=== PATIENT | female | born 1950 | race Caucasian/White ===

== ENCOUNTER 2023-03-21 14:50 | Emergency (ER) | payer MEDICARE, SELFPAY ==
[2023-03-21] VITALS (22 sets, daily range): BP systolic 156–160; BP diastolic 92–96; PULSE 84–102; RESP 10–24; TEMP 36.8; O2SAT 93–97; BMI 24.8
--- NOTE | 2023-03-21 14:59 | ECG_ITS ---
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
--- NOTE | 2023-03-21 15:00 | ED_ITS ---
HPI - Back Pain/Injury General Chief Complaint: Back Pain/Injury Time Seen by Provider: 03/21/23 15:00 Source: patient Mode of arrival: ambulance Limitations: no limitations History of Present Illness HPI Narrative: pt presents to the emergency department complaining of upper back pain. She states the left flank and abdomen have been hurting her. She is not sure if he has to do with her abdomen or her heart. Patient is. Anxious and hyperventilating. She states she has not taking anything at home for the pain. She states she had intermittent pain to her abdomen for 2 years. 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 Since she has a colostomy reversal she's had a lot of pain and has not had any answers from all of her specialists. She denies any hematuria, dysuria. She denies any fever, chills, cough, shortness of breath. denies any paresthesias, or weakness.She denies any trauma. She states she feels nauseated and has been tasting stool in her mouth. She has not been vomiting. She denies any diarrhea, or constipation. Related Data Allergies Allergy/AdvReac Type Severity Reaction Status Date / Time promethazine [From Phenergan] Allergy Severe swellilng Verified 03/21/23 14:54 Review of Systems ROS Status of ROS 10 or more systems reviewed and unremarkable except as noted in history and below [facility] Social History Smoking status: Former smoker Exam Narrative Exam Narrative: Nurses notes and vital signs reviewed and patient is not hypoxic. General: Nontoxic, hyperventilating and anxious Skin: Warm, dry, no pallor noted. No Rash Head: Normocephalic, atraumatic. Neck: Supple, non-tender. Eye: Pupils are equal, round and EOMI. No scleral icterus. Ears, Nose, Mouth, and Throat: TM clear, no posterior oropharynx erythema or nasal mucosal hypertrophy, uvula is mid-line Oral mucosa is moist Cardiovascular: Regular Rate and Rhythm without murmur, gallop or rub. Respiratory: No accessory muscle use or respiratory distress. Lungs are clear to auscultation, no wheezing, rales or rhonchi Chest Wall: no tenderness Back: No midline thoracic or lumbar vertebral tenderness. Tenderness to the left thoracic paraspinal muscles and lumbar spine muscles bilaterally. There is no ecchymosis, no erythema, no crepitance, no signs of trauma, or infection. There are no step-offs. There no rashes.No CVA tenderness Musculoskeletal: normal ROM, no calf or popliteal tenderness, no lower ext remity edema/swelling GI: Abdomen is soft, non-distended. Normal bowel sounds. No masses appreciated. LLQ tenderness to palpation. No rebound, guarding, or rigidity noted. Neurological: A&O x4. No cranial nerve dysfunction observed. No truncal ataxia. Moves all extremities. Sensation intact. Psychiatric: Cooperative and interactive. anxious Constitutional Vital Signs, click to edit/add: Last Vital Signs Temp 98.3 F 03/21/23 14:54 Pulse 90 03/21/23 18:10 Resp 24 03/21/23 18:10 BP 156/96 H 03/21/23 14:54 Pulse Ox 96 03/21/23 17:30 O2 Del Method Room Air 03/21/23 14:54 Course Vital Signs Vital signs: Vital Signs Temperature 98.3 F 03/21/23 14:54 Pulse Rate 102 H 03/21/23 14:54 Respiratory Rate 17 03/21/23 14:54 Blood Pressure 156/96 H 03/21/23 14:54 Pulse Oximetry 94 L 03/21/23 14:54 Oxygen Delivery Method Room Air 03/21/23 14:54 Temperature 98.3 F 03/21/23 14:54 Pulse Rate 90 03/21/23 18:10 Respiratory Rate 24 03/21/23 18:10 Blood Pressure 156/96 H 03/21/23 14:54 Pulse Oximetry 96 03/21/23 17:30 Oxygen Delivery Method Room Air 03/21/23 14:54 MDM - Back Pain/Injury MDM Narrative Medical decision making narrative: On arrival patient was extremely anxious. She was given 1 mg of Ativan IV which helped her symptoms. IV was established lab work was ordered. Patient continued to complain of her abdomen hurting. CT scan abdomen and pelvis was ordered. The patient will be signed out at the end of my shift to Dr. burroughs awaiting CT scan results, reevaluation, and disposition. Differential Diagnosis Differential diagnosis: Likely thoracic back pain Lab Data Attestation: I reviewed the patient's lab results. Labs: Lab Results 03/21/23 03/21/23 Range/Units 15:26 15:38 WBC 9.9 (4.0-11.0) 10^3/uL RBC 5.65 H (4.20-5.40) 10^6/uL Hgb 15.9 (12.0-16.0) g/dL Hct 47.1 (36.0-48.0) % MCV 83.4 (81.0-99.0) fL MCH 28.1 (26.7-34.0) pg MCHC 33.8 (29.9-35.2) g/dL RDW 13.6 (11.0-15.0) % Plt Count 293 (150-450) 10^3/uL MPV 9.2 L (9.5-13.5) fL Neut % (Auto) 54.0 (43.0-75.0) % Lymph % (Auto) 32.0 (20.5-60.0) % Boyd % (Auto) 8.5 (1.7-12.0) % Eos % (Auto) 4.3 (0.9-7.0) % Baso % (Auto) 0.7 (0.2-2.0) % Neut # (Auto) 5.3 (1.4-6.5) 10^3/uL Lymph # (Auto) 3.2 (1.2-3.8) 10^3/uL Boyd # (Auto) 0.8 (0.3-0.8) 10^3/uL Eos # (Auto) 0.4 (0.0-0.7) 10^3/uL Baso # (Auto) 0.1 (0.0-0.1) 10^3/uL Abs Immat Gran (auto) 0.05 H (0.00-0.03) 10^3/uL Imm/Tot Granulo (auto) 0.5 (0.0-0.5) % Sodium 137 (136-145) mmol/L Potassium 4.2 (3.5-5.1) mmol/L Chloride 102 (98-107) mmol/L Carbon Dioxide 23.0 (21.0-32.0) mmol/L Anion Gap 16.2 BUN 25.0 H (7.0-18.0) mg/dL Creatinine 1.10 H (0.55-1.02) mg/dL Est GFR ( Amer) 59 L (>=60) Est GFR (Non-Af Amer) 49 L (>=60) BUN/Creatinine Ratio 22.7 Glucose 108 H (74-106) mg/dL Calcium 10.0 (8.5-10.1) mg/dL Magnesium 2.1 (1.8-2.4) mg/dL Troponin I High Sens 16.7 (4.0-51.3) pg/mL Urine Color Yellow (YELLOW) Urine Clarity Clear (CLEAR) Urine pH 6.0 (5.0-9.0) Ur Specific [place] 1.025 (1.005-1.025) Urine Protein 30 A (NEG/TRACE) mg/dL Urine Glucose (UA) Negative (NEGATIVE) mg/dL Urine Ketones Negative (NEGATIVE) mg/dL Urine Occult Blood Negative (NEGATIVE) Urine Nitrite Negative (NEGATIVE) Urine Bilirubin Negative (NEGATIVE) Urine Urobilinogen 0.2 (0.2-1.0) EU/dL Ur Leukocyte Esterase Small A (NEGATIVE) POC Glucose 109 H (74-106) mg/dL ECG Data Attestation: I personally reviewed and interpreted this ECG as follows: Discharge Plan Discharge Chief Complaint: Back Pain/Injury Clinical Impression: Acute left flank pain, Thoracic back pain, Abdominal pain Referrals: ROBERTH WATTS [Primary Care Provider] - 1 week
[2023-03-21 15:39] LABS: Glucometer 109 mg/dL (74-106)
[2023-03-21] MEDS: 0.9 % SODIUM CHLORIDE 1,000 ML 999 ML IV (15:39)
[2023-03-21] MEDS: LORAZEPAM 2 MG/ML 1 ML VIAL 1 MG IV (15:39)
[2023-03-21 16:02] LABS: Basophils Absolute Auto 0.1 10^3/uL (0.0-0.1); Basophils Percent Auto 0.7 % (0.2-2.0); Eosinophils Absolute Auto 0.4 10^3/uL (0.0-0.7); Eosinophils Percent Auto 4.3 % (0.9-7.0); Hematocrit 47.1 % (36.0-48.0); Hemoglobin 15.9 g/dL (12.0-16.0); Immature Granulocytes Abs Auto 0.05 10^3/uL (0.00-0.03); Immature Granulocytes Pct Auto 0.5 % (0.0-0.5); Lymphocytes Absolute Auto 3.2 10^3/uL (1.2-3.8); Mean Corpuscular HGB Conc 33.8 g/dL (29.9-35.2); Mean Corpuscular Hemoglobin 28.1 pg (26.7-34.0); Mean Corpuscular Volume 83.4 fL (81.0-99.0); Mean Platelet Volume 9.2 fL (9.5-13.5); Monocytes Absolute Auto 0.8 10^3/uL (0.3-0.8); Monocytes Percent Auto 8.5 % (1.7-12.0); Neutrophils Absolute Auto 5.3 10^3/uL (1.4-6.5); Platelet Count 293 10^3/uL (150-450); Red Blood Count 5.65 10^6/uL (4.20-5.40); Red Cell Distribution Width 13.6 % (11.0-15.0); White Blood Count 9.9 10^3/uL (4.0-11.0)
[2023-03-21 16:20] LABS: Anion Gap 16.2; BUN Creatinine Ratio 22.7; Bilirubin Urine NEGATIVE (NEGATIVE); Blood Urine NEGATIVE (NEGATIVE); Chloride 102 mmol/L (98-107); Clarity Urine CLEAR (CLEAR); Color Urine YELLOW (YELLOW); Estimated GFR (African America 59 (>=60); Estimated GFR (Non-African Ame 49 (>=60); Glucose 108 mg/dL (74-106); Glucose Urine UA NEGATIVE (NEGATIVE); Ketones Urine NEGATIVE (NEGATIVE); Leukocyte Esterase Urine SMALL (NEGATIVE); Magnesium 2.1 mg/dL (1.8-2.4); Nitrite Urine NEGATIVE (NEGATIVE); Potassium 4.2 mmol/L (3.5-5.1); Protein Urine 30 mg/dL (NEG/TRACE); Sodium 137 mmol/L (136-145); Specific Gravity Urine 1.025 (1.005-1.025); Troponin I High Sensitivity 16.7 pg/mL (4.0-51.3); Urobilinogen Urine 0.2 EU/dL (0.2-1.0)
--- NOTE | 2023-03-21 17:46 | CT_ITS ---
[address] [address] Patient Name: TERESA ANDRE MRN: [id number] date: 1950 Sex: F Assigned Patient Location: ER Current Patient Location: Accession/Order Number: [id number] Exam Date: 03/21/2023 16:40 Report Date: 03/21/2023 19:46 At the request of: LOBITO VIERA Procedure: CT abdomen pelvis wo con EXAM: CT abdomen pelvis wo con TECHNIQUE: Axial CT images were obtained of the abdomen and pelvis without intravenous contrast. Sagittal and coronal reformatted images were also obtained. Dose reduction techniques were achieved by using automated exposure control and/or adjustment of mA and/or kV according to patient size and/or use of iterative reconstruction technique. HISTORY: abd pain COMPARISON: 08/20/2012 FINDINGS: Lower chest: The lower lungs are clear. Liver: The liver is homogeneous with normal contours and normal size. Gallbladder: The gallbladder is unremarkable. There is no intra or extrahepatic biliary dilatation. Pancreas: The pancreas is homogeneous without evidence for mass lesion or inflammation. 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 Adrenal glands: The adrenal glands are unremarkable Kidneys and bladder: The kidneys are unremarkable with no evidence for mass lesion, hydronephrosis or inflammation. The ureters demonstrate normal caliber. The urinary bladder is unremarkable. GI Tract: Stomach is unremarkable. Visualized small bowel is unremarkable without evidence for obstruction or active inflammation. The appendix is unremarkable.The visualized portion of the large bowel is unremarkable. Reproductive: The uterus has been removed. Lymph nodes: Mild right groin lymphadenopathy measuring up to 17 mm short axis, similar in size to 08/20/2012. Vascular: The aorta is not dilated. Peritoneum: No free intraperitoneal air or fluid. No acute inflammation. Abdominal wall: Unremarkable without acute abnormality. CT/CT abdomen pelvis wo con IMPRESSION: No acute inflammatory process. No obstructing urinary tract stone. No evidence for bowel obstruction. Low-attenuation mass of the spleen, increased in size from 2012. Question a complex cyst or hemangioma. Pre and postcontrast MRI of the abdomen is recommended for additional evaluation. Stable mild right groin and right iliac chain lymphadenopathy. Electronically authenticated by: JESSY STEVENS Date: 03/21/2023 19:46
[2023-03-21] MEDS: TRAMADOL HCL 50 MG TABLET PO (21:48)
== END 2023-03-21 23:33 | disposition home or self-care (01) ==
PROVIDERS: Emergency Provider Emergency Medicine; PCP Family Medicine
DX: M54.6 Pain in thoracic spine (principal); R10.9 Unspecified abdominal pain; N17.9 Acute kidney failure, unspecified; D18.03 Hemangioma of intra-abdominal structures; Z87.891 Personal history of nicotine dependence
CPT/HCPCS: 36415; 74176; 80048; 81003; 83735; 84484; 85025; 93005; 96374; 99285

== ENCOUNTER 2023-03-30 12:05 | Emergency (ER) | payer MEDICARE, SELFPAY ==
[2023-03-30 12:10] VITALS: BP 142/70; PULSE 101; RESP 18; TEMP 36.8; O2SAT 95; BMI 21.3
--- NOTE | 2023-03-30 12:25 | ECG_ITS ---
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
[2023-03-30 12:55] LABS: Basophils Absolute Auto 0.1 10^3/uL (0.0-0.1); Basophils Percent Auto 0.4 % (0.2-2.0); Eosinophils Absolute Auto 0.3 10^3/uL (0.0-0.7); Eosinophils Percent Auto 2.9 % (0.9-7.0); Hemoglobin 16.5 g/dL (12.0-16.0); Immature Granulocytes Abs Auto 0.06 10^3/uL (0.00-0.03); Immature Granulocytes Pct Auto 0.5 % (0.0-0.5); Lymphocytes Absolute Auto 2.8 10^3/uL (1.2-3.8); Lymphocytes Percent Auto 25.1 % (20.5-60.0); Mean Corpuscular HGB Conc 34.4 g/dL (29.9-35.2); Mean Corpuscular Hemoglobin 28.4 pg (26.7-34.0); Mean Corpuscular Volume 82.8 fL (81.0-99.0); Monocytes Absolute Auto 0.8 10^3/uL (0.3-0.8); Monocytes Percent Auto 6.7 % (1.7-12.0); Neutrophils Absolute Auto 7.2 10^3/uL (1.4-6.5); Neutrophils Percent Auto 64.4 % (43.0-75.0); Platelet Count 284 10^3/uL (150-450); Red Cell Distribution Width 13.6 % (11.0-15.0); White Blood Count 11.2 10^3/uL (4.0-11.0)
[2023-03-30 13:07] LABS: INR 0.97; Prothrombin Time 10.3 sec (9.0-11.6)
[2023-03-30 13:21] LABS: Alanine Aminotransferase 32 U/L (14-59); Albumin Globulin Ratio 1.1; Albumin Level 4.4 g/dL (3.4-5.0); Alkaline Phosphatase 98 U/L (46-116); Anion Gap 17.2; Aspartate Amino Transferase 27 U/L (15-37); BUN Creatinine Ratio 16.4; Bilirubin Total 0.5 mg/dL (0.2-1.0); Calcium 9.5 mg/dL (8.5-10.1); Carbon Dioxide 22.9 mmol/L (21.0-32.0); Chloride 102 mmol/L (98-107); Estimated GFR (African America 52 (>=60); Estimated GFR (Non-African Ame 43 (>=60); Globulin 3.9 g/dL; Glucose 153 mg/dL (74-106); Potassium 4.1 mmol/L (3.5-5.1); Sodium 138 mmol/L (136-145); Total Protein 8.3 g/dL (6.4-8.2); Troponin I High Sensitivity 17.3 pg/mL (4.0-51.3)
--- NOTE | 2023-03-30 13:43 | CT_ITS ---
The [address] [address] Patient Name: TERESA ANDRE MRN: [id number] date: 1950 Sex: F Assigned Patient Location: ER Current Patient Location: ER Accession/Order Number: [id number] Exam Date: 03/30/2023 14:00 Report Date: 03/30/2023 14:42 At the request of: WINSOME VILLATORO Procedure: CT abdomen pelvis wo con EXAM: CT abdomen pelvis wo con HISTORY: abd pain COMPARISON: 03/21/2023 TECHNIQUE: Axial CT images were obtained of the abdomen and pelvis without intravenous contrast. Multiplanar reconstructions were performed. ABDOMEN/PELVIS FINDINGS: Lower Chest: Unremarkable. Liver: Hepatic steatosis is present. Biliary/Gallbladder: Unremarkable. Pancreas: Unremarkable. Spleen: Hypodense lesion is again noted in the spleen measuring approximately 2.9 cm. Adrenal Glands: Unremarkable. Kidneys: Unremarkable. Gastrointestinal/Peritoneum: No acute abnormality. Mild colonic diverticulosis is present. The appendix is unremarkable. No free air or free fluid. Vascular: Postoperative changes are present of an aorto biiliac bypass graft. Lymph Nodes: There is an enlarged right inguinal lymph node measuring 1.8 cm in short axis. A right distal external iliac chain lymph node is also enlarged measuring 1.6 cm. Multiple prominent lymph nodes are also present more proximally in the right iliac chain. Pelvic Organs: Prior hysterectomy. Bladder: Unremarkable. Bones: No acute osseous abnormality. Soft tissues: Postoperative changes are present to the anterior abdominal wall with an abdominal wall defect present. There is a fat-containing anterior abdominal wall hernia present measuring 4.[address]/CT abdomen pelvis wo con IMPRESSION: 1. No acute abnormality of the abdomen and pelvis. 2. Stable lymphadenopathy in the right inguinal and iliac chain regions. 3. Hepatic steatosis. 4. Hypodense lesion again noted in the spleen measuring approximately 2.9 cm. 5. Prior hysterectomy. 6. Mild colonic diverticulosis. 7. Aortobiiliac bypass graft. Electronically authenticated by: FRANCISCO VERDE Date: 03/30/2023 14:42
[2023-03-30] MEDS: MORPHINE SULFATE 2 MG/ML SYRINGE IV (13:51)
[2023-03-30] MEDS: 0.9 % SODIUM CHLORIDE 1,000 ML 1000 ML IV (14:37)
--- NOTE | 2023-03-30 15:19 | ED.ABDPAIN1 ---
HPI - Abdominal Pain General Chief Complaint: Abdominal Pain Stated Complaint: STOMACH/ABDOMINAL PAIN/SPINE FLUID Time Seen by Provider: 03/30/23 12:23 Source: patient Mode of arrival: Wheelchair Limitations: no limitations History of Present Illness HPI narrative: This is the second time evaluate the patient for epigastric pain associated with according to the patient weird sensation in her throat that she refers to as possibly her stool , the patient is coming to the ER with epigastric pain that been continuous at least for a month denying any nausea at the moment or any vomiting or chest pain The patient when asked about symptoms she refers to her symptoms for more than few weeks with hx of CSF leak that she refer to few years ago with no details given to the diagnosis at the patient is poor historian The patient also referred to possibly having a pancreatic mass last time she was evaluated in the ER and she denies any change in bowel movement The patient is complaining also of this vibrating sense everywhere in her body And is on and off headache that in the frontal area Related Data Home Medications Medication Instructions Recorded Confirmed cyclobenzaprine 10 mg tablet 10 mg PO Q8H 03/30/23 03/30/23 eszopiclone 3 mg tablet 3 mg PO DAILY 03/30/23 03/30/23 metoprolol succinate 25 mg 25 mg PO DAILY 03/30/23 03/30/23 tablet,extended release 24 hr omeprazole 20 mg capsule,delayed 20 mg PO DAILY 03/30/23 03/30/23 release sertraline 100 mg tablet 100 mg PO Q24H 03/30/23 03/30/23 Previous Rx's Medication Instructions Recorded dicyclomine 10 mg capsule 10 mg PO QID PRN abdominal pain 03/21/23 #10 caps nitrofurantoin 100 mg PO BID 5 days #10 caps 03/21/23 monohydrate/macrocrystals 100 mg capsule (Macrobid) famotidine 20 mg tablet (Pepcid) 20 mg PO BID #20 tabs 03/30/23 Allergies Allergy/AdvReac Type Severity Reaction Status Date / Time promethazine [From Phenergan] Allergy Severe swellilng Verified 03/21/23 14:54 Review of Systems ROS Status of ROS 10 or more systems reviewed and unremarkable except as noted in history and below PFSH PFSH Social History Smoking status: Former smoker Exam Narrative Exam Narrative: Nurses notes and vital signs reviewed and patient is not hypoxic. General: Well-appearing and in no apparent distress. Skin: Warm, dry, no pallor noted. No rash. Head: Normocephalic, atraumatic. Neck: Supple, non-tender. Eye: Pupils are equal, round and EOMI. No scleral icterus. Ears, Nose, Mouth, and Throat: TM are clear, no nasal mucosal hypertrophy. Oral mucosa is moist, no posterior oropharynx erythema, uvula is mid-line Cardiovascular: Regular Rate and Rhythm without murmur, gallop or rub. Respiratory: No accessory muscle use or respiratory distress. Lungs are clear to auscultation, no wheezing, rales or rhonchi Chest Wall: no tenderness Back: No midline thoracic or lumbar vertebral tenderness. No CVA tenderness Musculoskeletal: normal ROM, no calf or popliteal tenderness, no lower extremity edema/swelling GI: Abdomen is soft, non-distended. Normal bowel sounds. No masses appreciated. No tenderness to palpation. No rebound, guarding, or rigidity noted. Neurological: A&O x4. No cranial nerve dysfunction observed. Moves all extremities. Sensation intact. Psychiatric: pt tearful and crying Constitutional Vital Signs, click to edit/add: Last Vital Signs Temp 98.2 F 03/30/23 12:10 Pulse 101 H 03/30/23 12:10 Resp 18 03/30/23 12:10 BP 142/70 H 03/30/23 12:10 Pulse Ox 95 03/30/23 12:10 O2 Del Method Room Air 03/30/23 12:10 Course Vital Signs Vital signs: Vital Signs Temperature 98.2 F 03/30/23 12:10 Pulse Rate 101 H 03/30/23 12:10 Respiratory Rate 18 03/30/23 12:10 Blood Pressure 142/70 H 03/30/23 12:10 Pulse Oximetry 95 03/30/23 12:10 Oxygen Delivery Method Room Air 03/30/23 12:10 Temperature 98.2 F 03/30/23 12:10 Pulse Rate 101 H 03/30/23 12:10 Respiratory Rate 18 03/30/23 12:10 Blood Pressure 142/70 H 03/30/23 12:10 Pulse Oximetry 95 03/30/23 12:10 Oxygen Delivery Method Room Air 03/30/23 12:10 MDM - Abdominal Pain MDM Narrative Medical decision making narrative: The patient EKG upon presentation showing sinus rhythm with a heart rate of [address] elevation or depression The patient CBC shows mild leukocytosis and chemistry showing some mild acute kidney injury as well compared to the last time she was here CT abdomen pelvis showed no acute pathology the patient was provided with IV fluid morphine CT abdomen pelvis with the patient shows no pancreatic mass even the last time reviewed it was not showing any pancreatic mass it was showing her spleen possible hemangioma or cyst which will need MRI as outpatient It was noted that the patient is very fixated on the fact that she have stool in her mouth which right now the CAT scan did not show any stool retention or small bowel obstruction The patient is argumentative and would not listen to any explanation other than the one that she wants to hear when she had that she have a stool in her mouth, she also had the results of the CAT scan explained to her as well as her at the bedside The patient case was discussed with her primary care team and according to them she told them that she is coming to the ER and they did not call her today to come to the ER, the patient when I was explained to her the plan she mentioned that she have CSF leaking and she was told that she need to go to [facility] Right now my work-up did not show any pathology that can be related clinically to her diagnosis in mind and the fact that her symptoms have been going on at least for a few weeks does not correlate with this diagnosis The patient was discharged with Pepcid twice daily in addition to referral to gastroenterology as outpatient which was delivered to her primary care doctor office as well Lab Data Labs: Lab Results 03/30/23 03/30/23 Range/Units 12:40 15:59 WBC 11.2 H (4.0-11.0) 10^3/uL RBC 5.80 H (4.20-5.40) 10^6/uL Hgb 16.5 H (12.0-16.0) g/dL Hct 48.0 (36.0-48.0) % MCV 82.8 (81.0-99.0) fL MCH 28.4 (26.7-34.0) pg MCHC 34.4 (29.9-35.2) g/dL RDW 13.6 (11.0-15.0) % Plt Count 284 (150-450) 10^3/uL MPV 9.0 L (9.5-13.5) fL Neut % (Auto) 64.4 (43.0-75.0) % Lymph % (Auto) 25.1 (20.5-60.0) % [place] % (Auto) 6.7 (1.7-12.0) % Eos % (Auto) 2.9 (0.9-7.0) % Baso % (Auto) 0.4 (0.2-2.0) % Neut # (Auto) 7.2 H (1.4-6.5) 10^3/uL Lymph # (Auto) 2.8 (1.2-3.8) 10^3/uL [place] # (Auto) 0.8 (0.3-0.8) 10^3/uL Eos # (Auto) 0.3 (0.0-0.7) 10^3/uL Baso # (Auto) 0.1 (0.0-0.1) 10^3/uL Abs Immat Gran (auto) 0.06 H (0.00-0.03) 10^3/uL Imm/Tot Granulo (auto) 0.5 (0.0-0.5) % PT 10.3 (9.0-11.6) sec INR 0.97 Sodium 138 (136-145) mmol/L Potassium 4.1 (3.5-5.1) mmol/L Chloride 102 (98-107) mmol/L Carbon Dioxide 22.9 (21.0-32.0) mmol/L Anion Gap 17.2 BUN 20.0 H (7.0-18.0) mg/dL Creatinine 1.22 H (0.55-1.02) mg/dL Est GFR ( Amer) 52 L (>=60) Est GFR (Non-Af Amer) 43 L (>=60) BUN/Creatinine Ratio 16.4 Glucose 153 H (74-106) mg/dL Calcium 9.5 (8.5-10.1) mg/dL Total Bilirubin 0.5 (0.2-1.0) mg/dL AST 27 (15-37) U/L ALT 32 (14-59) U/L Alkaline Phosphatase 98 (46-116) U/L Troponin I High Sens 17.3 (4.0-51.3) pg/mL Total Protein 8.3 H (6.4-8.2) g/dL Albumin 4.4 (3.4-5.0) g/dL Globulin 3.9 g/dL Albumin/Globulin Ratio 1.1 POC Glucose 112 H (74-106) mg/dL Discharge Plan Discharge Chief Complaint: Abdominal Pain Clinical Impression: Abdominal pain Patient Disposition: Home, Self-Care Time of Disposition Decision: 16:04 Condition: Good Mode of Transportation: Private Vehicle Prescriptions / Home Meds: New famotidine [Pepcid] 20 mg tablet 20 mg PO BID Qty: 20 0RF No Action cyclobenzaprine 10 mg tablet 10 mg PO Q8H eszopiclone 3 mg tablet 3 mg PO DAILY metoprolol succinate 25 mg tablet extended release 24 hr 25 mg PO DAILY omeprazole 20 mg capsule,delayed release(DR/EC) 20 mg PO DAILY sertraline 100 mg tablet 100 mg PO Q24H nitrofurantoin monohyd/m-cryst [Macrobid] 100 mg capsule 100 mg PO BID 5 Days Qty: 10 0RF Rx Instructions: must administer with a meal/food dicyclomine 10 mg capsule 10 mg PO QID PRN (Reason: abdominal pain) Qty: 10 0RF Instructions: Gastritis (ED), Abdominal Pain (ED) Stand Alone Forms: Portal Instructions Referrals: ROBERTH WATTS [Primary Care Provider] - 1 week Discharge Date/Time: 03/30/23 16:21
[2023-03-30 16:00] LABS: Glucometer 112 mg/dL (74-106)
== END 2023-03-30 16:21 | disposition home or self-care (01) ==
PROVIDERS: Emergency Provider Emergency Medicine; PCP Family Medicine
DX: R10.9 Unspecified abdominal pain (principal); Z79.899 Other long term (current) drug therapy; Z87.891 Personal history of nicotine dependence
CPT/HCPCS: 36415; 74176; 80053; 84484; 85025; 85610; 93005; 96374; 99285

== ENCOUNTER 2023-10-21 13:55 | Emergency (ER) | payer MEDICARE, SELFPAY ==
[2023-10-21 13:59] VITALS: BP 145/115
--- NOTE | 2023-10-21 14:05 | PC.NURSE ---
Unable to get vitals or finish triage d/t pt aggressiveness and verbally yelling. Pt started coming off end of bed pointing at this nurse yelling, I'll take you, I'll take you in a threatening way. This nurse tries to reason with pt asking her to get back in bed so vitals can be complete and to please explain why she has arrived by EMS. Pt unable to control emotions and will not cooperate. [facility] Security called to assist calming pt. Pt seen by Dr and nurse at bedside to see how she can be helped. Pt then states she wants to leave AMA. here with pt to take her home.
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
--- NOTE | 2023-10-21 14:17 | PC.NURSE ---
ER DR Bliss reports pt only wanted to see her clothing presser and once pt was told her clothing presser does not see pt's in this ER pt refused all care and wants to leave. Pt escorted out of ER and to waiting.
== END 2023-10-21 14:12 | disposition home or self-care (01) ==
PROVIDERS: Emergency Provider Emergency Medicine; PCP Family Medicine
DX: Z53.29 Procedure and treatment not carried out because of patient's decision for other reasons (principal)

== ENCOUNTER 2023-10-21 14:25 | Emergency (ER) | payer MEDICARE, SELFPAY ==
[2023-10-21] VITALS (12 sets, daily range): BP systolic 116–131; BP diastolic 77–108; PULSE 89–116; RESP 12–24; TEMP 36.8; O2SAT 95–98
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
--- NOTE | 2023-10-21 15:19 | ECG_ITS ---
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
[2023-10-21 15:31] LABS: Basophils Absolute Auto 0.1 10^3/uL (0.0-0.1); Basophils Percent Auto 0.6 % (0.2-2.0); Eosinophils Absolute Auto 0.4 10^3/uL (0.0-0.7); Eosinophils Percent Auto 4.1 % (0.9-7.0); Hematocrit 44.1 % (36.0-48.0); Hemoglobin 14.7 g/dL (12.0-16.0); Immature Granulocytes Abs Auto 0.03 10^3/uL (0.00-0.03); Immature Granulocytes Pct Auto 0.4 % (0.0-0.5); Lymphocytes Percent Auto 22.9 % (20.5-60.0); Mean Corpuscular HGB Conc 33.3 g/dL (29.9-35.2); Mean Corpuscular Hemoglobin 28.7 pg (26.7-34.0); Mean Platelet Volume 9.4 fL (9.5-13.5); Monocytes Absolute Auto 0.6 10^3/uL (0.3-0.8); Monocytes Percent Auto 6.6 % (1.7-12.0); Neutrophils Absolute Auto 5.6 10^3/uL (1.4-6.5); Neutrophils Percent Auto 65.4 % (43.0-75.0); Platelet Count 263 10^3/uL (150-450); Red Blood Count 5.13 10^6/uL (4.20-5.40); Red Cell Distribution Width 13.2 % (11.0-15.0); White Blood Count 8.5 10^3/uL (4.0-11.0)
[2023-10-21] MEDS: LORAZEPAM 2 MG/ML 1 ML VIAL 0.5 MG IV (15:39)
[2023-10-21] MEDS: 0.9 % SODIUM CHLORIDE 1,000 ML 1000 ML IV (15:42)
[2023-10-21 15:44] LABS: Alanine Aminotransferase 25 U/L (14-59); Albumin Level 3.8 g/dL (3.4-5.0); Alkaline Phosphatase 101 U/L (46-116); Anion Gap 16.3; Aspartate Amino Transferase 22 U/L (15-37); BUN Creatinine Ratio 13.9; Bilirubin Total 0.7 mg/dL (0.2-1.0); Calcium 9.5 mg/dL (8.5-10.1); Carbon Dioxide 25.3 mmol/L (21.0-32.0); Chloride 106 mmol/L (98-107); Estimated GFR (African America 52 (>=60); Estimated GFR (Non-African Ame 43 (>=60); Globulin 3.8 g/dL; Glucose 150 mg/dL (74-106); Potassium 3.6 mmol/L (3.5-5.1); Sodium 144 mmol/L (136-145); Total Protein 7.6 g/dL (6.4-8.2)
[2023-10-21 15:51] LABS: Salicylate <2.8 mg/dL (<=19.9); Troponin I High Sensitivity 27.1 pg/mL (4.0-51.3)
[2023-10-21 15:52] LABS: Acetaminophen <2.0 ug/mL (10.0-30.0); Ethanol <3 mg/dL; INR 1.01; Partial Thromboplastin Time 25.9 sec (22.3-36.2); Prothrombin Time 10.7 sec (9.0-11.6)
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
== END 2023-10-21 17:27 | disposition home or self-care (01) ==
PROVIDERS: Physician Assistant; Emergency Provider Emergency Medicine; PCP Family Medicine
DX: S40.012A Contusion of left shoulder, initial encounter (principal); M25.552 Pain in left hip; R07.81 Pleurodynia; Y04.2XXA Assault by strike against or bumped into by another person, initial encounter; R06.02 Shortness of breath; Z79.899 Other long term (current) drug therapy
CPT/HCPCS: 36415; 70450; 71260; 72125; 73030; 73502; 80053; 80179; 80307; 80320; 80329; 83880; 84484; 85025; 85610; 85730; 93005; 96374; 99285; J2060; Q9967

== ENCOUNTER 2023-12-18 08:22 | Outpatient (OUT) | payer MEDICARE, SELFPAY ==
--- OUTSIDE RECORDS SUMMARY | 2023-12-18 08:39 | XMS_ITS | CCD ---
Author Organization [facility] Care Team Providers Care Accounting Teacher Name Role Phone AURA, PABLITO S Unavailable Unavailable AURA, PABLITO S Unavailable Unavailable EMELY MILAN Admitting Unavailable EMELY MILAN Attending Unavailable STEFANIE, RUGEN Referring Unavailable STEFANIE, RUGEN Primary Care Unavailable STEFANIE, RUGEN Admitting Unavailable STEFANIE RUGEN Attending Unavailable STEFANIE, RUGEN Primary Care Unavailable STEFANIE, RUGEN Consulting Unavailable Stefanie, Rugen Gingery Primary Care Provider Lam Mcclendon MD Unavailable Stefanie, Rugen Ty Primary Care Provider Lam Mcclendon MD Unavailable Stefanie, Ruggreta Crawford Primary Care Provider Lam Mcclendon MD Unavailable Roberth Watts MD Primary Care Provider PERLA DIAZ Attending Unavailable Lam Mcclendon MD Unavailable Aruna Keyes CNP S Unavailable [phone] STEFANIE, RUGEN MABALAY Primary Care Unavailable MARTHA LOBO Attending Unavailable STEFANIE, RUGEN MABALAY Primary Care Unavailable SELF Referring Unavailable LUIS GUTIERREZ Attending Unavailable LUIS GUTIERREZ Attending Unavailable STEFANIE, RUGEN MABALAY Primary Care Unavailable Allergies Allergy Classification Reported Allergen(s) Allergy Type Date of Onset Reaction(s) Facility (17 sources) promethazine; Translations: [PROMETHAZINE HCL] Drug Allergy 7 [facility] Other [place] [facility] (1 source) Levamisole Drug Allergy 2 [facility] Repository (17 sources) sutures; Translations: [Unknown] Propensity to adverse reactions (disorder) 7 Anaphylaxis [facility] Repository (3 sources) Flunarizine; Translations: [PROMETHAZINE] Drug Allergy 7 [facility] Repository (1 source) Egg/Poultry Drug allergy (disorder) [facility] Rep[facility] (2 sources) Adhesive agent; Translations: [ADHESIVE] Drug Allergy 4 Unknown [facility] (16 sources) egg (chicken) allergenic extract; Translations: [EGG EXTRACT] Drug Allergy 1 GI Upset [facility] (15 sources) Promethazine Drug Allergy 4 Unknown [facility] (3 sources) Influenza Virus Vaccines; Translations: [INFLUENZA VIRUS VACCINES] Drug Allergy 1 Other: See Comments [facility] (14 sources) Adhesive agent Drug Allergy 4 Unknown [facility] (14 sources) Influenza Virus Vaccines Drug Allergy 1 Other: See Comments [facility] (1 source) EGG DERIVED; Translations: [EGG DERIVED] Propensity to adverse reactions to drug (disorder) 4 [facility] Repository (1 source) PHENERGAN PLAIN; Translations: [PHENERGAN PLAIN] Propensity to adverse reactions to drug (disorder) 7 [facility] Repository Medications Current Medications Medication Drug Class(es) Dates Sig (Normalized) Sig (Original) baclofen 10 mg oral tablet (6 sources) gamma-Aminobutyric Acid-ergic Agonist Start: 07-04-2022 End: 11-01-2022 take 1 tablet by mouth twice daily baclofen (LIORESAL) 10 mg tablet Indications: Spasticity , Myelopathy (HCC) Take 1 tablet by mouth twice daily. 60 tablet 3 07/04/2022 11/01/2022 Active Comment on above: Take 1 tablet by lucina th twice daily. ezetimibe 10 mg oral tablet (3 sources) Dietary Cholesterol Absorption Inhibitor Start: 05-20-2023 End: 05-19-2024 ezetimibe (ZETIA) 10 mg tablet Take 10 mg by mouth. 0 05/20/2023 05/19/2024 Active Comment on above: Take 10 mg by mouth. Completed/Discontinued Medications Medication Drug Class(es) Dates Sig (Normalized) Sig (Original) aspirin 81 mg delayed release oral tablet (15 sources) Platelet Aggregation Inhibitor, Nonsteroidal Anti-inflammatory Drug Start: 01-17-2009 aspirin(ECOTRIN LOW STRENGTH 81 MG TAB) Take one(1) tablet daily. 0 01/17/2009 Active Comment on above: Take one(1) tablet d aily. cholecalciferol 0.025 mg oral capsule (14 sources) Vitamin D Start: 07-04-2022 take 1 capsule by mouth once daily Cholecalciferol, Vitamin D3, (VITAMIN D) 25 mcg (1,000 unit) cap Indications: Myelopathy (HCC) Take 1 capsule by mouth once daily. 0 07/04/2022 Active Comment on above: Take 1 capsule by mo [facility] once daily. cyclobenzaprine hydrochloride 10 mg oral tablet (3 sources) Muscle Relaxant cyclobenzaprine (FLEXERIL) 10 mg tablet Take 10 mg by mouth. 0 Active Comment on above: Take 10 mg by mouth. docusate sodium 100 mg oral capsule (15 sources) Start: 06-17-2018 take 1 capsule by mouth every eight hours as needed docusate sodium (COLACE) 100 mg capsule Take 1 capsule by mouth three times daily as needed for Constipation. 100 capsule 0 06/17/2018 Active Comment on above: Take 1 capsule by mo [facility] three times daily as needed for Constipation. eszopiclone 3 mg oral tablet (15 sources) Start: 01-17-2009 ESZOPICLONE 3 MG TAB Take 1 tablet at bedtime 0 01/17/2009 Active Comment on above: Take 1 tablet at bed time famotidine 20 mg oral tablet (15 sources) Histamine-2 Receptor Antagonist Start: 03-09-2021 take 1 tablet by mouth twice daily famotidine (PEPCID) 20 mg tablet Take 20 mg by mouth twice daily. 0 03/09/2021 Active Comment on above: Take 20 mg by mouth twice daily. ibuprofen 200 mg oral tablet (15 sources) Nonsteroidal Anti-inflammatory Drug Start: 05-22-2009 IBUPROFEN 200 MG TAB Take 1-2 tablet's) every four(4) to six(6) hours as needed for pain. 0 05/22/2009 Active Comment on above: Take 1-2 tablet's) e very four(4) to six(6) hours as needed for pain. 24 hr metoprolol succinate 25 mg extended release oral tablet (15 sources) beta-Adrenergic Ping Start: 12-02-2020 take 1 tablet by mouth twice daily metoprolol succinate ER (TOPROL XL) 25 mg 24 hr tablet Take 50 mg by mouth two times a day. 0 12/02/2020 Active Start: 12-02-2020 take 1 tablet by lucina th twice daily metoprolol succinate ER (TOPROL XL) 25 mg 24 hr tablet Take 25 mg by mouth twice daily. 0 12/02/2020 Active Comment on above: Take 25 mg by mouth twice daily. Take 50 mg by mouth two times a day. nitroglycerin 0.4 mg sublingual tablet (15 sources) Nitrate Vasodilator Start: 08-01-20 nitroglycerin sublingual (NITROQUICK) 0.4 mg SL tablet 1 under the tongue as needed for angina, may repeat q5mins for up three doses 0 08/01/2020 Active Comment on above: 1 under the tongue a s needed for angina, may repeat q5mins for up three doses rosuvastatin calcium 5 mg oral tablet (15 sources) HMG-CoA Reductase Inhibitor Start: 09-03-20 20 take 1 tablet by mouth once daily rosuvastatin (CRESTOR) 5 mg tablet take 1 tablet by mouth once daily 0 09/03/2020 Active Comment on above: take 1 tablet by lucina th once daily sAXagliptin 2.5 mg oral tablet (15 sources) Dipeptidyl Peptidase 4 Inhibitor sAXagliptin (ONGLYZA ) 2.5 mg tab Take 2.5 mg by mouth. 0 Active Comment on above: Take 2.5 mg by mouth . sertraline 50 mg oral tablet (15 sources) Serotonin Reuptake Inhibitor Start: 01-18-20 sertraline hcl(ZOLOFT 50 MG TAB) Take 25 mg by mouth once daily. 0 01/17/2009 Active Start: 01-17-2009 sertraline hcl (ZOLOFT 50 MG TAB) Take one(1) tablet daily. 0 01/17/2009 Active Comment on above: Take one(1) tablet d aily. Take 25 mg by mouth once daily. sucralfate 1000 mg oral tablet (15 sources) Aluminum Complex Start: take 1 tablet by mouth four times daily sucralfate (CARAFATE) 1 gram tablet Take 1 g by mouth four times daily. 0 02/13/2021 Active Comment on above: Take 1 g by mouth fo ur times daily. traMADol hydrochloride 50 mg oral tablet (15 sources) Opioid Agonist Start: take 1 tablet by mouth every six hours as needed traMADol (ULTRAM) 50 mg tablet Take 50 mg by mouth every 6 hours as needed. 0 12/31/2020 Active Comment on above: Take 50 mg by mouth every 6 hours as needed. vitamin b12 1 mg/ml injectable solution (15 sources) Vitamin B12 Start: cyanocobalamin 1,000 mcg/mL inject 1 milliliter ( 1000 MCG ) intramuscularly Every Month 0 03/21/2021 Active Comment on above: inject 1 milliliter ( 1000 MCG ) intramuscularly Every Month Problems Active Problems Problem Classification Problem Date Documented Date Episodic/Chronic Abdominal pain (1 source) Generalized abdominal pain; Translations: [Generalized abdominal pain] Episodic Cardiac dysrhythmias (3 sources) Cardiac arrhythmia, unspecified; Translations: [Paroxysmal atrial fibrillation] Onset: 07-18-2019 Chronic Cardiac dysrhythmias (2 sources) Palpitations; Translations: [Palpitations] Onset: 10-20-2023 Episodic Complication of device; implant or graft (2 sources) Atherosclerosis of coronary artery bypass graft(s), unspecified, with other forms of angina pectoris; Translations: [Atherosclerosis of coronary artery bypass graft(s), unspecified, with other forms of angina pectoris] Onset: 10-20-2023 Chronic Coronary atherosclerosis and other heart disease (2 sources) Other forms of angina pectoris; Translations: [Other forms of angina pectoris] Onset: 10-20-2023 Chronic Diabetes mellitus with complications (4 sources) Type 2 diabetes mellitus with diabetic chronic kidney disease; Translations: [TYPE 2 DM W/DIABETIC CKD] Onset: 07-14-2019 Chronic Essential hypertension (2 sources) Essential (primary) hypertension; Translations: [Essential (primary) hypertension] Onset: 10-20-2023 Chronic Headache; including migraine (7 sources) Tension-type headache; Translations: [Tension-type headache, unspecified, not intractable] Onset: 03-24-2023 03-24-2023 Chronic Heart valve disorders (2 sources) Rheumatic disorders of both mitral and aortic valves; Translations: [Rheumatic disorders of both mitral and aortic valves] Onset: 10-20-2023 Chronic Other connective tissue disease (1 source) Spasticity; Translations: [Cramp and spasm] Episodic Other lower respiratory disease (2 sources) Other forms of dyspnea; Translations: [Other forms of dyspnea] Onset: 10-20-2023 Episodic Other nervous system disorders (2 sources) Spinal cord disease; Translations: [Disease of spinal cord, unspecified] Chronic Other nervous system disorders (1 source) Chronic pain syndrome; Translations: [Chronic pain syndrome] 07-02-2023 Chronic Other nervous system disorders (1 source) Other acute postprocedural pain; Translations: [Other acute postprocedural pain] Onset: 06-18-2018 Episodic Other nervous system disorders (16 sources) Skin sensation disturbance; Translations: [Unspecified disturbances of skin sensation] Onset: 05-10-2003 01-01-2004 Episodic Spondylosis; intervertebral disc disorders; other back problems (1 source) Spinal stenosis in cervical region; Translations: [Spinal stenosis, cervical region] 07-02-2023 Episodic Unclassified (1 source) Other specified postprocedural states; Translations: [Other specified postprocedural states] Onset: 06-18-2018 Past or Other Problems Problem Classification Problem Date Documented Da te Episodic/Chronic Open wounds of head; neck; and trunk (20 sources) Unspecified open wound of abdominal wall, unspecified quadrant without penetration into peritoneal cavity, subsequent encounter; Translations: [Open wound of abdomen] Onset: 06-18-2018 06-18-2018 Episodic Residual codes; unclassified (15 sources) Patient encounter status; Translations: [Encounter for procedure for purposes other than remedying health state, unspecified] Onset: 06-18-2018 06-18-2018 Episodic Results Test Name Value Interpretation Reference Range Facility CNOVon 11-17-2023 CNOV Office Visit ([facility] ) TERESA [id number]) 1950 F Date Time Provider Department 11/17/23 11:30 AM LUIS GUTIERREZ During your visit today, we recorded the following information about you: Pulse Blood pressure Weight Height 71/minute 162/73 59 kg 1.6 m Luis Gutierrez MD 11/29/2023 10:47 PM Signed [facility] Patient returns for follow-up evaluation. She was seen at the [facility] for multiple sclerosis evaluation in [address] ([address] Winston), 2020 (by me), March 2023 (by me). Each evaluation did not find evidence to support the diagnosis of multiple sclerosis. She returns today for further consideration of her neurological symtpoms. Current symptoms include: Left ear pain Swallowing difficulties Flickering in her eyes Pain in her chest - soreness Pain in the back of her scapula - stabbing, hot sensation Frequent headaches - daily; wax and wane in severity, made better when lying flat Abdominal pain Additional symptoms that were reported in February 2021 (and their current status): 1. Walking difficulty, doesn't feel her legs, hard to move her feet. Uses a wheelchair for the last year, although walks around her house using gallego. 2. Spasticity with cramps, feet will turn in and her toes would curl 3. Numbness and tingling in both hands and feet, has DM for several years 4. Vision disturbances, blurriness, pain behind her eyes, fluttering, eyes jitters 5. Tremor in both hands 6. Daily headaches Since her last consultation in March 2023, she's been in the ED several times. She reports that her memory and thought process and words are not coming out. When she tries to say too much, she has difficulty. She forgets where she leaves things. She gets weak in her trunk when she stands up. She has low energy. Left leg gives out. She feels she doesn't have blood flow in her hands. When she lifts her arms up it gets tired. Diagnostic tests: none recently. Past medical history, past social history, and past family history was reviewed and was unchanged from previous visit. Medications and allergies were reviewed and updated. Assessment: She has a variety of neurologic symptoms which can wax and wane over time. Overall, the clinical picture is not suggestive of a specific neurological condition. There is no evidence to suggest multiple sclerosis and I don't recommend further neurologic testing. She has significant anxiety, which then leads to speech difficulties and other symptoms. She's been on Zoloft 25 mg daily for >10 years for this. I suspect at least some of her symptoms are related to anxiety and recommend she discuss with local providers alternative management strategies, including medication and counseling/health psychology. During this patient visit I have spent approximately 20 minutes out of 30 in counseling regarding treatment options and coordinating care. Luis Gutierrez MD Referring Provider: SELF [[id number]] Allergies As of Date: 11/17/2023 Noted Allergy Reaction PROMETHAZINE 08/25/2014 16 - Unknown ADHESIVE 08/25/2014 16 - Unknown Comments: Other reaction(s): Unknown EGG EXTRACT 03/22/2021 8 - GI Upset INFLUENZA VIRUS VACCINES 02/26/2021 14 - Other: See Comments PHENERGAN (PROMETHAZINE HCL) 02/24/2007 7 - Swelling SUTURES 11/10/2016 10 - Anaphylaxis Date Reviewed: 11/17/2023 Reviewed by: Cora Che MA - Fully Assessed Reason for Visit: Established Patient Follow-Up [[id number]] Primary Visit Diagnosis:Tension headache [G44.209] Other Visit Diagnosis:Disturbance of skin sensation [R20.9] Prescriptions as of 11/29/2023 - cyclobenzaprine (FLEXERIL) 10 mg tablet Take 10 mg by mouth. - ezetimibe (ZETIA) 10 mg tablet Take 10 mg by mouth. - Cholecalciferol, Vitamin D3, (VITAMIN D) 25 mcg (1,000 unit) cap Take 1 capsule by mouth once daily. - metoprolol succinate ER (TOPROL XL) 25 mg 24 hr tablet Take 50 mg by mouth two times a day. - famotidine (PEPCID) 20 mg tablet Take 20 mg by mouth twice daily. - cyanocobalamin 1,000 mcg/mL inject 1 milliliter ( 1000 MCG ) intramuscularly Every Month - nitroglycerin sublingual (NITROQUICK) 0.4 mg SL tablet 1 under the tongue as needed for angina, may repeat q5mins for up three doses - rosuvastatin (CRESTOR) 5 mg tablet take 1 tablet by mouth once daily - sAXagliptin (ONGLYZA) 2.5 mg tab Take 2.5 mg by mouth. - sucralfate (CARAFATE) 1 gram tablet Take 1 g by mouth four times daily. - traMADol (ULTRAM) 50 mg tablet Take 50 mg by mouth every 6 hours as needed. - docusate sodium (COLACE) 100 mg capsule Take 1 capsule by mouth three times daily as needed for Constipation. - IBUPROFEN 200 MG TAB Take 1-2 tablet's) every four(4) to six(6) hours as needed for pain. - aspirin(ECOTRIN LOW STRENGTH 81 MG TAB) Take one(1) tablet daily. - sertraline hcl(ZOLOFT 50 MG TAB) Take 25 mg by mouth once da (more content not included)... [facility] TERESA ANDRE ([id number]) 1950 F Date Time Provider Department 11/03/23 LUIS GUTIERREZ During your visit today, we recorded the following information about you: Rebecca Alvarado 11/03/2023 10:14 AM Signed Anthony Call Name of caller : Teresa Smith Relationship to patient: Self Return call phone number : [phone] Reason for call : Symptoms : Brief description of symptoms : Falling over to the side, neck gets real weak and she cannot hold it up. She is requesting information on Myopathy. Patient states she is losing her memory, vision and her hearing. Martha Israel RN 11/03/2023 12:36 PM Signed Last [employer] access 10-31-2023. [employer] message sent to patient indicating need for appointment with Dr Gutierrez to further review symptoms and notifying of sooner openings available next Thursday with scheduling phone number provided. Martha Israel RN Allergies As of Date: 11/03/2023 Noted Allergy Reaction PROMETHAZINE 08/25/2014 16 - Unknown ADHESIVE 08/25/2014 16 - Unknown Comments: Other reaction(s): Unknown EGG EXTRACT 03/22/2021 8 - GI Upset INFLUENZA VIRUS VACCINES 02/26/2021 14 - Other: See Comments PHENERGAN (PROMETHAZINE HCL) 02/24/2007 7 - Swelling SUTURES 11/10/2016 10 - Anaphylaxis Date Reviewed: 07/02/2023 Reviewed by: Pio Chau LPN - Fully Assessed Prescriptions as of 11/03/2023 - cyclobenzaprine (FLEXERIL) 10 mg tablet Take 10 mg by mouth. - ezetimibe (ZETIA) 10 mg tablet Take 10 mg by mouth. - Cholecalciferol, Vitamin D3, (VITAMIN D) 25 mcg (1,000 unit) cap Take 1 capsule by mouth once daily. - metoprolol succinate ER (TOPROL XL) 25 mg 24 hr tablet Take 25 mg by mouth twice daily. - famotidine (PEPCID) 20 mg tablet Take 20 mg by mouth twice daily. - cyanocobalamin 1,000 mcg/mL inject 1 milliliter ( 1000 MCG ) intramuscularly Every Month - nitroglycerin sublingual (NITROQUICK) 0.4 mg SL tablet 1 under the tongue as needed for angina, may repeat q5mins for up three doses - rosuvastatin (CRESTOR) 5 mg tablet take 1 tablet by mouth once daily - sAXagliptin (ONGLYZA) 2.5 mg tab Take 2.5 mg by mouth. - sucralfate (CARAFATE) 1 gram tablet Take 1 g by mouth four times daily. - traMADol (ULTRAM) 50 mg tablet Take 50 mg by mouth every 6 hours as needed. - docusate sodium (COLACE) 100 mg capsule Take 1 capsule by mouth three times daily as needed for Constipation. - IBUPROFEN 200 MG TAB Take 1-2 tablet's) every four(4) to six(6) hours as needed for pain. - aspirin(ECOTRIN LOW STRENGTH 81 MG TAB) Take one(1) tablet daily. - sertraline hcl(ZOLOFT 50 MG TAB) Take one(1) tablet daily. - ESZOPICLONE 3 MG TAB Take 1 tablet at bedtime Problem List As Of Date 11/03/2023 Noted Resolved SKIN SENSATION DISTURB [R20.9] 05/10/2003 Open abdominal wall wound [S31.109A] 06/18/2018 S/P debridement [Z98.890] 06/18/2018 Surgery, elective [Z41.9] 06/18/2018 Chronic wound infection of abdomen [S31.109A, L*08/25/2018 Tension headache [G44.209] 03/24/2023 Encounter Status:Closed by MARTHA ISRAEL on 11/03/23 Normal [facility] Office Visiton 10-20-2023 Follow-up visit [id number] Brittni Andre 1950 F Date Provider Department Center 10/20/2023 Rosy-PERLA DIAZ CARD [facility] Family History Problem Relation Age of Onset Multiple sclerosis Brother Diabetes Brother Family Status - Relation Status Age at Brother Level of Service:13275 CO OFFICE/OUTPATIENT [facility] 60 MINUTES Normal [facility] CNOVon 07-02-2023 CN Office Visit ([facility] ) TERESA ANDRE ([id number]) 1950 F Date Time Provider Department 07/02/23 11:00 AM MARTHA LOBO [facility] During your visit today, we recorded the following information about you: Martha Lobo APRN.PAPER BAG MAKER 07/02/2023 1:30 PM Signed [facility] Low Back Pain - Subacute (6 - 12 weeks) Initial Exam SUBJECTIVE HISTORY OF PRESENT ILLNESS: Teresa Hussein Deliagreg is a 72 year old female who presents with a chief complaint of neck pain and is self-referred. Patient presents with a variety of symptoms that include head and neck pain, difficulty ambulating, and body rigidity . She reports that she has also been diagnosed with a chronic cerebral spinal fluid leak and multiple sclerosis. She reports that symptoms have been present since she was diagnosed with multiple sclerosis in 2002. She reports that since this time she feels as though her body will give out and feet will turn inwards . She reports that the spinal fluid leak was previously diagnosed by Dr. Gutierrez in the [facility]. Upon review of his note from 03/24/2023, there is not a diagnosis of multiple sclerosis or cerebral spinal fluid leak. When I attempted to inquire more about diagnosis of MS and cerebrospinal fluid leak she became agitated stating that she was diagnosed in 2002 by disability provider with multiple sclerosis , she states these records where lost by [facility]. She then stated that she did not want to speak about her cerebrospinal fluid leak further. Upon review of available imaging and reports of outside records I am unable to find any indication of a diagnosis of cerebral spinal fluid leak. Patient , Arturo, present with patient consent. Using cane since 2002 Pain localized to top of head to her wait Pain described as sore, stiffness Radiation: to her waist Numbness/Tingling: all over - hands , feet, entire spine She states that she vibrates real fast and her body will viborate all over She reports chronic imbalance and dexterity difficulties since 2002. Pain rated 0/10 Pain worse with everything: Pain improved with laying flat, stretching, Interventions: stretching, yoga, essential oils , aroma therapy, prayer Medications: flexeril, Past medications: tramadol, Lyrica- didn't tolerate, neurontin- dizziness, flexeril- didn't work Physical Therapy: She reports attending in the past year, no records available. She states that her primary care provider ordered her home health care with physical therapy however there is not anyone available by local [facility] to complete her visits or treatments. Treating Physicians: Dr Watts PCP - [facility] Maria Teresa Vang [facility] - Spine - 2020- PT consult Dr Aidan Gutierrez - Multiple Sclerosis - Does not feel PT has MS - she has no MS diagnosis Dr. Brothers Neurosurgery 01/23/2009: Surgery not recommended - referred to [facility] Dr. Garcia Neurosurgery 2006[facility] History of Spine Injections/Surgery: Thoracic outlet surgery left arm - inconsistent if was helpful by Dr. Garay [place] L5-1 discectomy in May 2009 Pain management: Sacroiliac joint injection with 50% improvement per previous records. SI joint RFA in 2008 with minimal relief per outside records. MARISA's in cervical spine - no relief - per previous records Other Issues Addressed at the Visit Today: None. Precipitating Event: None PAIN EVALUATION 07/02/2023 1030 Pain Level: 0 Pain Location: Neck Description: Sore;Stiffness Duration Amount of Time: 8 Duration Units: Years Frequency: Continuous Litigation: No Workers' Compensation: No YELLOW AND BLUE FLAGS No-Neg Attitude; Back Pain is Disabling No-Avoiding Activity (for Fear of Pain) No-Depression or Anxiety Disorders No-Social Problems No-Substance Use Disorder No-Job Dissatisfaction No-Financial Disincentives Patient Entered Questionnaires PROMIS Score Percentiles Percentiles provide an indication of how the patient's score ranks in relation to the general population. Higher percentile rankings indicate better function/quality of life. 50th percentile is the average of the general population and indicates half of respondents had a worse score. Depression Screening: PHQ-9 01/17/2009 01/17/2009 Score 13 13 PHQ-9 Self-Harm (Item 9) response options: 0 Not at all 1 Several days 2 More than half the days 3 Nearly every day PHQ-9 Levels: 0-4 No - mild depression 5-9 Mild depression 10-14 Moderate depression 15-19 Moderately severe depression 20-27 Severe depression ACTIVE PROBLEM LIST Disturbance of Skin Sensation Open Abdominal Wall Wound S/P Debridement Surgery, Elective Chronic Wound Infection of Abdomen Tension Headache PAST MEDICAL HISTORY Diagnosis Date Acute myocardial infarction of other specified sites, episode of care unspecified 11/2006 Myocardial Infarction X1 Athero (more content not included)... [facility] Telephone ([place]OV[place]) TERESA ANDRE ([id number]) 1950 F Date Time Provider Department 06/09/23 LUIS GUTIERREZ During your visit today, we recorded the following information about you: Roshni Garnica 06/09/2023 2:40 PM Signed Anthony Call Name of caller : Teresa Andre Relationship to patient: Self Return call phone number : [phone] Reason for call : Symptoms : Brief description of symptoms : Patient is calling and asking to speak to someone about her symptoms she is having and needs help and wonders what she should do for everything going on with her. I did tell her to call her PCP because that was written in the last office note and she said her PCP is unable to help her and knows nothing about ms and spinal fluid leak and cervical spine stenosis. Please call to discuss further. When did symptoms start : America Yee PA-C 06/11/2023 5:27 PM [address]oke with Dr. Gutierrez. Patient welcome to set up follow-up with Dr. Gutierrez but since she doesn't have MS diagnosis, long-term follow-up at [facility] is not the best option. Find out the most bothersome symptoms. We would then direct to the appropriate areas with tentative direction as follows depending on what we are told: - Headaches - set up with headache clinic - Walking difficulty - recommend PT - Pain (outside of headache) - Chronic pain rehab program FABI Garcia Megan A, RN 06/12/2023 10:01 AM Signed Called patient, no answer and call disconnected after 12 rings with no ability to leave message. [employer] message sent to patient, last active 06-02-23. Martha Israel RN Allergies As of Date: 06/09/2023 Noted Allergy Reaction PROMETHAZINE 08/25/2014 16 - Unknown ADHESIVE 08/25/2014 16 - Unknown Comments: Other reaction(s): Unknown EGG EXTRACT 03/22/2021 8 - GI Upset INFLUENZA VIRUS VACCINES 02/26/2021 14 - Other: See Comments PHENERGAN (PROMETHAZINE HCL) 02/24/2007 7 - Swelling SUTURES 11/10/2016 10 - Anaphylaxis Date Reviewed: 03/24/2023 Reviewed by: Cora Che MA - Fully Assessed Reason for Visit: Symptoms [3640] Prescriptions as of 06/12/2023 - Cholecalciferol, Vitamin D3, (VITAMIN D) 25 mcg (1,000 unit) cap Take 1 capsule by mouth once daily. - metoprolol succinate ER (TOPROL XL) 25 mg 24 hr tablet Take 25 mg by mouth twice daily. - famotidine (PEPCID) 20 mg tablet Take 20 mg by mouth twice daily. - cyanocobalamin 1,000 mcg/mL inject 1 milliliter ( 1000 MCG ) intramuscularly Every Month - nitroglycerin sublingual (NITROQUICK) 0.4 mg SL tablet 1 under the tongue as needed for angina, may repeat q5mins for up three doses - rosuvastatin (CRESTOR) 5 mg tablet take 1 tablet by mouth once daily - sAXagliptin (ONGLYZA) 2.5 mg tab Take 2.5 mg by mouth. - sucralfate (CARAFATE) 1 gram tablet Take 1 g by mouth four times daily. - traMADol (ULTRAM) 50 mg tablet Take 50 mg by mouth every 6 hours as needed. - docusate sodium (COLACE) 100 mg capsule Take 1 capsule by mouth three times daily as needed for Constipation. - IBUPROFEN 200 MG TAB Take 1-2 tablet's) every four(4) to six(6) hours as needed for pain. - aspirin(ECOTRIN LOW STRENGTH 81 MG TAB) Take one(1) tablet daily. - sertraline hcl(ZOLOFT 50 MG TAB) Take one(1) tablet daily. 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 She was seen here in [address] Tere Winston who did not think she had multiple sclerosis. She was seen by me in 2020 where I did not think she had multiple sclerosis. At that time, she had clinical history, examination, and imaging findings suggestive cervical spine stenosis and I recommended Spine Center referral. Spine Center referral had this assessment: Has seen spine medicine and spine surgery back in [id number] for similar symptoms. Was referred to CPRP [Chronic Pain Rehabilitation Program] by surgeons and spine medicine MDs. Patient with Cspine stenosis but based on chronicity of her symptoms and physical exam, not likely causing her LE symptoms. I am not confident this patient would respond well to surgery or injections. If worsening neck/arm symptoms can get surgical consult. Patient did not pursue CPRP She returns today saying that she thinks she has multiple sclerosisn and is wondering why I don't think she has multiple sclerosis. She also reports having been given a the diagnosis of spinal fluid leak by me, although my records do not indicate that I thought she has a spinal fluid leak. She was seen by a local ER at the end of August and referred to local neurosurgery for cervical spine stenosis. Per chart, when they called to make appointment she declined seeing them. Current symptoms include: Left ear pain Swallowing difficulties Flickering in her eyes Pain in her chest - soreness Pain in the back of her scapula - stabbing, hot sensation Frequent headaches - daily; wax and wane in severity, made better when lying flat Abdominal pain Symptoms from February 2021 visit, updated: 1. Walking difficulty, doesn't feel her legs, hard to move her feet. Uses a wheelchair for the last year, although walks around her house using gallego. 2. Spasticity with cramps, feet will turn in and her toes would curl 3. Numbness and tingling in both hands and feet, has DM for several years 4. Vision disturbances, blurriness, pain behind her eyes, fluttering, eyes jitters 5. Tremor in both hands 6. Daily headaches She reports that the above symptoms continue now. Past medical history, past social history, and past family history was reviewed and was unchanged from previous visit. During this visit her received a call from the PCP saying that her recent CT scan showed a spot on her pancreas and recommended MRI for further assessment. Medications and allergies were reviewed and updated. Assessment: She has a 20+ year history of multiple somatic symptoms. No clear neurologic diagnosis has been identified. She has some cervical spine stenosis, but 2020 evaluation recommended against surgery and instead recommended Chronic Pain Rehab Program. I explained that the clinical picture is not suggestive of multiple sclerosis and I don't recommend further neurologic work-up at this time. She cried several times during the visit, indicating emotional disruption such as depression. I recommend she prioritize her long list of symptoms, since it will be very difficult for a provider to manage all of the symptoms at once. She can then work with her PCP to try to address the 1-2 most disruptive symptoms. A Chronic Pain Rehabilitation Program could be considered again, although she doesn't seem receptive to that management strategy. Depression is evident today; increasing Zoloft from 50 mg to 75 or 100 mg could be considered. During this patient visit I have spent approximately 25 minutes out of 40 in counselling regarding treatment options, medications, and test results and coordinating care. Follow-up: none needed at [facility] Luis Gutierrez MD cc: Aidan Teresa Hussein Deliagreg, [address] [place] [phone] cc: Dr. Watts, [facility], [address] [place] [phone] Allergies As of Date: 03/24/2023 Noted Allergy Reaction PROMETHAZINE 08/25/2014 16 - Unknown ADHESIVE 08/25/2014 16 - Unknown Comments: Other reaction(s): Unknown EGG EXTRACT 03/22/2021 8 - GI Upset INFLUENZA VIRUS VACCINES 02/26/2021 14 - Other: See Comments PHENERGAN (PROMETHAZINE HCL) 02/24/2007 7 - Swelling SUTURES 11/10/2016 10 - Anaphylaxis Date Reviewed: 03/24/2023 Reviewed by: Cora Che MA - Fully Assessed Reason for Visit: Established Patient Follow-Up [[id number]] Primary Visit Diagnosis:Tension headache [G44.209] Prescriptions as of 03/24/2023 - Cholecalciferol, Vi (more content not included)... Normal [facility] 03-23-2023 CNPN Telephone (NEMN) TERESA ANDRE ([id number]) 1950 F Date Time Provider Department 03/23/23 AMERICA VELASCO During your visit today, we recorded the following information about you: RAYMOND Mcgee 03/23/2023 11:48 AM Signed Anthony Call Name of caller : Teresa Relationship to patient: Self Return call phone number : [phone] Reason for call : Other : Brief description of concern : Patient was in the ED with spinal fluids leak and is having complications tremors and pain. Needs to know what she can do for pain and tremors. Martha Israel RN 03/23/2023 1:24 PM Signed Patient has been previously notified numerous times of need to schedule In Person visit with Dr Gutierrez for evaluation and any plan of care updates. Per America Velasco PA-C, we are unable to provide treatment recommendations or guidance for symptoms until patient completes In Person visit with Dr Gutierrez. Routing to Appointment Pool to contact patient to offer In Person visit with Dr Gutierrez. EZ Sandoval RN 03/23/2023 2:19 PM Signed Patient has been rescheduled with Dr Gutierrez 03-24-23 at 2:30pm. Martha Israel RN Allergies As of Date: 03/23/2023 Noted Allergy Reaction PROMETHAZINE 08/25/2014 16 - Unknown ADHESIVE 08/25/2014 16 - Unknown Comments: Other reaction(s): Unknown EGG EXTRACT 03/22/2021 8 - GI Upset INFLUENZA VIRUS VACCINES 02/26/2021 14 - Other: See Comments PHENERGAN (PROMETHAZINE HCL) 02/24/2007 7 - Swelling SUTURES 11/10/2016 10 - Anaphylaxis Date Reviewed: 07/04/2022 Reviewed by: Nadege Sharpe APRN.PAPER BAG MAKER - Fully Assessed Reason for Visit: Symptoms [3640] Prescriptions as of 03/23/2023 - Cholecalciferol, Vitamin D3, (VITAMIN D) 25 mcg (1,000 unit) cap Take 1 capsule by mouth once daily. - metoprolol succinate ER (TOPROL XL) 25 mg 24 hr tablet Take 25 mg by mouth twice daily. - famotidine (PEPCID) 20 mg tablet Take 20 mg by mouth twice daily. - cyanocobalamin 1,000 mcg/mL inject 1 milliliter ( 1000 MCG ) intramuscularly Every Month - nitroglycerin sublingual (NITROQUICK) 0.4 mg SL tablet 1 under the tongue as needed for angina, may repeat q5mins for up three doses - rosuvastatin (CRESTOR) 5 mg tablet take 1 tablet by mouth once daily - sAXagliptin (ONGLYZA) 2.5 mg tab Take 2.5 mg by mouth. - sucralfate (CARAFATE) 1 gram tablet Take 1 g by mouth four times daily. - traMADol (ULTRAM) 50 mg tablet Take 50 mg by mouth every 6 hours as needed. - docusate sodium (COLACE) 100 mg capsule Take 1 capsule by mouth three times daily as needed for Constipation. - IBUPROFEN 200 MG TAB Take 1-2 tablet's) every four(4) to six(6) hours as needed for pain. - aspirin(ECOTRIN LOW STRENGTH 81 MG TAB) Take one(1) tablet daily. - sertraline hcl(ZOLOFT 50 MG TAB) Take one(1) tablet daily. - ESZOPICLONE 3 MG TAB Take 1 tablet at bedtime Problem List As Of Date 03/23/2023 Noted Resolved SKIN SENSATION DISTURB [R20.9] 05/10/2003 Open abdominal wall wound [S31.109A] 06/18/2018 S/P debridement [Z98.890] 06/18/2018 Surgery, elective [Z41.9] 06/18/2018 Chronic wound infection of abdomen [S31.109A, L*08/25/2018 Encounter Status:Closed by MARTHA ISRAEL on 03/23/23 [facility] 03-17-2023 [facility] Telephone ([facility]) JESTERESA ([id number]) 1950 F Date Time Provider Department 03/17/23 AMERICA VELASCO During your visit today, we recorded the following information about you: Roshni Laird Sec 03/17/2023 11:00 AM Signed Anthony Call Name of caller : Teresa Jes Relationship to patient: Self Return call phone number : [phone] Reason for call : Other : Brief description of concern : Patient is calling and said she is not doing well and hard to get around and asking if you can place a new order for spine surgery becaues she is having a hard time. Please let her know. America Velasco PA-C 03/18/2023 10:18 AM Signed Would defer to spine center for re-evaluation if she feels symptoms have changed. FABI Garcia RN 03/19/2023 12:26 PM Signed [employer] response sent to patient notifying of below message from America Velasco PA-C. Martha Israel RN Allergies As of Date: 03/17/2023 Noted Allergy Reaction PROMETHAZINE 08/25/2014 16 - Unknown ADHESIVE 08/25/2014 16 - Unknown Comments: Other reaction(s): Unknown EGG EXTRACT 03/22/2021 8 - GI Upset INFLUENZA VIRUS VACCINES 02/26/2021 14 - Other: See Comments PHENERGAN (PROMETHAZINE HCL) 02/24/2007 7 - Swelling SUTURES 11/10/2016 10 - Anaphylaxis Date Reviewed: 07/04/2022 Reviewed by: Nadege Sharpe APRN.P[employer]ER BAG MAKER - Fully Assessed Reason for Visit: Patient Question [0517] Prescriptions as of 03/19/2023 - Cholecalciferol, Vitamin D3, (VITAMIN D) 25 mcg (1,000 unit) cap Take 1 capsule by mouth once daily. - metoprolol succinate ER (TOPROL XL) 25 mg 24 hr tablet Take 25 mg by mouth twice daily. - famotidine (PEPCID) 20 mg tablet Take 20 mg by mouth twice daily. - cyanocobalamin 1,000 mcg/mL inject 1 milliliter ( 1000 MCG ) intramuscularly Every Month - nitroglycerin sublingual (NITROQUICK) 0.4 mg SL tablet 1 under the tongue as needed for angina, may repeat q5mins for up three doses - rosuvastatin (CRESTOR) 5 mg tablet take 1 tablet by mouth once daily - sAXagliptin (ONGLYZA) 2.5 mg tab Take 2.5 mg by mouth. - sucralfate (CARAFATE) 1 gram tablet Take 1 g by mouth four times daily. - traMADol (ULTRAM) 50 mg tablet Take 50 mg by mouth every 6 hours as needed. - docusate sodium (COLACE) 100 mg capsule Take 1 capsule by mouth three times daily as needed for Constipation. - IBUPROFEN 200 MG TAB Take 1-2 tablet's) every four(4) to six(6) hours as needed for pain. - aspirin(ECOTRIN LOW STRENGTH 81 MG TAB) Take one(1) tablet daily. - sertraline hcl(ZOLOFT 50 MG TAB) Take one(1) tablet daily. 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, L*08/25/2018 Encounter Status:Closed by MARTHA ISRAEL on 03/19/23 Normal [facility] US ankle/arm indiceson 01-10 US ankle/arm indices [place] [place] [address] Ultrasound Report Signed Patient: Teresa Andre MR#: [id number] : 1950 Acct:[id number] Age/Sex: 70 / F ADM Date: 01/07/21 Loc: Room: [facility] Attending Dr: Gurwinder Hutchison MD Ordering Provider: Gurwinder Hutchison MD Date of Service: 01/07/21 US/US ankle/arm indices: I70.213 Copies to: Gurwinder Hutchison MD LOWER EXTREMITY SEGMENTAL ARTERIAL DOPSCAN (PVR) INDICATION: Surveillance study PROCEDURE: Right arm blood pressure is 154 , left is 160 . Pressures at the right ankle are 157 using the posterior tibial artery, and 150 using the dorsalis pedis artery with ankle- brachial index of 0.98 0.94 . Pressures at the left ankle are 163 using the posterior tibial artery, and 146 with ankle- brachial index of 1.02 0.91 . Wave forms by plethysmography are normal. US/US ankle/arm indices IMPRESSION: NO HEMODYNAMICALLY SIGNIFICANT PERIPHERAL VASCULAR OCCLUSIVE DISEASE AT REST IN EITHER LOWER EXTREMITY. Impression dictated by: Gurwinder Hutchison MD01/10/2021 1:24 PM Dictation Location: [place] [address] Tech: Marisel Alejandre Transcribed By: [facility] 01/10/21 1324 Dictated By: Gurwinder Hutchison MD 01/10/21 1323 Signed By: 01/10/21 1324 [facility] US arterial duplex UE LTon 0 01-10-2021 US arterial duplex UE LT [place] [place] [address] Ultrasound Report Signed Patient: Teresa Andre MR#: [id number] : 1950 Acct:[id number] Age/Sex: 70 / F ADM Date: 01/07/21 Loc: Room: Type: [facility] Attending Dr: Gurwinder Hutchison MD Ordering Provider: Gurwinder Hutchison MD Date of Service: 01/07/21 US/US arterial duplex UE LT: I70.213 Copies to: Gurwinder Hutchison MD Left upper extremity arterial duplex evaluation INDICATIONS: Previous carotid subclavian bypass surgery, surveillance study FINDINGS: Left common carotid artery and left subclavian artery velocities were in the range of 121 to 147 cm/s. No stenoses were identified. The arteries were patent. No thrombus was identified. No narrowing was identified. US/US arterial duplex UE LT Impression: No stenoses identified Impression dictated by: Gurwinder Hutchison MD01/10/2021 1:22 PM Dictation Location: [place]- Tech: Dulce Welch Transcribed By: KOMAL 01/10/211321 Dictated By: Gurwinder Hutchison MD 01/10/211319 Signed By: 01/10/211321 [facility] US arterial pvr rest UEon US arterial pvr rest UE [place] [place] [address] Ultrasound Report Signed Patient: Teresa Andre MR#: [id number] : 1950 Acct:[id number] Age/Sex: 70 / F ADM Date: 01/07/21 Loc: Room: Type: [facility] Attending Dr: Gurwinder Hutchison MD Ordering Provider: Gurwinder Hutchison MD Date of Service: 01/07/21 US/US arterial pvr rest UE: subclavian artery stenosis Copies to: Gurwinder Hutchison MD Left upper extremity PVR study INDICATIONS: Previous stent in the left subclavian artery, history of steal syndrome. FINDINGS: Left brachial blood pressure was 15 8 mmHg. Left forearm blood pressure was 16 0 mmHg. Index was 1.01. US/US arterial pvr rest UE IMPRESSION: Normal study. Impression dictated by: Gurwinder Hutchison MD01/10/2021 1:23 PM Dictation [facility] Tech: Marisel Alejandre Transcribed By: KOMAL 01/10/211322 Dictated By: Gurwinder Hutchison MD 01/10/211321 Signed By: 01/10/211322 [facility] 06-27-2018 JENIFREN Telephone (HLPRAD) TERESA HUMPHREY ([id number]) 1950 FDate Time Provider Wbtsfnfdjm03/21/18 HUGH RUIZ HLPRAD During your visit today, we recorded the following information about you:Hugh Ruiz MD 06/27/2018 10:20 AM SignedPatient called with redness and puffiness. Rather than antibiotics Ifelt she may need a stitch out and asked them to go to the er or make an apptfor Thursday am.Signature: CHUCKIE Gibbonsager: [id number]: [phone]: 06/27/2018Time: 10:19 AMAllergies As of Date: 06/27/2018 Noted Allergy ReactionPHENERGAN (PROMETHAZINE HCL) 02/24/2007 7 - SwellingDate Reviewed: 06/18/2018Reviewed by: Neha Bowman)(Hist) EZ Pugh - Fully AssessedReason for Visit: Post Op [174]Prescriptions as of 06/27/2018 Sig: ONDANSETRON 4 MG TAB, RAPID D* Take 1 tablet by mouth every * DOCUSATE SODIUM 100 MG CAPSULE Take 1 capsule by mouth three* IBUPROFEN 200 MG TABLET Take 1-2 tablet's) every four* PERCOCET 5 MG-325 MG TABLET Take 1 tab twice a day as nee* LEVOTHYROXINE 88 MCG TABLET Take 1 tablet daily ECOTRIN LOW STRENGTH 81 MG TA* Take one(1) tablet daily. ZOLOFT 50 MG TABLET Take one(1) tablet daily. ESZOPICLONE 3 MG TABLET Take 1 tablet at bedtime FISH OIL 500 MG CAPSULE Take one(1) capsule daily. CALTRATE 600 600 MG CALCIUM (* Take one(1) tablet twice maryan* COMPOUNDED PRESCRIPTION Senocot PRN FLEXERIL 10 MG TABLET 1 at bedtime PLAVIX 75 MG TABLET Take one(1) tablet daily. ZETIA 10 MG TABLET Take one(1) tablet daily. LOPRESSOR 50 MG TABLET Take 25mg (half of a 50mg tab* Patient not taking: Reported on 05/21/2018Problem List As Of Date 06/27/2018 Noted Resolved SKIN SENSATION DISTURB [R20.9] INVALID FOR* Open abdominal wall wound [S31.109A] INVALID FOR* S/P debridement [Z98.890] INVALID FOR* More... Surgery, elective [Z41.9] INVALID FOR* Status:Closed by HUGH RUIZ MD on 06/27/18 [facility] 06-26-2018 [facility] Telephone (HLPRAD) DA BRANNONTERESA MCGREGOR ([id number]) 1950 FDate Time Provider Pihacfmyvc14/20/18 HUGH RUIZ During your visit today, we recorded the following information about you:Hugh Ruiz MD 06/26/2018 11:49 AM SignedProblem with the sutures. I have suggested that she call on Thursday for an apptand they can always remove the sutures. If pain or worried about infection sheshould come to the er.Signature: CHUCKIE Gibbonsager: [id number]: [phone]: 06/26/2018Time: 11:49 AMAllergies As of Date: 06/26/2018 Noted Allergy ReactionPHENERGAN (PROMETHAZINE HCL) 02/24/2007 7 - SwellingDate Reviewed: 06/18/2018Reviewed by: Neha (Rn)(Hist) EZ Pugh - Fully AssessedReason for Visit: Post Op [174]Prescriptions as of 06/26/2018 Sig: ONDANSETRON 4 MG TAB, RAPID D* Take 1 tablet by mouth every * DOCUSATE SODIUM 100 MG CAPSULE Take 1 capsule by mouth three* IBUPROFEN 200 MG TABLET Take 1-2 tablet's) every four* PERCOCET 5 MG-325 MG TABLET Take 1 tab twice a day as nee* LEVOTHYROXINE 88 MCG TABLET Take 1 tablet daily ECOTRIN LOW STRENGTH 81 MG TA* Take one(1) tablet daily. ZOLOFT 50 MG TABLET Take one(1) tablet daily. ESZOPICLONE 3 MG TABLET Take 1 tablet at bedtime FISH OIL 500 MG CAPSULE Take one(1) capsule daily. CALTRATE 600 600 MG CALCIUM (* Take one(1) tablet twice maryan* COMPOUNDED PRESCRIPTION Senocot PRN FLEXERIL 10 MG TABLET 1 at bedtime PLAVIX 75 MG TABLET Take one(1) tablet daily. ZETIA 10 MG TABLET Take one(1) tablet daily. LOPRESSOR 50 MG TABLET Take 25mg (half of a 50mg tab* Patient not taking: Reported on 05/21/2018Problem List As Of Date 06/26/2018 Noted Resolved SKIN SENSATION DISTURB [R20.9] INVALID FOR* Open abdominal wall wound [S31.109A] INVALID FOR* S/P debridement [Z98.890] INVALID FOR* More... Surgery, elective [Z41.9] INVALID FOR* Status:Closed by HUGH RUIZ MD on 06/26/18 [facility] 06-18-2018 [facility] HNO ID: [id number] thor: Jennifer Fuentes (Rn) BARRIE Sevillaervice: Healing ServiceAuthor Type: Registered NurseType: Allied HealthFiled: 06/18/2018 4:54 PMNote Text:HEALING SERVICESTHERAPY NOTESERVICE DATE: 06/18/2018SERVICE TIME: 1600INTERVENTIONAL FOCUS: Emotional SupportSelf-directed Care / Patient ExperienceVisit With: Patient Urgency of Visit: Routine Type of Visit:Initial VisitASSESSMENT:Diagnosis:Enco unter Diagnosis ICD-10-CM1. Acute post-operative pain G89.18 traMADol (ULTRAM) 50 mg tablet2. Open wound of abdominal wall, subsequent encounter S31.109D3. S/P debridement Z98.890Did the patient have surgery? YesPatient Pattern Awareness:Patient: Things mentioned:Practical: Insurance and Discharge Plans.Family/Community: Work and School Friends.Emotional: Hopeful, Loss of control and Stress.Family: Things mentioned:Practical: Not Applicable.Family/Community: Not Applicable.Emotional: Not Applicable.What have you done that has worked to make you feel better? CreativeExpressionExerciseLear mendoza/ReadingSpiritual Practice/Prayer/MeditationTalk ing with someoneTouch TherapySleep and RestfulnessHome Sleep Pattern: n/aHospital Sleep Pattern: n/aPatient's Subjective Experience: I have been doing reiki and healingtouch for a long time, it is what helps me through Family Support: Family not present.INTERVENTIONVerbal consent for touch interventions: Yes; Patient.[place] Goal(s) of Visit: supportive presencereikiPatient Education: Education about services provided and self care.Written education materials provided.acupressure point for stress.SELF REPORTED PATIENT EXPERIENCE SCALERating Before AfterMood 10/17 10/17Comfortable N/A N/AHope 10/17 09/16Relaxed 11/14 10/17Pain not rta N/ALocation abd abdPain N/A N/ALocation N/A N/APRACTITIONER VISUAL ASSESSMENTFacial Body Movement Vocal 0 = Smiling 0 = No movement/ appropriate movement 0 = Positive 1 = Neutral 1 = Restless 1 = Neutral/no vocal 2 = Frown/grimace 2 = Pulling at clothes, etc 2 = Crying, moaning, complaining 3 = Clenched teeth/tension 3 = Thrashing, flailing 3 = Screaming, yellingBefore: 1After: 0 Before: 0After: 0 Before: 1After: 0Patient Selected Intervention(s): Touch Therapy: Reiki: Length of Session:12 minHand Placement Locations: Abdomen, Hand(s), Head and Shoulder(s)Supportive Care: Therapeutic Presence: EmotionalIntervention Notes: provided supportive presence and empathetic listening,pt expressed much gratitude as she does reiki and noted she was wanting toreiceive before being discharged, as this is what speaks to her and helpsher through with illness.spent time in conversation and provided community.reiki also provided.offerred well wishes for continued healing.MUTUAL PLANDoes the patient feel the mutual goal(s) was met? Yes, they were met andexceeded expectations.Re-visit from Healing Services Team: No.Healing Services Practitioners Referrals: N/AHealing Services Team Trans-Disciplinary Rounds Called: NoSIGNATURE: Jennifer Sevilla RN PATIENT NAME: Teresa Hussein JesDATE: June 18, 2018 : 4:33 PM PAGER/CONTACT #: [phone] [facility] CASE MGT INIT [facility] 2017 CASE MGT INIT [facility] HNO ID: [id number]: Teresa Bowman) BARRIE Singhervice: Care ManagementAuthor Type: Registered NurseType: Care Mgt Initial AssessmentFiled: 06/18/2018 2:38 PMNote Text:CARE MANAGEMENT: ASSESSMENT AND DISCHARGE PLANSERVICE DATE: 06/18/2018SERVICE TIME: 2:33 PMPRIMARY CARE PHYSICIAN:Roberth Watts, MDPhone: BTINNROHR STATUS: ObservationMEDICAL:Patient/Rep resentative Stated Goals:To return home to life as it wasHealth Insurance: [facility] PLANMedicareHealth Issues Impacting Discharge Plan: admitted for repair of abd wound.Last Admission Date: noneIs this Within the Past 30 days? NoAdvance Directive:Current Advance Directive: NoneCare Content Assistant Attempted to Assist with AD Completion: YesAction: Education Provided;Other: See Comment (adv directive packet leftwith patient, CM offered assist with completion, she wants to reveiw withfamily and will bring completed copy back to her pcp once completed forscanning into Actionality.)Health Literacy:1. How often do you need to have someone help you when you readinstructions, pamphlets, or other written material from your doctor orpharmacy? Sometimes - 32. How confident are you filling out medical forms by yourself? Quite abit - 2If Patient scores > 3 on either question, the following interventions wereput into place:Use of plain language and active listening with Patient and familyFUNCTIONAL AND COGNITIVE/BEHAVIORALPRIOR TO ADMISSION:Baseline Mental Status: Alert AND Oriented, Person, Place , Time andSituationFunctional Status: Needs AssistanceDoes Patient Currently Receive Any Community Services or Home Care? NoneEquipment Prior to Admission: NoneHas the Patient Been in a Penitentiary Facility in the Past 30 days? NoSOCIAL:Living Arrangement: HomeLives With: SpouseFinancial Resources: RetiredPrimary Contact: Extended Emergency Contact InformationPrimary Emergency Contact: Trudy Andre Csrkbgeq: SpouseSupportive: YesOther Important Patient Contacts: NoneCaregiver Assessment:Caregiver is ready, willing and able to meet the patient's needs asrecommended by the inter-professional team? YesPatient's transition needs and plan for meeting these needs: return tonorwalk, o/p follow upDoes the patient have an acute stroke diagnosis, or has the patient had astroke during this admission? NoMedication Adherence:I am convinced of the importance of my prescription medication: Agreemostly - 0I worry that my prescription medication will do more harm than good to meDisagree mostly - 0I feel financially burdened by my zdd-hu-fwdfiy expenses for myprescription medication: Disagree mostly -0Patient is categorized as low risk < 2Are you interested in bedside delivery of your medications? YesFood Concerns:In the Last Month, Have You had Trouble Getting Food? No trouble gettingfoodDuring the Last Month, Have You Worried Whether Your Food Would Run OutBefore You Had Enough Money to Buy More? NoIs the Patient Psychosocially Complex? NoASSESSMENT AND PLAN:Medical Needs: 2 or more chronic diseasesPsychosocial Needs: NoneFREEDOM OF CHOICE EXPLAINED:N/APOTENTIAL TRANSITION PLANSNo Services IndicatedAnticipate return to home later today, no skilled needs identified.SIGNATURE: Teresa Sharpe RN PATIENT NAME: Teresa AndreDATE: June 18, 2018 : 2:33 PM PAGER/CONTACT #: [phone] [facility] NURSING PROGon 06-18-2018 Protein mass conc HNO ID: [id number]: Shelia (Rn) BARRIE Kothariervice: (none)Author Type: Registered NurseType: Nursing Progress NoteFiled: 06/18/2018 11:09 AMNote Text: Nursing Progress NotePatient Name: Teresa AndreMRN: [id number] Location: [place] [address]/[id number] D aily Note:08:11 - Assessment as charted; alert and oriented x3. Deniespain, nausea or sob. Abdomen soft, tender, and bowel sounds present;reports passing flatus. Coverlet to midline incision intact with smallarea of shadowing noted. Tolerating diet without incidence. Fallprecautions in place and reviewed. Will continue to round.10:08 - Pt resting in bed; tolerating diet and denies pain. Updated ondischarge order.This note was completed by: Shelia Kothari RN [facility] PROGRESSon 06-18-2018 Protein mass conc HNO ID: [id number]: Blayne (Dez) Argenise: General SurgeryAuthor Type: ResidentType: Progress NotesFiled: 06/18/2018 6:25 AMNote Text:GENERAL SURGERY PROGRESS NOTEHospital Day: 2INTERVAL EVENTS:No issues overnight.Feels much improved today.Pain controlled.Tolerated diet.Ambulating.SBP normalized.No N/V.Had 2x BMsDenies fevers / chills.ASSESSMENT AND PLAN:67 year old F POD 1 s/p debridement of abdominal wound.Pt admitted to observation for pain management and high SBPpost-operatively.- Antibiotics: not indicated- OOB- Encourage aggressive bronchopulmonary hygiene- VTE prophylaxis: heparin + SCDs- Dressing: clean, no signs of bleeding.- Dispo: observation, likely home today- - - - - - - - - - - - - - - - - - - - - - - - - - - - - - - - - - - - -- - - - - - - - - -MEDICATIONS:Current hospital medications:sertraline 50 mg tab(s) (ZOLOFT) 50 mg ORAL AT BEDTIMElevothyroxine 88 mcg tab(s) (SYNTHROID) 88 mcg ORAL DAILY (6 AM)ondansetron (PF) 4 mg injection (ZOFRAN) 4 mg INTRAVENOUS q 6 H PRNacetaminophen 1,000 mg tab(s) (TYLENOL) 1,000 mg ORAL q 6 HdiazePAM 2 mg tab(s) (VALIUM) 2 mg ORAL q 8 H PRNheparin 5,000 Units injection 5,000 Units SUBCUTANEOUS q 12 Hdocusate sodium 100 mg cap(s) (COLACE) 100 mg ORAL BID PRNondansetron 4 mg tab(s) (ZOFRAN) 4 mg ORAL q 6 H PRNoxyCODONE IR 5 mg tab(s) (ROXICODONE) 5 mg ORAL q 4 H PRNoxyCODONE IR 10 mg tab(s) (ROXICODONE) 10 mg ORAL q 4 H PRNPHYSICAL EXAM:BP (!) 116/42 Pulse (!) 54 Temp 36.6 ?C (97.8 ?F) (Oral) Resp 18 Ht 160 cm (5' 2.99 ) Wt 65.8 kg (145 lb 1 oz) SpO2 99% BMI25.70 kg/m?General: NADResp: Non-labored breathingAbd: Soft, appropriately tender, non-distended, no guarding, -veperitoneal signs.Incision: c/d/i.DATA:Intake/Output Summary (Last 24 hours) at 06/18/18 0542Last data filed at 06/17/18 2248 Gross per 24 hourIntake 1440 mlOutput 510 mlNet 930 Poonam West MD PhDGeneral Surgery, PGY-1Phone: Ktptk: [phone] [facility] ANES Julian 06-17-2018 ANES POST HNO ID: [id number] thor: Kylah AndersonSerchipe: AnesthesiologyAuthor Type: AnesthesiologistType: Anesthesia PostOpFiled: 06/17/2018 1:03 PMNote Text:POST ANESTHESIA EVALUATION NOTESERVICE DATE: 06/17/2018SERVICE TIME:: 1950Vitals: 06/17/1812Temp: 36.7 ?C (98.1 ?F) 36.6 ?C (97.9 ?F) 06/17/1812BP: 157/82 148/71 149/72 137/58 06/17/1812Pulse: 66 68 76 69 06/17/1812Resp: 16 16 14 20 06/17/1812SpO2: 95% 96% 94% 96%Validated Vital Signs: YesPOST ANES STATUS: No apparent anesthetic complications. The patient isappropriately hydrated with stable respiratory and cardiovascular status.Patient has safe and adequate airway control. The patient has appropriatepain relief and no significant post operative nausea or vomiting. Thepatient has achieved baseline mental status.Intra-Operative Events: No Significant Anesthesia EventsFurther assessment by Anesthesia Service: NoneOther Remarks:SIGNATURE: Kylah Anderson MD PATIENT NAME: Teresa AndreDATE: June 17, 2018 : 1:03 PM PAGER/CONTACT #: [facility] ANES PREOPon 06-17-2018 ANES PREOP HNO ID: [id number] thor: Kylah AndersonService: AnesthesiologyAuthor Type: AnesthesiologistType: Anesthesia PreOpFiled: 06/17/2018 8:30 AMNote Text: ANESTHESIOLOGY DAY OF SURGERY NOTESERVICE DATE: 06/17/2018SERVICE TIME:: 1950Procedure(s) (LRB):DEBRIDEMENT WOUND ABDOMEN (N/A)Surgeon(s):Pablito Abel ChaEstimated body mass index is 23.28 kg/m? as calculated from the following: Height as of 05/21/18: 160 cm (5' 3 ). 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- Diverticulitis of colon (without mention of hemorrhage)(562.11)- DVT of upper extremity (deep vein thrombosis) (HCC) DVT - Arm lt- Dysthymic disorder Depression (non-psychotic)- Migraine, unspecified, with intractable migraine, so stated, withoutmention of status migrainosus Migraine- Myalgia and myositis, unspecified- Osteoporosis, unspecified- Peptic ulcer, unspecified site, unspecified as acute or chronic, withoutmention of hemorrhage, perforation, or obstruction Peptic ulcer disease- PMH - PAST MEDICAL HISTORY OF dymylelinating disease- Spinal stenosis, other than cervical- Spinal stenosis, other than cervical- Unspecified essential hypertension Essential hypertensionPAST SURGICAL HISTORYProcedure Laterality Date- ATHEREC PERCUT, AORTIC 2000- CABG, ARTERY-VEIN, TWO 2000 CABG, two grafts- PAST SURGICAL HISTORY OF 2006 Angioplasty- PAST SURGICAL HISTORY OF 2007 Lumbar surgery- TOTAL ABDOM HYSTERECTOMY Hysterectomy, TAHFAMILY HISTORYProblem Relation Age of Onset- Colon Cancer Mother- Ischemic Heart Disease Mother- Stroke Mother- other (black lung) Father- other (MS) Unknown 2 nieces, 2 paternal aunts, maternal cousin- Ischemic Heart Disease Brother at age 49- Alzheimer's Disease Mother- Alzheimer's Disease Sister- Ischemic Heart Disease Brother- Diabetes Brother- Diabetes MotherSocial History:Social HistorySubstance Use Topics- Smoking status: Former Smoker Quit date: 09/07/1999- Smokeless tobacco: Never Used Comment: Quit 9 years ago- Alcohol use 4.5 oz/week 3 Glasses of Wine (5oz) per weekNo current facility-administered medications on file prior to encounter.Current Outpatient Prescriptions on File Prior to Encounter:sertraline hcl(ZOLOFT 50 MG TAB) Take one(1) tablet daily.ESZOPICLONE 3 MG TAB Take 1 tablet at bedtimeIBUPROFEN 200 MG TAB Take 1-2 tablet's) every four(4) to six(6) hours asneeded for pain.oxycodone hcl/acetaminophen(PERCOCET 5 MG-325 MG TAB) Take 1 tab twice aday as needed for pain.LEVOTHYROXINE 88 MCG TAB Take 1 tablet dailyaspirin(ECOTRIN LOW STRENGTH 81 MG TAB) Take one(1) tablet daily.omega-3 fatty acids(FISH OIL 500 MG CAP) Take one(1) capsule daily.calcium carbonate(CALTRATE 600 600 MG (1,500 MG) TAB) Take one(1) tablettwice daily.COMPOUNDED PRESCRIPTION Senocot PRNcyclobenzaprine (FLEXERIL) 10 mg ORAL Tab 1 at bedtimeclopidogrel (PLAVIX) 75 mg ORAL Tab Take one(1) tablet daily.ezetimibe (ZETIA) 10 mg ORAL Tab Take one(1) tablet daily.LOPRESSOR 50MG TABLET Take 25mg (half of a 50mg tablet) twice daily.(Patient not taking: Reported on 05/21/2018)Current Facility-Administered Medications:lidocaine 10 mg/mL (1 %) 1-2 mg injection (XYLOCAINE) 0.1-0.2 mLINTRADERMAL PRN Pablito Abel Chalactated ringers infusion 5-30 mL/hr INTRAVENOUS CONTINUOUS Pablito Abel ChaceFAZolin iv piggyback 2 g in D5W (iso-osmotic) 100 mL (ANCEF) 2 gINTRAVENOUS Wafer Polishing Worker to OR Pablito Abel Chaacetaminophen 1,000 mg tab(s) (TYLENOL) 1,000 mg ORAL ONCE Sumaergies:ALL ERGIESAllergen Reactions- Phenergan [Prometha* SwellingStress Test Date: 02/25/17, Comment: (no ischemia, LV-normal, LVEF-70%)-seecare everywhereDOS EXAM: Adequate NPO status: YesAnesthetic risks, benefits, alternatives, personnel and consent discussed:YesPatient agrees to proceed: YesPrevious Anesthesia: No history of adverse event.Airway Assessment: MP 2; Neck ROM: Full ROM without neurologic symptoms;Airway Evaluation: No significant abnormalitiesSymptoms of Sleep Apnea: NoneDentition: Dentures: bothAdditional Physical Exam:Lungs: Patient health status unchanged since recent history and physical.See history and physical for exam findings.Cardiac: Patient health status unchanged since recent history andphysical. See history and physical for exam findings.Additional Pertinent Findings: N/ABlood Products: Not anticipated for this procedure.Anesthetic Plan: General, Standard ASA MonitorsPain Management Plan: Parenteral or OralASA Class: 3Other Medical Problems: NoneChronic Beta Ping medication administered within 24 hours: no,per ptd/c per doctor last yearI have interviewed and examined the patient. I have reviewed the medicalrecord and/or the pre-anesthesia evaluation, pertinent labs, and testresults.Significant changes in the patient's condition since the History andPhysical, not otherwise documented in primary service progress notes: NoThis contains updated information obtained within 48 hours ofSurgery/Procedure.SIGNATURE: Kylah Anderson MD PATIENT NAME: Teresa AndreDATE: June 17, 2018 : 8:25 AM CSN: [id number] [facility] BRIEF OP NOTon 06-17-2018 BRIEF OP NOT HNO ID: [id number] thor: Blayne Rowevice: General SurgeryAuthor Type: ResidentType: Brief Op NoteFiled: 06/17/2018 10:33 AMNote Text:BRIEF OP NOTELOG ID: [id number]/Procedure Date: 06/17/2018Incision/Procedure Start Time: 9:14 AMIncision Close/Procedure End Time: 10:27 AMSurgeon(s)/Proceduralist(s) and Applied Biology Professor(s):Surgeon(s) and Role: * Pablito Abel Cha - Primary * Blayne West - Resident - Assisting * Terence Goldsmith - Resident - AssistingProcedure(s):1) Debridement of abdominal wound,2) Excision of the suture knot granulation tissue and the tract,3) Primary closure of the abdominal defect.Anesthesia: GeneralFindings: Subcutaneous suture knot identified and excised. Defect inabdominal wall closed with suture.Estimated Blood Loss: 10ccSpecimens: Granulation tissue encasing suture knotComplications: NonePre-Op/Pre-Procedure Diagnosis: chronic abdominal woundPost-Op/Post-Procedure Diagnosis:n/aSIGNATURE: Blayne West MD PATIENT NAME: Teresa AndreDATE: June 17, 2018 : 10:28 AM PAGER/CONTACT #: [phone] [facility] Confirm Blood Typeon 018 ABO/RH(D) Positive [facility] HISTORY PHYSICALon 8 HISTORY PHYSICAL HNO ID: [id number]: Pablito Samuelrvice: General SurgeryAuthor Type: PhysicianType: HANDPFiled: 06/17/2018 8:22 AMNote Text:UPDATED HISTORY AND PHYSICAL EXAMINATIONSERVICE DATE: 06/17/2018SERVICE TIME: 8:22 AMPHYSICAL EXAM MUST BE COMPLETED ON ADMISSIONThe History and Physical (completed in the past 30 days) has been reviewedand the patient has been examined. The contents accurately reflect thepatient's condition with the following additions or revisions since theHANDP was completed.Examination indicates no changes.This HANDP can be found in the Electronic Medical Record.SIGNATURE: Pablito Abel Cha, MD PATIENT NAME: Teresa AndreDATE: June 17, 2018 : 8:22 AM PAGER: [facility] NURSING PROGon 06-17-2018 Protein mass conc HNO ID: [id number]: Shelia AbdullahiRn) Neel Betancurice: (none)Author Type: Registered NurseType: Nursing Progress NoteFiled: 06/18/2018 12:59 AMNote Text: Nursing Progress NotePatient Name: Teresa AndreMRN: [id number] Location: [place] [address] [address] D aily Note:assessment completed and charted. Patient awake in bed. Deniespain at this time. IV capped. Post-op Island dressing intact with smallamount serosanguineous draining. Alert and oriented x 3. Safetymaintained. Will continue to monitor.0030: reassessment completed and charted. Patient resting in bed. IVcapped. Patient wanted her blood sugar checked d/t she felt her bloodsugar may be low, current BS 138. Denies pain at this time. Call lightwithin reach. Will monitor.This note was completed by: Shelia Betancur RN [facility] Protein mass conc HNO ID: [id number]: Sujatha AbdullahiRn) Neel Cookice: (none)Author Type: Registered NurseType: Nursing Progress NoteFiled: 06/17/2018 5:12 PMNote Text: Nursing Progress NotePatient Name: Teresa AndreMRN: [id number] Location: [place] [address]/[id number]- D aily Note:Received patient from PACU alert,orientedx3 stated pain 5/10comfortable at this time assessment done and charted call garcia [facility] will monitor.This note was completed by: Sujatha Cook RN [facility] Protein mass conc HNO ID: [id number]: Judi (Rn) BARRIE Thomaservice: NursingAuthor Type: Registered NurseType: Nursing Progress NoteFiled: 06/17/2018 4:38 PMNote Text: Nursing Progress NotePatient Name: Teresa AndreMRN: [id number] Location: [facility]/ZA-XQV-05 Da owen Note:arrived via cart to pacu from or, restless, c/o pain 10/10, c/onumbness to le's also, resp easy, nonlabored, abd round and soft,nonpalpable bladder, denies urge to void, admits to preop neck and lbp,also admits to preop numbness to les, bilateral = push/pulls to le'sstrong, anesthesia aware of pain on arrival and medicating now, aware ofelevated bp [id number] bp decreasing after x2 doses of esmolol per anesthsia, anesthesia yhidevante and betty jack remain at [id number] dr raygoza at bedside-aware of pt c/o nausea-says she will be putting inorder for decadron for nausea and prefers that to be given over #1 orderedmed -[id number] medicated for pain-see emar, assessment unchanged [id number] remedicated for pain- no change-see emar, drsg dANDi, abd remains soft,no other changes [id number] spoke [address] dr raygoza per phone-aware of elevated bp-will order labetelol,also aware of persistent pain unrelieved so [id number] remedicated for pain-see [id number] medicated for htn-see [id number] remedicated-see [id number] taking ice chips [id number] remedIcated for pain-see emar, nausea decreasing per pt, pt defersfamily visit at this time-called liason to update [id number] medicated for pain again with morphine and toradol-see emar,tolerating ice chips [id number] o2 decreased to 2l [id number] TOLERATING DECREASED O2 WELL, SATURATION ADEQUATE WITH NO [id number] o2 decreased to 1l nc, pain tolerable at 5/10, pt calmer -appearsmore relaxed, ready to see [id number] sat maintained 92-93% on 1l nc, remedicated for increasingpain-family remains at [id number] sat dropped 88%, increased to 2l nc, placed on bedpan, + [id number] voided clear pale yellow urine per [id number] dr west at bedside-aware of bp meds given, amt of pain meds given,and inablilty to dc o2 yet-he will go talk to dr rosas in o.r.about possibleadmission-pt aware of poss [id number] dr west at [facility]-states dr rosas will be by soon to assess [id number] Pain 5/10,status [id number] report to [facility] for lunch coverage, bed available [id number] report called to [id number] assumed care of pt again-updated report received from [facility] r[facility], pttearful- states she has a lot on her mind-sister receiving chemo tx today,comfort measures offered and provided, pt states and grandson wenthome for the night , pain reduced to 5/10 again after meds from [facility] riversjamht6913 updated report given to sujatha on 3 [id number] [facility], status quo conditionThis note was completed by: Judi Thomas RN [facility] OPERATIVE NOon 06-17-2018 OPERATIVE NO HNO ID: [id number] thor: Pablito Abel ChaService: General SurgeryAuthor Type: PhysicianType: Operative ReportFiled: 06/21/2018 8:15 PMNote Text:[facility] - Operative ReportJES TERESA RDOB: 1950AGE: 67.SEX: FMRN: [id number] TYPE: IHOSP SVC: GENSLOCATION: 3711ATTENDING PHYSICIAN:LUIS ANTONIO NUMBER: [id number] OF SURGERY/PROCEDURE: 06/17/2018INCISION/PROCEDURE START TIME: 9:14 amINCISION CLOSE/PROCEDURE END TIME: 10:27 amPREOPERATIVE DIAGNOSIS: Draining sinus of the abdominal wall.POSTOPERATIVE DIAGNOSIS: 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 West and Dr. Goldsmith.SURGERY/PROCEDURE: Exploration of abdominal wound with excision of achronic granuloma cavity and foreign body which was a permanent suture.ANESTHESIA: General anesthesia.FINDINGS: A chronic granuloma cavity at the base of which was a Prolenesuture.DESCRIPTION OF PROCEDURE: The patient received preoperative antibiotics.Lower extremity compression devices were placed. She was placed undergeneral anesthesia. Her abdomen was prepped and draped in a sterilefashion. Skin and subcutaneous tissues were anesthetized with 0.5%Marcaine. An elliptical skin incision was created encompassing theexternal skin opening and the indurated subcutaneous tissue. This wastaken down to the fascia level and a portion of the fascia was excised.The cavity was opened and noted to contain a Prolene suture with knot.Some additional Prolene suture was excised and there was a resultingfascial defect that was closed using running #1 PDS suture. Thehemostasis of the operative field was obtained with electrocautery.Subcutaneous tissues were approximated with 3-0 Vicryl suture and theskin was closed using mattress sutures of 4-0 Prolene. A gauze dressingwas applied and the procedure was concluded.ESTIMATED BLOOD LOSS: Minimal.SPECIMEN: Chronic granuloma cavity.I was present throughout the procedure, performed the entire procedurewith the assistance of the surgery resident.Pablito Abel Cha, MDWSC:[id number] #: [id number]: 06/17/2018 11:02:31 cc: [facility] SURGICAL PATHOLOGYon 018 SURGICAL PATHOLOGY [facility]: [id number] Physician: PABLITO Abel CHA FINAL DIAGNOSISSoft tissue, abdominal wall, chronic wound, excision - Soft tissue withmarked acute and chronic inflammation. See comment. SDB/AM/gp 06/22/2018COMMENTImmunohistoch emical stains for kappa and lambda performed on block A1 showan admixture of plasma cells, arguing against a plasma cell neoplasm. GMSand Gram stains are negative for organisms.Laboratory Developed Test (LDT) Disclaimer:Positive and negative controls stain appropriately. Performancecharacteristics of immunohistochemical, immunofluorescent and chromogenicin-situ hybridization tests have been determined by [facility] Pathology [facility] Laboratory Medicine [place] ([facility]PLMI) reji manner consistent with CLIA requirements. One or more of these tests havenot been cleared or approved by the FDA. -[facility] is regulated under CLIA asqualified to perform high-complexity testing. These tests are used forclinical purposes. They should not be regarded as investigational or forresearch.Horacio Xiong M.D.(Electronic Signature) SPECIMEN SUBMITTEDA: GRANULOMA CAVITY CLINICAL DATACHRONIC ABDOMINAL WOUNDGROSS DESCRIPTIONA. Received in formalin labeled granuloma cavity is a 4.5 x 4 x 3 cmunoriented expanse of predominantly adipose tissue partially surfaced by a3 cm strip of holden coarsely wrinkled skin. Opposite the skin surface thereis an area of red-pink hemorrhagic discoloration and dense fibrous tissuewith suture material present. No solid masses are grossly identified.Machining Technician sections of the dense fibrous tissue and hemorrhagic areasalong with skin are submitted in cassette A1.[facility] [place]/17/18Gross examination performed at [facility], [address] [place] [address] of Report: 06/22/2018Date of Procedure: 06/17/2018Date of Receipt: 06/17/2018Submitted by: PABLITO MARTINEZocation: 3B ONCOLOGY/GEN SURDiagnostic interpretation performed at [facility], [address] [place] [address]. Normal [facility] Comment on above: Performed By: #### PATHS ####[id number] [address] [place] [address] NURSING PROGon 06-08-2018 Protein mass conc HNO ID: [id number]: Kayla (Rn) Ayad, RNService: (none)Author Type: Registered NurseType: Nursing Progress NoteFiled: 06/09/2018 2:52 PMNote Text:PACC Nurse Progress NoteHistory AND Physical:PACC Visit Date: N/AOriginal HANDP Date: recent H AND P done 05/21/[address] Rosas.ED visit Date: N/AOutside HANDP Scanned Date: Recent H AND P done 06/01/[address] Watts in [facility].Labs Within Last 6 Months:CBC: Date 06/01/18- within acceptable limits-see scanned results in EPICBMP/CMP: Date 06/01/18-within acceptable limits-see scanned results inEPIC.Imaging Within Last 12 Months:CT Scan-abdomenDate of test: 01/25/18-see care everywhereSee chartCardiac Testing:EKG in last 12 Months: 03/02/18-(normal)-see scanned tracing in [facility].Stress Test Date: 02/25/17, Comment: (no ischemia, LV-normal, LVEF-70%)-seecare everywhereLast Menstrual Period:LMP Date: N/APostmenopausal >1yr: Yes,S/P Hysterectomy: YesBMI Percentile (PEDS):N/ARisk Assessment:N/AAnesthesia Review:N/ANarrative:Per HPI: History of DVT; CAD: S/P CABG-1999; angioplasty-2006;Diverticuliti s- S/P Leonard's-2012, stoma closure-2012; Recently diagnosedwith MS-on no medication pre patient and follows with Dr. Fischer.Pre-op Considerations:-Known DM-diet controlled (per patient her fasting glucose-POC-@ home [id number] on 06/09/18)-DOS- may need orders for T AND S, Con ABO-Falls risk- balance issues with MSChart Check:Lexi Lion RNOctober 2017 2:42 06/09/18 14:47 called patient AND PREOPERATIVE INSTRUCTIONS Reviewed.Scheduled for Procedure(s):DEBRIDEMENT WOUND ABDOMEN with Surgeon(s):Pablito Abel Cha on 06/17/18 has scheduled [facility]: [phone] -- [address] [address].Blood Thinning Medications:- Stop NSAIDS (Ibuprofen, Advil, Aleve, Motrin, Celebrex, Mobic, etc.) 7days before surgery, as directed by your surgeon.- Stop Vitamin E, ALL multi-vitamins, herbals and dietary supplements 7days before surgery.- You may take Tylenol (Acetaminophen) or any of your pain medicationsthat do not contain aspirin or NSAIDS as needed.Dietary Restrictions:- No solid food after midnight.- You may have 12 ounces of clear liquids (water, clear juices such asapple juice or gatorade, carbonated beverages, clear tea, black coffee,jello) until 2 hours before scheduled arrival at facility.Pain Medications:Medications:Approv ed medications to take the morning of surgery with a sip of water:Zoloft- Accucheck day of surgery.If you start any new medications after today's visit, please contact [facility] above.Important Reminders:-Wear loose fitting clothing to accommodate bulky dressing or braces thatyou may be wearing post op- Sweat pants, loose fitting tops that zip orbutton in the front will be easiest to put on after your surgery.- Candy, mints, gum and tobacco products are NOT permitted the morning ofsurgery.- Hearing aids, dentures and glasses may be worn the morning of surgery.- NO jewelry, body piercings, makeup, lotion, no deodorant, nail yakut,hairpins or contacts are to be worn the day of surgery.If you develop symptoms such as a fever, cold, or flu, or have otherchanges to your health within TWO DAYS of scheduled surgery or the morningof surgery, please contact the surgery center above.Personal Belongings:- Leave ALL valuables and money at home or with family members.For Outpatient Procedures: - YOU MUST HAVE A RESPONSIBLE UPTWISTER TENDER TAKE YOU HOME. A CHILDRENS CLUB ATTENDANT OR CABDRIVER CANNOT BE MADE A RESPONSIBLE UPTWISTER TENDER. Family or friend- We recommend that a responsible person stays with you overnight to takecare of you.- You cannot stay in a hotel alone after outpatient surgery. You will notbe permitted to have your surgery, if you do not have someone to take careof you. Arrival Time for Surgery: -You will receive a call from [facility] the afternoonbefore surgery after 2:30 pm (or Thursday for Thursday surgery) for ascheduled arrival time.- If you have not heard by 4 pm, [facility] [phone].Please be aware that emergency situations arise, which may delay or changeyour surgical time. If this happens, we will notify you as soon aspossible and regret any inconvenience.Kayla Lion RN [facility] HOSPon 05-21-2018 HOSP Patient:Alma Andre cia RMRN: Height:5' 3 (1.6 m)Weight:131 lb 6.4 oz (59.603 kg)Outpatient Medications as of 06/17/18:IBUPROFEN 200 MG TABoxycodone hcl/acetaminophen(PERCOCET 5 MG-325 MG TAB)LEVOTHYROXINE 88 MCG TABaspirin(ECOTRIN LOW STRENGTH 81 MG TAB)sertraline hcl(ZOLOFT 50 MG TAB)ESZOPICLONE 3 MG TABomega-3 fatty acids(FISH OIL 500 MG CAP)calcium carbonate(CALTRATE 600 600 MG (1,500 MG) TAB)COMPOUNDED PRESCRIPTIONcyclobenzaprine (FLEXERIL) 10 mg ORAL Tabclopidogrel (PLAVIX) 75 mg ORAL Tabezetimibe (ZETIA) 10 mg ORAL TabLOPRESSOR 50MG TABLETAdmission/Clinic Administered Medications as of 06/17/18:lidocaine 10 mg/mL (1 %) 1-2 mg injection (XYLOCAINE)lactated ringers infusionceFAZolin iv piggyback 2 g in D5W (iso-osmotic) 100 mL (ANCEF)Problem List:Disturbance of skin sensation [R20.9]Allergies:Phenergan [Promethazine Hcl]Date Verified: 06/17/18Lab ValuesNo results within the last 30 days for the following basenames: K,HCTProgress Notes ([facility]):Aura Schuster RN 06/11/2018 3:39 PM SignedMessage left for patient to hold plavix after todays dose in preparation forsurgery on 06/17. Number left for patient to contact office if needed.Aura Schuster RNProgress Notes ([facility]):Jaqui Suh Psr 05/28/2018 3:09 PM SignedPt is scheduled to have her pre testing done at Dr. Watts's office (PCP) 181:15pm. [facility] Vital Signs Date Time Vital Sign Value Performing Clinician Ayanna lord 11-17-2023 11:01-0400 Body height 160 cm Luis Gutierrez MD Work Phone: [facility] 11-17-2023 11:01-0400 Body weight 58.97 kg Luis Gutierrez MD Work Phone: [facility] 11-17-2023 11:01-0400 Diastolic blood pressure 73 mm[Hg] Luis Gutierrez MD Work Phone: [facility] 11-17-2023 11:01-0400 Heart rate 71 /min Luis Gutierrez MD Work Phone: [facility] 11-17-2023 11:01-0400 Systolic blood pressure 162 mm[Hg] Luis Gutierrez MD Work Phone: [facility] 03-24-2023 13:49-0400 Body height 160 cm Luis Gutierrez MD Work Phone: [facility] 03-24-2023 13:49-0400 Body weight 62.82 kg Luis Gutierrez MD Work Phone: [facility] 03-24-2023 13:49-0400 Diastolic blood pressure 84 mm[Hg] Luis Gutierrez MD Work Phone: [facility] 03-24-2023 13:49-0400 Heart rate 72 /min Luis Gutierrez MD Work Phone: [facility] 03-24-2023 13:49-0400 Systolic blood pressure 136 mm[Hg] Luis Gutierrez MD Work Phone: [facility] 07-04-2022 10:49-0400 Body height 160 cm Nadege Sharpe APRN.PAPER BAG MAKER Work Phone: [facility] 07-04-2022 10:49-0400 Body weight 63.5 kg Nadege Sharpe APRN.PAPER BAG MAKER Work Phone: [facility] 07-04-2022 10:49-0400 Diastolic blood pressure 85 mm[Hg] Nadege Sharpe APRN.PAPER BAG MAKER Work Phone: [facility] 07-04-2022 10:49-0400 Heart rate 74 /min Nadege Sharpe APRN.PAPER BAG MAKER Work Phone: [facility] 07-04-2022 10:49-0400 Systolic blood pressure 143 mm[Hg] Nadege Sharpe APRN.PAPER BAG MAKER Work Phone: [facility] Encounters Encounter Date Encounter Type Care Provider Facility Start: 11-17-2023 End: 11-17-2023 ambulatory RUGEN MABALAY STEFANIE Facility:[facility] Start: 11-17-2023 End: 11-17-2023 Patient encounter procedure Luis Gutierrez MD Work Phone: [facility] Comment on above: Tension headache (Pr imary Dx); Disturbance of skin sensation Start: 11-03-2023 Telephone encounter Luis rushing MD Work Phone: [facility] Start: 10-20-2023 End: 10-20-2023 ambulatory [facility] Start: 07-02-2023 End: 07-02-2023 ambulatory RUGEN MABALAY STEFANIE Facility:[facility] Start: 07-02-2023 End: 07-02-2023 Patient encounter procedure Martha Lobo DIGITAL CAMPAIGN MANAGER.PAPER BAG MAKER Work Phone: [facility] Comment on above: Spinal stenosis in c ervical region (Primary Dx); Chronic pain syndrome Start: 06-09-2023 Telephone encounter Luis rushing MD Work Phone: [facility] Comment on above: Symptoms Start: 03-24-2023 End: 03-24-2023 ambulatory LUIS GUTIERREZ Facility:[facility] Start: 03-24-2023 End: 03-24-2023 Patient encounter procedure Luis Gutierrez MD Work Phone: [facility] Comment on above: Tension headache (Pr imary Dx) Start: 03-23-2023 Telephone encounter America tipton PA-C Work Phone: [facility] Comment on above: Symptoms Start: 03-17-2023 Telephone encounter America Vazquez ng PA-C Work Phone: [facility] Comment on above: Patient Question Start: 11-26-2022 Telephone encounter America tipton PA-C Work Phone: [facility] Comment on above: Appointment (Called patient to inform of appt. cancellation on 12/18/22 with America Velasco. Patient must be seen in person by Dr. Gutierrez. Left a VM and reminder message through [employer] for patient to beverley.) Start: 09-29-2022 Telephone encounter Luis rushing MD Work Phone: [facility] Comment on above: Appointment (Spoke w ith patient/patient's spouse regarding scheduling an in person visit with Dr. Gutierrez. Patient declined scheduling and will call back to schedule.) Symptoms Start: 09-16-2022 Telephone encounter America tipton PA-C Work Phone: [facility] Comment on above: Symptoms Start: 08-22-2022 End: 08-22-2022 ambulatory America Velasco PA-C Work Phone: [facility] Comment on above: Myelopathy (HCC) (Pr imary Dx) Start: 08-22-2022 End: 08-22-2022 Telemedicine consultation with patient America TOBARC Work Phone: [facility] Start: 08-21-2022 Telephone encounter Nadege crockett APRN.CNP Work Phone: [facility] Comment on above: Symptoms Start: 07-04-2022 End: 07-04-2022 Patient encounter procedure Nadege Annemarie DIGITAL CAMPAIGN MANAGER.PAPER BAG MAKER Work Phone: [facility] Comment on above: Spasticity (Primary Dx); Generalized abdominal pain; Myelopathy (HCC) Start: 12-27-2021 Telephone encounter Maria Teresa bobo APRN.PAPER BAG MAKER Work Phone: Neurology Comment on above: Question Start: 07-14-2019 End: 07-15-2019 Patient encounter procedure ROBERTH WATTS Facility: Start: 06-18-2018 End: 06-18-2018 Evaluation and management of inpatient PABLITO Abel [facility] Start: 03-03-2018 End: 03-14-2018 Patient encounter procedure EMELY MILAN Facility:[facility] Procedures Date Procedure Procedure Detail Performing Clinician Start: 05-19-2023 Lipid 1996 panel - S poly or Plasma Martha Lobo APRN.PAPER BAG MAKER Work Phone: Start: 04-23-2021 Lipid 1996 panel - S poly or Plasma Luis Gutierrez MD Work Phone: Start: 06-18-2018 H/O: surgery S/P debridement Maria Teresa Ramos APRN.PAPER BAG MAKER Work Phone: Start: 06-17-2018 Antibody screen P[facility]LITO [facility] Start: 01-17-2009 Adult depression screening assessment Maria Teresa Ramos APRN.PAPER BAG MAKER Work Phone: Plan of Treatment Date Care Activity Detail Author Start: 05-19-2028 Lipid 1996 panel - S poly or Plasma Lipid Screening [facility] Start: 05-19-2028 Lipid panel Lipid Screening [facility] Start: 05-19-2026 Diabetes Screening Diabetes Screenin g [facility] Start: 04-23-2026 Lipid 1996 panel - S poly or Plasma Lipid Screening [facility] Start: 04-23-2026 LIPID SCREEN LIPID SCREEN [facility] Start: 12-12-2023 DIABETES SCREEN DIABETES SCREEN [facility] Start: 12-12-2023 Diabetes Screening Diabetes Screenin g [facility] Start: 09-07-2023 Advance Directive Discussion Advance Directive Discussion [facility] Start: 09-07-2023 Depression Assessment Depression Ass essment [facility] Start: 05-08-2023 Covid-19 Vaccine ( season) Covid-19 Vaccine ( season) [facility] Start: 05-08-2023 Influenza vaccination C [facility] Start: 09-07-2022 ADVANCE DIRECTIVE DISCUSSION ADVANCE DIRECTIVE DISCUSSION [facility] Start: 09-07-2022 DEPRESSION ASSESSMENT DEPRESSION ASS ESSMENT [facility] Start: 05-08-2022 Influenza vaccination C [facility] Start: 09-07-2021 ADVANCE DIRECTIVE DISCUSSION ADVANCE DIRECTIVE DISCUSSION [facility] Start: 09-07-2021 DEPRESSION ASSESSMENT DEPRESSION ASS ESSMENT [facility] Start: 2015 BONE DENSITY BONE DENSITY [facility] Start: 2015 Bone Density Screening Bone Density Screening [facility] Start: 2015 Pneumococcal Vaccine : 65+ (1 - PCV) Pneumococcal Vaccine: 65+ (1 - PCV) [facility] Start: 2015 Pneumococcal Vaccine : 65+ (1 of 1 - PCV) Pneumococcal Vaccine: 65+ (1 of 1 - PCV) [facility] Start: 2015 PNEUMOCOCCAL: 65+ (1 - PCV) PNEUMOCOCCAL: 65+ (1 - PCV) [facility] Start: 2015 PNEUMOVAX AGE 65 AND OVER WITH 5YR LOOKBACK (#1) PNEUMOVAX AGE 65 AND OVER WITH 5YR LOOKBACK (#1) [facility] Start: 2015 Screening for osteoporosis Bone Dens ity Screening [facility] Start: 2010 RSV Vaccine (1 - 1-d ose 60+ series) RSV Vaccine (1 - 1-dose 60+ series) [facility] Start: 01-17-2010 Adult depression scr eening assessment DEPRESSION SCREENING [facility] Start: 2000 SHINGRIX VACCINE (1 of 2) SHINGRIX V ACCINE (1 of 2) [facility] Start: 1995 COLOGUARD (FIT-DNA) COLOGUARD (FIT-D NA) [facility] Start: 1995 Colonoscopy COLONOSCOPY [facility] Start: 1995 COLORECTAL CANCER SCREENING COLORECTAL CANCER SCREENING [facility] Start: [address] COLONOGRAPHY [facility] Start: 1995 DIABETES SCREEN DIABETES SCREEN [facility] Start: 1995 FECAL OCCULT BLOOD FECAL OCCULT BLOO D [facility] Start: 1995 LIPID SCREEN LIPID SCREEN [facility] Start: 1995 Screening for malign ant neoplasm of colon [facility] Start: [address] [facility] Start: 1990 Mammography [facility] Start: 1990 Screening for malign ant neoplasm of breast Mammogram Screening [facility] Start: 1969 Urine microalbumin profile [facility] Start: 1968 HEPATITIS C SCREENING HEPATITIS C [facility] Start: 1968 Hepatitis C screening Hepatitis C [facility] Start: 1955 COVID-19 VACCINE (1) COVID-19 VACCIN E (1) [facility] Start: 02-08-1951 COVID-19 VACCINE (#1) COVID-19 VACCI NE (#1) [facility] Payers Date Payer Category Payer Medicare [id number] 2020 Unknown ANTHEM BLUE [facility] AND BLUE [facility] ANTHEM MEDIBLUE O [id number] 2020-[facility] [phone] [address] [place] [address] [facility] [id number] 2020 Unknown [id number] 1959 Medicare [id number] 1959 Unknown [id number] 1950 Unknown [id number] 1950 Unknown [id number] Medicare [id number] Social History Date Type Detail Facility Start: 07-04-2022 [facility] End: 09-07-1999 History of tobacco use Current smoker [facility] Start: 03-22-2021 End: 11-17-2023 Alcohol intake Current drinker of alcohol (finding) [facility] Start: 03-22-2021 End: 03-24-2023 Alcohol intake [facility] Start: 01-17-2009 End: 07-04-2022 Tobacco Comment Quit 9 years ago [facility] Start: 1950 Sex Assigned At Not on file C [facility] Start: 12-17-2021 End: 07-04-2022 Exposure to SARS-CoV-2 (event) Not sure [facility] End: 09-07-1999 History of tobacco use Cigarette Smoker [facility] Start: 07-04-2022 Tobacco use and exposure Smoke less tobacco non-user [facility] Start: 07-04-2022 End: 03-24-2023 Tobacco use panel [facility] PHQ2 Score 0 [facility] Clinical Notes 12-27-2021 to 11-17-2023 Luis Gutierrez MD - 11/17/2023 11:34 AM EDTTelephone Encounter - Martha Israel RN - 11/03/2023 12:35 PM ESTTelephone Encounter - Rebecca Alvarado - 11/03/2023 10:04 AM ESTPatient Instructions Note Date & Type Note Facility 11-17-2023 Note HNO ID: [id number] Author: LUIS GUTIERREZ MD Service: ? Author Type: Physician Type: Progress Notes Filed: 11/29/2023 22:47 Note Text: [facility] Patient returns for follow-up evaluation. She was seen at the [facility] for multiple sclerosis evaluation in [address] ([address] Winston), 2020 (by me), March 2023 (by me). Each evaluation did not find evidence to support the diagnosis of multiple sclerosis. She returns today for further consideration of her neurological symtpoms. Current symptoms include: Left ear pain Swallowing difficulties Flickering in her eyes Pain in her chest - soreness Pain in the back of her scapula - stabbing, hot sensation Frequent headaches - daily; wax and wane in severity, made better when lying flat Abdominal pain Additional symptoms that were reported in February 2021 (and their current status): 1. Walking difficulty, doesn't feel her legs, hard to move her feet. Uses a wheelchair for the last year, although walks around her house using gallego. 2. Spasticity with cramps, feet will turn in and her toes would curl 3. Numbness and tingling in both hands and feet, has DM for several years 4. Vision disturbances, blurriness, pain behind her eyes, fluttering, eyes jitters 5. Tremor in both hands 6. Daily headaches Since her last consultation in March 2023, she's been in the ED several times. She reports that her memory and thought process and words are not coming out. When she tries to say too much, she has difficulty. She forgets where she leaves things. She gets weak in her trunk when she stands up. She has low energy. Left leg gives out. She feels she doesn't have blood flow in her hands. When she lifts her arms up it gets tired. Diagnostic tests: none recently. Past medical history, past social history, and past family history was reviewed and was unchanged from previous visit. Medications and allergies were reviewed and updated. Assessment: She has a variety of neurologic symptoms which can wax and wane over time. Overall, the clinical picture is not suggestive of a specific neurological condition. There is no evidence to suggest multiple sclerosis and I don't recommend further neurologic testing. She has significant anxiety, which then leads to speech difficulties and other symptoms. She's been on Zoloft 25 mg daily for >10 years for this. I suspect at least some of her symptoms are related to anxiety and recommend she discuss with local providers alternative management strategies, including medication and counseling/health psychology. During this patient visit I have spent approximately 20 minutes out of 30 in counseling regarding treatment options and coordinating care. Luis Gutierrez MD [facility] 11-17-2023 History of Present illness Narrative [facility] Patient returns for follow-up evaluation. She was seen at the [facility] for multiple sclerosis evaluation in [address] ([address] Winston), 2020 (by me), March 2023 (by me). Each evaluation did not find evidence to support the diagnosis of multiple sclerosis. She returns today for further consideration of her neurological symtpoms. Current symptoms include: Left ear pain Swallowing difficulties Flickering in her eyes Pain in her chest - soreness Pain in the back of her scapula - stabbing, hot sensation Frequent headaches - daily; wax and wane in severity, made better when lying flat Abdominal pain Additional symptoms that were reported in February 2021 (and their current status): 1. Walking difficulty, doesn't feel her legs, hard to move her feet. Uses a wheelchair for the last year, although walks around her house using gallego. 2. Spasticity with cramps, feet will turn in and her toes would curl 3. Numbness and tingling in both hands and feet, has DM for several years 4. Vision disturbances, blurriness, pain behind her eyes, fluttering, eyes jitters 5. Tremor in both hands 6. Daily headaches Since her last consultation in March 2023, she's been in the ED several times. She reports that her memory and thought process and words are not coming out. When she tries to say too much, she has difficulty. She forgets where she leaves things. She gets weak in her trunk when she stands up. She has low energy. Left leg gives out. She feels she doesn't have blood flow in her hands. When she lifts her arms up it gets tired. Diagnostic tests: none recently. Past medical history, past social history, and past family history was reviewed and was unchanged from previous visit. Medications and allergies were reviewed and updated. Assessment: She has a variety of neurologic symptoms which can wax and wane over time. Overall, the clinical picture is not suggestive of a specific neurological condition. There is no evidence to suggest multiple sclerosis and I don't recommend further neurologic testing. She has significant anxiety, which then leads to speech difficulties and other symptoms. She's been on Zoloft 25 mg daily for >10 years for this. I suspect at least some of her symptoms are related to anxiety and recommend she discuss with local providers alternative management strategies, including medication and counseling/health psychology. During this patient visit I have spent approximately 20 minutes out of 30 in counseling regarding treatment options and coordinating care. Luis Gutierrez MD documented in this encounter [facility] 11-03-2023 Miscellaneous Notes Last [employer] access 10-31-2023. [employer] message sent to patient indicating need for appointment with Dr Gutierrez to further review symptoms and notifying of sooner openings available next Thursday with scheduling phone number provided. Martha Israel RN Anthony Call Name of caller : Teresa Smith Relationship to patient: Self Return call phone number : [phone] Reason for call : Symptoms : Brief description of symptoms : Falling over to the side, neck gets real weak and she cannot hold it up. She is requesting information on Myopathy. Patient states she is losing her memory, vision and her hearing. documented in this encounter [facility] 10-20-2023 Note [facility] Consult Note Reason for visit: hx CAD s/p CABG, AF ? (Post op?), PVCs? HPI: Teresa Andre is a 73 y.o. year old with past medical history of CAD s/p CABG early , hyperlipidemia, chronic MATTHEW, pre diabetes, DVT, stroke 2007, colon surgery s/p colostomy and later had a reversal, low burden PVC, anxiety, depression. she has not followed a bottom filler in at least 4 years for some reason. She states she used to have A-fib but is not on any DOAC. her last visit with a bottom filler was 07/2020 she was recommended a stress test but no testing was done and she was lost to follow up she been having complaints of chest pain, shortness of breath, palpitations for the last several months and states she feels no one has been listening to her regarding symptoms She did get very tearful during visit, she does seem to have a lot of anxiety regarding how she has been feeling d/t her significant cardiac history She brought with her all of her records stress test 02/2017 was negative for ischemia and showed LVEF of 70%. TTE 10/03/2019 showed normal LVEF, no regional wall motion abnormalities and LA was normal size with no significant valvular abnormalities Medications: Aspirin 81 mg daily, Zetia 10 mg daily, Toprol-XL 25 mg daily, Zoloft 50 mg PMH: Past Medical History: Diagnosis Date Abnormal ECG Arrhythmia PSH: Past Surgical History: Procedure Laterality Date HERNIA REPAIR SH: Social Determinants of Health Tobacco Use: Not on file Alcohol Use: Not on file Financial Resource Strain: Not on file Food Insecurity: Not on file Transportation Needs: Not on file Physical Activity: Not on file Stress: Not on file Social Connections: Not on file Intimate Partner Violence: Unknown (10/20/2023) [place] Safety & Environment Fear of Current or Ex-Partner: Not on file Emotionally Abused: Not on file Physically Abused: Not on file Sexually Abused: Not on file Physically or Sexually Abused: Not on file Depression: Not on file Housing Stability: Not on file Utilities: Not on file Allergies: Allergies Allergen Reactions Egg Derived Diarrhea, Other and GI intolerance Promethazine Other, Swelling and Unknown Suppository Influenza Virus Vaccines Other Phenergan Plain Suppository Weight: 59.4kg Visit Vitals Pulse 85 Ht 1.6 m (5' 3 ) Wt 59.4 kg (131 lb) SpO2 98% BMI 23.21 kg/m??? BSA 1.62 m??? Meds: No current outpatient medications on file prior to visit. No current facility-administered medications on file prior to visit. ROS: Cardio Basic Cardiovascular Symptoms: no lightheadedness, no leg edema, no syncope, no orthopnea, no PND, no claudication, Constitutional Constitutional: no fever, no night sweats, no significant weight gain, no significant weight loss, no exercise intolerance Eyes Eyes: no dry eyes, no irritation, no vision change ENMT Ears: no difficulty hearing, no ear pain Nose: no frequent nosebleeds, Mouth/Throat: no sore throat, no bleeding gums, no snoring, no dry mouth, no mouth ulcers, no oral abnormalities, no teeth problems Respiratory Respiratory: no cough, no wheezing, no coughing up blood, no sleep apnea Musculoskeletal Musculoskeletal: no muscle aches, no muscle weakness, joint pain+, no back pain, no swelling in the extremities Integumentary Skin no rash, no ulcer, no varicosities, no discoloration, no pruritus Neurologic Neurologic: no loss of consciousness, no weakness, no numbness, no seizures, no dizziness, no headaches Psychiatric Psych: no depression, feeling safe in relationship, no alcohol abuse, Hematologic/Lymphatic Hematologic/Lymphatic no swollen glands, no bruising Physical Exam: Constitutional General Appearance: well-nourished, well-developed, appears stated age Level of Distress: comfortable Psychiatric Mental Status: alert, normal affect Orientation: oriented to time, place, and person Insight: good judgement Eyes Lids and Conjunctivae: non-injected, no xanthelasma ENMT Ears: no lesions on external ear Nose: no lesions on external nose Oropharynx: no cyanosis, no pallor Neck Neck: supple, trachea midline Carotid Arteries: bilateral normal upstroke, no bruits Jugular Veins: normal jugular venous pressure Thyroid: not enlarged Lungs Respiratory Effort: unlabored Chest Exam: normal curvature, no thoracic deformity Auscultation: clear, no wheezing, no rales, no rhonchi Cardiovascular Rate And Rhythm: regular Heart Sounds: normal S1, normal s2, no gallop Systolic Murmur: not heard Diastolic Murmur: not heard Extremities: no cyanosis, no edema, no peripheral signs of emboli Peripheral Pulses Radial Pulse: normal Abdomen Inspection and Palpation: soft, non distended, no bruit, non tender Musculoskeletal Inspection: no joint swelling Neurologic Gait: normal gait Skin Inspection and Palpation: warm and dry Nails: no clubbin (more content not included)... [facility] 10-20-2023 Note New patient here to establish care. Self ref for afib . Says she had CABG in 1999. Admits to chest discomfort and states it's from her hernia that no one is treating her for. She is on the verge of tears every few minutes. Has fallen a few times due to lightheadedness. Review of Systems Eyes: Positive for blurred vision. Cardiovascular: Positive for chest pain ( discomfort on the left), irregular heartbeat and leg swelling. Musculoskeletal: Positive for arthritis, back pain, falls, joint pain and muscle weakness. Neurological: Positive for headaches, light-headedness, loss of balance and weakness. All other systems reviewed and are negative. [facility] 07-02-2023 Note HNO ID: [id number] Author: Martha Lobo APRN.PAPER BAG MAKER Service: ? Author Type: Nurse Practitioner Type: Progress Notes Filed: 07/02/2023 1:30 PM Note Text: Spine Care Path Low Back Pain - Subacute (6 - 12 weeks) Initial Exam SUBJECTIVE HISTORY OF PRESENT ILLNESS: Teresa Andre is a 72 year old female who presents with a chief complaint of neck pain and is self-referred. Patient presents with a variety of symptoms that include head and neck pain, difficulty ambulating, and body rigidity . She reports that she has also been diagnosed with a chronic cerebral spinal fluid leak and multiple sclerosis. She reports that symptoms have been present since she was diagnosed with multiple sclerosis in 2002. She reports that since this time she feels as though her body will give out and feet will turn inwards . She reports that the spinal fluid leak was previously diagnosed by Dr. Gutierrez in the [facility]. Upon review of his note from 03/24/2023, there is not a diagnosis of multiple sclerosis or cerebral spinal fluid leak. When I attempted to inquire more about diagnosis of MS and cerebrospinal fluid leak she became agitated stating that she was diagnosed in 2002 by disability provider with multiple sclerosis , she states these records where lost by [facility]. She then stated that she did not want to speak about her cerebrospinal fluid leak further. Upon review of available imaging and reports of outside records I am unable to find any indication of a diagnosis of cerebral spinal fluid leak. Patient , Arturo, present with patient consent. Using cane since 2002 Pain localized to top of head to her wait Pain described as sore, stiffness Radiation: to her waist Numbness/Tingling: all over - hands , feet, entire spine She states that she vibrates real fast and her body will viborate all over She reports chronic imbalance and dexterity difficulties since 2002. Pain rated 0/10 Pain worse with everything: Pain improved with laying flat, stretching, Interventions: stretching, yoga, essential oils , aroma therapy, prayer Medications: flexeril, Past medications: tramadol, Lyrica- didn't tolerate, neurontin- dizziness, flexeril- didn't work Physical Therapy: She reports attending in the past year, no records available. She states that her primary care provider ordered her home health care with physical therapy however there is not anyone available by local [facility] to complete her visits or treatments. Treating Physicians: Dr Watts PCP - [facility] Maria Teresa Vang PAPER BAG MAKER - Spine - 2020- PT consult Dr Aidan Gutierrez - Multiple Sclerosis - Does not feel PT has MS - she has no MS diagnosis Dr. Brothers Neurosurgery 01/23/2009: Surgery not recommended - referred to [facility] Dr. Garcia Neurosurgery 2006- [facility] History of Spine Injections/Surgery: Thoracic outlet surgery left arm - inconsistent if was helpful by Dr. Garay [place] L5-1 discectomy in May 2009 Pain management: Sacroiliac joint injection with 50% improvement per previous records. SI joint RFA in 2008 with minimal relief per outside records. MARISA's in cervical spine - no relief - per previous records Other Issues Addressed at the Visit Today: None. Precipitating Event: None PAIN EVALUATION 07/02/2023 1030 Pain Level: 0 Pain Location: Neck Description: Sore;Stiffness Duration Amount of Time: 8 Duration Units: Years Frequency: Continuous Litigation: No Workers' Compensation: No YELLOW AND BLUE FLAGS No-Neg Attitude; Back Pain is Disabling No-Avoiding Activity (for Fear of Pain) No-Depression or Anxiety Disorders No-Social Problems No-Substance Use Disorder No-Job Dissatisfaction No-Financial Disincentives Patient Entered Questionnaires PROMIS Score Percentiles Percentiles provide an indication of how the patient's score ranks in relation to the general population. Higher percentile rankings indicate better function/quality of life. 50th percentile is the average of the general population and indicates half of respondents had a worse score. Depression Screening: PHQ-9 01/17/2009 01/17/2009 Score 13 13 PHQ-9 Self-Harm (Item 9) response options: 0 Not at all 1 Several days 2 More than half the days 3 Nearly every day PHQ-9 Levels: 0-4 No - mild depression 5-9 Mild depression 10-14 Moderate depression 15-19 Moderately severe depression 20-27 Severe depression ACTIVE PROBLEM LIST Disturbance of Skin Sensation Open Abdominal Wall Wound S/P Debridement Surgery, Elective Chronic Wound Infection of Abdomen Tension Headache PAST MEDICAL HISTORY Diagnosis Date Acute myocardial infarction of other specified sites, episode of care unspecified 11/2006 Myocardial Infarction X1 Atherosclerosis of aorta (HCC) 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 [facility] 07-02-2023 History of Present illness Narrative Spine Care Path Low Back Pain - Subacute (6 - 12 weeks) Initial Exam SUBJECTIVE HISTORY OF PRESENT ILLNESS: Teresa Andre is a 72 year old female who presents with a chief complaint of neck pain and is self-referred. Patient presents with a variety of symptoms that include head and neck pain, difficulty ambulating, and body rigidity . She reports that she has also been diagnosed with a chronic cerebral spinal fluid leak and multiple sclerosis. She reports that symptoms have been present since she was diagnosed with multiple sclerosis in 2002. She reports that since this time she feels as though her body will give out and feet will turn inwards . She reports that the spinal fluid leak was previously diagnosed by Dr. Gutierrez in the [facility]. Upon review of his note from 03/24/2023, there is not a diagnosis of multiple sclerosis or cerebral spinal fluid leak. When I attempted to inquire more about diagnosis of MS and cerebrospinal fluid leak she became agitated stating that she was diagnosed in 2002 by disability provider with multiple sclerosis , she states these records where lost by [facility]. She then stated that she did not want to speak about her cerebrospinal fluid leak further. Upon review of available imaging and reports of outside records I am unable to find any indication of a diagnosis of cerebral spinal fluid leak. Patient , Arturo, present with patient consent. Using cane since 2002 Pain localized to top of head to her wait Pain described as sore, stiffness Radiation: to her waist Numbness/Tingling: all over - hands , feet, entire spine She states that she vibrates real fast and her body will viborate all over She reports chronic imbalance and dexterity difficulties since 2002. Pain rated 0/10 Pain worse with everything: Pain improved with laying flat, stretching, Interventions: stretching, yoga, essential oils , aroma therapy, prayer Medications: flexeril, Past medications: tramadol, Lyrica- didn't tolerate, neurontin- dizziness, flexeril- didn't work Physical Therapy: She reports attending in the past year, no records available. She states that her primary care provider ordered her home health care with physical therapy however there is not anyone available by local [facility] to complete her visits or treatments. Treating Physicians: Dr Watts PCP - [facility] Maria Teresa Vang PAPER BAG MAKER - Spine - 2020- PT consult Dr Aidan Gutierrez - Multiple Sclerosis - Does not feel PT has MS - she has no MS diagnosis Dr. Brothers Neurosurgery 01/23/2009: Surgery not recommended - referred to [facility] Dr. Garcia Neurosurgery 2006- referred to [facility] History of Spine Injections/Surgery: Thoracic outlet surgery left arm - inconsistent if was helpful by Dr. Garay [place] L5-1 discectomy in May 2009 Pain management: Sacroiliac joint injection with 50% improvement per previous records. SI joint RFA in 2008 with minimal relief per outside records. MARISA's in cervical spine - no relief - per previous records Other Issues Addressed at the Visit Today: None. Precipitating Event: None PAIN EVALUATION 07/02/2023 1030 Pain Level: 0 Pain Location: Neck Description: Sore;Stiffness Duration Amount of Time: 8 Duration Units: Years Frequency: Continuous Litigation: No Workers' Compensation: No YELLOW & BLUE FLAGS No-Neg Attitude; Back Pain is Disabling No-Avoiding Activity (for Fear of Pain) No-Depression or Anxiety Disorders No-Social Problems No-Substance Use Disorder No-Job Dissatisfaction No-Financial Disincentives Patient Entered Questionnaires PROMIS Score Percentiles Percentiles provide an indication of how the patient's score ranks in relation to the general population. Higher percentile rankings indicate better function/quality of life. 50th percentile is the average of the general population and indicates half of respondents had a worse score. Depression Screening: PHQ-9 01/17/2009 01/17/2009 Score 13 13 PHQ-9 Self-Harm (Item 9) response options: 0 Not at all 1 Several days 2 More than half the days 3 Nearly every day PHQ-9 Levels: 0-4 No - mild depression 5-9 Mild depression 10-14 Moderate depression 15-19 Moderately severe depression 20-27 Severe depression ACTIVE PROBLEM LIST Disturbance of Skin Sensation Open Abdominal Wall Wound S/P Debridement Surgery, Elective Chronic Wound Infection of Abdomen Tension Headache PAST MEDICAL HISTORY Diagnosis Date Acute myocardial infarction of other specified sites, episode of care unspecified 11/2006 Myocardial Infarction X1 Atherosclerosis of aorta (HCC) 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 Diverticulitis of colon (without mention of hemorrhage)(562.11) DVT of upper extremity (deep vein thrombosis) (HCC) DVT - Arm lt Dysthymic disorder Depression (non-psychotic) Migraine, unspecified, with intractable migraine, so stated, without mention of status migrainosus Migraine Multiple sclerosis (HCC) Myalgia and myositis, unspecified Osteoporosis, unspecified Peptic ulcer, unspecified site, unspecified as acute or chronic, without mention of hemorrhage, perforation, or obstruction Peptic ulcer disease PMH - PAST MEDICAL HISTORY OF dymylelinating disease Scoliosis Spinal stenosis, other than cervical Spinal stenosis, other than cervical Unspecified essential hypertension Essential hypertension PAST SURGICAL HISTORY Procedure Laterality Date ATHEREC PERCUT, AORTIC 2000 CORONARY ARTERY BYP W/VEIN & ARTERY GRAFT 2 VEIN 2000 CABG, two grafts PAST SURGICAL HISTORY OF 2006 Angioplasty PAST SURGICAL HISTORY OF 2007 Lumbar surgery TOTAL ABDOMINAL HYSTERECT W/WO RMVL TUBE OVARY Hysterectomy, BRAN Social History Tobacco Use Smoking status: Former Types: Cigarettes Quit date: 09/07/1999 Years since quittin.8 Smokeless tobacco: Never Tobacco comments: Quit 9 years ago Substance Use Topics Alcohol use: Yes Alcohol/week: 7.5 standard drinks of alcohol Types: 3 Glasses of Wine (5oz) per week Drug use: No FAMILY HISTORY Problem Relation Age of Onset Colon Cancer Mother Ischemic Heart Disease Mother Stroke Mother Alzheimer's Disease Mother Diabetes Mother other (black lung) Father other (MS) Other 2 nieces, 2 paternal aunts, maternal cousin Ischemic Heart Disease Brother at age 49 Alzheimer's Disease Sister Ischemic Heart Disease Brother Diabetes Brother ALLERGIES Allergen Reactions Promethazine Unknown Adhesive Unknown Other reaction(s): Unknown Egg Extract GI Upset Influenza Virus Vac* Other: See Comments Phenergan [Prometha* Swelling Sutures Anaphylaxis CURRENT MEDICATIONS: cyclobenzaprine (FLEXERIL) 10 mg tablet Take 10 mg by mouth. ezetimibe (ZETIA) 10 mg tablet Take 10 mg by mouth. metoprolol succinate ER (TOPROL XL) 25 mg 24 hr tablet Take 25 mg by mouth twice daily. aspirin(ECOTRIN LOW STRENGTH 81 MG TAB) Take one(1) tablet daily. Cholecalciferol, Vitamin D3, (VITAMIN D) 25 mcg (1,000 unit) cap Take 1 capsule by mouth once daily. famotidine (PEPCID) 20 mg tablet Take 20 mg by mouth twice daily. cyanocobalamin 1,000 mcg/mL inject 1 milliliter ( 1000 MCG ) intramuscularly Every Month nitroglycerin sublingual (NITROQUICK) 0.4 mg SL tablet 1 under the tongue as needed for angina, may repeat q5mins for up three doses rosuvastatin (CRESTOR) 5 mg tablet take 1 tablet by mouth once daily sAXagliptin (ONGLYZA) 2.5 mg tab Take 2.5 mg by mouth. sucralfate (CARAFATE) 1 gram tablet Take 1 g by mouth four times daily. traMADol (ULTRAM) 50 mg tablet Take 50 mg by mouth every 6 hours as needed. docusate sodium (COLACE) 100 mg capsule Take 1 capsule by mouth three times daily as needed for Constipation. IBUPROFEN 200 MG TAB Take 1-2 tablet's) every four(4) to six(6) hours as needed for pain. sertraline hcl(ZOLOFT 50 MG TAB) Take one(1) tablet daily. ESZOPICLONE 3 MG TAB Take 1 tablet at bedtime REVIEW OF SYSTEMS: PAIN ASSESSMENT: See HPI. GENERAL: Denies fever, chills malaise and weight loss. HEENT: No recent change in vision or hearing. CARDIOVASCULAR: Denies chest pain, history of A-fib, valvular disease, or pacemaker/ICD. and CABG, aortic lilac bifurcation surgery RESPIRATORY: Denies SOB, sputum production, and hemoptysis. GI: Denies GI ulcers, inflammatory disease, or liver disease. : Denies change in frequency or urgency, kidney disease, and burning with urination. MUSCULOSKELETAL: Positive for See HPI SKIN: Denies rash or itching. PSYCHOLOGICAL: Denies uncontrolled depression or anxiety. NEURO: Denies CVA, seizures, headaches. ENDOCRINE: Denies diabetes, thyroid disease. HEMATOLOGY/LYMPHOLOGY: Denies cancer, bleeding or clotting disorders, anemia,and DVT's. ALLERGIC/IMMUNOLOGICAL: Denies risks for infection, or recent MRSA infections. OBJECTIVE: PHYSICAL EXAM There were no vitals taken for this visit. GENERAL APPEARANCE: Well appearing, well-hydrated, well nourished and alert LUNGS: even and non-labored breathing, normal chest excursion NEURO/PSYCH: oriented to time, place, and person, speech normal, mental status intact GAIT: Ambulates with assistance of a cane, gait is short staggered paces and unsteady Physical exam was declined by patient. Data Review: [facility] records independently reviewed Images independently reviewed with the patient MRI CERVICAL - 03/19/2021 1. Multilevel degenerative disc disease and disc bulges most prominent at C5-6 and C6-7. 2. Spinal stenosis at C5-6 and C6/7 not significantly changed since 2019. 3. Neural foraminal narrowing as described above. 4. No T2 signal abnormalities in the cervical cord. MRI Thoracic w/o contrast 07/21/2019: 1. Disc protrusions and degenerative acquired changes in the thoracic spine are appreciated. No high-grade central stenosis. No definite cord lesion. MRI cervical w/o contrast 07/21/2019 : 1. Multiple levels show significant appearing neural foraminal narrowing. Neural foramina would be best evaluated by CT cervical myelogram. 2. Significant appearing central canal narrowing appearing degenerative in nature at C5-6 and C6-7. MRI Brain 07/21/2019:Scattered nonspecific areas of increased T2 signal in the white matter. With no infratentorial signal abnormalities demonstrated this appearance is nonspecific for changes of chronic microvascular ischemia versus demyelinating plaques in multiple sclerosis. MRI Cervical and lumbar 03/29/2007 report only : Degenerative changes cervical and lumbar spine as described above. There is multilevel cord compression and neuroforaminal narrowing identified in the cervical spine. Focal disc protrusions identified in the lower lumbar spine as described above. Please see findings for further details. Low-lying distal spinal cord. Some element of cord tethering cannot be excluded. There is a fatty filum terminalis. Sacral region Tarlov cysts. ASSESSMENT/PLAN Spinal stenosis in cervical region (primary encounter diagnosis) Chronic pain syndrome Teresa Andre is a 72 year old female with multiple chronic symptoms including neurological concerns, weakness, and chronic neck pain. She reports a history of chronic cerebral spinal fluid leak and multiple sclerosis. She has been evaluated in the past by spine medicine providers and spine surgery providers with referral to the chronic pain and rehabilitation program. During appointment when attempting to gather pertinent information and regards to current symptoms and medical history she verbalized her disdain with this provider was looking at previous imaging and treatment records , including most recent appointment with Dr. Gutierrez at the [facility]. She stated that previous records were not accurate.. At time of appointment patient did not have any updated imaging since 2020 and when inquired if imaging has been completed she became angry with provider. Twice during the appointment she yelled and chastised her stating that he was not supportive due to him working full-time. She states that her checks on her daily at his lunch break, however she does not feel that this is enough help or support from him. She states that she needs someone to prescribe her a person to come and help her bathe as she can no longer bathe herself. Attempts to provide support and associate professor of counseling patient by provider were met with continued anger. She then decided that she no longer wanted to continue with appointment and left facility. As patient was leaving facility patient's apologized to provider for patient's behavior. SIGNATURE: Martha Lobo APRN.PAPER BAG MAKER PATIENT NAME: Teresa Andre DATE: July 02, 2023 TIME: 10:31 AM documented in this encounter [facility] 06-12-2023 Miscellaneous Notes Called patient, no answer and call disconnected after 12 rings with no ability to leave message. [employer] message sent to patient, last active 06-02-23. Martha Israel RN Spoke with Dr. Gutierrez. Patient welcome to set up follow-up with Dr. Gutierrez but since she doesn't have MS diagnosis, long-term follow-up at [facility] is not the best option. Find out the most bothersome symptoms. We would then direct to the appropriate areas with tentative direction as follows depending on what we are told: - Headaches - set up with headache clinic - Walking difficulty - recommend PT - Pain (outside of headache) - Chronic pain rehab program America Velasco PA-C Anthony Call Name of caller : Teresa Andre Relationship to patient: Self Return call phone number : [phone] Reason for call : Symptoms : Brief description of symptoms : Patient is calling and asking to speak to someone about her symptoms she is having and needs help and wonders what she should do for everything going on with her. I did tell her to call her PCP because that was written in the last office note and she said her PCP is unable to help her and knows nothing about ms and spinal fluid leak and cervical spine stenosis. Please call to discuss further. When did symptoms start : Ongoing documented in this encounter [facility] 03-24-2023 Note HNO ID: [id number] Author: Luis Gutierrez MD Service: ? Author Type: Physician Type: Progress Notes Filed: 03/24/2023 4:18 PM Note Text: [facility] FOLLOWUP/ESTABLISHED PATIENT VIRTUAL VISIT Patient returns for follow-up visit. She was seen here in [address] Tere Winston who did not think she had multiple sclerosis. She was seen by me in 2020 where I did not think she had multiple sclerosis. At that time, she had clinical history, examination, and imaging findings suggestive cervical spine stenosis and I recommended Spine Center referral. Spine Center referral had this assessment: Has seen spine medicine and spine surgery back in [id number] for similar symptoms. Was referred to CPRP [Chronic Pain Rehabilitation Program] by surgeons and spine medicine MDs. Patient with Cspine stenosis but based on chronicity of her symptoms and physical exam, not likely causing her LE symptoms. I am not confident this patient would respond well to surgery or injections. If worsening neck/arm symptoms can get surgical consult. Patient did not pursue CPRP She returns today saying that she thinks she has multiple sclerosisn and is wondering why I don't think she has multiple sclerosis. She also reports having been given a the diagnosis of spinal fluid leak by me, although my records do not indicate that I thought she has a spinal fluid leak. She was seen by a local ER at the end of August and referred to local neurosurgery for cervical spine stenosis. Per chart, when they called to make appointment she declined seeing them. Current symptoms include: Left ear pain Swallowing difficulties Flickering in her eyes Pain in her chest - soreness Pain in the back of her scapula - stabbing, hot sensation Frequent headaches - daily; wax and wane in severity, made better when lying flat Abdominal pain Symptoms from February 2021 visit, updated: 1. Walking difficulty, doesn't feel her legs, hard to move her feet. Uses a wheelchair for the last year, although walks around her house using gallego. 2. Spasticity with cramps, feet will turn in and her toes would curl 3. Numbness and tingling in both hands and feet, has DM for several years 4. Vision disturbances, blurriness, pain behind her eyes, fluttering, eyes jitters 5. Tremor in both hands 6. Daily headaches She reports that the above symptoms continue now. Past medical history, past social history, and past family history was reviewed and was unchanged from previous visit. During this visit her received a call from the PCP saying that her recent CT scan showed a spot on her pancreas and recommended MRI for further assessment. Medications and allergies were reviewed and updated. Assessment: She has a 20+ year history of multiple somatic symptoms. No clear neurologic diagnosis has been identified. She has some cervical spine stenosis, but 2020 evaluation recommended against surgery and instead recommended Chronic Pain Rehab Program. I explained that the clinical picture is not suggestive of multiple sclerosis and I don't recommend further neurologic work-up at this time. She cried several times during the visit, indicating emotional disruption such as depression. I recommend she prioritize her long list of symptoms, since it will be very difficult for a provider to manage all of the symptoms at once. She can then work with her PCP to try to address the 1-2 most disruptive symptoms. A Chronic Pain Rehabilitation Program could be considered again, although she doesn't seem receptive to that management strategy. Depression is evident today; increasing Zoloft from 50 mg to 75 or 100 mg could be considered. During this patient visit I have spent approximately 25 minutes out of 40 in counselling regarding treatment options, medications, and test results and coordinating care. Follow-up: none needed at [facility] Luis Gutierrez MD cc: Aidan Teresa Keenan Andre, [address] [facility] [address] cc: Dr. Watts, [facility] [address] [facility] [address] [id number] [facility] 03-24-2023 History of Present illness Narrative [facility] FOLLOWUP/ESTABLISHED PATIENT VIRTUAL VISIT Patient returns for follow-up visit. She was seen here in [address] Tere Winston who did not think she had multiple sclerosis. She was seen by me in 2020 where I did not think she had multiple sclerosis. At that time, she had clinical history, examination, and imaging findings suggestive cervical spine stenosis and I recommended Spine Center referral. Spine Center referral had this assessment: Has seen spine medicine and spine surgery back in [id number] for similar symptoms. Was referred to CPRP [Chronic Pain Rehabilitation Program] by surgeons and spine medicine MDs. Patient with Cspine stenosis but based on chronicity of her symptoms and physical exam, not likely causing her LE symptoms. I am not confident this patient would respond well to surgery or injections. If worsening neck/arm symptoms can get surgical consult. Patient did not pursue CPRP She returns today saying that she thinks she has multiple sclerosisn and is wondering why I don't think she has multiple sclerosis. She also reports having been given a the diagnosis of spinal fluid leak by me, although my records do not indicate that I thought she has a spinal fluid leak. She was seen by a local ER at the end of August and referred to local neurosurgery for cervical spine stenosis. Per chart, when they called to make appointment she declined seeing them. Current symptoms include: Left ear pain Swallowing difficulties Flickering in her eyes Pain in her chest - soreness Pain in the back of her scapula - stabbing, hot sensation Frequent headaches - daily; wax and wane in severity, made better when lying flat Abdominal pain Symptoms from February 2021 visit, updated: 1. Walking difficulty, doesn't feel her legs, hard to move her feet. Uses a wheelchair for the last year, although walks around her house using gallego. 2. Spasticity with cramps, feet will turn in and her toes would curl 3. Numbness and tingling in both hands and feet, has DM for several years 4. Vision disturbances, blurriness, pain behind her eyes, fluttering, eyes jitters 5. Tremor in both hands 6. Daily headaches She reports that the above symptoms continue now. Past medical history, past social history, and past family history was reviewed and was unchanged from previous visit. During this visit her received a call from the PCP saying that her recent CT scan showed a spot on her pancreas and recommended MRI for further assessment. Medications and allergies were reviewed and updated. Assessment: She has a 20+ year history of multiple somatic symptoms. No clear neurologic diagnosis has been identified. She has some cervical spine stenosis, but 2020 evaluation recommended against surgery and instead recommended Chronic Pain Rehab Program. I explained that the clinical picture is not suggestive of multiple sclerosis and I don't recommend further neurologic work-up at this time. She cried several times during the visit, indicating emotional disruption such as depression. I recommend she prioritize her long list of symptoms, since it will be very difficult for a provider to manage all of the symptoms at once. She can then work with her PCP to try to address the 1-2 most disruptive symptoms. A Chronic Pain Rehabilitation Program could be considered again, although she doesn't seem receptive to that management strategy. Depression is evident today; increasing Zoloft from 50 mg to 75 or 100 mg could be considered. During this patient visit I have spent approximately 25 minutes out of 40 in counselling regarding treatment options, medications, and test results and coordinating care. Follow-up: none needed at [facility] Luis Gutierrez MD cc: [facility]. Teresa Andre, [address] [facility] [address] cc: Roberth Bethea, [address] [facility] [address], [facility] [id number] documented in this encounter [facility] 03-23-2023 Miscellaneous Notes Patient has been rescheduled with Dr Gutierrez 03-24-23 at 2:30pm. Martha Israel RN Patient has been previously notified numerous times of need to schedule In Person visit with Dr Gutierrez for evaluation and any plan of care updates. Per America Velasco PA-C, we are unable to provide treatment recommendations or guidance for symptoms until patient completes In Person visit with Dr Gutierrez. Routing to Appointment Pool to contact patient to offer In Person visit with Dr Gutierrez. Martha Israel RN [facility] Name of caller : Teresa Relationship to patient: Self Return call phone number : [phone] Reason for call : Other : Brief description of concern : Patient was in the ED with spinal fluids leak and is having complications tremors and pain. Needs to know what she can do for pain and tremors. documented in this encounter [facility] 03-19-2023 Miscellaneous Notes Politapollhart response sent to patient notifying of below message from America Velasco PA-C. Martha Israel RN Would defer to spine center for re-evaluation if she feels symptoms have changed. America Velasco PA-C Anthony Call Name of caller : Teresa Andre Relationship to patient: Self Return call phone number : [phone] Reason for call : Other : Brief description of concern : Patient is calling and said she is not doing well and hard to get around and asking if you can place a new order for spine surgery becaues she is having a hard time. Please let her know. documented in this encounter [facility] 11-26-2022 Miscellaneous Notes Called patient to inform of appt. cancellation on 12/18/22 with America Velasco. Patient must be seen in person by Dr. Gutierrez. Left a VM and reminder message through [employer] for patient to beverley. documented in this encounter [facility] 10-01-2022 Miscellaneous Notes Reviewed message with Dr. Gutierrez. No further recommendations at this time. Patient can seek care again in ED if symptoms worsen/unable to come to [place]. America eVlasco PA-C Called patient, did not get to verify name and as patient immediately began talking. She states I went to the ER and they did all kind of tests and said everything was normal and released me . This RN indicated patient needs to schedule in person visit with Dr Gutierrez for evaluation. Patient very tangential and from there this RN was unable to say anything else. Patient states my throat is hurting and I cannot raise my neck, my chest is coming through my sternum and I already have a compromised sternum from open heart surgery. I am going to waiting on paperwork to be seen. Medicare shouldn't be able to dictate people's lives. We got doctors that don't know what a bedpain is and can't open the cupboard to get one out and they go down the pinzon and talk to someone for 10 minutes before they come back. We got people in nursing homes who are thirsty and in hallways and no one is paying attention to them. People need to change hospitals need to change. 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 Not one doctor touched me or palpated my organs. No one listens to my lungs or my heart for 3 minutes. The whole thing takes 10 minutes. I am not going to come to [place] and that is the way it is. I have got to go. Bye . Routing to America Velasco PA-C and Dr Gutierrez to update. Martha Israel RN Images from the original note were not included. Patient needs In Person office visit for assessment and to determine plan of care with Dr Gutierrez. Routed message to Appointments to contact patient to schedule In Person office visit with Dr Gutierrez. Padmaja Javed You 12 minutes ago (2:13 PM) [place] Good afternoon Martha! I hope you had a great weekend. I spoke with the patient and her spouse to schedule an in person visit with Dr. Gutierrez. Unfortunately, they declined scheduling the appointment right now due to the fact the patient is In a lot of pain and felt they would be unable to make the trip. I gave them our appointment line number and let them know to call us as soon as they are able to schedule. Let me know if there is anything else I can do to help! -Janeth Will call patient/spouse to discuss need for ER if symptoms are severe and unmanageable. Martha Israel RN Name of caller : Patient Return call phone number : [phone] Reason for call : severe pain her cervical spine area and is now having problems with her vision and breathing... documented in this encounter [facility] 09-29-2022 Miscellaneous Notes Spoke with patient/patient's spouse regarding scheduling an in person visit with Dr. Gutierrez. Patient declined scheduling and will call back to schedule. documented in this encounter [facility] 09-17-2022 Miscellaneous Notes Patient's spouse returned call to office, verified name and . Notified that due to patient's symptoms Dr Gutierrez recommends evaluation in ER. He states patient declines visit to ER at this time. Notified of need for in person visit to review symptoms. Assisted to schedule in person visit with America Velasco PA-C 09-23-22 at 11:15 am. Slot placed on hold and message sent to add on pool. Attempted to reach patient's spouse, rings busy signal. Called patient, obtained daughter Shelly's phone number and added to emergency contacts per patient request. Called Shelly, no answer. Message left to return call to office when able. Martha Israel RN Called patient, notified of below. She states she is not able to go to the ER now because she has full custody of her 9 year old grandson who she plans to adopt when able. Her spouse works Thursday-Thursday 9-3 as an cdl flatbed truck driver, he is a retired tax compliance representative. She states she cannot go to the ER because her grandson is at school and would come home to an empty house. She states her daughter is coming in this weekend and she may need to wait until then to go to the ER. Attempted to call patient's spouse per patient request, phone rings half a ring then goes silent x 3 attempts. Will try again later. Martha Israel RN Spoke with Dr. Gutierrez. If patient is concerned about a spinal fluid leak, she needs to be evaluated urgently in the ED (this is not something we can assess outpatient). If she has other symptoms she wants to discuss, she can schedule a follow-up with Matt/Chance team only on a Thursday when Dr. Gutierrez is here. Would need to be in person (preference) or virtual (cannot be by phone). America Velasco PA-C Routed to America Velasco PA-C to review and advise. Await response then will return call to patient. Martha Israel RN PT is calling in regards to spinal fluid loss she called but had to abruptly end the call because she is getting very sick and can not go on any longer. I tried to see if it was a 911 situation but she said no and said she just really needs to go and that she is sick and she thinks she is losing her spinal fluid. She did say her number was correct in chart to call back as: [phone] [place] Call Name of caller : Teresa Relationship to patient: Self Return call phone number : [phone] Reason for call : Other : Brief description of concern : Spinal fluid loss documented in this encounter [facility] 08-22-2022 History of Present illness Narrative [facility] FOLLOWUP/ESTABLISHED PATIENT VIRTUAL VISIT Diagnosis: no clear neurologic diagnosis at this time DISEASE SUMMARY Date of onset: 1997 (fatigue, pain of lower back, weakness) Date of diagnosis of MS: NA Disease course at onset: NA Current disease course: NA Previous disease therapies: - none Current disease therapy: - none Most recent MRI brain: 07/21/2019 Most recent MRI cervical spine: 03/19/2021 Most recent MRI thoracic spine: 07/21/2019 CSF: 02/27/03 (free kappa light chain .06, IgG synthesis 0, IgG index .48, OCBs 0, MBP 1.0) JCV serology result and date: not done CHIEF COMPLAINT: worsening INTERVAL HISTORY: Usual treating team: Matt Today's visit is being completed by phone, zoom failed pt consented. Accompanied by self. Last seen 07/04/22. Feels worse since seen last Losing speech and eye sight Imbalance and concentration difficulties, forgetful Headaches daily and behind eyes Both eyes hurt After talking for a while, then can't talk Sores in scalp and losing hair? Frustrated with PCP. 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 Diverticulitis of colon (without mention of hemorrhage)(562.11) DVT of upper extremity (deep vein thrombosis) (HCC) DVT - Arm lt Dysthymic disorder Depression (non-psychotic) Migraine, unspecified, with intractable migraine, so stated, without mention of status migrainosus Migraine Multiple sclerosis (HCC) Myalgia and myositis, unspecified Osteoporosis, unspecified Peptic ulcer, unspecified site, unspecified as acute or chronic, without mention of hemorrhage, perforation, or obstruction Peptic ulcer disease PMH - PAST MEDICAL HISTORY OF dymylelinating disease Scoliosis Spinal stenosis, other than cervical Spinal stenosis, other than cervical Unspecified essential hypertension Essential hypertension PAST SURGICAL HISTORY Procedure Laterality Date ATHEREC PERCUT, AORTIC 2000 CORONARY ARTERY BYP W/VEIN & ARTERY GRAFT 2 VEIN 2000 CABG, two grafts PAST SURGICAL HISTORY OF 2006 Angioplasty PAST SURGICAL HISTORY OF 2007 Lumbar surgery TOTAL ABDOMINAL HYSTERECT W/WO RMVL TUBE OVARY Hysterectomy, BRAN MEDICATIONS and ALLERGIES were reviewed and updated. SOCIAL HISTORY was reviewed and updated: Current living situation: At home EXAM: General Appearance: unable to assess Mental status evaluation during the interview and examination showed Reported difficulties: memory word finding concentration / attention Affect: frustrated Speech: normal RESULTS: Monitoring labs: none to review MRI brain: No new brain MRI to review ASSESSMENT: Teresa Andre is a 72 year old female without a clear neurologic diagnosis (Discussed with Dr. Gutierrez prior to visit assessment of patient and reviewed chart). Patient reports symptoms worse since she was last evaluated. She said she was unable to complete the PT that PCP has ordered. Became frustrated when this clinician told her she hadn't met criteria for MS based on previous images/history we had access to. Patient said she would place it in God's hands and terminated the call. I spent a total of 10 minutes on the date of the service which included preparing to see the patient, completing clinical documentation, obtaining and/or reviewing separately obtained history, and communicating results to the patient/family/caregiver. The patient and chart was discussed with Dr. Gutierrez prior to visit. Dr. Gutierrez made aware of patient dissatisfaction with visit. America Velasco PA-C documented in this encounter [facility] 08-21-2022 Miscellaneous Notes Appointment placed on hold tomorrow 08-22-22 at 10:30 am with America Velasco PA-C, can be in person or virtual. Called patient, verified name and . She accepts Virtual Visit tomorrow with America Velasco PA-C. Sent [employer] activation link as she hasn't used it since 2019. Patient has been having many symptoms and is looking for input and guidance. She has started Physical Therapy. She does not believe she has had any MRIs since March 2021 which are already imported to her chart. Patient discussed ongoing issues with a spinal fluid leak in cervical spine. She states the only way her headache improves is by laying down and staying still. She also reports that her body has rejected sutures and implants in past abdominal surgeries and she is still recuperating from that. Symptoms from June office visit with Nadege Sharpe CNP continue and are worse per patient. Martha Israel RN [place] Call Name of caller : Teresa Relationship to patient: Self Return call phone number : [phone] Reason for call : Other : Brief description of concern : Patient is calling because she has some increasing symptoms. She is having trouble swallowing, walking and is getting weak. Tremors vibrating weak holding things, Speaking is worse as well not sure if you wanna talk to her now or if in should do an encounter she also has a migraine head type and sores on her scalp and losing her hair. documented in this encounter [facility] 07-04-2022 Instructions Nadege Sharpe APRN.JENIFER - 07/04/2022 11:54 AM EDT Thank you for meeting with me today, it was a pleasure meeting you. We are going to do a few things to address your symptoms while awaiting imaging. - get scheduled and working with physical therapy - begin taking baclofen 10 mg nightly. If you tolerate it well can take it 2 times per day I will message you regarding MRI imaging. Please try to obtain any images from recent MRIs in the meantime. Follow up with us in about 2-3 months, this can be virtually documented in this encounter [facility] 07-04-2022 History of Present illness Narrative [facility] FOLLOWUP/ESTABLISHED PATIENT VISIT Principal Neurologic Diagnosis: Abnormal MRIs DISEASE SUMMARY Date of onset: 1997 (fatigue, pain of lower back, weakness) Date of diagnosis of MS: NA Disease course at onset: NA Current disease course: NA Previous disease therapies: - none Current disease therapy: - none Most recent MRI brain: 07/21/2019 Most recent MRI cervical spine: 03/19/2021 Most recent MRI thoracic spine: 07/21/2019 CSF: 02/27/03 (free kappa light chain .06, IgG synthesis 0, IgG index .48, OCBs 0, MBP 1.0) JCV serology result and date: not done CHIEF COMPLAINT: Urgent visit for worsening of symptoms INTERVAL HISTORY: Usual treating team: Matt The patient is accompanied by her , Alfonso. The patient was last seen 02/26/2021, currently Not on DMT. Since the patient's last visit the patient reports overall feeling worse. Issues with current MS therapy: Not currently on disease modifying therapy. Sarah presents with worsening of symptoms. She is very discouraged by her physical and mental decline and justs want an answer as to why, as well as to help her be a little bit better . 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 She saw spine 03/22/2021 for chronic pain, altered gait, weakness, and spinal stenosis and was diagnosed with lordosis, stenosis, and scoliosis. Her follow up was to be PRN and surgical consult referral. Sarah is respectfully declining surgery at this time. She continues to have a multitude of symptoms: - walking difficulty: Due to not feeling her legs and her body not listening when her brain tells her legs to move. Left side is so stiff she is unable to walk more than a few steps at a time. She denies falls but reports there are many close calls. She uses a power chair, wheelchair, and cane at home and outside of the house. She wall walks and uses furniture for stability as well. Saw PT at the recommendation of spine (home care PT) and they came to her house 1 time and said she didn't need it anymore. - memory impairment: worsening short term memory, will lose her way in conversation, get confused, misplace objects and forgetfulness. Has a hard time keeping up with her grandson's homework and due dates. - spasticity with cramping, L>R. Has tried flexeril in the past but makes her feel too rubbery . - vision disturbances worsening blurriness, flickering, eye jitters. Not painful. Wears glasses. No color desaturation. - speech and hearing decline began stuttering recently, talking slower than previously - sensory changes experiences whole body vibrations occasionally, not painful. Her and her are raising their grandson (9 years old), and Alfonso still works during the day. Does feel safe being home alone but gets frustrated easily because she is unable to do many things alone. She also reports she has been very fatigued recently. She feels like she could sleep forever. Will lay down to stretch her back and then russell end up sleeping the whole day. She denies recent illness or infection. Last MRIs were from March 2021 (uploaded). She believes she has had imagining done since then but does not have those images or reports. Will try to obtain but would like updated whole body imaging. SUBJECTIVE & REVIEW OF SYSTEMS: *NeuroQoL is a multi-domain patient-reported quality of life questionnaire. PHQ-9 Flowsheet Row Office Visit from 01/17/2009 in [facility] Most recent reading at 01/17/2009 12:00 AM Office Visit from 01/17/2009 in [facility] Most recent reading at 01/17/2009 12:00 AM PHQ-9 Score 13 13 *PHQ-9 is a questionnaire for depressive symptoms, with scores 0-4 indicating none, 5-9 mild, 10-14 moderate, 15-19 moderately severe, and 20-27 severe symptoms. *PROMIS-10 is a patient-reported quality of life measure, typically reported as physical and mental domains. Here scores are expressed as percentiles, where the lowest possible score is one, the highest possible score is 99, and 50 is average. 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 Diverticulitis of colon (without mention of hemorrhage)(562.11) DVT of upper extremity (deep vein thrombosis) (HCC) DVT - Arm lt Dysthymic disorder Depression (non-psychotic) Migraine, unspecified, with intractable migraine, so stated, without mention of status migrainosus Migraine Multiple sclerosis (HCC) Myalgia and myositis, unspecified Osteoporosis, unspecified Peptic ulcer, unspecified site, unspecified as acute or chronic, without mention of hemorrhage, perforation, or obstruction Peptic ulcer disease PMH - PAST MEDICAL HISTORY OF dymylelinating disease Scoliosis Spinal stenosis, other than cervical Spinal stenosis, other than cervical Unspecified essential hypertension Essential hypertension PAST SURGICAL HISTORY Procedure Laterality Date ATHEREC PERCUT, AORTIC 2000 CORONARY ARTERY BYP W/VEIN & ARTERY GRAFT 2 VEIN 2000 CABG, two grafts PAST SURGICAL HISTORY OF 2006 Angioplasty PAST SURGICAL HISTORY OF 2007 Lumbar surgery TOTAL ABDOMINAL HYSTERECT W/WO RMVL TUBE OVARY Hysterectomy, BRAN MEDICATIONS and ALLERGIES were reviewed and updated. SOCIAL HISTORY was reviewed and updated: Social History Tobacco Use Smoking status: Former Types: Cigarettes Quit date: 09/07/1999 Years since quittin.8 Smokeless tobacco: Never Tobacco comments: Quit 9 years ago No Data Recorded OBJECTIVE: VITALS & WELLNESS: BP 143/85 (BP Site: Right Arm, BP Position: Sitting, BP Cuff Size: Large Adult) Pulse 74 Ht 160 cm (5' 3 ) Wt 63.5 kg (140 lb) BMI 24.80 kg/m MSPT Performance Tests EXAM: General Appearance: well appearing, in no acute distress Mental status evaluation during the interview and examination showed normal level of consciousness, orientation, language, memory, praxis, and higher intellectual function Affect: Normal Extraocular movements: full, without ALEXANDER Speech: Normal, slowed and purposeful Muscle strength (#/5): Right Left Upper Extremity: Deltoids 5 4 Biceps 5 4 Triceps 5 4 Qa Tester 5 4- Dorsal interossei 5 4- Lower extremity: Iliopsoas 4 3- Quadriceps 4 3 Hamstrings 4 3 Tibialis anterior 4 3 Gastrocnemius 4 3 Coordination: Upper extremity dexterity and rapid movements: Impaired left Finger-nose: mild dysmetria or incoordination are evident Standing balance: unable to perform Standard gait: left hemiparetic, unsteady. Assistive device: cane Tandem walking: unable to perform RESULTS: Monitoring labs: see [facility] for recent CBC diff, CMP. ASSESSMENT/PLAN: Teresa Andre is a 71 year old female without a clear neurologic diagnosis. 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 Her decline in mobility is biggest concern; spasticity and cramping to bilateral upper and lower extremities, L>R. Will refer to physical therapy and begin baclofen 10 mg QHS and if tolerated, BID. Patient believes she had imaging done since 03/2021 and will attempt to obtain. If unable to obtain, consider updated spinal cord imaging. Continue discussion regarding cognitive therapy and speech therapy, complicated by distance from [facility] and will first focus on physical therapy. Consider spasticity consult after titrating baclofen. She is also requesting a referral to GI for a long history of diverticulitis complicated by MRSA, history of colostomy, hernia, and abdominal pain. Patient Health Education Discussed at Visit: Emotional Health/Wellness, Nutrition, Stress management, Stretching, and Vitamin D supplementation - Baclofen 10 mg QHS, increase to BID if tolerated - Physical therapy. Attempting [facility] facility but script printed for local facility as well - Previous MRI image requested (new since visit in 02/2021) - GI consult - Follow up in 3 months, can be virtual I spent a total of 75 minutes on the date of the service which included preparing to see the patient, [id number] patient care, completing clinical documentation, obtaining and/or reviewing separately obtained history, performing a medically appropriate examination, counseling and educating the patient/family/caregiver, and communicating results to the patient/family/caregiver. Nadege Sharpe APRN.JENIFER documented in this encounter [facility] 12-27-2021 Miscellaneous Notes Neuro SPINE CARE COORDINATION QUICK NOTE Patient is aware Maria Teresa has referred her to [facility]. Patient stated understanding and has number to schedule. Appointment cancelled with Maria Teresa per patients request. Neuro SPINE CARE COORDINATION QUICK NOTE Last visit 03/22/2021 Patient c/o general back pain, not short term memory issues. Unable to take ibuprofen/Tylenol/Narcotics due to gastro issues.. Can not use any over the counter creams/patches due to skin sensitivity. Recommended ice/heat. Patient has an appointment with Maria Teresa Ramos CNP on 01/10/2022. Patient is calling in to speak with the nurse about her shirt term memory loss. Call Back [phone] documented in this encounter [facility] Evaluation note Diagnosis Spasticity- Primary Abnormal involuntary movements Generalized abdominal pain Abdominal pain, generalized Myelopathy (HCC) Unspecified disease of spinal cord [facility] Diagnosis Myelopathy (HCC)- Primary Unspecified disease of spinal cord [facility] [place] [facility] Diagnosis Tension headache- Primary [facility] [place] [facility]* Diagnosis Spinal stenosis in cervical region- Primary Chronic pain syndrome [facility] [place] [facility] Diagnosis Tension headache- Primary Disturbance of skin sensation documented in this encounter [facility] Summary Purpose Family History No Family History Records FoundNo Family History Records FoundNo Family History Records FoundNo Family History Records FoundNo Family History Records FoundNo Family History Records Found Advance Directives No Advanced Directives Records FoundNo Advanced Directives Records FoundNo Advanced Directives Records FoundNo Advanced Directives Records FoundNo Advanced Directives Records FoundNo Advanced Directives Records Found Hospital Course Note HNO ID: [id number]: Sanaz Abel ChaService: General SurgeryAuthor Type: PhysicianType: Discharge SummariesFiled: 06/18/2018 2:47 PMNote Text: DISCHARGE SUMMARYPATIENT NAME: Teresa Andre ADMISSION DATE: 06/17/2018MRN: [id number] DISCHARGE DATE: 06/18/2018ATTENDING PHYSICIAN: Pablito Abel Cha Code Status: Not on fileHighest Readmission Risk Score: 8 The 30 day readmissions risk score is derived from an internallyvalidated risk model which evaluates patient level characteristics,utilization history, medication orders and lab results up until the day ofdischarge. Patients with a score of 40 or above are considered highestrisk for readmission. Specific patient level drivers will be listed at thebottom of the summary.REASON FOR HOSPITALIZATION: for surgery and recovery.DIAGNOSIS: Midline laparotomy wound sinus tract.OPERATIONS DURING HOSPITALIZATION: Exploration of abdominal wound withexcision of a chronic granuloma cavity and foreign body which was apermanent suture.PROCEDURES DURING HOSPI (more content not included)... Reason for Referral Specialty Diagnoses / Procedures Referred By Marcelo barry Referred To Contact Gastroenterology Diagnoses Generalized abdominal pain Myelopathy (HCC) Procedures CONSULT TO GASTROENTEROLOGY OFFICE/OUTPATIENT [facility] 60-74 MINUTES [facility] [address] [address] Referral ID Status Reason Start Date Expiration Date Visits Requested Visits Authorized [id number] Pending Review PCP Requested Referral 2 07/04/2023 1 1 Specialty Diagnoses / Procedures Referred By Contac t Referred To Contact [facility] Diagnoses Myelopathy (HCC) Procedures CONSULT TO PHYSICAL THERAPY PHYSICAL THERAPY EVALUATION [facility] [address] [facility] [place] [id number] [place] [id number] [facility] [address] [place] [address] Referral ID Status Reason Start Date Expiration Date Visits Requested Visits Authorized [id number] Pending Review Auto-Generat ed Referral 2 07/04/2023 1 1 Additional Source Comments INFORMATION SOURCE (unrecogn ized section and content) DATE CREATED AUTHOR 07/22/2018 [facility] DATE CREATED AUTHOR AUTHOR'S ORGANIZ ATION 04/30/2019 [facility] DATE CREATED AUTHOR AUTHOR'S ORGANIZ ATION 07/18/2019 [facility] DATE CREATED AUTHOR AUTHOR'S ORGANIZ ATION 10/19/2021 [facility] DATE CREATED AUTHOR AUTHOR'S ORGANIZ ATION 10/22/2023 [facility] DATE CREATED AUTHOR AUTHOR'S ORGANIZ ATION 11/30/2023 [facility] Source Comments (unrecognize d section and content) In the event this informatio n is protected by the Federal Confidentiality of Alcohol and Drug Abuse Patient Records regulations: The Federal rules restrict any use of the information to criminally investigate or prosecute any alcohol or drug abuse patient.[facility] the event this information is protected by the Federal Confidentiality of Alcohol and Drug Abuse Patient Records regulations: The Federal rules restrict any use of the information to criminally investigate or prosecute any alcohol or drug abuse patient.[facility] Hospital[facility] the event this information is protected by the Federal Confidentiality of Alcohol and Drug Abuse Patient Records regulations: The Federal rules restrict any use of the information to criminally investigate or prosecute any alcohol or drug abuse patient.[facility] Hospital[facility] the event this information is protected by the Federal Confidentiality of Alcohol and Drug Abuse Patient Records regulations: The Federal rules restrict any use of the information to criminally investigate or prosecute any alcohol or drug abuse patient.[facility] HospitalIn the event this information is protected by the Federal Confidentiality of Alcohol and Drug Abuse Patient Records regulations: The Federal rules restrict any use of the information to criminally investigate or prosecute any alcohol or drug abuse patient.[facility] HospitalIn the event this information is protected by the Federal Confidentiality of Alcohol and Drug Abuse Patient Records regulations: The Federal rules restrict any use of the information to criminally investigate or prosecute any alcohol or drug abuse patient.[facility] HospitalIn the event this information is protected by the Federal Confidentiality of Alcohol and Drug Abuse Patient Records regulations: The Federal rules restrict any use of the information to criminally investigate or prosecute any alcohol or drug abuse patient.[facility] HospitalIn the event this information is protected by the Federal Confidentiality of Alcohol and Drug Abuse Patient Records regulations: The Federal rules restrict any use of the information to criminally investigate or prosecute any alcohol or drug abuse patient.[facility] HospitalIn the event this information is protected by the Federal Confidentiality of Alcohol and Drug Abuse Patient Records regulations: The Federal rules restrict any use of the information to criminally investigate or prosecute any alcohol or drug abuse patient.[facility] HospitalIn the event this information is protected by the Federal Confidentiality of Alcohol and Drug Abuse Patient Records regulations: The Federal rules restrict any use of the information to criminally investigate or prosecute any alcohol or drug abuse patient.[facility] HospitalIn the event this information is protected by the Federal Confidentiality of Alcohol and Drug Abuse Patient Records regulations: The Federal rules restrict any use of the information to criminally investigate or prosecute any alcohol or drug abuse patient.[facility] HospitalIn the event this information is protected by the Federal Confidentiality of Alcohol and Drug Abuse Patient Records regulations: The Federal rules restrict any use of the information to criminally investigate or prosecute any alcohol or drug abuse patient.[facility] HospitalIn the event this information is protected by the Federal Confidentiality of Alcohol and Drug Abuse Patient Records regulations: The Federal rules restrict any use of the information to criminally investigate or prosecute any alcohol or drug abuse patient.[facility] HospitalIn the event this information is protected by the Federal Confidentiality of Alcohol and Drug Abuse Patient Records regulations: The Federal rules restrict any use of the information to criminally investigate or prosecute any alcohol or drug abuse patient.[facility] HospitalIn the event this information is protected by the Federal Confidentiality of Alcohol and Drug Abuse Patient Records regulations: The Federal rules restrict any use of the information to criminally investigate or prosecute any alcohol or drug abuse patient.[facility] Reason for Visit (unrecogniz ed section and content) Reason Comments Question Reason Comments Established Patient Follow-Up Reason Comments Symptoms Reason Comments Established Patient Follow-Up Reason Comments Appointment Spoke with patient/p atient's spouse regarding scheduling an in person visit with Dr. Gutierrez. Patient declined scheduling and will call back to schedule. Reason Comments Appointment Called patient to in form of appt. cancellation on 12/18/22 with America Velasco. Patient must be seen in person by Dr. Gutierrez. Left a VM and reminder message through [employer] for patient to beverley. Reason Comments Patient Question Reason Comments New Patient Cervical pain Care Teams (unrecognized sec tion and content) Accounting Teacher Relationship Specialty Start Date End Date Roberth Watts PCP - General 11/13/06 Lam Mcclendon MD [address] [place] [address] Referring Neurology 04/13/20 Accounting Teacher Relationship Specialty Start Date End Date Roberth Watts PCP - General 11/13/06 Lam Mcclendon MD [address] [place] [address] Referring Neurology 04/13/20 Accounting Teacher Relationship Specialty Start Date End Date Roberth Wattsy PCP - General 11/13/06 Lam Mcclendon MD [address] [place] [address] Referring Neurology 04/13/20 Accounting Teacher Relationship Specialty Start Date End Date Roberth Wattsluis miguel PCP - General 11/13/06 Hakan, Lam Cruz MD [address] [place] [address] Referring Neurology 04/13/20 Accounting Teacher Relationship Specialty Start Date End Date Roberth Wattsluis miguel PCP - General 11/13/06 Lam Mcclendon MD [address] [place] [address] Referring Neurology 04/13/20 Accounting Teacher Relationship Specialty Start Date End Date Roberth Wattsluis miguel PCP - General 11/13/06 Lam Mcclendon MD [address] [place] [address] Referring Neurology 04/13/20 Accounting Teacher Relationship Specialty Start Date End Date Roberth Wattsluis miguel PCP - General 11/13/06 Lma Mcclendon MD [address] [place] [address] Referring Neurology 04/13/20 Accounting Teacher Relationship Specialty Start Date End Date Roberth Watts PCP - General 11/13/06 Lam Mcclendon MD [address] [place] [address] Referring Neurology 04/13/20 Accounting Teacher Relationship Specialty Start Date End Date Roberth Watts PCP - General 11/13/06 Lam Mcclendon MD [address] [place] [address] Referring Neurology 04/13/20 Accounting Teacher Relationship Specialty Start Date End Date Roberth Watts MD PCP - General 11/13/06 Lam Mcclendon MD [address] [place] [address] Referring Neurology 04/13/20 Accounting Teacher Relationship Specialty Start Date End Date Roberth Watts MD PCP - General 11/13/06 Lam Mcclendon MD [address] [place] [address] Referring Neurology 04/13/20 Accounting Teacher Relationship Specialty Start Date End Date Roberth Watts MD PCP - General 11/13/06 Lam Mcclendon MD Referring Neurology 04/13/20 Aruna Keyes CNP [address] [place] [address] Referring Internal Medicine 10/26/23 Accounting Teacher Relationship Specialty Start Date End Date Roberth Watts MD PCP - General 11/13/06 Lam Mcclendon MD Referring Neurology 04/13/20 Aruna Keyes CNP [address] [place] [address] Referring Internal Medicine 10/26/23 FOR RECORDS PERTAINING TO PATIENTS WHO ARE OR HAVE BEEN ENROLLED IN A CHEMICAL DEPENDENCY/SUBSTANCEABUSE PROGRAM, SOME INFORMATION MAY BE OMITTED. This clinical summary was aggregated from multiple sources. Caution should be exercised in using it in the provision of clinical care. This summary normalizes information from multiple sources, and as a consequence, information in this document may materially change the coding, format and clinical context of patient data. In addition, data may be omitted in some cases. CLINICAL DECISIONS SHOULD BE BASED ON THE PRIMARY CLINICAL RECORDS. [facility]. provides no warranty or guarantee of the accuracy or completeness of information in this document.
[2023-12-18 09:18] LABS: Basophils Absolute Auto 0.1 10^3/uL (0.0-0.1); Basophils Percent Auto 0.8 % (0.2-2.0); Eosinophils Absolute Auto 0.5 10^3/uL (0.0-0.7); Eosinophils Percent Auto 5.6 % (0.9-7.0); Hematocrit 44.9 % (36.0-48.0); Hemoglobin 14.5 g/dL (12.0-16.0); Immature Granulocytes Abs Auto 0.05 10^3/uL (0.00-0.03); Immature Granulocytes Pct Auto 0.6 % (0.0-0.5); Lymphocytes Absolute Auto 2.5 10^3/uL (1.2-3.8); Lymphocytes Percent Auto 28.5 % (20.5-60.0); Mean Corpuscular HGB Conc 32.3 g/dL (29.9-35.2); Mean Corpuscular Hemoglobin 28.5 pg (26.7-34.0); Mean Corpuscular Volume 88.4 fL (81.0-99.0); Mean Platelet Volume 9.9 fL (9.5-13.5); Monocytes Absolute Auto 0.5 10^3/uL (0.3-0.8); Monocytes Percent Auto 5.4 % (1.7-12.0); Neutrophils Absolute Auto 5.1 10^3/uL (1.4-6.5); Neutrophils Percent Auto 59.1 % (43.0-75.0); Platelet Count 290 10^3/uL (150-450); Red Blood Count 5.08 10^6/uL (4.20-5.40); Red Cell Distribution Width 13.5 % (11.0-15.0); White Blood Count 8.7 10^3/uL (4.0-11.0)
[2023-12-18 09:51] LABS: Estimated Average Glucose 134 mg/dL; Glycohemoglobin A1C 6.3 % (4.5-6.2)
[2023-12-18 10:03] LABS: Alanine Aminotransferase 22 U/L (14-59); Albumin Level 3.8 g/dL (3.4-5.0); Alkaline Phosphatase 94 U/L (46-116); Anion Gap 15.5; Aspartate Amino Transferase 22 U/L (15-37); Bilirubin Total 0.4 mg/dL (0.2-1.0); Calcium 9.5 mg/dL (8.5-10.1); Carbon Dioxide 25.8 mmol/L (21.0-32.0); Chloride 103 mmol/L (98-107); Chol HDL Ratio 5.7; Cholesterol 285 mg/dL (<=200); Estimated GFR (African America 55 (>=60); Estimated GFR (Non-African Ame 46 (>=60); Globulin 3.9 g/dL; Glucose 122 mg/dL (74-106); HDL Cholesterol 50 mg/dL (40-60); Potassium 4.3 mmol/L (3.5-5.1); Sodium 140 mmol/L (136-145); Thyroid Stimulating Hormone 5.331 uIU/mL (0.358-3.740); Total Protein 7.7 g/dL (6.4-8.2); Triglycerides 169 mg/dL (<=150); VLDL CHOLESTEROL 33.8 mg/dL
[2023-12-20 12:07] LABS: Insulin 12.6 uIU/mL (2.6-24.9)
== END 2023-12-18 08:23 | disposition home or self-care (01) ==
PROVIDERS: PCP Nurse Practitioner Family; Visit Provider Nurse Practitioner Family
DX: E78.5 Hyperlipidemia, unspecified (principal); I10 Essential (primary) hypertension; R53.83 Other fatigue; E55.9 Vitamin D deficiency, unspecified; R73.09 Other abnormal glucose
CPT/HCPCS: 36415; 80053; 80061; 82306; 83036; 83525; 83540; 84436; 84443; 84481; 85025

== ENCOUNTER 2024-03-15 15:08 | Emergency (ER) | payer MEDICARE, SELFPAY ==
[2024-03-15 15:12] VITALS: BP 133/96; PULSE 102; TEMP 37.6; O2SAT 100; BMI 23.6
== END 2024-03-15 15:28 | disposition left against medical advice (07) ==
PROVIDERS: Emergency Provider Emergency Medicine; PCP Nurse Practitioner Family
DX: Z53.21 Procedure and treatment not carried out due to patient leaving prior to being seen by health care provider (principal)

== ENCOUNTER 2024-03-16 11:20 | Outpatient (OUT) | payer MEDICARE, SELFPAY ==
--- NOTE | 2024-03-16 11:23 | US_ITS ---
The [address] [address] Patient Name: TERESA ANDRE MRN: [id number] date: 1950 Sex: F Assigned Patient Location: US Current Patient Location: US Accession/Order Number: [id number] Exam Date: 03/16/2024 11:30 Report Date: 03/16/2024 11:57 At the request of: YANA LOBATO Procedure: US soft tissue head and neck EXAM: US soft tissue head and neck HISTORY: Lymphadenopathy Head And Neck COMPARISON: None. TECHNIQUE: Grayscale and color ultrasound FINDINGS: Identified in the right neck are multiple oval well-circumscribed isoechoic echogenic masses the largest measuring 2.5 x 0.6 x 1.0 cm. These lesions demonstrate hypervascular hilum however there is loss of the fatty hilum noted on several of the nodes. US/US soft tissue head and neck IMPRESSION: Multiple normal size cervical lymph nodes some of which demonstrate loss of fatty brook, nonspecific Electronically authenticated by: DUY LEWIS Date: 03/16/2024 11:57
== END 2024-03-16 11:21 | disposition home or self-care (01) ==
LOC: US 11:20
PROVIDERS: PCP Nurse Practitioner Family; Visit Provider Nurse Practitioner Family
DX: R10.9 Unspecified abdominal pain (principal); R59.1 Generalized enlarged lymph nodes
CPT/HCPCS: 76536

== ENCOUNTER 2025-03-31 07:43 | Outpatient (OUT) | payer MEDICARE, SELFPAY ==
--- OUTSIDE RECORDS SUMMARY | 2025-03-31 08:09 | XMS_ITS | CCD ---
Author Organization [facility] Care Team Providers Care [place] Tanner Name Role Phone AURA, PABLITO S Unavailable Unavailable AURA, PABLITO S Unavailable Unavailable EMELY MILAN Admitting Unavailable EMELY MILAN Attending Unavailable ROBERTH WATTS Referring Unavailable ROBERTH WATTS Primary Care Unavailable ROBERTH WATTS Admitting Unavailable ROBERTH WATTS Attending Unavailable ROBERTH WATTS Primary Care Unavailable ROBERTH WATTS Consulting Unavailable Roberth Watts Primary Care Provider Lam Mcclendon MD Unavailable Roberth Watts Primary Care Provider Lam Mcclendon MD Unavailable Roberth Watts Primary Care Provider Lam Mcclendon MD Unavailable Roberth Watts MD Primary Care Provider PERLA DIAZ Attending Unavailable Lam Mcclendon MD Unavailable Aruna Keyes CNP S Unavailable Roberth Watts MD Primary Care Provider RADHA BAILEY Attending Unavailable CHATO GANNON Primary Care Unavailable RADHA BAILEY Attending Unavailable RADHA BAILEY Referring Unavailable CHATO GANNON Primary Care Unavailable RADHA BAILEY Attending Unavailable RADHA BAILEY Referring Unavailable CHATO GANNON Primary Care Unavailable CHATO GANNON Primary Care Unavailable LYNNE FLORES Attending Unavailable Chato Gannon MD Primary Care Provider Bubba Alan MD Emergency Provider Merrick Zurita DO Admit Provider Merrick Zurita DO Attending Provider Desmond Davis MD Admit Provider Desmond Davis MD Attending Provider Calixto Martinez DO Other Provider Juan Chan MD Other Provider Chato Gannon Primary Care Unavailable Calixto Martinez Consulting Unavailab le Desmond Davis Attending Unavailab Desmond Krishna Admitting Unavailab le Juan Chan Consulting Unavailable Chato Gannon Primary Care Unavailable DoamekpDesmond black Attending Unavailab le DoamekpDesmond black Admitting Unavailab le Generic Provider MD, No Assigned Pcp Primary Car e Provider Unavailable LUIS TURNER Attending Unavailable GENERIC PROVIDER, NO ASSIGNED PCP Primary Care Unavailable LUIS TURNER Referring Unavailable GENERIC PROVIDER, NO ASSIGNED PCP Primary Care Unavailable FRANCESCA GUAMAN Attending Unavailable ROBERTH WATTS Primary Care Unavailable Allergies Allergy Classification Reported Allergen(s) Allergy Type Date of Onset Reaction(s) Facility (20 sources) promethazine; Translations: [PROMETHAZINE HCL] Drug Allergy 7 Swelling [facility] Other [facility] (1 source) Levamisole Drug Allergy 2 [facility] Repository (20 sources) sutures; Translations: [Unknown] Propensity to adverse reactions (disorder) 7 Anaphylaxis [facility] Repository (7 sources) Flunarizine; Translations: [PROMETHAZINE] Drug Allergy 7 pt states it messes everything up down there, vomiting [facility] Repository (1 source) Egg/Poultry Drug allergy (disorder) [facility] (6 sources) Adhesive agent; Translations: [ADHESIVE] Drug Allergy 4 Unknown [facility] (20 sources) egg (chicken) allergenic extract; Translations: [EGG EXTRACT] Drug Allergy 1 GI Upset [facility] (19 sources) Promethazine Drug Allergy 4 Unknown [facility] (6 sources) Influenza Virus Vaccines; Translations: [INFLUENZA VIRUS VACCINES] Drug Allergy 1 Other: See Comments [facility] (15 sources) Adhesive agent Drug Allergy 4 Unknown [facility] (18 sources) Influenza Virus Vaccines Drug Allergy 1 Other: See Comments [facility] (5 sources) EGG DERIVED; Translations: [EGG DERIVED] Propensity to adverse reactions to drug (disorder) 4 Unknown Reaction [facility] Repository (2 sources) PHENERGAN PLAIN; Translations: [PHENERGAN PLAIN] Propensity to adverse reactions to drug (disorder) 7 [facility] Repository (4 sources) egg extract; Translations: [EGG] Drug Allergy 4 Vomiting [facility] Rep[facility] (1 source) Silk; Translations: [SILK] Propensity to adverse reactions to drug (disorder) 8 [facility] (3 sources) fentaNYL Drug Allergy 5 causes her bp to go up [facility] (3 sources) sutures/jd/ cat gut Allergy to substance 1 her body rejects them [facility] (1 source) ALLERGIES NOT ON FILE; Translations: [ALLERGIES NOT ON FILE] Propensity to adverse reactions (disorder) [facility] Repository Medications Current Medications Medication Drug Class(es) Dates Sig (Normalized) Sig (Original) aspirin 81 mg delayed release oral tablet (20 sources) Platelet Aggregation Inhibitor, Nonsteroidal Anti-inflammatory Drug Start: 01-17-2009 aspirin(ECOTRIN LOW STRENGTH 81 MG TAB) Take one(1) tablet daily. 0 01/17/2009 Active Comment on above: Take one(1) tablet d aily. atorvastatin 20 mg oral tablet (1 source) HMG-CoA Reductase Inhibitor Start: 12-01-2024 take 1 tablet by mouth once daily at bedtime Atorvastatin (Lipitor) 20 mg tablet Active 20 MG PO Daily at bedtime December 01, 2024 12:00am baclofen 10 mg oral tablet (6 sources) gamma-Aminobutyri c Acid-ergic Agonist Start: 07-04-2022 End: 11-01-2022 take 1 tablet by mouth twice daily baclofen (LIORESAL) 10 mg tablet Indications: Spasticity , Myelopathy (HCC) Take 1 tablet by mouth twice daily. 60 tablet 3 07/04/2022 11/01/2022 Active Comment on above: Take 1 tablet by [facility] twice daily. cholecalciferol 0.025 mg oral capsule (18 sources) Vitamin D Start: 07-04-2022 take 1 capsule by mouth once daily Cholecalciferol, Vitamin D3, (VITAMIN D) 25 mcg (1,000 unit) cap Indications: Myelopathy (HCC) Take 1 capsule by mouth once daily. 07/04/2022 Active Comment on above: Take 1 capsule by [facility] once daily. cyclobenzaprine hydrochloride 10 mg oral tablet (7 sources) Muscle Relaxant cyclobenzaprine (FLEXERIL) 10 mg tablet Take 10 mg by mouth. Active Comment on above: Take 10 mg by mouth. docusate sodium 100 mg oral capsule (19 sources) Start: 06-17-2018 take 1 capsule by mouth every eight hours as needed docusate sodium (COLACE) 100 mg capsule Take 1 capsule by mouth three times daily as needed for Constipation. 100 capsule 06/17/2018 Active Comment on above: Take 1 capsule by [facility] three times daily as needed for Constipation. escitalopram 10 mg oral tablet (1 source) Serotonin Reuptake Inhibitor Start: 12-01-2024 take 1 tablet by mouth once daily Escitalopram Oxalate 10 mg tablet Active 10 MG PO Daily December 01, 2024 12:00am eszopiclone 3 mg oral tablet (20 sources) Start: 01-17-2009 End: 11-29-2024 ESZOPICLONE 3 MG TAB Take 1 tablet at bedtime 0 01/17/2009 Active Comment on above: Take 1 tablet at bed time ezetimibe 10 mg oral tablet (3 sources) Dietary Cholesterol Absorption Inhibitor Start: 05-20-2023 End: 05-19-2024 ezetimibe (ZETIA) 10 mg tablet Take 10 mg by mouth. 0 05/20/2023 05/19/2024 Active Comment on above: Take 10 mg by mouth. famotidine 20 mg oral tablet (19 sources) Histamine-2 Receptor Antagonist Start: 03-09-2021 take 1 tablet by mouth twice daily famotidine (PEPCID) 20 mg tablet Take 20 mg by mouth twice daily. 03/09/2021 Active Comment on above: Take 20 mg by mouth twice daily. ibuprofen 200 mg oral tablet (19 sources) Nonsteroidal Anti-inflammatory Drug Start: 05-22-2009 IBUPROFEN 200 MG TAB Take 1-2 tablet's) every four(4) to six(6) hours as needed for pain. 0 05/22/2009 Active Comment on above: Take 1-2 tablet's) e very four(4) to six(6) hours as needed for pain. 24 hr metoprolol succinate 25 mg extended release oral tablet (20 sources) beta-Adrenergic Ping Start: 12-02-2020 take 1 tablet by mouth twice daily metoprolol succinate ER (TOPROL XL) 25 mg 24 hr tablet Take 50 mg by mouth two times a day. 12/02/2020 Active Start: 12-02-2020 take 1 tablet by lucina th twice daily metoprolol succinate ER (TOPROL XL) 25 mg 24 hr tablet Take 25 mg by mouth twice daily. 0 12/02/2020 Active Start: 09-18-2019 take 1 tablet by lucina th once daily Metoprolol Succinate (Toprol Xl) 25 mg Tablet Extended Release 24 Hr Active 25 MG PO Daily September 18, 2019 1:00am Comment on above: Take 25 mg by mouth twice daily. Take 50 mg by mouth two times a day. nitroglycerin 0.4 mg sublingual tablet (19 sources) Nitrate Vasodilator Start: 08-01-20 nitroglycerin sublingual (NITROQUICK) 0.4 mg SL tablet 1 under the tongue as needed for angina, may repeat q5mins for up three doses 08/01/2020 Active Comment on above: 1 under the tongue a s needed for angina, may repeat q5mins for up three doses rosuvastatin calcium 5 mg oral tablet (19 sources) HMG-CoA Reductase Inhibitor Start: 09-03-20 take 1 tablet by mouth once daily rosuvastatin (CRESTOR) 5 mg tablet take 1 tablet by mouth once daily 09/03/2020 Active Comment on above: take 1 tablet by lucina th once daily sertraline 50 mg oral tablet (20 sources) Serotonin Reuptake Inhibitor Start: 01-18-20 sertraline hcl(ZOLOFT 50 MG TAB) Take 25 mg by mouth once daily. 0 01/17/2009 Active Start: 01-17-2009 End: 11-29-2024 take 1 tablet by mouth once daily Sertraline 50 mg tablet Discontinued 50 MG PO Daily June 27, 2018 12:00am November 29, 2024 12:45pm Comment on above: Take one(1) tablet d aily. Take 25 mg by mouth once daily. sucralfate 1000 mg oral tablet (19 sources) Aluminum Complex Start: take 1 tablet by mouth four times daily sucralfate (CARAFATE) 1 gram tablet Take 1 g by mouth four times daily. 02/13/2021 Active Comment on above: Take 1 g by mouth fo ur times daily. traMADol hydrochloride 50 mg oral tablet (20 sources) Opioid Agonist Start: End: take 1 tablet by mouth every six hours as needed traMADol (ULTRAM) 50 mg tablet Take 50 mg by mouth every 6 hours as needed. 12/31/2020 Active Comment on above: Take 50 mg by mouth every 6 hours as needed. vitamin b12 1 mg/ml injectable solution (19 sources) Vitamin B12 Start: cyanocobalamin 1,000 mcg/mL inject 1 milliliter ( 1000 MCG ) intramuscularly Every Month 03/21/2021 Active Comment on above: inject 1 milliliter ( 1000 MCG ) intramuscularly Every Month Completed/Discontinued Medications Medication Drug Class(es) Dates Sig (Normalized) Sig (Original) cephalexin 500 mg oral capsule (3 sources) Cephalosporin Antibacterial Start: 06-27-2018 End: 07-04-2018 take 1 capsule by mouth four times daily Cephalexin (Keflex) 500 mg capsule Discontinued 500 MG PO Four times daily 03 04June 27, 2018 12:00am July 03, 2018 12:00am July 04, 2018 12:01am doxycycline hyclate 100 mg oral capsule (3 sources) Tetracycline-class Drug Start: 06-29-2018 End: 07-09-2018 take 1 capsule by mouth twice daily Doxycycline Hyclate 100 mg capsule Discontinued 100 MG PO Twice daily 26 06June 29, 2018 12:00am July 08, 2018 12:00am July 09, 2018 12:01am levoFLOXacin 750 mg oral tablet (3 sources) Quinolone Antimicrobial Start: 09-18-2019 End: 11-29-2024 take 1 tablet by mouth once daily Levofloxacin (Levaquin) 750 mg tablet Discontinued 750 MG PO Daily 5 5 September 18, 2019 1:00am November 29, 2024 11:46am ondansetron 4 mg disintegrating oral tablet (6 sources) Serotonin-3 Receptor Antagonist Start: 09-18-2019 End: 11-29-2024 take 1 tablet by mouth every eight hours as needed for nausea Ondansetron 4 mg Tablet,Disintegra ting Discontinued 4 MG PO Q8H as needed for Nausea September 18, 2019 1:00am November 29, 2024 11:46am Start: 06-29-2018 End: 07-02-2018 take 1 tablet by mouth every eight hours Ondansetron (Zofran Odt) 4 mg tablet,disintegrating Discontinued 4 MG PO Q8H 9 3 June 29, 2018 12:00am July 01, 2018 12:00am July 02, 2018 12:01am sAXagliptin 2.5 mg oral tablet (20 sources) Dipeptidyl Peptidase 4 Inhibitor Start: 06-27-2018 End: 09-18-2019 take 1 tablet by mouth once daily Saxagliptin (Onglyza) 2.5 mg tablet Discontinued 2.5 MG PO Daily June 27, 2018 12:00am September 18, 2019 1:18pm Comment on above: Take 2.5 mg by mouth . sulfamethoxazole 800 mg / trimethoprim 160 mg oral tablet (3 sources) Dihydrofolate Reductase Inhibitor Antibacterial, Sulfonamide Antimicrobial Start: 06-27-2018 End: 07-04-2018 take 1 tablet by mouth twice daily Sulfamethoxazole- Trimethoprim (Bactrim Ds) 800-160 mg tablet Discontinued 1 TAB PO Twice daily 14 7 June 27, 2018 12:00am July 03, 2018 12:00July 04, 2018 12:01am Vitamin B Complex (B-Complex) tablet (3 sources) Start: 06-27-2018 End: 11-29-2024 take 1 tablet by mouth once daily Vitamin B Complex (B-Complex) tablet Discontinued 1 TAB PO Daily June 27, 2018 12:00am November 29, 2024 12:45pm Problems Active Problems Problem Classification Problem Date Documented Date Episodic/Chronic Abdominal pain (6 sources) Generalized abdominal pain; Translations: [Generalized abdominal pain] Onset: 11-29-2024 Episodic Administrative/social admission (1 source) Person with feared health complaint in whom no diagnosis is made; Translations: [Person with feared health complaint in whom no diagnosis is made] Onset: 11-25-2024 Episodic Anxiety disorders (2 sources) Anxiety disorder; Translations: [Anxiety disorder, unspecified] Onset: 11-29-2024 12-01-2024 Chronic Cardiac dysrhythmias (3 sources) Cardiac arrhythmia, unspecified; [...] hypertension] Onset: 10-20-2023 Chronic Headache; including migraine (11 sources) Tension-type headache; Translations: [Tension-type headache, unspecified, not intractable] Onset: 03-24-2023 03-24-2023 Chronic Heart valve disorders (2 sources) Rheumatic disorders of both mitral and aortic valves; Translations: [Rheumatic disorders of both mitral and aortic valves] Onset: 10-20-2023 Chronic Influenza (3 sources) Influenza due to Influenza B virus; Translations: [Influenza due to other identified influenza virus with other respiratory manifestations] 08-19-2023 Episodic Comment on above: Problem List clean-u p per request of Phys. 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] Onset: 12-20-2024 01-08-2025 Chronic Other connective tissue disease (1 source) [...] Onset: 06-18-2018 Episodic Other nervous system disorders (4 sources) Abnormal gait; Translations: [Unsteadiness on feet] 11-29-2024 Episodic Other nervous system disorders (4 sources) Unsteadiness on feet; Translations: [Abnormality of gait] Onset: 11-29-2024 11-29-2024 Episodic Other nervous system disorders (1 source) Unspecified abnormalities of gait and mobility; Translations: [Gait difficulty] Onset: 12-20-2024 Episodic Other screening for suspected conditions (not mental disorders or infectious disease) (7 sources) Raised cardiac enzyme or marker; Translations: [Other specified abnormal findings of blood chemistry] Onset: 11-29-2024 11-29-2024 Episodic Other upper respiratory infections (3 sources) Viral upper respiratory tract infection; Translations: [Acute upper respiratory infection, unspecified] 08-19-2023 Episodic Comment on above: Problem List clean-u p per request of Phys. EHR Cmte Pneumonia (except that caused by tuberculosis or sexually transmitted disease) (4 sources) Pneumonia, unspecified organism; Translations: [Pneumonia] Onset: 03-15-2024 08-19-2023 Episodic Comment on above: Problem List clean-u p per request of Phys. EHR Cmte Spondylosis; intervertebral disc disorders; other back problems (9 sources) Degeneration of cervical intervertebral disc; Translations: [Other cervical disc degeneration, unspecified cervical region] Onset: 11-29-2024 11-30-2024 Chronic Spondylosis; intervertebral disc disorders; other back problems (12 sources) Spinal stenosis in cervical region; Translations: [Spinal stenosis, cervical region] Onset: 11-25-2024 07-02-2023 Episodic Sprains and strains (7 sources) Strain of neck muscle; Translations: [Strain of muscle, fascia and tendon at neck level, initial encounter] Onset: 11-29-2024 11-29-2024 Episodic Thyroid disorders (5 sources) Subclinical hypothyroidism; Translations: [Other specified hypothyroidism] Onset: 11-29-2024 11-30-2024 Chronic Unclassified (1 source) Other specified postprocedural states; Translations: [Other specified postprocedural states] Onset: 06-18-2018 Unclassified (1 source) EMS Onset: 03-15-2024 Unclassified (1 source) A [facility] screening has identified you as FRAIL or AT RISK FOR FRAILTY. This puts you at a higher risk for infection, illness, falls, and other injuries. Here are four ways to help you reduce your risk of frailty: 1. IDENTIFY EARLY SIGNS OF FRAILTY Discuss contributing factors and concerns with your doctor 2. BE ACTIVE Walking and light strengthening exercises will help reduce weakness 3. EAT WELL Aim for three healthy meals a day that are high in protein 4. THINK POSITIVE Keep your mind active by being sociable and continuing to learn References: Stay Strong: Four Ways to Beat the Frailty Risk [email or web address] xifnq-wqo-ssdwjzxtsn/ gqcg-qlcgdf-vvep-ways -hs-ivpn-zgy-fra ilty-risk 12-01-2024 Unclassified (1 source) Other intervertebral disc degeneration, lumbar region without mention of lumbar back pain or lower extremity pain; Translations: [Other intervertebral disc degeneration, lumbar region without mention of lumbar back pain or lower extremity pain] Onset: 11-29-2024 Unclassified (1 source) Low back pain, unspecified; Translations: [Low back pain, unspecified] Onset: 12-20-2024 Past or Other Problems Problem Classification Problem Date Documented Da te Episodic/Chronic Nonspecific chest pain (1 source) Chest pain Onset: 03-15-2024 Episodic Open wounds of head; neck; and trunk (20 sources) Unspecified open wound of abdominal wall, unspecified quadrant without penetration into peritoneal cavity, subsequent encounter; Translations: [Open wound of abdomen] Onset: 06-18-2018 06-18-2018 Episodic Other lower respiratory disease (1 source) Shortness of breath; Translations: [Shortness of breath] Onset: 03-15-2024 Episodic Other nervous system disorders (20 sources) Skin sensation disturbance; Translations: [Unspecified disturbances of skin sensation] Onset: 05-10-2003 01-01-2004 Episodic Residual codes; unclassified (19 sources) Patient encounter status; Translations: [Encounter for procedure for purposes other than remedying health state, unspecified] Onset: 06-18-2018 06-18-2018 Episodic Unclassified (1 source) Low back pain, unspecified; Translations: [Low back pain, unspecified] Onset: 12-20-2024 Results Test Name Value Interpretation Reference Range Facility XR CERVICAL SPINE COMPLETE 4 -5 VIEWSon 12-20-2024 XR CERVICAL SPINE COMPLETE 4-5 VIEWS Interpreted By: Luis Turner, STUDY: XR CERVICAL SPINE COMPLETE 4-5 VIEWS; 12/20/2024 10:53 am INDICATION: Signs/Symptoms:neck pain. ACCESSION NUMBER(S): [id number] ORDERING CLINICIAN: LUIS TURNER FINDINGS: AP lateral flexion extension x-rays of the cervical spine show moderate to severe degenerative changes most notable at C5-6 and C6-7 with disc height loss, endplate irregularity and osteophyte formation. Cervical lordosis is decreased from normal but still present. Range of motion with flexion extension is preserved. Extension does recreate some lordosis. There is no fractures. There is no soft tissue abnormalities. There is no instability. Signed by: Luis Turner 12/20/2024 11:02 AM Dictation workstation: [id number] [facility] XR Cervical spine 4 or 5 Vie wson 12-20-2024 Interpreted By: Luis Horowitz, STUDY: XR CERVICAL SPINE COMPLETE 4-5 VIEWS; 12/20/2024 10:53 am INDICATION: Signs/Symptoms:neck pain. ACCESSION NUMBER(S): [id number] ORDERING CLINICIAN: LUIS TURNER FINDINGS: AP lateral flexion extension x-rays of the cervical spine show moderate to severe degenerative changes most notable at C5-6 and C6-7 with disc height loss, endplate irregularity and osteophyte formation. Cervical lordosis is decreased from normal but still present. Range of motion with flexion extension is preserved. Extension does recreate some lordosis. There is no fractures. There is no soft tissue abnormalities. There is no instability. Signed by: Luis Turner 12/20/2024 11:02 AM Dictation workstation: [id number] Luis Johnson MD - 12/20/2024 Interpreted By: Luis Turner, STUDY: XR CERVICAL SPINE COMPLETE 4-5 VIEWS; 12/20/2024 10:53 am INDICATION: Signs/Symptoms:neck pain. ACCESSION NUMBER(S): [id number] ORDERING CLINICIAN: LUIS TURNER FINDINGS: AP lateral flexion extension x-rays of the cervical spine show moderate to severe degenerative changes most notable at C5-6 and C6-7 with disc height loss, endplate irregularity and osteophyte formation. Cervical lordosis is decreased from normal but still present. Range of motion with flexion extension is preserved. Extension does recreate some lordosis. There is no fractures. There is no soft tissue abnormalities. There is no instability. Signed by: Luis Turner 12/20/2024 11:02 AM Dictation workstation: [id number] [facility] Work Phone: [facility] Work Phone: Radiology Study observation (narrative) [facility] Work Phone: CNPNon 12-15-2024 CNPN Telephone (NEMN) TERESA ANDRE ([id number]) 1950 F Date Time Provider Department 12/15/24 AMERICA VELASCO During your visit today, we recorded the following information about you: Lidia Evans RN 12/15/2024 3:04 PM Signed RN called patient, verified by name and . RN advised that patient is best to be seen with provider, Dr. Gutierrez, and to cancel VV tomorrow 12/16 with America Velasco PA-C. First available on Wednesday 12/20. Patient began describing her recent ER visits, spine symptoms, and concerns. Patient states she is seeing a medical review specialist on 12/20 (Dr. Turner at ). Patient concerned with her symptoms and not having any diagnosis. RN assisted with holding a VV with Dr. Guaman and Dr. Gutierrez on Wednesday 12/20 at 4:45 PM. Patient verbalized understanding. RN called [facility]: [phone] to transfer most recent imaging from ER visit on 11/29/24. MRI C/L spine, CT head and neck, CTA neck. EZ Cantu Allergies As of Date: 12/15/2024 Noted Allergy Reaction PROMETHAZINE 08/25/2014 16 - Unknown ADHESIVE 08/25/2014 16 - Unknown Comments: Other reaction(s): Unknown EGG EXTRACT 03/22/2021 8 - GI Upset INFLUENZA VIRUS VACCINES 02/26/2021 14 - Other: See Comments PHENERGAN (PROMETHAZINE HCL) 02/24/2007 7 - Swelling SUTURES 11/10/2016 10 - Anaphylaxis Date Reviewed: 11/17/2023 Reviewed by: Cora Che MA - Fully Assessed Prescriptions as of 12/15/2024 - cyclobenzaprine (FLEXERIL) 10 mg tablet Take [...] Take 25 mg by mouth once daily. 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 Performed By: #### [facility] Dai, LIPID ####[place] [id number] [place] [id number] [facility] HbA1c (Bld) [Mass fraction] 6.2 % High 4.3-5.6 [facility] Comment on above: Order Comment: Comme nt Add on to previous lab draw Result Comment: Incr eased risk for diabetes: 5.7 - 6.4 diabetes: >6.4 glycemic control for adults with diabetes: <7.0 Performed By: #### A 1C WT eA, LIPID ####[place] [id number] [place] [id number] [facility] Alanine aminotransferase [En zymatic activity/volume] in Serum or PlasmaOrdered By: Lam Pedraza on 12-01-2024 ALT [Catalytic activity/Vol] Alanine aminotransferase [Enzymatic activity/volume] in Serum or Plasma 7-52 [facility] Albumin [Mass/volume] in Ser um or Plasma by Bromocresol green (BCG) dye binding methoOrdered By: Lam Pedraza on 12-01-2024 Albumin BCG dye [Mass/Vol] Albumin [Mass/volume] in Serum or Plasma by Bromocresol green (BCG) dye binding metho 3.5-5.7 [facility] Alkaline phosphatase [Enzyma tic activity/volume] in Serum or PlasmaOrdered By: Lam Pedraza on 12-01-2024 ALP [Catalytic activity/Vol] Alkaline phosphatase [Enzymatic activity/volume] in Serum or Plasma 34-104 [facility] Aspartate aminotransferase [ Enzymatic activity/volume] in Serum or PlasmaOrdered By: Lam Pedraza on 12-01-2024 AST [Catalytic activity/Vol] Aspartate aminotransferase [Enzymatic activity/volume] in Serum or Plasma 13-39 [facility] Basophils Auto (Bld) [#/Vol] Ordered By: Lam Pedraza on 12-01-2024 Basophils (Bld) [#/Vol] Automated basophil count 0.0-0.2 [facility] Basophils/100 WBC Auto (Bld) Ordered By: Lam Pedraza on 12-01-2024 Basophils/100 WBC (Bld) Automated basophil % . [facility] Bilirubin.total [Mass/volume ] in Serum or PlasmaOrdered By: Lam Pedraza on 12-01-2024 Bilirubin [Mass/Vol] Bilirubin.total [Mass/volume] in Serum or Plasma 0.3-1.0 [facility] Calcium [Mass/volume] in Ser um or PlasmaOrdered By: Lam Pedraza on 12-01-2024 Calcium [Mass/Vol] Calcium [Mass/volume ] in Serum or Plasma 8.6-10.3 [facility] Carbon dioxide, total [Moles /volume] in Serum or PlasmaOrdered By: Lam Pedraza on 12-01-2024 CO2 [Moles/Vol] Carbon dioxide, tota l [Moles/volume] in Serum or Plasma Low 21.0-31.0 [facility] Chloride [Moles/volume] in S poly or PlasmaOrdered By: Lam Pedraza on 12-01-2024 Chloride [Moles/Vol] Chloride [Moles/vol ume] in Serum or Plasma 98-107 [facility] Cholesterol [Mass/volume] in Serum or PlasmaOrdered By: Desmond Davis on 12-01-2024 Cholesterol [Mass/Vol] Cholesterol [Mass/volume] in Serum or Plasma High 140-200 [facility] Comment on above: Chol less than 200 m g/dl low riskChol 201-239 mg/dl borderline riskChol 240 mg/dl and greater high risk Cholesterol in HDL [Mass/vol ume] in Serum or PlasmaOrdered By: Desmond Davis on 12-01-2024 Cholesterol in HDL [Mass/Vol] Serum or plasma high density lipoprotein (HDL) cholesterol measurement 23- [facility] Comment on above: HDL CHOL ATP-III CLA SSIFICATION Cardiovascular RiskHDL > or equal to 60 mg/dL LOWHDL < 40 mg/dL HIGH Cholesterol in LDL Calc [Mas s/Vol]Ordered By: Desmond Davis on 12-01-2024 Cholesterol in LDL [Mass/Vol] Cholesterol in LDL [Mass/volume] in Serum or Plasma by calculation High 0-100 [facility] Comment on above: LDL ATP III CLASSIFI CATIONLDL less than 100 mg/dL OptimalLDL 100-129 mg/dL Near or above optimalLDL 130-159 mg/dL Borderline highLDL 160-189 mg/dL HighLDL greater than 189 mg/dL Very high Cholesterol in VLDL Calc [Ma ss/Vol]Ordered By: Desmond Davis on 12-01-2024 Cholesterol in VLDL [Mass/Vol] Cholesterol in VLDL [Mass/volume] in Serum or Plasma by calculation [facility] Complete Blood Count Auto Di ffon 12-01-2024 Basophils (Bld) [#/Vol] 0.1 10*3/uL Normal 0.0-0.2 [facility] Comment on above: Result Comment: PERF ORMED BY: [facility] [address] [place] [address] PATHOLOGIST TONG SETTER OLIVE STILL M.D. Performed By: #### C MP, CBC, MG ####[facility] [id number] Basophils/100 WBC (Bld) 0.8 % Normal . [facility] Comment on above: Performed By: #### C MP, CBC, MG ####[address] Eosinophils (Bld) [#/Vol] 0.4 10*3/uL Normal 0.0-0.45 [facility] Comment on above: Performed By: #### C MP, CBC, MG ####[address] Eosinophils/100 WBC (Bld) 5.0 % Normal . [facility] Comment on above: Performed By: #### C MP, CBC, MG ####[address] Erythrocyte distribution width (RBC) [Ratio] 14.3 % Normal 11.9-15.3 [facility] Comment on above: Performed By: #### C MP, CBC, MG ####[address] Hematocrit (Bld) [Volume fraction] 44.8 % Normal 34.0-46.4 [facility] Comment on above: Performed By: #### C MP, CBC, MG ####[address] Hemoglobin (Bld) [Mass/Vol] 15.3 g/dL Normal 11.8-15.4 [facility] Comment on above: Performed By: #### C MP, CBC, MG ####[address] Lymphocytes (Bld) [#/Vol] 2.7 10*3/uL Normal 1.00-4.8 [facility] Comment on above: Performed By: #### C MP, CBC, MG ####[address] Lymphocytes/100 WBC (Bld) 31.9 % Normal . [facility] Comment on above: Performed By: #### C MP, CBC, MG ####[address] MCH (RBC) [Entitic mass] 29.3 pg Normal 24.7-34.3 [facility] Comment on above: Performed By: #### C MP, CBC, MG ####[address] MCV (RBC) [Entitic vol] 85.9 fL Normal 80-100 [facility] Comment on above: Performed By: #### C MP, CBC, MG ####[address] Mean Corpuscular HGB Conc 34.1 g/dL Normal 32.0-35.0 [facility] Comment on above: Performed By: #### C MP, CBC, MG ####[address] Monocytes (Bld) [#/Vol] 0.6 10*3/uL Normal 0.0-0.8 [facility] Comment on above: Performed By: #### C MP, CBC, MG ####[address] Monocytes/100 WBC (Bld) 7.2 % Normal . [facility] Comment on above: Performed By: #### C MP, CBC, MG ####[address] Neutrophils (Bld) [#/Vol] 4.7 10*3/uL Normal 1.8-7.7 [facility] Comment on above: Performed By: #### C MP, CBC, MG ####[address] Neutrophils/100 WBC (Bld) 55.1 % Normal . [facility] Comment on above: Performed By: #### C MP, CBC, MG ####[address] NRBC% 0.2 /100{WBC} Normal 0-0.5 [facility] Comment on above: Performed By: #### C MP, CBC, MG ####[address] Platelet mean volume (Bld) [Entitic vol] 7.6 fL Normal 6.3-10.7 [facility] Comment on above: Performed By: #### C MP, CBC, MG ####[address] Platelets (Bld) [#/Vol] 263 10*3/uL Normal 150-450 [facility] Comment on above: Performed By: #### C MP, CBC, MG ####[address] RBC (Bld) [#/Vol] 5.21 10*6/uL High 3.60-5.00 [facility] Comment on above: Performed By: #### C MP, CBC, MG ####[address] WBC (Bld) [#/Vol] 8.6 10*3/uL Normal 3.8-11.6 [facility] Comment on above: Performed By: #### C MP, CBC, MG ####[address] Comprehensive Metabolic Pane dany 12-01-2024 Albumin [Mass/Vol] 4.4 g/dL Normal 3.5-5.7 [facility] Comment on above: Performed By: #### C MP, CBC, MG ####[address] Albumin/Globulin [Mass ratio] 1.7 {ratio} Normal [facility] Comment on above: Performed By: #### C MP, CBC, MG ####[address] ALP [Catalytic activity/Vol] 84 U/L Normal 34-104 [facility] Comment on above: Performed By: #### C MP, CBC, MG ####[address] ALT [Catalytic activity/Vol] 15 U/L Normal 7-52 [facility] Comment on above: Performed By: #### C MP, CBC, MG ####[address] Anion gap [Moles/Vol] 13.8 mmol/L Normal 6.0-15.0 [facility] Comment on above: Performed By: #### C MP, CBC, MG ####[address] AST [Catalytic activity/Vol] 25 U/L Normal 13-39 [facility] Comment on above: Performed By: #### C MP, CBC, MG ####[address] Bilirubin [Mass/Vol] 0.8 mg/dL Normal 0.3-1.0 [facility] Comment on above: Performed By: #### C MP, CBC, MG ####[address] Calcium [Mass/Vol] 9.3 mg/dL Normal 8.6-10.3 [facility] Comment on above: Performed By: #### C MP, CBC, MG ####[address] Chloride [Moles/Vol] 107 mmol/L Normal 98-107 [facility] Comment on above: Performed By: #### C MP, CBC, MG ####[address] CO2 [Moles/Vol] 20.5 mmol/L Low 21.0-31.0 [facility] Comment on above: Performed By: #### C MP, CBC, MG ####[address] Creatinine [Mass/Vol] 1.12 mg/dL Normal 0.60-1.20 [facility] Comment on above: Performed By: #### C MP, CBC, MG ####[address] Creatinine Clr Calc Pharmacy 37.72 Normal [facility] Comment on above: Performed By: #### C MP, CBC, MG ####[address] Estimated GFR 51.600 mL/Min Normal [facility] Comment on above: Performed By: #### C MP, CBC, MG ####[address] Globulin (S) [Mass/Vol] 2.6 g/dL Normal [facility] Comment on above: Performed By: #### C MP, CBC, MG ####[address] Glucose [Mass/Vol] 129 mg/dL High 70-100 [facility] Comment on above: Result Comment: Richards Glucose Reference Range is dependent on time and content of last meal. Glucose of more than 200 mg/dL in a nonstressed, ambulatory subject supports the diagnosis of Diabetes Mellitus. ADA recommended reference range Performed By: #### C MP, CBC, MG ####[address] Potassium [Moles/Vol] 4.3 mmol/L Normal 3.5-5.1 [facility] Comment on above: Performed By: #### C MP, CBC, MG ####[address] Protein [Mass/Vol] 7.0 g/dL Normal 6.4-8.9 [facility] Comment on above: Performed By: #### C MP, CBC, MG ####[address] Sodium [Moles/Vol] 137 mmol/L Normal 136-145 [facility] Comment on above: Performed By: #### C MP, CBC, MG ####[address] Urea nitrogen [Mass/Vol] 20 mg/dL Normal 7-25 [facility] Comment on above: Performed By: #### C MP, CBC, MG ####[address] [address] [place] Creatinine [Mass/volume] in Serum or PlasmaOrdered By: Lam Pedraza on 12-01-2024 Creatinine [Mass/Vol] Creatinine [Mass/v olume] in Serum or Plasma 0.60-1.20 [facility] Eosinophils Auto (Bld) [#/Vo l]Ordered By: Lam Pedraza on 12-01-2024 Eosinophils (Bld) [#/Vol] Automated eosinophil count 0.0-0.45 [facility] Eosinophils/100 WBC Auto (Bl d)Ordered By: Lam Pedraza on 12-01-2024 Eosinophils/100 WBC (Bld) Automated eosinophil % . [facility] Erythrocyte distribution wid th Auto (RBC) [Ratio]Ordered By: Lam Pedraza on 12-01-2024 Erythrocyte distribution width (RBC) [Ratio] Erythrocyte distribution width [Ratio] by Automated count 11.9-15.3 [facility] Globulin Calc (S) [Mass/Vol] Ordered By: Lam Pedraza on 12-01-2024 Globulin (S) [Mass/Vol] Serum globulin measurement by calculation (mass/volume) [facility] Glucose Glucometer (BldC) [M ass/Vol]Ordered By: Desmond Davis on 12-01-2024 Glucose [Mass/Vol] Capillary blood gluc ose measurement by glucometer (mass/volume) [facility] Comment on above: Random Glucose Refer ence Range is dependent on time and content of last meal. Glucose of more than 200 mg/dL in a nonstressed, ambulatory subject supports the diagnosis of Diabetes Mellitus. Glucose Poct Glucometerson 0 12-01-2024 Commemt1 Glu2: Cleaned Meter Normal [facility] Comment on above: Result Comment: PERF ORMED BY: [facility] [address] [place] [address] PATHOLOGIST TONG SETTER OLIVE STILL M.D. Performed By: #### V [id number], T4F, [id number], TSH3 wRFLX #### [facility] [address] Glucose [Mass/Vol] 117 mg/dL Normal [facility] Comment on above: Result Comment: Richards om Glucose Reference Range is dependent on time and content of last meal. Glucose of more than 200 mg/dL in a nonstressed, ambulatory subject supports the diagnosis of Diabetes Mellitus. Performed By: #### V [id number], T4F, [id number], TSH3 wRFLX #### [facility] [address] Glucose [Mass/volume] in Ser um or PlasmaOrdered By: Lam Pedraza on 12-01-2024 Glucose [Mass/Vol] Glucose [Mass/volume ] in Serum or Plasma High 70-100 [facility] Comment on above: ADA recommended refe rence rangeRandom Glucose Reference Range is dependent on time and content of last meal. Glucose of more than 200 mg/dL in a nonstressed, ambulatory subject supports the diagnosis of Diabetes Mellitus. Hematocrit Auto (Bld) [Volum e fraction]Ordered By: Lam Pedraza on 12-01-2024 Hematocrit (Bld) [Volume fraction] Hematocrit [Volume Fraction] of Blood by Automated count 34.0-46.4 [facility] Hemoglobin [Mass/volume] in BloodOrdered By: Lam Pedraza on 12-01-2024 Hemoglobin (Bld) [Mass/Vol] Hemoglobin [Mass/volume] in Blood 11.8-15.4 [facility] Leukocytes [#/volume] correc usha for nucleated erythrocytes in Blood by Automated counOrdered By: Lam Pedraza on 12-01-2024 WBC corrected for nucl RBC Auto (Bld) [#/Vol] Leukocytes [#/volume] corrected for nucleated erythrocytes in Blood by Automated coun 3.8-11.6 [facility] Lipid Panelon 12-01-2024 Cholesterol [Mass/Vol] 271 mg/dL High 140-200 [facility] Comment on above: Order Comment: ANDRZEJ Grant Comment Add on to previous lab draw Result Comment: Chol less than 200 mg/dl low risk Chol 201-239 mg/dl borderline risk Chol 240 mg/dl and greater high risk Performed By: #### A 1C WTH eA, LIPID ####[facility] Atd[address] Cholesterol in HDL [Mass/Vol] 41 mg/dL Normal 23-92 [facility] Comment on above: Order Comment: ANDRZEJ Grant Comment Add on to previous lab draw Result Comment: HDL CHOL ATP-III CLASSIFICATION Cardiovascular Risk HDL > or equal to 60 mg/dL LOW HDL < 40 mg/dL HIGH Performed By: #### A 1C WTH eA, LIPID ####[facility] [place] [address] [facility] Cholesterol.total/Cho lesterol in HDL [Mass ratio] 6.6 {ratio} Normal <5.0 [facility] Comment on above: Order Comment: ANDRZEJ Grant Comment Add on to previous lab draw Result Comment: PERF ORMED BY: [facility] [address] [place] [address] PATHOLOGIST TONG SETTER OLIVE STILL M.D. Performed By: #### A 1C WT Dai, LIPID ####[place] [id number] [address] LDL Cholesterol,Calculate d 197 mg/dL High 0-100 [facility] Comment on above: Order Comment: ANDRZEJ Grant Comment Add on to previous lab draw Result Comment: LDL ATP III CLASSIFICATION LDL less than 100 mg/dL Optimal LDL 100-129 mg/dL Near or above optimal LDL 130-159 mg/dL Borderline high LDL 160-189 mg/dL High LDL greater than 189 mg/dL Very high Performed By: #### A 1C WT Dai, LIPID ####[place] [address] [place] [id number] [facility] Triglyceride w/Reflex 167 mg/dL High 0-149 [facility] Comment on above: Order Comment: ANDRZEJ Grant Comment Add on to previous lab draw Result Comment: TRIG ATP III CLASSIFICATION TRIG less than 150 mg/dL Normal TRIG 150-199 mg/dL Borderline high TRIG 200-500 mg/dL High TRIG greater than 500 mg/dL Very high Standard traceable to the Center for Disease Conrtrol and Prevention (CDC) test method. Performed By: #### A 1C WT eA, LIPID ####[facility] [place] [id number] [facility] VLDL CHOLESTEROL 33 mg/dL Normal [facility] Comment on above: Order Comment: ANDRZEJ Grant Comment Add on to previous lab draw Performed By: #### A 1C WTH eA, LIPID ####[facility] [id number] [place] [id number] [facility] Lymphocytes Auto (Bld) [#/Vo l]Ordered By: Lam Pedraza on 12-01-2024 Lymphocytes (Bld) [#/Vol] Lymphocytes [#/volume] in Blood by Automated count 1.00-4.8 [facility] Lymphocytes/100 WBC Auto (Bl d)Ordered By: Lam Pedraza on 12-01-2024 Lymphocytes/100 WBC (Bld) Lymphocytes/100 leukocytes in Blood by Automated count . [facility] MCH Auto (RBC) [Entitic mass ]Ordered By: Lam Pedraza on 12-01-2024 MCH (RBC) [Entitic mass] MCH [Entitic mass] by Automated count 24.7-34.3 [facility] MCHC Auto (RBC) [Mass/Vol]Or dered By: Lam Pedraza on 12-01-2024 MCHC (RBC) [Mass/Vol] MCHC [Mass/volume] by Automated count 32.0-35.0 [facility] MCV Auto (RBC) [Entitic vol] Ordered By: Lam Pedraza on 12-01-2024 MCV (RBC) [Entitic vol] MCV [Entitic volume] by Automated count 80-100 [facility] Magnesiumon 12-01-2024 Magnesium [Mass/Vol] 2.1 mg/dL Normal 1.9-2.7 [facility] Comment on above: Result Comment: PERF ORMED BY: [facility] [address] [facility] [place] [address] PATHOLOGIST TONG SETTER OLIVE STILL M.D. Performed By: #### C MP, CBC, MG ####[facility] [id number] [place] [id number] [facility] Magnesium [Mass/volume] in S poly or PlasmaOrdered By: Lam Pedraza on 12-01-2024 Magnesium [Mass/Vol] Magnesium [Mass/vol ume] in Serum or Plasma 1.9-2.7 [facility] Magnetic resonance imaging r eportOrdered By: Yobany Hoyt on 12-01-2024 Study report [facility] Main [place] [id number] MRI Report Signed Patient: Teresa Andre MR#: [id number] : 1950 Acct:[id number] Age/Sex: 74 / F ADM Date: 5 Loc: 3T Room: [address] [place] [address] Type: ADM INOo Attending Dr: Desmond Davis MD Copies to: Desmond Davis MD~ Ordering Provider: Date of Service: Accession #: EXAMINATION: MRI LUMBAR SPINE WITHOUT IV CONTRAST CLINICAL HISTORY: History of lumbar stenosis. COMPARISON: None TECHNIQUE: Multiecho imaging was performed in the sagittal and axial planes without contrast administration. FINDINGS: Vertebral body heights appear maintained. No bone marrow edema is present. Spinal cord terminates in normal position without abnormal cord signal. No paraspinal mass. Visualized retroperitoneum demonstrates no acute process. At L1-L2: Diffuse broad-based disc bulge is present with ligamentum flavum hypertrophy and mild facet joint degenerative changes causing mild canal and left-sided neural foraminal stenosis. At L2-L3: Diffuse broad-based disc bulge is present with ligamentum flavum hypertrophy and facet joint degenerative changes causing moderate canal and mildbilateral neural foraminal stenosis. At L3-L4: Diffuse broad-based disc bulge is present malignant flavum hypertrophyand facet joint degenerative changes causing moderate canal and mild left-sided neural foraminal stenosis. At L4-L5: Mild diffuse broad-based disc bulge is present with ligamentum flavum hypertrophy and facet joint degenerative changes causing mild canal and left-sided neural foraminal stenosis. At L5-S1: Diffuse broad-based disc bulge is present with facet joint degenerative changes. No significant canal stenosis. Moderate left-sided neural foraminal stenosis. Transcribed By: KOMAL 11/30/241815 Dictated By: Yobany Hoyt Jr, 11/30/24 180 Signed By: 12/01/24 1112 [facility] Study report [facility] Main [address] [address] MRI Report Signed Patient: Teresa Andre MR#: [id number] : 1950 Acct:[id number] Age/Sex: 74 / F ADM Date: 5 Loc: 3T Room: [address] [place] [address] Type: ADM INOo Attending Dr: Desmond Davis MD Copies to: Desmond Davis MD~ Ordering Provider: Date of Service: Accession #: EXAMINATION: MRI C-SPINE WITH AND WITHOUT IV CONTRAST CLINICAL HISTORY: Spinal stenosis. COMPARISON: None TECHNIQUE: Multiecho imaging was performed in the sagittal and axial planes with and without contrast administration. FINDINGS: Vertebral body heights appear maintained. No bone marrow edema is present. Diffuse facet joint degenerative change. Cervicomedullary junction appears normal. No abnormal cord signal is seen. No paraspinal mass. No prevertebral soft tissue swelling is present. At C2-3: No posterior disc pathology. No neural canal or foraminal stenosis. At C3-4: No posterior disc pathology. No neural canal or foraminal stenosis. At C4-5: Disc osteophyte complex present eccentric towards the right causing mild canal and moderate right-sided neural foraminal stenosis. At C5-6: Disc osteophyte complex present causing moderate canal and severe bilateral neural foraminal stenosis. At C6-7: Disc osteophyte complex present causing moderate canal and bilateral neural foraminal stenosis. At C7-T1: No posterior disc pathology. No neural canal or foraminal stenosis. Transcribed By: KOMAL 11/30/241819 Dictated By: Yobany Hoyt Jr, DO 11/30/241816 Signed By: 12/01/24 1112 [facility] Monocytes Auto (Bld) [#/Vol] Ordered By: Lam Pedraza on 12-01-2024 Monocytes (Bld) [#/Vol] Automated blood monocyte count 0.0-0.8 [facility] Monocytes/100 WBC Auto (Bld) Ordered By: Lam Pedraza on 12-01-2024 Monocytes/100 WBC (Bld) Automated monocyte % . [facility] Neutrophils Auto (Bld) [#/Vo l]Ordered By: Lam Pedraza on 12-01-2024 Neutrophils (Bld) [#/Vol] Neutrophils [#/volume] in Blood by Automated count 1.8-7.7 [facility] Neutrophils/100 WBC Auto (Bl d)Ordered By: Lam Pedraza on 12-01-2024 Neutrophils/100 WBC (Bld) Automated neutrophil % . [facility] No Panel InformationOrdered By: Lam Pedraza on 12-01-2024 Estimated GFR (CKD-EPI) 51.600 mL/Min [facility] Creatinine Clearance (Chem 37.72 [facility] No Panel InformationOrdered By: Desmond Davis on 12-01-2024 Bedside Glucose Comment Glu2: cleaned meter [facility] Nucleated erythrocytes [Pres ence] in Blood by Automated countOrdered By: Lam Pedraza on 12-01-2024 Nucleated RBC Auto Ql (Bld) Nucleated erythrocytes [Presence] in Blood by Automated count 0-0.5 [facility] Platelet mean volume Auto (B ld) [Entitic vol]Ordered By: Lam Pedraza on 12-01-2024 Platelet mean volume (Bld) [Entitic vol] Platelet mean volume [Entitic volume] in Blood by Automated count 6.3-10.7 [facility] Platelets Auto (Bld) [#/Vol] Ordered By: Lam Pedraza on 12-01-2024 Platelets (Bld) [#/Vol] Platelets [#/volume] in Blood by Automated count 150-450 [facility] Potassium [Moles/volume] in Serum or PlasmaOrdered By: Lam Pedraza on 12-01-2024 Potassium [Moles/Vol] Potassium [Moles/v olume] in Serum or Plasma 3.5-5.1 [facility] Protein [Mass/volume] in Ser um or PlasmaOrdered By: Lam Pedraza on 12-01-2024 Protein [Mass/Vol] Protein [Mass/volume ] in Serum or Plasma 6.4-8.9 [facility] RBC Auto (Bld) [#/Vol]Ordere d By: Lam Pedraza on 12-01-2024 RBC (Bld) [#/Vol] Erythrocytes [#/volu me] in Blood by Automated count High 3.60-5.00 [facility] Serum or plasma albumin/glob ulin mass ratioOrdered By: Lam Pedraza on 12-01-2024 Albumin/Globulin [Mass ratio] Serum or plasma albumin/globulin mass ratio [facility] Serum or plasma anion gap de terminationOrdered By: Lam Pedraza on 12-01-2024 Anion gap [Moles/Vol] Serum or plasma an ion gap determination 6.0-15.0 [facility] Serum or plasma total choles terol/high density lipoprotein (HDL) cholesterol mass ratOrdered By: Desmond Davis on 12-01-2024 Cholesterol.total/Cho lesterol in HDL [Mass ratio] Serum or plasma total cholesterol/high density lipoprotein (HDL) cholesterol mass rat <5.0 [facility] Sodium [Moles/volume] in Ser um or PlasmaOrdered By: Lam Pedraza on 12-01-2024 Sodium [Moles/Vol] Sodium [Moles/volume ] in Serum or Plasma 136-145 [facility] Triglyceride [Mass/volume] i n Serum or PlasmaOrdered By: Desmond Davis on 12-01-2024 Triglyceride [Mass/Vol] Triglyceride [Mass/volume] in Serum or Plasma High 0-149 [facility] Comment on above: TRIG ATP III CLASSIF ICATIONTRIG less than 150 mg/dL NormalTRIG 150-199 mg/dL Borderline highTRIG 200-500 mg/dL High TRIG greater than 500 mg/dL Very highStandard traceable to the Center for Disease Conrtrol and Prevention (CDC) test method. Urea nitrogen [Mass/volume] in Serum or PlasmaOrdered By: Lam Pedraza on 12-01-2024 Urea nitrogen [Mass/Vol] Urea nitrogen [Mass/volume] in Serum or Plasma 7-25 [facility] WBC Auto (Bld) [#/Vol]Ordere d By: Lam Pedraza on 12-01-2024 WBC (Bld) [#/Vol] Leukocytes [#/volume ] in Blood by Automated count 3.8-11.6 [facility] Folate [Mass/volume] in Seru m or PlasmaOrdered By: Desmond Davis on 11-30-2024 Folate [Mass/Vol] Folate [Mass/volume] in Serum or Plasma >5.9 [facility] Comment on above: Folate reference ran ge: >5.9 ng/mlThe WHO technical consultation on folate and vitamin [id number] has determined that folate concentrations lessthan 4 ng/ml are considered deficient. Free T4 (Free Thyroxine)on 0 11-30-2024 Free T4 [Mass/Vol] 1.03 ng/dL Normal 0.61-1.12 [facility] Comment on above: Performed By: #### V [id number], T4F, [id number], TSH3 wRFLX #### [place] [address] [place] Glucose Glucometer (dC) [M ass/Vol]Ordered By: Desmond Davis on 11-30-2024 Glucose [Mass/Vol] Capillary blood gluc ose measurement by glucometer (mass/volume) [facility] Comment on above: Random Glucose Refer ence Range is dependent on time and content of last meal. Glucose of more than 200 mg/dL in a nonstressed, ambulatory subject supports the diagnosis of Diabetes Mellitus. Glucose Poct Glucometerson 0 11-30-2024 Commemt1 Glu2: Cleaned Meter Normal [facility] Comment on above: Result Comment: PERF ORMED BY: [address] [place] [address] PATHOLOGIST TONG SETTER OLIVE STILL M.D. Performed By: #### G LULS #### Point of Care testing , Glucose [Mass/Vol] 144 mg/dL Normal [facility] Comment on above: Result Comment: Richards om Glucose Reference Range is dependent on time and content of last meal. Glucose of more than 200 mg/dL in a nonstressed, ambulatory subject supports the diagnosis of Diabetes Mellitus. Performed By: #### G LULS #### Point of Care testing , MR cervical spine wo/w conon 11-30-2024 MR cervical spine wo/w con [facility] [place] [address] [place] [address] MRI Report Signed Patient: Teresa Andre MR#: [id number] : 1950 Acct:[id number] Age/Sex: 74 / F ADM Date: 11/29/24 Loc: Room: [address] [place] [address] Type: DIS INOo Attending Dr: Desmond Davis MD Copies to: Desmond Davis MD Ordering Provider: Desmond Davis MD Date of Service: 11/30/24 MR/MR cervical spine wo/w con: STENOSIS EXAMINATION: MRI C-SPINE WITH AND WITHOUT IV CONTRAST CLINICAL HISTORY: Spinal stenosis. COMPARISON: None TECHNIQUE: Multiecho imaging was performed in the sagittal and axial planes with and without contrast administration. FINDINGS: Vertebral body heights appear maintained. No bone marrow edema is present. Diffuse facet joint degenerative change. Cervicomedullary junction appears normal. No abnormal cord signal is seen. No paraspinal mass. No prevertebral soft tissue swelling is present. At C2-3: No posterior disc pathology. No neural canal or foraminal stenosis. At C3-4: No posterior disc pathology. No neural canal or foraminal stenosis. At C4-5: Disc osteophyte complex present eccentric towards the right causing mild canal and moderate right-sided neural foraminal stenosis. At C5-6: Disc osteophyte complex present causing moderate canal and severe bilateral neural foraminal stenosis. At C6-7: Disc osteophyte complex present causing moderate canal and bilateral neural foraminal stenosis. At C7-T1: No posterior disc pathology. No neural canal or foraminal stenosis. IMPRESSION: Multilevel degenerative disc disease as described above worst at C5-C7. Impression dictated by: Yobany Hoyt Jr., D.OAidan11/30/2024 6:20 PM Transcribed By: 12/02/24 0824 Dictated By: Yobany Hoyt Jr, DO 11/30/24 1820 Signed By: 12/02/24 0825 Normal [facility] MR cervical spine wo/w con [facility] [place] [address] MRI Report Signed Patient: Teresa Andre MR#: [id number] : 1950 Acct:[id number] Age/Sex: 74 / F ADM Date: 11/29/24 Loc: Room: [address] [place] [address] Type: ADM INOo Attending Dr: Desmond Davis MD Copies to: Desmond Davis MD Ordering Provider: Desmond Davis MD Date of Service: 11/30/24 MR/MR cervical spine wo/w con: HX OF SPINAL STENOSIS EXAMINATION: MRI C-SPINE WITH AND WITHOUT IV CONTRAST CLINICAL HISTORY: Spinal stenosis. COMPARISON: None TECHNIQUE: Multiecho imaging was performed in the sagittal and axial planes with and without contrast administration. FINDINGS: Vertebral body heights appear maintained. No bone marrow edema is present. Diffuse facet joint degenerative change. Cervicomedullary junction appears normal. No abnormal cord signal is seen. No paraspinal mass. No prevertebral soft tissue swelling is present. At C2-3: No posterior disc pathology. No neural canal or foraminal stenosis. At C3-4: No posterior disc pathology. No neural canal or foraminal stenosis. At C4-5: Disc osteophyte complex present eccentric towards the right causing mild canal and moderate right-sided neural foraminal stenosis. At C5-6: Disc osteophyte complex present causing moderate canal and severe bilateral neural foraminal stenosis. At C6-7: Disc osteophyte complex present causing moderate canal and bilateral neural foraminal stenosis. At C7-T1: No posterior disc pathology. No neural canal or foraminal stenosis. MR/MR cervical spine wo/w con IMPRESSION: Multilevel degenerative disc disease as described above worst at C5-C7. Impression dictated by: Yobany Hoyt Jr., D.OAidan11/30/2024 6:20 PM Dictation Location: [place] [address] Transcribed By: [facility] 11/30/241819 Dictated By: Yobany Hoyt Jr, DO 11/30/241816 Signed By: 11/30/241819 Normal [facility] MR cervical spine wo/w con [facility] [place] [address] MRI Report Signed Patient: Teresa Andre MR#: [id number] : 1950 Acct:[id number] Age/Sex: 74 / F ADM Date: 11/30/24 Loc: [facility] Room: Type: [facility] Attending Dr: Desmond Davis MD Copies to: Desmond Davis MD Ordering Provider: Desmond Davis MD Date of Service: 11/30/24 MR/MR cervical spine wo/w con: HX OF SPINAL STENOSIS EXAMINATION: MRI C-SPINE WITH AND WITHOUT IV CONTRAST CLINICAL HISTORY: Spinal stenosis. COMPARISON: None TECHNIQUE: Multiecho imaging was performed in the sagittal and axial planes with and without contrast administration. FINDINGS: Vertebral body heights appear maintained. No bone marrow edema is present. Diffuse facet joint degenerative change. Cervicomedullary junction appears normal. No abnormal cord signal is seen. No paraspinal mass. No prevertebral soft tissue swelling is present. At C2-3: No posterior disc pathology. No neural canal or foraminal stenosis. At C3-4: No posterior disc pathology. No neural canal or foraminal stenosis. At C4-5: Disc osteophyte complex present eccentric towards the right causing mild canal and moderate right-sided neural foraminal stenosis. At C5-6: Disc osteophyte complex present causing moderate canal and severe bilateral neural foraminal stenosis. At C6-7: Disc osteophyte complex present causing moderate canal and bilateral neural foraminal stenosis. At C7-T1: No posterior disc pathology. No neural canal or foraminal stenosis. MR/MR cervical spine wo/w con IMPRESSION: Multilevel degenerative disc disease as described above worst at C5-C7. Impression dictated by: Yobany Hoyt Jr., D.O.11/30/2024 6:20 PM Dictation Location: [facility]18 Transcribed By: [facility] 11/30/241819 Dictated By: Yobany Hoyt Jr, DO 11/30/241816 Signed By: 11/30/241819 Normal [facility] MR lumbar spine wo conon MR lumbar spine wo con [facility] [place] [address] MRI Report Signed Patient: Teresa Andre MR#: [id number] : 1950 Acct:[id number] Age/Sex: 74 / F ADM Date: 11/29/24 Loc: 3T Room: [address] [place] [address] Type: DIS INOo Attending Dr: Desmond Davis MD Copies to: Desmond Davis MD Ordering Provider: Desmond Davis MD Date of Service: 11/30/24 MR/MR lumbar spine wo con: STENOSIS EXAMINATION: MRI LUMBAR SPINE WITHOUT IV CONTRAST CLINICAL HISTORY: History of lumbar stenosis. COMPARISON: None TECHNIQUE: Multiecho imaging was performed in the sagittal and axial planes without contrast administration. FINDINGS: Vertebral body heights appear maintained. No bone marrow edema is present. Spinal cord terminates in normal position without abnormal cord signal. No paraspinal mass. Visualized retroperitoneum demonstrates no acute process. At L1-L2: Diffuse broad-based disc bulge is present with ligamentum flavum hypertrophy and mild facet joint degenerative changes causing mild canal and left-sided neural foraminal stenosis. At L2-L3: Diffuse broad-based disc bulge is present with ligamentum flavum hypertrophy and facet joint degenerative changes causing moderate canal and mild bilateral neural foraminal stenosis. At L3-L4: Diffuse broad-based disc bulge is present malignant flavum hypertrophy and facet joint degenerative changes causing moderate canal and mild left-sided neural foraminal stenosis. At L4-L5: Mild diffuse broad-based disc bulge is present with ligamentum flavum hypertrophy and facet joint degenerative changes causing mild canal and left-sided neural foraminal stenosis. At L5-S1: Diffuse broad-based disc bulge is present with facet joint degenerative changes. No significant canal stenosis. Moderate left-sided neural foraminal stenosis. IMPRESSION: Multilevel degenerative disease as described above worst at L2-L3 and L3-L4. Impression dictated by: Yobany Hoyt Jr., D.OAidan11/30/2024 6:16 PM Transcribed By: 12/02/24 0825 Dictated By: Yobany Hoyt Jr, DO 11/30/24 1816 Signed By: 12/02/24 0826 Normal [facility] MR lumbar spine wo con [facility] [place] [address] MRI Report Signed Patient: Teresa Andre MR#: [id number] : 1950 Acct:[id number] Age/Sex: 74 / F ADM Date: 11/29/24 Loc: Room: [address] [place] [address] Type: ADM INOo Attending Dr: Desmond Davis MD Copies to: Desmond Davis MD Ordering Provider: Desmond Davis MD Date of Service: 11/30/24 MR/MR lumbar spine wo con: . EXAMINATION: MRI LUMBAR SPINE WITHOUT IV CONTRAST CLINICAL HISTORY: History of lumbar stenosis. COMPARISON: None TECHNIQUE: Multiecho imaging was performed in the sagittal and axial planes without contrast administration. FINDINGS: Vertebral body heights appear maintained. No bone marrow edema is present. Spinal cord terminates in normal position without abnormal cord signal. No paraspinal mass. Visualized retroperitoneum demonstrates no acute process. At L1-L2: Diffuse broad-based disc bulge is present with ligamentum flavum hypertrophy and mild facet joint degenerative changes causing mild canal and left-sided neural foraminal stenosis. At L2-L3: Diffuse broad-based disc bulge is present with ligamentum flavum hypertrophy and facet joint degenerative changes causing moderate canal and mild bilateral neural foraminal stenosis. At L3-L4: Diffuse broad-based disc bulge is present malignant flavum hypertrophy and facet joint degenerative changes causing moderate canal and mild left-sided neural foraminal stenosis. At L4-L5: Mild diffuse broad-based disc bulge is present with ligamentum flavum hypertrophy and facet joint degenerative changes causing mild canal and left-sided neural foraminal stenosis. At L5-S1: Diffuse broad-based disc bulge is present with facet joint degenerative changes. No significant canal stenosis. Moderate left-sided neural foraminal stenosis. MR/MR lumbar spine wo con IMPRESSION: Multilevel degenerative disease as described above worst at L2-L3 and L3-L4. Impression dictated by: Yobany Hoyt Jr., D.O.11/30/2024 6:16 PM Dictation Location: [place] [address] Transcribed By: [facility] 11/30/241815 Dictated By: Yobany Hoyt Jr, DO 11/30/241808 Signed By: 11/30/241815 Normal [facility] MR lumbar spine wo con [facility] [place] [address] MRI Report Signed Patient: Teresa Andre MR#: [id number] : 1950 Acct:[id number] Age/Sex: 74 / F ADM Date: 11/30/24 [facility] Room: Type: REG CLI Attending Dr: Desmond Davis MD Copies to: Desmond Davis MD Ordering Provider: Desmond Davis MD Date of Service: 11/30/24 MR/MR lumbar spine wo con: . EXAMINATION: MRI LUMBAR SPINE WITHOUT IV CONTRAST CLINICAL HISTORY: History of lumbar stenosis. COMPARISON: None TECHNIQUE: Multiecho imaging was performed in the sagittal and axial planes without contrast administration. FINDINGS: Vertebral body heights appear maintained. No bone marrow edema is present. Spinal cord terminates in normal position without abnormal cord signal. No paraspinal mass. Visualized retroperitoneum demonstrates no acute process. At L1-L2: Diffuse broad-based disc bulge is present with ligamentum flavum hypertrophy and mild facet joint degenerative changes causing mild canal and left-sided neural foraminal stenosis. At L2-L3: Diffuse broad-based disc bulge is present with ligamentum flavum hypertrophy and facet joint degenerative changes causing moderate canal and mild bilateral neural foraminal stenosis. At L3-L4: Diffuse broad-based disc bulge is present malignant flavum hypertrophy and facet joint degenerative changes causing moderate canal and mild left-sided neural foraminal stenosis. At L4-L5: Mild diffuse broad-based disc bulge is present with ligamentum flavum hypertrophy and facet joint degenerative changes causing mild canal and left-sided neural foraminal stenosis. At L5-S1: Diffuse broad-based disc bulge is present with facet joint degenerative changes. No significant canal stenosis. Moderate left-sided neural foraminal stenosis. MR/MR lumbar spine wo con IMPRESSION: Multilevel degenerative disease as described above worst at L2-L3 and L3-L4. Impression dictated by: Yobany Hoyt Jr., D.OAidan11/30/2024 6:16 PM Dictation Location: [facility]18 Transcribed By: [facility] 11/30/241815 Dictated By: Yobany Hoyt Jr, DO 11/30/241808 Signed By: 11/30/241815 Normal [facility] Magnetic resonance imaging r eportOrdered By: Yobany Hoyt on 11-30-2024 Study report [facility] [place] [address] MRI Report Signed Patient: Teresa Andre MR#: [id number] : 1950 Acct:[id number] Age/Sex: 74 / F ADM Date: 5 Loc: [facility] Room: Type: [facility] Attending Dr: Desmond Davis MD Copies to: Desmond Davis MD~ Ordering Provider: Desmond Davis MD Date of Service: 11/30/24 MR/MR cervical spine wo/w con: HX OF SPINAL STENOSIS EXAMINATION: MRI C-SPINE WITH AND WITHOUT IV CONTRAST CLINICAL HISTORY: Spinal stenosis. COMPARISON: None TECHNIQUE: Multiecho imaging was performed in the sagittal and axial planes with and without contrast administration. FINDINGS: Vertebral body heights appear maintained. No bone marrow edema is present. Diffuse facet joint degenerative change. Cervicomedullary junction appears normal. No abnormal cord signal is seen. No paraspinal mass. No prevertebral soft tissue swelling is present. At C2-3: No posterior disc pathology. No neural canal or foraminal stenosis. At C3-4: No posterior disc pathology. No neural canal or foraminal stenosis. At C4-5: Disc osteophyte complex present eccentric towards the right causing mild canal and moderate right-sided neural foraminal stenosis. At C5-6: Disc osteophyte complex present causing moderate canal and severe bilateral neural foraminal stenosis. At C6-7: Disc osteophyte complex present causing moderate canal and bilateral neural foraminal stenosis. At C7-T1: No posterior disc pathology. No neural canal or foraminal stenosis. MR/MR cervical spine wo/w con IMPRESSION: Multilevel degenerative disc disease as described above worst at C5-C7. Impression dictated by: Yobany Hoyt Jr., D.O.11/30/2024 6:20 PM Dictation Location: [facility]--18 Transcribed By: [facility] 11/30/241819 Dictated By: Yobany Hoyt Jr, DO 11/30/241816 Signed By: 11/30/241819 [facility] Study report [facility] [place] [address] MRI Report Signed Patient: Teresa Andre MR#: [id number] : 1950 Acct:[id number] Age/Sex: 74 / F ADM Date: 5 [facility] Room: Type: [facility] Attending Dr: Desmond Davis MD Copies to: Desmond Davis MD~ Ordering Provider: Desmond Davis MD Date of Service: 11/30/24 MR/MR lumbar spine wo con: . EXAMINATION: MRI LUMBAR SPINE WITHOUT IV CONTRAST CLINICAL HISTORY: History of lumbar stenosis. COMPARISON: None TECHNIQUE: Multiecho imaging was performed in the sagittal and axial planes without contrast administration. FINDINGS: Vertebral body heights appear maintained. No bone marrow edema is present. Spinal cord terminates in normal position without abnormal cord signal. No paraspinal mass. Visualized retroperitoneum demonstrates no acute process. At L1-L2: Diffuse broad-based disc bulge is present with ligamentum flavum hypertrophy and mild facet joint degenerative changes causing mild canal and left-sided neural foraminal stenosis. At L2-L3: Diffuse broad-based disc bulge is present with ligamentum flavum hypertrophy and facet joint degenerative changes causing moderate canal and mildbilateral neural foraminal stenosis. At L3-L4: Diffuse broad-based disc bulge is present malignant flavum hypertrophyand facet joint degenerative changes causing moderate canal and mild left-sided neural foraminal stenosis. At L4-L5: Mild diffuse broad-based disc bulge is present with ligamentum flavum hypertrophy and facet joint degenerative changes causing mild canal and left-sided neural foraminal stenosis. At L5-S1: Diffuse broad-based disc bulge is present with facet joint degenerative changes. No significant canal stenosis. Moderate left-sided neural foraminal stenosis. MR/MR lumbar spine wo con IMPRESSION: Multilevel degenerative disease as described above worst at L2-L3 and L3-L4. Impression dictated by: Yobany Hoyt Jr., D.O.11/30/2024 6:16 PM Dictation Location: [facility]18 Transcribed By: [facility] 11/30/241815 Dictated By: Yobany Hoyt Jr, DO 11/30/241808 Signed By: 11/30/241815 [facility] No Panel InformationOrdered By: Desmond Davis on 11-30-2024 Bedside Glucose Comment Glu2: cleaned meter [facility] Thyroid Stim Hormone w/Rflxo n 11-30-2024 Thyroid Stim Hormone w/Rflx 9.51 u[iU]/mL High 0.45-5.33 [facility] Comment on above: Performed By: #### V [id number], T4F, [id number], TSH3 wRFLX #### [facility] [address] [place] [address] [place] Thyrotropin [Units/volume] i n Serum or PlasmaOrdered By: Desmond Davis on 11-30-2024 TSH Qn Thyrotropin [Units/v olume] in Serum or Plasma High 0.45-5.33 [facility] Thyroxine (T4) free [Mass/vo lume] in Serum or PlasmaOrdered By: Desmond Davis on 11-30-2024 Free T4 [Mass/Vol] Thyroxine (T4) free [Mass/volume] in Serum or Plasma 0.61-1.12 [facility] US arterial pvr rest Terry US arterial pvr rest LE [facility] [place] [address] [place] [address] Ultrasound Report Signed Patient: Teresa Andre MR#: [id number] : 1950 Acct:[id number] Age/Sex: 74 / F ADM Date: 11/29/24 Loc: Room: [address] [place] [address] Type: ADM INOo Attending Dr: Desmond Davis MD Ordering Provider: Desmond Davis MD Date of Service: 11/29/24 US/US arterial pvr rest LE: Rule out significant PAD Copies to: Desmond Davis MD LOWER EXTREMITY SEGMENTAL ARTERIAL DOPSCAN (PVR) INDICATION: Leg pain PROCEDURE: Right arm blood pressure is 198 , left is not obtained . Pressures throughout the right leg are cno at the high thigh, at the cno low thigh, 228 at the calf, 231 at the ankle using the posterior tibial artery, and 225 at the ankle using the dorsalis pedis artery with ankle-brachial index of 1.17 1.14 . Pressures throughout the left leg are cno at the high thigh, at the cno low thigh, 212 at the calf and 228 at the ankle using the posterior tibial artery, and 222 at the ankle using the dorsalis pedis artery with ankle-brachial index of 1.15 1.12 . Wave forms by plethysmography are normal. US/US arterial pvr rest LE IMPRESSION: NO HEMODYNAMICALLY SIGNIFICANT PERIPHERAL VASCULAR OCCLUSIVE DISEASE AT REST IN EITHER LOWER EXTREMITY. Impression dictated by: Vickey Shine M.D.11/30/2024 10:24 AM Dictation Location[facility]: Genet Vargas Transcribed By: KOMAL 11/30/24 1024 Dictated By: Vickey Shine MD 11/30/24 1023 Signed By: 11/30/24 1024 Normal [facility] Vit. B12/Folate Profileon Cobalamin (Vitamin B12) [Mass/Vol] 1024 pg/mL High 180-914 [facility] Comment on above: Performed By: #### V [id number], T4F, [id number], TSH3 wRFLX #### [facility] [address] Folate 34.0 ng/mL Normal >5.9 [facility] Comment on above: Result Comment: [place]ak[place] te reference range: >5.9 ng/ml The WHO technical consultation on folate and vitamin b12 deficiencies has determined that folate concentrations less than 4 ng/ml are considered deficient. Performed By: #### V [id number], T4F, [id number], TSH3 wRFLX #### [facility] [address] Vitamin B12 ser/plasOrdered By: Desmond Davis on 11-30-2024 Cobalamin (Vitamin B12) [Mass/Vol] Vitamin B12 ser/plas High 180-914 [facility] Vitamin D 25 Hydroxy Totalon 11-30-2024 Vitamin D 25 Hydroxy Total 43.3 ng/mL Normal 30-100 [facility] Comment on above: Result Comment: [place] MIN D STATUS 25(OH)VITAMIN D RANGE (ng/mL) Deficient <20 Insufficient 20 to <30 Sufficient 30 to 100 Reference: Alanna Tse, Demarco WALL, et al. Evaluation,treatment, and prevention of vitamin D deficiency; an Endocrine Society clinical practice guideline. JCEM. 2010; 96(7):1911-30. PERFORMED BY: [facility] [address] [place] [address] PATHOLOGIST TONG SETTER OLIVE STILL M.D. Performed By: #### V [id number], T4F, [id number], TSH3 wRFLX #### [address] Vitamin D+Metabolites [Mass/ volume] in Serum or PlasmaOrdered By: Desmond Davis on 11-30-2024 Vitamin D+Metabolites [Mass/Vol] Vitamin D+Metabolites [Mass/volume] in Serum or Plasma 30-100 [facility] Comment on above: VITAMIN D STATUS 25( [place])VITAMIN D RANGE (ng/mL) Deficient <20 Insufficient 20 to <30Sufficient 30 to 100Reference: Alanna Tse, Demarco WALL, et al. Evaluation,treatment, and prevention of vitamin D deficiency; an Endocrine Society clinical practice guideline. JCEM. 2010; 96(7):1911-30. Alanine aminotransferase [En zymatic activity/volume] in Serum or PlasmaOrdered By: Bubba Alan on 11-29-2024 ALT [Catalytic activity/Vol] Alanine aminotransferase [Enzymatic activity/volume] in Serum or Plasma 7 [facility] Albumin [Mass/volume] in Ser um or Plasma by Bromocresol green (BCG) dye binding methoOrdered By: Bubba Alan on 11-29-2024 Albumin BCG dye [Mass/Vol] Albumin [Mass/volume] in Serum or Plasma by Bromocresol green (BCG) dye binding metho 3.5-5.7 [facility] Alkaline phosphatase [Enzyma tic activity/volume] in Serum or PlasmaOrdered By: Bubba Alan on 11-29-2024 ALP [Catalytic activity/Vol] Alkaline phosphatase [Enzymatic activity/volume] in Serum or Plasma 34-104 [facility] Amphetamine Screen Ql (U)Ord ered By: Bubba Alan on 11-29-2024 Amphetamines Ql (U) Amphetamines screen Negativ e [facility] Appearance of UrineOrdered B y: Bubba Alan on 11-29-2024 Appearance (U) Urine appearance Clear [facility] Aspartate aminotransferase [ Enzymatic activity/volume] in Serum or PlasmaOrdered By: Bubba Alan on 11-29-2024 AST [Catalytic activity/Vol] Aspartate aminotransferase [Enzymatic activity/volume] in Serum or Plasma 13-39 [facility] Barbiturates [Presence] in U rine by Screen methodOrdered By: Bubba Alan on 11-29-2024 Barbiturates Screen Ql (U) Barbiturates [Presence] in Urine by Screen method Negative [facility] Basophils Auto (Bld) [#/Vol] Ordered By: Bubba Alan on 11-29-2024 Basophils (Bld) [#/Vol] Automated basophil count 0.0-0.2 [facility] Basophils/100 WBC Auto (Bld) Ordered By: Bubba Alan on 11-29-2024 Basophils/100 WBC (Bld) Automated basophil % . [facility] Benzodiazepines Screen Ql (U )Ordered By: Bubba Alan on 11-29-2024 Benzodiazepines Ql (U) Benzodiazepines [Presence] in Urine by Screen method Negative [facility] [facility] Benzoylecgonine [Presence] i n Urine by Screen methodOrdered By: Bubba Alan on 11-29-2024 Benzoylecgonine Screen Ql (U) Benzoylecgonine [Presence] in Urine by Screen method Negative [facility] Bilirubin Test strip Ql (U)O rdered By: Bubba Alan on 11-29-2024 Bilirubin Ql (U) Bilirubin.total [Pre sence] in Urine by Test strip Negative [facility] Bilirubin.total [Mass/volume ] in Serum or PlasmaOrdered By: Bubba Alan on 11-29-2024 Bilirubin [Mass/Vol] Bilirubin.total [Mass/volume] in Serum or Plasma 0.3-1.0 [facility] CT abdomen pelvis w conon CT abdomen pelvis w con [facility] [address] [place] [address] [place] [address] CT Scan Report Signed Patient: Teresa Andre MR#: [id number] : 1950 Acct:[id number] Age/Sex: 74 / F ADM Date: 11/29/24 Loc: ER Room: Type: [facility] ER Attending Dr: Copies to: Bubba Alan MD Ordering Provider: Bubba Alan MD Date of Service: 11/29/24 CT/CT abdomen pelvis w con: Abdominal pain, generalized CT ABDOMEN AND PELVIS WITH INTRAVENOUS CONTRAST: CLINICAL HISTORY: Generalized abdominal pain COMPARISON: None TECHNIQUE: Spiral images were obtained through the abdomen and pelvis following the administration of intravenous contrast. This CT exam was performed using one or more following dose reduction techniques: Automated exposure control, adjustment of the mA and/or kV according to patient size, or use of iterative reconstruction technique. FINDINGS: Lung Bases: [Right basilar atelectasis.] Organs:Liver, adrenals, unremarkable. Question gallstone within the region of neck of the gallbladder. Pancreatic duct borderline 4 mm. Otherwise negative unremarkable. Lobulated splenic lesion noted 2.8 x 2.9 cm in size. Kidneys are symmetric size with pelviectasis noted.[ GI: Mild retained stool. No bowel obstruction.[No CT findings acute appendicitis. Pelvis:[Bladder unremarkable. Hysterectomy. No adnexal mass. Peritoneum/Retroperitoneum:P ostsurgical changes of aorta noted.[Moderate ostial plaque involving the mesenteric vessels. Leyy-zs-igpswmck plaque iliac vessels. Abd wall/Bones:Multilevel degenerative changes throughout the lumbar spine.[ CT/CT abdomen pelvis w con IMPRESSION: Question gallstone within the neck of the gallbladder. Otherwise negative acute inflammatory process or bowel obstruction. Splenic hypodensity noted, indeterminate. Consider ultrasound Impression dictated by: Jonathon Khan M.D.11/29/2024 2:27 PM Dictation Location: [place] [address] Transcribed By: [facility] 11/29/24 142 Dictated By: Jonathon Khan MD 11/29/24 1421 Signed By: 11/29/24 142 Normal [facility] CT angio neckon 11-29-2024 CT angio neck [facility] [place] [address] [place] [address] CT Scan Report Signed Patient: Teresa Andre MR#: [id number] : 1950 Acct:[id number] Age/Sex: 74 / F ADM Date: 11/29/24 Loc: ER Room: Type: [facility] ER Attending Dr: Copies to: Bubba Alan MD Ordering Provider: Bubba Alan MD Date of Service: 11/29/24 CT/CT angio head: Neck pain, ataxia x days, concern for stroke ([id number]) CT/CT angio neck: Neck pain, ataxia x days, concern for stroke CT angio head, CT angio neck 11/29/2024 11:59 AM SIGNS AND SYMPTOMS: Neck pain, ataxia x days, concern for stroke TECHNIQUE: Multi-detector CT angiography axial slices of the head and neck during intravenous administration of IV contrast material. Sagittal, coronal, and 3-D reconstructions were performed and viewed on a separate workstation. CT was performed with one or more of the following dose reduction techniques: Automated exposure control, adjustment of the mA and/or kV according to patient size, or use of iterative reconstruction technique. Stenoses were measured using the NASCET criteria. COMPARISON: CT head 11/29/2024. FINDINGS: CTA HEAD: Vlof-hu-imykjiyj plaque both ICAs. Both carotid termini patent. Anterior cerebral arteries are patent. There is mild focal narrowing right proximal M1 segment. Otherwise MCAs are patent. Distal vertebral arteries join from the basilar artery. Basilar artery basilar tip and posterior cerebral arteries are patent. Unremarkable dural venous sinuses. CTA NECK: There is a normal three-vessel arch. Left subclavian stent graft without and stent stenosis narrowing. The vertebral arteries arise from the subclavian arteries and are codominant with mild plaque. These are otherwise unremarkable in Course and caliber up to the skull base. The common and internal carotid arteries demonstrate atherosclerotic disease. Moderate plaque right proximal ICA and proximal internal carotid artery resulting in 40% narrowing . There is moderate plaque left proximal ICA resulting 50-55% narrowing. Visualized lung parenchyma is clear. Multilevel degenerative changes are spine notably C5-C7. The paraspinous soft tissues are within normal limits. CT/CT angio head IMPRESSION: Negative for large vessel occlusion or hemodynamically significant stenosis. There is up to 55% narrowing left proximal ICA. Impression dictated by: Jonathon Khan M.D.11/29/2024 2:21 PM Dictation Location: [facility]-26 Transcribed By: KOMAL 11/29/24 1421 Dictated By: Jonathon Khan MD 11/29/24 1404 Signed By: 11/29/24 1421 Normal [facility] CT head/brain wo conon 11-29 CT head/brain wo con [facility] [place] [address] CT Scan Report Signed Patient: Teresa Andre MR#: [id number] : 1950 Acct:[id number] Age/Sex: 74 / F ADM Date: 11/29/24 Loc: ER Room: Type: [facility] ER Attending Dr: Copies to: Bubba Alan MD Ordering Provider: Bubba Alan MD Date of Service: 11/29/24 CT/CT head/brain wo con: Gait ataxia, fell 2 days ago struck the right side CT BRAIN WITHOUT CONTRAST: CLINICAL HISTORY: Ataxic gait COMPARISON: None TECHNIQUE: Contiguous axial unenhanced images were obtained through the brain. This CT exam was performed using one or more following dose reduction techniques: Automated exposure control, adjustment of the mA and/or kV according to patient size, or use of iterative reconstruction technique. FINDINGS: There is no evidence of midline shift, intra or extra-axial fluid collection, hemorrhage or CT evidence of large vascular distribution stroke. Mild chronic small vessel changes. Vascular calcifications. Visualized intraorbital contents appear unremarkable. Visualized paranasal sinuses are clear. The surrounding soft tissues are normal. CT/CT head/brain wo con IMPRESSION: NO ACUTE INTRACRANIAL ABNORMALITY. Impression dictated by: Jonathon Khan M.D.11/29/2024 1:20 PM Dictation Location: [facility]-26 Transcribed By: KOMAL 11/29/24 1320 Dictated By: Jonathon Khan MD 11/29/24 1317 Signed By: 11/29/24 1320 Normal [facility] Calcium [Mass/volume] in Ser um or PlasmaOrdered By: Bubba Alan on 11-29-2024 Calcium [Mass/Vol] Calcium [Mass/volume ] in Serum or Plasma 8.6-10.3 [facility] Cannabinoids [Presence] in U rine by Screen methodOrdered By: Bubba Alan on 11-29-2024 Cannabinoids Screen Ql (U) Cannabinoids [Presence] in Urine by Screen method High Negative [facility] Comment on above: These are unconfirme d results and should not be used for legal purposes. Drug Cut-Off Concentration: AMPH 1000 ng/mL PHILIPPE 200 ng/mL SHELLEY 200 ng/mL COCM 300 ng/mL OP 300 ng/mL PCP 25 ng/mL THC 20 ng/mL Carbon dioxide, total [Moles /volume] in Serum or PlasmaOrdered By: Bubba Alan on 11-29-2024 CO2 [Moles/Vol] Carbon dioxide, tota l [Moles/volume] in Serum or Plasma 21.0-31.0 [facility] Chloride [Moles/volume] in S poly or PlasmaOrdered By: Bubba Alan on 11-29-2024 Chloride [Moles/Vol] Chloride [Moles/vol ume] in Serum or Plasma 98-107 [facility] Color Auto (U)Ordered By: Camryn Alan on 11-29-2024 Color (U) Color of Urine by Auto Yellow [facility] Complete Blood Count Auto Di ffon 11-29-2024 Basophils (Bld) [#/Vol] 0.1 10*3/uL Normal 0.0-0.2 [facility] Comment on above: Result Comment: PERF ORMED BY: [facility] [address] [place] [address] PATHOLOGIST TONG SETTER OLIVE STILL M.D. Performed By: #### H S TROP, CBC, CMP, MARK ####[facility] [address] [place] [address] [facility] Basophils/100 WBC (Bld) 0.7 % Normal . [facility] Comment on above: Performed By: #### H S TROP, CBC, CMP, MARK ####[address] Eosinophils (Bld) [#/Vol] 0.4 10*3/uL Normal 0.0-0.45 [facility] Comment on above: Performed By: #### H S TROP, CBC, CMP, MARK ####[address] Eosinophils/100 WBC (Bld) 4.3 % Normal . [facility] Comment on above: Performed By: #### H S TROP, CBC, CMP, MARK ####[address] Erythrocyte distribution width (RBC) [Ratio] 14.3 % Normal 11.9-15.3 [facility] Comment on above: Performed By: #### H S TROP, CBC, CMP, MARK ####[address] Hematocrit (Bld) [Volume fraction] 43.7 % Normal 34.0-46.4 [facility] Comment on above: Performed By: #### H S TROP, CBC, CMP, MARK ####[address] Hemoglobin (Bld) [Mass/Vol] 15.1 g/dL Normal 11.8-15.4 [facility] Comment on above: Performed By: #### H S TROP, CBC, CMP, MARK ####[address] Lymphocytes (Bld) [#/Vol] 2.6 10*3/uL Normal 1.00-4.8 [facility] Comment on above: Performed By: #### H S TROP, CBC, CMP, MARK ####[address] Lymphocytes/100 WBC (Bld) 29.7 % Normal . [facility] Comment on above: Performed By: #### H S TROP, CBC, CMP, MARK ####[address] MCH (RBC) [Entitic mass] 29.4 pg Normal 24.7-34.3 [facility] Comment on above: Performed By: #### H S TROP, CBC, CMP, MARK ####[address] MCV (RBC) [Entitic vol] 85.0 fL Normal 80-100 [facility] Comment on above: Performed By: #### H S TROP, CBC, CMP, MARK ####[address] Mean Corpuscular HGB Conc 34.6 g/dL Normal 32.0-35.0 [facility] Comment on above: Performed By: #### H S TROP, CBC, CMP, MARK ####[address] Monocytes (Bld) [#/Vol] 0.6 10*3/uL Normal 0.0-0.8 [facility] Comment on above: Performed By: #### H S TROP, CBC, CMP, MARK ####[address] Monocytes/100 WBC (Bld) 17.53 % Normal 0.00-20.00 [facility] Comment on above: Performed By: #### H S TROP, CBC, CMP, MARK ####[address] Monocytes/100 WBC (Bld) 6.4 % Normal . [facility] Comment on above: Performed By: #### H S TROP, CBC, CMP, MARK ####[address] Neutrophils (Bld) [#/Vol] 5.2 10*3/uL Normal 1.8-7.7 [facility] Comment on above: Performed By: #### H S TROP, CBC, CMP, MARK ####[address] Neutrophils/100 WBC (Bld) 58.9 % Normal . [facility] Comment on above: Performed By: #### H S TROP, CBC, CMP, MARK ####[address] NRBC% 0.2 /100{WBC} Normal 0-0.5 [facility] Comment on above: Performed By: #### H S TROP, CBC, CMP, MARK ####[address] Platelet mean volume (Bld) [Entitic vol] 7.5 fL Normal 6.3-10.7 [facility] Comment on above: Performed By: #### H S TROP, CBC, CMP, MARK ####[address] Platelets (Bld) [#/Vol] 289 10*3/uL Normal 150-450 [facility] Comment on above: Performed By: #### H S TROP, CBC, CMP, MARK ####[address] RBC (Bld) [#/Vol] 5.14 10*6/uL High 3.60-5.00 [facility] Comment on above: Performed By: #### H S TROP, CBC, CMP, MARK ####[address] WBC (Bld) [#/Vol] 8.9 10*3/uL Normal 3.8-11.6 [facility] Comment on above: Performed By: #### H S TROP, CBC, CMP, MARK ####[address] Comprehensive Metabolic Pane dany 11-29-2024 Albumin [Mass/Vol] 4.7 g/dL Normal 3.5-5.7 [facility] Comment on above: Performed By: #### H S TROP, CBC, CMP, MARK ####[address] Albumin/Globulin [Mass ratio] 1.6 {ratio} Normal [facility] Comment on above: Performed By: #### H S TROP, CBC, CMP, MARK ####[place] [id number] [facility] ALP [Catalytic activity/Vol] 91 U/L Normal 34-104 [facility] Comment on above: Performed By: #### H S TROP, CBC, CMP, MARK ####[place] [id number] [facility] ALT [Catalytic activity/Vol] 16 U/L Normal 7-52 [facility] Comment on above: Performed By: #### H S TROP, CBC, CMP, MARK ####[place] [id number] [facility] Anion gap [Moles/Vol] 12.0 mmol/L Normal 6.0-15.0 [facility] Comment on above: Performed By: #### H S TROP, CBC, CMP, MARK ####[place] [id number] [facility] AST [Catalytic activity/Vol] 21 U/L Normal 13-39 [facility] Comment on above: Performed By: #### H S TROP, CBC, CMP, MARK ####[address] Bilirubin [Mass/Vol] 0.5 mg/dL Normal 0.3-1.0 [facility] Comment on above: Performed By: #### H S TROP, CBC, CMP, MARK ####[place] [id number] [facility] Calcium [Mass/Vol] 9.6 mg/dL Normal 8.6-10.3 [facility] Comment on above: Performed By: #### H S TROP, CBC, CMP, MARK ####[place] [id number] [facility] Chloride [Moles/Vol] 103 mmol/L Normal 98-107 [facility] Comment on above: Performed By: #### H S TROP, CBC, CMP, MARK ####[place] [id number] [facility] CO2 [Moles/Vol] 22.1 mmol/L Normal 21.0-31.0 [facility] Comment on above: Performed By: #### H S TROP, CBC, CMP, MARK ####[address] Creatinine [Mass/Vol] 1.09 mg/dL Normal 0.60-1.20 [facility] Comment on above: Performed By: #### H S TROP, CBC, CMP, MARK ####[address] Creatinine Clr Calc Pharmacy 35.81 Normal [facility] Comment on above: Result Comment: PERF ORMED BY: [facility] [address] [facility] [place] [address] PATHOLOGIST TONG SETTER OLIVE STILL M.D. Performed By: #### H S TROP, CBC, CMP, MARK ####[address] Estimated GFR 53.309 mL/Min Normal [facility] Comment on above: Performed By: #### H S TROP, CBC, CMP, MARK ####[address] Globulin (S) [Mass/Vol] 2.9 g/dL Normal [facility] Comment on above: Performed By: #### H S TROP, CBC, CMP, MARK ####[address] Glucose [Mass/Vol] 124 mg/dL High 70-100 [facility] Comment on above: Result Comment: Richards Glucose Reference Range is dependent on time and content of last meal. Glucose of more than 200 mg/dL in a nonstressed, ambulatory subject supports the diagnosis of Diabetes Mellitus. ADA recommended reference range Performed By: #### H S TROP, CBC, CMP, MARK ####[address] Potassium [Moles/Vol] 4.1 mmol/L Normal 3.5-5.1 [facility] Comment on above: Performed By: #### H S TROP, CBC, CMP, MARK ####[facility] Protein [Mass/Vol] 7.6 g/dL Normal 6.4-8.9 [facility] Comment on above: Performed By: #### H S TROP, CBC, CMP, MARK ####[facility] [place] [address] Sodium [Moles/Vol] 133 mmol/L Low 136-145 [facility] Comment on above: Performed By: #### H S TROP, CBC, CMP, MARK ####[address] Urea nitrogen [Mass/Vol] 21 mg/dL Normal 7-25 [facility] Comment on above: Performed By: #### H S TROP, CBC, CMP, MARK ####[address] Creatinine [Mass/volume] in Serum or PlasmaOrdered By: Bubba Alan on 11-29-2024 Creatinine [Mass/Vol] Creatinine [Mass/v olume] in Serum or Plasma 0.60-1.20 [facility] Drug Screen,Urineon 11-30-19 25 Amphetamine Screen,Urine Negative Normal Negative [facility] Comment on above: Performed By: #### U RDS, UA #### [address] Barbiturate Screen,Urine Negative Normal Negative [facility] Comment on above: Performed By: #### U RDS, UA #### [facility] [address] [place] [address] [place] Benzodiazepines Screen,Urine Negative Normal Negative [facility] Comment on above: Performed By: #### U RDS, UA #### [facility] [address] [place] [address] [place] Cannabinoid Screen,Urine Positive High Negative [facility] Comment on above: Result Comment: Thes e are unconfirmed results and should not be used for legal purposes. Drug Cut-Off Concentration: AMPH 1000 ng/mL PHILIPPE 200 ng/mL SHELLEY 200 ng/mL COCM 300 ng/mL OP 300 ng/mL PCP 25 ng/mL THC 20 ng/mL PERFORMED BY: [place] [address] PATHOLOGIST TONG SETTER OLIVE STILL M.D. Performed By: #### U RDS, UA #### [address] Cocaine Screen,Urine Negative Normal Negative [facility] Comment on above: Performed By: #### U RDS, UA #### [address] Opiate Screen,Urine Positive High Negative [facility] Comment on above: Performed By: #### U RDS, UA #### [address] Phencyclidine Screen,Urine Negative Normal Negative [facility] Comment on above: Performed By: #### U RDS, UA #### [address] ECG 12 lead ECGon 11-29-2024 ECG 12 lead ECG [facility] [place] [address] Electrocardiograph Report Signed Patient: Teresa Andre MR#: [id number] : 1950 Acct:[id number] Age/Sex: 74 / F ADM Date: 11/29/24 Loc: Room: [address] [place] [address] Type: ADM INOo Attending Dr: Desmond Davis MD Ordering Provider: Bubba Alan MD Date of Service: 11/29/24 ECG/ECG 12 lead ECG: Back Pain/Injury Copies to: Test Reason : Blood Pressure : 173/73 mmHG Vent. Rate : 102 BPM Atrial Rate : 102 BPM P-R Int : 162 ms QRS Dur : 90 ms QT Int : 376 ms P-R-T Axes : 81 56 240 degrees QTcB Int : 490 ms Sinus tachycardia Nonspecific ST and T wave abnormality Prolonged QT Confirmed by Luanne Holliday MD ([id number]) on 11/29/2024 11:28:25 PM Referred By: Electronically Signed By: Luanne Holliday MD Transcribed By: MUS Signed By Luanne Holliday MD 11/06 01/29 8671 Normal [facility] ECG 12 lead ECG [facility] [place] [address] Electrocardiograph Report Signed Patient: Teresa Andre MR#: [id number] : 1950 Acct:[id number] Age/Sex: 74 / F ADM Date: 11/29/24 Loc: Room: [address] [place] [address] Type: ADM INOo Attending Dr: Desmond Davis MD Ordering Provider: Bubba Alan MD Date of Service: 11/29/24 ECG/ECG 12 lead ECG: Back Pain/Injury Copies to: Test Reason : Blood Pressure : 142/109 mmHG Vent. Rate : 92 BPM Atrial Rate : 92 BPM P-R Int : 158 ms QRS Dur : 84 ms QT Int : 372 ms P-R-T Axes : 91 59 100 degrees QTcB Int : 460 ms Normal sinus rhythm with sinus arrhythmia Nonspecific ST and T wave abnormality Confirmed by Luanne Holliday MD ([id number]) on 11/29/2024 11:04:00 PM Referred By: Electronically Signed By: Luanne Holliday MD Transcribed By: MUS Signed By Luanne Holliday MD 11/06 01/29 2510 Normal [facility] Eosinophils Auto (Bld) [#/Vo l]Ordered By: Bubba Alan on 11-29-2024 Eosinophils (Bld) [#/Vol] Automated eosinophil count 0.0-0.45 [facility] Eosinophils/100 WBC Auto (Bl d)Ordered By: Bubba Alan on 11-29-2024 Eosinophils/100 WBC (Bld) Automated eosinophil % . [facility] Erythrocyte distribution wid th Auto (RBC) [Ratio]Ordered By: Bubba Alan on 11-29-2024 Erythrocyte distribution width (RBC) [Ratio] Erythrocyte distribution width [Ratio] by Automated count 11.9-15.3 [facility] Globulin Calc (S) [Mass/Vol] Ordered By: Bubba Alan on 11-29-2024 Globulin (S) [Mass/Vol] Serum globulin measurement by calculation (mass/volume) [facility] Glucose Glucometer (BldC) [M ass/Vol]Ordered By: Merrick Zurita on 11-29-2024 Glucose [Mass/Vol] Capillary blood gluc ose measurement by glucometer (mass/volume) [facility] Comment on above: Random Glucose Refer ence Range is dependent on time and content of last meal. Glucose of more than 200 mg/dL in a nonstressed, ambulatory subject supports the diagnosis of Diabetes Mellitus. Glucose Poct Glucometerson 0 11-29-2024 Commemt1 Normal [facility] Comment on above: Result Comment: Glu2 : WILL NOTIFY DR/RN Performed By: #### G LULS #### Point of Care testing , Commemt2 Cleaned Meter Normal [facility] Comment on above: Result Comment: PERF ORMED BY: [facility] [address] [address] PATHOLOGIST TONG SETTER OLIVE STILL M.D. Performed By: #### G LULS #### Point of Care testing , Glucose [Mass/Vol] 134 mg/dL Normal [facility] Comment on above: Result Comment: [facility] om Glucose Reference Range is dependent on time and content of last meal. Glucose of more than 200 mg/dL in a nonstressed, ambulatory subject supports the diagnosis of Diabetes Mellitus. Performed By: #### G LULS #### Point of Care testing , Glucose [Mass/volume] in Ser um or PlasmaOrdered By: Bubba Alan on 11-29-2024 Glucose [Mass/Vol] Glucose [Mass/volume ] in Serum or Plasma High 70-100 [facility] Comment on above: ADA recommended refe rence rangeRandom Glucose Reference Range is dependent on time and content of last meal. Glucose of more than 200 mg/dL in a nonstressed, ambulatory subject supports the diagnosis of Diabetes Mellitus. Glucose [Mass/volume] in Uri ne by Test stripOrdered By: Bubba Alan on 11-29-2024 Glucose Test strip (U) [Mass/Vol] Glucose [Mass/volume] in Urine by Test strip Normal [facility] Hematocrit Auto (Bld) [Volum e fraction]Ordered By: Bubba Alan on 11-29-2024 Hematocrit (Bld) [Volume fraction] Hematocrit [Volume Fraction] of Blood by Automated count 34.0-46.4 [facility] Hemoglobin Test strip Ql (U) Ordered By: Bubba Alan on 11-29-2024 Hemoglobin Ql (U) Hemoglobin [Presence ] in Urine by Test strip Negative [facility] Hemoglobin [Mass/volume] in BloodOrdered By: Bubba Alan on 11-29-2024 Hemoglobin (Bld) [Mass/Vol] Hemoglobin [Mass/volume] in Blood 11.8-15.4 [facility] Ketones Test strip Ql (U)Ord ered By: Bubba Alan on 11-29-2024 Ketones Ql (U) Ketones [Presence] i n Urine by Test strip Negative [facility] Leukocyte esterase [Presence ] in Urine by Test stripOrdered By: Bubba Alan on 11-29-2024 Leukocyte esterase Test strip Ql (U) Leukocyte esterase [Presence] in Urine by Test strip Negative [facility] Leukocytes [#/volume] correc usha for nucleated erythrocytes in Blood by Automated counOrdered By: Bubba Alan on 11-29-2024 WBC corrected for nucl RBC Auto (Bld) [#/Vol] Leukocytes [#/volume] corrected for nucleated erythrocytes in Blood by Automated coun 3.8-11.6 [facility] Lymphocytes Auto (Bld) [#/Vo l]Ordered By: Bubba Alan on 11-29-2024 Lymphocytes (Bld) [#/Vol] Lymphocytes [#/volume] in Blood by Automated count 1.00-4.8 [facility] Lymphocytes/100 WBC Auto (Bl d)Ordered By: Bubba Alan on 11-29-2024 Lymphocytes/100 WBC (Bld) Lymphocytes/100 leukocytes in Blood by Automated count . [facility] MCH Auto (RBC) [Entitic mass ]Ordered By: Bubba Alan on 11-29-2024 MCH (RBC) [Entitic mass] MCH [Entitic mass] by Automated count 24.7-34.3 [facility] MCHC Auto (RBC) [Mass/Vol]Or dered By: Bubba Alan on 11-29-2024 MCHC (RBC) [Mass/Vol] MCHC [Mass/volume] by Automated count 32.0-35.0 [facility] MCV Auto (RBC) [Entitic vol] Ordered By: Bubba Alan on 11-29-2024 MCV (RBC) [Entitic vol] MCV [Entitic volume] by Automated count 80-100 [facility] Monocyte distribution width [Entitic volume] in Blood by AutomatedOrdered By: Bubba Alan on 11-29-2024 Monocyte distribution width Auto (Bld) [Entitic vol] Monocyte distribution width [Entitic volume] in Blood by Automated 0.00-20.00 [facility] Monocytes Auto (Bld) [#/Vol] Ordered By: Bubba Alan on 11-29-2024 Monocytes (Bld) [#/Vol] Automated blood monocyte count 0.0-0.8 [facility] [facility] Monocytes/100 WBC Auto (Bld) Ordered By: Bubba Alan on 11-29-2024 Monocytes/100 WBC (Bld) Automated monocyte % . [facility] Neutrophils Auto (Bld) [#/Vo l]Ordered By: Bubba Alan on 11-29-2024 Neutrophils (Bld) [#/Vol] Neutrophils [#/volume] in Blood by Automated count 1.8-7.7 [facility] Neutrophils/100 WBC Auto (Bl d)Ordered By: Bubba Alan on 11-29-2024 Neutrophils/100 WBC (Bld) Automated neutrophil % . [facility] Nitrite Test strip Ql (U)Ord ered By: Bubba Alan on 11-29-2024 Nitrite Ql (U) Nitrite [Presence] i n Urine by Test strip Negative [facility] No Panel InformationOrdered By: Merrick Zurita on 11-29-2024 Bedside Glucose #2 Comment Cleaned meter [facility] Bedside Glucose Comment See comment [facility] Comment on above: Glu2: WILL NOTIFY DR /RN No Panel InformationOrdered By: Bubba Alan on 11-29-2024 Estimated GFR (CKD-EPI) 53.309 mL/Min [facility] Creatinine Clearance (Chem 35.81 [facility] Nucleated erythrocytes [Pres ence] in Blood by Automated countOrdered By: Bubba Alan on 11-29-2024 Nucleated RBC Auto Ql (Bld) Nucleated erythrocytes [Presence] in Blood by Automated count 0-0.5 [facility] Opiates [Presence] in Urine by Screen methodOrdered By: Bubba Alan on 11-29-2024 Opiates Screen Ql (U) Opiates [Presence] in Urine by Screen method High Negative [facility] Phencyclidine Screen Ql (U)O rdered By: Bubba Alan on 11-29-2024 Phencyclidine Ql (U) Phencyclidine [Pres ence] in Urine by Screen method Negative [facility] Platelet mean volume Auto (B ld) [Entitic vol]Ordered By: Bubba Alan on 11-29-2024 Platelet mean volume (Bld) [Entitic vol] Platelet mean volume [Entitic volume] in Blood by Automated count 6.3-10.7 [facility] Platelets Auto (Bld) [#/Vol] Ordered By: Bubba Alan on 11-29-2024 Platelets (Bld) [#/Vol] Platelets [#/volume] in Blood by Automated count 150-450 [facility] Potassium [Moles/volume] in Serum or PlasmaOrdered By: Bubba Alan on 11-29-2024 Potassium [Moles/Vol] Potassium [Moles/v olume] in Serum or Plasma 3.5-5.1 [facility] Protein Test strip (U) [Mass /Vol]Ordered By: Bubba Alan on 11-29-2024 Protein (U) [Mass/Vol] Protein [Mass/volume] in Urine by Test strip Negative [facility] Protein [Mass/volume] in Ser um or PlasmaOrdered By: Bubba Alan on 11-29-2024 Protein [Mass/Vol] Protein [Mass/volume ] in Serum or Plasma 6.4-8.9 [facility] RBC Auto (Bld) [#/Vol]Ordere d By: Bubba Alan on 11-29-2024 RBC (Bld) [#/Vol] Erythrocytes [#/volu me] in Blood by Automated count High 3.60-5.00 [facility] Salicylateon 11-29-2024 Salicylate <1.5 Low 15.0-30.0 [facility] Comment on above: Result Comment: Claudette ents treated with Sulfasalazine may generate a false high result for Salicylate. PERFORMED BY: [facility] [address] [place] [address] PATHOLOGIST TONG SETTER OLIVE STILL M.D. Performed By: #### H S TROP, CBC, CMP, MARK ####[facility] [id number] [place] [address] [facility] Salicylates [Mass/volume] in Serum or PlasmaOrdered By: Bubba Alan on 11-29-2024 Salicylates [Mass/Vol] Salicylates [Mass/volume] in Serum or Plasma Low 15.0-30.0 [facility] Comment on above: Patients treated wit h Sulfasalazine may generate a false high result for Salicylate. Serum or plasma albumin/glob ulin mass ratioOrdered By: Bubba Alan on 11-29-2024 Albumin/Globulin [Mass ratio] Serum or plasma albumin/globulin mass ratio [facility] Serum or plasma anion gap de terminationOrdered By: Bubba Alan on 11-29-2024 Anion gap [Moles/Vol] Serum or plasma an ion gap determination 6.0-15.0 [facility] Sodium [Moles/volume] in Ser um or PlasmaOrdered By: Bubba Alan on 11-29-2024 Sodium [Moles/Vol] Sodium [Moles/volume ] in Serum or Plasma Low 136-145 [facility] Specific gravity Test strip (U) [Rel density]Ordered By: Bubba Alan on 11-29-2024 Specific gravity (U) [Rel density] Specific gravity of Urine by Test strip 1.001-1.03 0 [facility] Troponin I High Sensitivityo n 11-29-2024 Troponin I High Sensitivity 61 Off scale high 0-15 [facility] Comment on above: Result Comment: Crit ical Result : Called to and read back by: SARAN TIMMONS at: 11/29/2024 16:29:41 by:KE The Troponin units of report have been changed to meet the Chest Pain Accreditation requirement, element EC5.M1l2. Troponin units are changed from pg/ml to ng/L. Also, the decimal is removed and results are in whole numbers. PERFORMED BY: [place] [address] PATHOLOGIST TONG SETTER OLIVE STILL M.D. Performed By: #### H S TROP ####[address] [place] [address] [facility] Troponin I High Sensitivity 63 Off scale high 0-15 [facility] Comment on above: Result Comment: Crit ical Result : Called to and read back by: HELLEN BUTLER RN/ER at: 11/29/2024 13:20:23 by:[id number] The Troponin units of report have been changed to meet the Chest Pain Accreditation requirement, element EC5.M1l2. Troponin units are changed from pg/ml to ng/L. Also, the decimal is removed and results are in whole numbers. PERFORMED BY: [facility] [address] [place] [address] PATHOLOGIST TONG SETTER OLIVE STILL M.D. Performed By: #### H S TROP, CBC, CMP, MARK ####[address] [address] [facility] Troponin I.cardiac [Mass/vol ume] in Serum or Plasma by Detection limit <= 0.01 ng/Ordered By: Bubba Alan on 11-29-2024 Troponin I.cardiac DL <= 0.01 ng/mL [Mass/Vol] Troponin I.cardiac [Mass/volume] in Serum or Plasma by Detection limit <= 0.01 ng/ Critically high 0-15 [facility] Comment on above: Critical Result : Ca lled to and read back by: SARAN TIMMONS at: 11/29/2024 16:29:41 by:KEThe Troponin units of report have been changed to meet the Chest Pain Accreditation requirement, element EC5.M1l2. Troponin units are changed from pg/ml to ng/L. Also, the decimal is removed and results are in whole numbers. Urea nitrogen [Mass/volume] in Serum or PlasmaOrdered By: Bubba Alan on 11-29-2024 Urea nitrogen [Mass/Vol] Urea nitrogen [Mass/volume] in Serum or Plasma 03-31 [facility] Urinalysison 11-29-2024 Appearance (U) Clear Normal Clear [facility] Comment on above: Order Comment: Name Collection Type:: Clean-Voided Midstream Performed By: #### U RDS, UA #### [facility] [id number] [place] Bilirubin,Urine Negative Normal Negative [facility] Comment on above: Order Comment: Name Collection Type:: Clean-Voided Midstream Performed By: #### U RDS, UA #### [facility] [address] [place] [place] Color (U) Colorless Normal Yellow [facility] Comment on above: Order Comment: Name Collection Type:: Clean-Voided Midstream Performed By: #### U RDS, UA #### [facility] [address] [place] [id number] [place] Glucose Ql (U) Normal Normal Normal [facility] Comment on above: Order Comment: Name Collection Type:: Clean-Voided Midstream Performed By: #### U RDS, UA #### [place] [id number] [place] Ketones Ql (U) Negative Normal Negative [facility] Comment on above: Order Comment: Name Collection Type:: Clean-Voided Midstream Performed By: #### U RDS, UA #### [facility] [address] [id number] [place] Leukocyte esterase Test strip Ql (U) Negative Normal Negative [facility] Comment on above: Order Comment: Name Collection Type:: Clean-Voided Midstream Performed By: #### U RDS, UA #### [facility] [id number] [place] Nitrite,Urine Negative Normal Negative [facility] Comment on above: Order Comment: Name Collection Type:: Clean-Voided Midstream Performed By: #### U RDS, UA #### [place] [address] [place] Occult Blood,Urine Negative Normal Negative [facility] Comment on above: Order Comment: Name Collection Type:: Clean-Voided Midstream Result Comment: PERF ORMED BY: [place] [address] PATHOLOGIST TONG SETTER OLIVE STILL M.D. Performed By: #### U RDS, UA #### [address] pH (U) 5.5 [pH] Normal 5.0-9.0 [facility] Comment on above: Order Comment: Name Collection Type:: Clean-Voided Midstream Performed By: #### U RDS, UA #### [address] Protein,Urine Negative Normal Negative [facility] Comment on above: Order Comment: Name Collection Type:: Clean-Voided Midstream Performed By: #### U RDS, UA #### [place] [address] [place] Specificy [place],Urine 1.006 Normal 1.001-1.03 0 [facility] Comment on above: Order Comment: Name Collection Type:: Clean-Voided Midstream Performed By: #### U RDS, UA #### [place] [address] [place] Urobilinogen,Urine Normal Normal Normal [facility] Comment on above: Order Comment: Name Collection Type:: Clean-Voided Midstream Performed By: #### U RDS, UA #### [place] [address] [place] Urobilinogen Test strip (U) [Mass/Vol]Ordered By: Bubba Alan on 11-29-2024 Urobilinogen (U) [Mass/Vol] Urobilinogen [Mass/volume] in Urine by Test strip Normal [facility] WBC Auto (Bld) [#/Vol]Ordere d By: Bubba Alan on 11-29-2024 WBC (Bld) [#/Vol] Leukocytes [#/volume ] in Blood by Automated count 3.8-11.6 [facility] X-ray reportOrdered By: Abdirahman Rainey on 11-29-2024 Study report [facility] Main [place] [id number] XRay Report Signed Patient: Teresa Andre MR#: [id number] : 1950 Acct:[id number] Age/Sex: 74 / F ADM Date: 2 5 Loc: ER Room: Type: [facility] ER Attending Dr: Copies to: Bubba Alan MD~ Ordering Provider: Bubba Alan MD Date of Service: 11/29/24 XR/XR chest 2V*: ataxia Plain film chest Single view HISTORY: Head injury. Fell out of bed. Abdominal pain. COMPARISON: None FINDINGS: SUPPORT DEVICES: None POSTSURGICAL CHANGES: CABG HEART: Within normal limits PULMONARY MAGY: Within normal limits MEDIASTINUM: Unremarkable LUNGS AND PLEURA: No acute lung process, pleural effusion or pneumothorax identified. basilar linear atelectasis/scarring. A moderate right hemidiaphragm elevation. BONY STRUCTURES: Intact ADDITIONAL FINDINGS None XR/XR chest 2V* IMPRESSION: No acute process. Impression dictated by: Vickey Rainey M.D.11/29/2024 1:49 PM Dictation Location: [place] [address] Transcribed By: [facility] 11/29/24 1349 Dictated By: Vickey Rainey DO 11/29/24 1347 Signed By: 11/29/24 1349 [facility] XR chest 2V*on 11-29-2024 XR chest 2V* [facility] Main [address] [address] XRay Report Signed Patient: Teresa Andre MR#: [id number] : 1950 Acct:[id number] Age/Sex: 74 / F ADM Date: 11/29/24 Loc: ER Room: Type: [facility] ER Attending Dr: Copies to: Bubba Alan MD Ordering Provider: Bubba Alan MD Date of Service: 11/29/24 XR/XR chest 2V*: ataxia Plain film chest Single view HISTORY: Head injury. Fell out of bed. Abdominal pain. COMPARISON: None FINDINGS: SUPPORT DEVICES: None POSTSURGICAL CHANGES: CABG HEART: Within normal limits PULMONARY MAGY: Within normal limits MEDIASTINUM: Unremarkable LUNGS AND PLEURA: No acute lung process, pleural effusion or pneumothorax identified. basilar linear atelectasis/scarring. A moderate right hemidiaphragm elevation. BONY STRUCTURES: Intact ADDITIONAL FINDINGS None XR/XR chest 2V* IMPRESSION: No acute process. Impression dictated by: Vickey Rainey M.D.11/29/2024 1:49 PM Dictation Location: [place] [address] Transcribed By: [facility] 11/29/24 1349 Dictated By: Vickey Rainey DO 11/29/24 1347 Signed By: 11/29/24 1349 Normal [facility] pH Test strip (U)Ordered By: Bubba Alan on 11-29-2024 pH (U) pH of Urine by Test strip 5.0-9.0 [facility] CBC AND AUTO DIFFon 03-15-20 24 ABSOLUTE BASOPHIL 0.1 X10E9/L Normal 0.0-0.2 [facility] Comment on above: Performed By: #### C BCA, 15784-7, PINR, 75442-7, CMP, 13929-2, 97216-5 #### [facility] ([id number]) [address] [place] [address] ABSOLUTE NEUTROPHIL 6.1 X10E9/L Normal 1.5-6.6 [facility] Comment on above: Performed By: #### C BCA, 65284-5, PINR, 61516-6, CMP, 51006-5, 82298-6 #### [facility] ([id number]) [address] [place] [address] Basophils/100 WBC (Bld) 0.6 % Normal [facility] Comment on above: Performed By: #### C BCA, 05799-3, PINR, 66930-8, CMP, 16810-6, 02188-0 #### [facility] ([id number]) [address] [place] [address] Eosinophils (Bld) [#/Vol] 0.6 10*3/uL High 0.0-0.4 [facility] Comment on above: Performed By: #### C BCA, 37448-3, PINR, 84697-9, CMP, 99090-1, 86542-1 #### [facility] ([id number]) [address] [place] [address] 17323 Eosinophils/100 WBC (Bld) 6.2 % Normal [facility] Comment on above: Performed By: #### C BCA, 77090-1, PINR, 55437-7, CMP, 39267-5, 76135-1 #### [facility] ([id number]) [address] [place] [address] 22200 Erythrocyte distribution width (RBC) [Ratio] 14.4 % Normal 11.5-15.0 [facility] Comment on above: Performed By: #### C BCA, 42890-2, PINR, 69928-6, CMP, 30167-1, 07693-4 #### [facility] ([id number]) [address] [place] [address] 63964 Hematocrit (Bld) [Volume fraction] 40.0 % Normal 35-47 [facility] Comment on above: Performed By: #### C BCA, 45727-5, PINR, 71414-1, CMP, 33856-4, 88386-7 #### [facility] ([id number]) [address] [place] [address] 48542 Hemoglobin (Bld) [Mass/Vol] 13.9 g/dL Normal 11.7-15.5 [facility] Comment on above: Performed By: #### C BCA, 19161-9, PINR, 39294-2, CMP, 25132-0, 70244-9 #### [facility] ([id number]) [address] [place] [address] 08372 Lymphocytes (Bld) [#/Vol] 1.8 10*3/uL Normal 1.0-3.5 [facility] Comment on above: Performed By: #### C BCA, 09449-5, PINR, 38803-8, CMP, 14420-9, 66499-0 #### [facility] ([id number]) [address] [place] [address] 90208 Lymphocytes/100 WBC (Bld) 20.8 % Normal [facility] Comment on above: Performed By: #### C BCA, 42661-4, PINR, 15815-4, CMP, 32745-6, 86866-8 #### [facility] ([id number]) [address] [place] [address] 32677 MCH (RBC) [Entitic mass] 29.1 pg Normal 27-34 [facility] Comment on above: Performed By: #### C BCA, 08930-7, PINR, 03729-2, CMP, 62252-1, 78707-2 #### [facility] ([id number]) [address] [place] [address] 95852 MCHC (RBC) [Mass/Vol] 34.6 g/dL Normal 32-36 [facility] Comment on above: Performed By: #### C BCA, 94187-4, PINR, 34656-3, CMP, 56015-6, 36525-0 #### [facility] ([id number]) [address] [place] [address] 62910 MCV (RBC) [Entitic vol] 84 fL Normal 80-100 [facility] Comment on above: Performed By: #### C BCA, 30582-8, PINR, 91985-2, CMP, 25222-6, 39782-6 #### [facility] ([id number]) [address] [place] [address] 02889 Monocytes (Bld) [#/Vol] 0.4 10*3/uL Normal 0-0.9 [facility] Comment on above: Performed By: #### C BCA, 85649-2, PINR, 72333-1, CMP, 97852-4, 10840-6 #### [facility] ([id number]) [address] [place] [address] 77645 Monocytes/100 WBC (Bld) 4.0 % Normal [facility] Comment on above: Performed By: #### Idania BCA, 22176-0, PINR, 04649-9, CMP, 94296-9, 19961-8 #### [facility] ([id number]) [address] [place] [address] 38029 Neutrophils/100 WBC (Bld) 68.4 % Normal [facility] Comment on above: Performed By: #### Idania BCA, 55613-8, PINR, 89530-1, CMP, 78401-3, 29042-9 #### [facility] ([id number]) [address] [place] [address] 45343 Platelet mean volume (Bld) [Entitic vol] 7.4 fL Normal 7-12 [facility] Comment on above: Performed By: #### Idania BCA, 52783-6, PINR, 33373-4, CMP, 19155-9, 36662-9 #### [facility] ([id number]) [address] [place] [address] 09856 Platelets (Bld) [#/Vol] 232 10*3/uL Normal 150-450 [facility] Comment on above: Performed By: #### Idania BCA, 96129-9, PINR, 41376-0, CMP, 52804-5, 13779-2 #### [facility] ([id number]) [address] [place] [address] 54921 RBC COUNT 4.77 X10E12/L Normal 3.80-5.20 [facility] Comment on above: Performed By: #### C BCA, 97574-8, PINR, 55976-0, CMP, 71886-9, 18258-6 #### [facility] ([id number]) [address] [place] [address] 70312 WBC (Bld) [#/Vol] 8.9 10*3/uL Normal 4.0-11.0 [facility] Comment on above: Performed By: #### C BCA, 36114-8, PINR, 79535-4, CMP, 53105-6, 06026-9 #### [facility] ([id number]) [address] [place] [address] 69026 COMPREHENSIVE METABOLIC PANE Dany 03-15-2024 Albumin [Mass/Vol] 4.2 g/dL Normal 3.2-5.3 [facility] Comment on above: Performed By: #### C BCA, 01195-0, PINR, 10111-6, CMP, 18363-8, 62943-3 #### [facility] ([id number]) [address] [place] [address] 15070 ALP [Catalytic activity/Vol] 87 U/L Normal 39-130 [facility] Comment on above: Performed By: #### C BCA, 88508-2, PINR, 32911-4, CMP, 84834-2, 04796-1 #### [facility] ([id number]) [address] [place] [address] 04113 ALT [Catalytic activity/Vol] 19 U/L Normal 0-31 [facility] Comment on above: Performed By: #### C BCA, 59210-6, PINR, 64351-3, CMP, 00706-9, 82391-1 #### [facility] ([id number]) [address] [place] [address] 01636 Anion gap [Moles/Vol] 5 mmol/L Normal 5-15 [facility] Comment on above: Performed By: #### C BCA, 36410-7, PINR, 14492-5, CMP, 79402-4, 78419-5 #### [facility] ([id number]) [address] [place] [address] 39886 AST [Catalytic activity/Vol] 27 U/L Normal 0-41 [facility] Comment on above: Performed By: #### C BCA, 05907-7, PINR, 07455-0, CMP, 53821-4, 32069-5 #### [facility] ([id number]) [address] [place] [address] 02758 Bilirubin [Mass/Vol] 0.7 mg/dL Normal 0.3-1.2 [facility] Comment on above: Performed By: #### C BCA, 73871-5, PINR, 56946-5, CMP, 89783-7, 05215-6 #### [facility] ([id number]) [address] [place] [address] 69863 Calcium [Mass/Vol] 9.0 mg/dL Normal 8.5-10.5 [facility] Comment on above: Performed By: #### C BCA, 22005-2, PINR, 48532-1, CMP, 19236-0, 88821-2 #### [facility] ([id number]) [address] [place] [address] 97234 Chloride [Moles/Vol] 107 mmol/L Normal 98-109 [facility] Comment on above: Performed By: #### C BCA, 75810-1, PINR, 11497-1, CMP, 52390-2, 00659-0 #### [facility] ([id number]) [address] [place] [address] 36006 CO2 [Moles/Vol] 21 mmol/L Low 22-32 [facility] Comment on above: Performed By: #### C BCA, 98129-3, PINR, 08320-7, CMP, 56321-9, 23864-1 #### [facility] ([id number]) [address] [place] [address] 45784 Creatinine [Mass/Vol] 1.33 mg/dL High 0.40-1.00 [facility] Comment on above: Result Comment: METH OD TRACEABLE TO IDMS STANDARD Performed By: #### C BCA, 47646-7, PINR, 41923-8, CMP, 19391-5, 50617-8 #### [facility] ([id number]) [address] [place] [address] 09613 GFR/1.73 sq M.predicted among non-blacks MDRD (S/P/Bld) [Vol rate/Area] 42 mL/min/{1.73_m2} Low >59 [facility] Comment on above: Result Comment: Reported eGFR is based on the CKD-EPI 2020 equation that does not use a race coefficient. Performed By: #### C BCA, 47678-0, PINR, 51025-8, CMP, 27707-8, 94265-6 #### [facility] ([id number]) [address] [place] [address] 25935 Glucose [Mass/Vol] 114 mg/dL High 65-99 [facility] Comment on above: Performed By: #### C BCA, 18204-0, PINR, 59188-4, CMP, 27162-7, 80955-6 #### [facility] ([id number]) [address] [place] [address] 27820 Potassium [Moles/Vol] 4.1 mmol/L Normal 3.5-5.0 [facility] Comment on above: Performed By: #### C BCA, 89101-6, PINR, 59253-2, CMP, 02333-0, 26386-4 #### [facility] ([id number]) [address] [place] [address] 68763 Protein [Mass/Vol] 7.3 g/dL Normal 6.0-8.0 [facility] Comment on above: Performed By: #### C BCA, 85138-0, PINR, 79900-6, CMP, 16994-7, 85060-2 #### [facility] ([id number]) [address] [place] [address] 44074 Sodium [Moles/Vol] 133 mmol/L Low 134-146 [facility] Comment on above: Performed By: #### C BCA, 80105-6, PINR, 87686-1, CMP, 31985-5, 23283-6 #### [facility] ([id number]) [address] [place] [address] 19091 Urea nitrogen [Mass/Vol] 26 mg/dL Normal 5-27 [facility] Comment on above: Performed By: #### C BCA, 04478-2, PINR, 53556-5, CMP, 23380-3, 88965-7 #### [facility] ([id number]) [address] [place] [address] CTA CHESTon 03-15-[address] CTA CHEST History: Chest pain pain and shortness of breath. Positive d-dimer. Suspected pulmonary emboli Exam/Technique: CTA imaging of the chest is performed with bolus IV contrast with multiplanar reconstructions provided. Volume rendered 3 -D Maximum intensity projection reconstructions constructed under concurrent physician supervision on an independent workstation and reviewed for purposes of evaluation of the pulmonary arterial tree Comparison: Contrast-enhanced chest CT from 01/01/2017 Findings: No pulmonary emboli demonstrated. No coronary artery calcification demonstrated. The thoracic aorta is also fairly well opacified with no evidence of aneurysm or dissection. There is moderate scattered calcific plaquing throughout the thoracic aorta. A stent is present in the proximal left subclavian artery. No hilar or mediastinal mass lesions or other significant mediastinal abnormalities are displayed. There is some new airspace densities posteriorly in the left lower lobe, suspicious suggestive of active inflammatory infiltrate. There are also some linear densities in both the right middle and lower lobes that are unchanged from 2017 and consistent with areas of scarring.. No pleural abnormalities are demonstrated. No significant abnormalities are displayed in the portions of upper abdominal organs included. A 2.8 cm low-density lesion in the spleen is stable since the remote previous study. IMPRESSION: Airspace infiltrate in the right lower lobe may represent pneumonia. No evidence of pulmonary emboli or other additional acute abnormalities. All CT scans at this facility use dose modulation, iterative reconstruction, and/or weight based dosing when appropriate to reduce radiation dose to as low as reasonably achievable. Finalized by Charanjit Bolaños MD on 03/15/2024 7:34 PM Normal [facility] Fibrin D-dimer DDU (PPP) [Ma ss/Vol]on 03-15-2024 D DIMER 614 ng/mL DDU High <255 [facility] Comment on above: Result Comment: Results >=255ng/mL DDU: Results may be indicative of the presence of VTE. The use of the Wells score and further diagnostic tests should be considered. Elevated D-Dimer levels can also be associated with DIC, neoplasm, , trauma and liver disease. Elevated levels of rheumatoid factor may lead to an overestimation of the D-Dimer level. Performed By: #### C BCA, 94949-9, PINR, 00475-1, [facility], 37828-7, 57726-9 #### [facility] ([id number]) [address] [place] [address] 65410 Natriuretic peptide B [Mass/ Vol]on 03-15-2024 Natriuretic peptide B (Bld) [Mass/Vol] 92 pg/mL Normal <100.0 [facility] Comment on above: Performed By: #### C BCA, 86594-4, PINR, 40290-1, [facility], 47816-1, 59740-1 #### [facility] ([id number]) [address] [place] [address] 89977 PROTIME AND INRon 03-15-2024 INR Coag (PPP) [Relative time] 1.0 {INR} Normal 0.8-1.1 [facility] Comment on above: Performed By: #### C BCA, 67994-0, PINR, 22756-9, CMP, 42563-9, 76883-1 #### [facility] ([id number]) [address] [place] [address] 49269 PT Coag (PPP) [Time] 12.1 s Normal 9.8-13.2 [facility] Comment on above: Result Comment: NEW REFERENCE RANGE Performed By: #### C BCA, 74423-6, PINR, 86859-4, CMP, 76265-5, 86075-5 #### [facility] ([id number]) [address] [place] [address] 29336 Troponin I.cardiac High sens itivity method [Mass/Vol]on 03-15-2024 1 HOUR TROP I, HIGH SENSITIVITY 22 ng/L High <16 [facility] Comment on above: Result Comment: Elevations of hs-Troponin may be due to causes other than myocardial ischemia. Recommend serial hs-Troponin testing be performed. For the initial evaluation and management of chest pain patients, refer to the algorithms linked below. Emergency Patient: [email or web address]://www.[employer]/dv/dl.aspx?[email or web address]&[email or web address]&[email or web address]&u h=acaea Inpatient: https://www.[employer]/dv/dl.aspx?w=[email or web address]&dh=f72e7&l=98560&u h=acaea Performed By: #### 8 9579-7 #### [facility] ([id number]) [address] [place] [address] 00029 TROPONIN I, HIGH SENSITIVITY 19 ng/L High <16 [facility] Comment on above: Result Comment: Elevations of hs-Troponin may be due to causes other than myocardial ischemia. Recommend serial hs-Troponin testing be performed. For the initial evaluation and management of chest pain patients, refer to the algorithms linked below. Emergency Patient: [email or web address]://[email or web address].com/dv/dl.aspx?[email or web address]&[email or web address]&w=70169&u h=acaea Inpatient: [email or web address]://www.medialDiligent [employer] Services.com/dv/dl.aspx?a=[email or web address]&dh=f72e7&z=69989&u h=acaea Performed By: #### C BCA, 36070-1, PINR, 04401-6, CMP, 37517-5, 51645-8 #### [facility] ([id number]) [address] [place] [address] 53611 XR CHEST 1 VWon 03-15-2024 XR CHEST 1 VW XR CHEST 1 VW Portable chest: HISTORY: Shortness of breath. Single view of the chest was obtained compared to prior exam dated 02/12/2021. Cardiac and mediastinal contours are stable. No focal infiltrate or effusion. No pneumothorax is seen. Osseous structures appear intact. IMPRESSION: No acute findings. Finalized by Norman Vega MD on 03/15/2024 6:42 PM Normal [facility] aPTT Coag (PPP) [Time]on aPTT Coag (Bld) [Time] 32 s Normal 26-37 [facility] Comment on above: Result Comment: NEW REFERENCE RANGE Performed By: #### C BCA, 55668-2, PINR, 29138-7, CMP, 29391-9, 56404-1 #### [facility] ([id number]) [address] [place] [address] 53309 Office Visiton 10-20-2023 Follow-up visit [id number] Brittni Andre 1950 F Date Provider Department Center 10/20/2023 Rosy-PRELA DIAZ Family History Problem Relation Age of Onset Multiple sclerosis Brother Diabetes Brother Family Status - Relation Status Age at Brother Level of Service:19037 DE OFFICE/OUTPATIENT NEW HIGH MDM 60 MINUTES Normal [facility] Paulina 06-27-2018 CNPN Telephone (HLPRAD) ----JESTERESA ([id number]) 1950 FDate Time Provider Lpwjkoonkx96/21/18 HUGH RUIZ During your visit today, we recorded the following information about you:Hugh Ruiz MD 06/27/2018 10:20 AM SignedPatient called with redness and puffiness. Rather than antibiotics Ifelt she may need a stitch out and asked them to go to the er or make an apptfor Thursday am.Signature: CHUCKIE Gibbonsager: [id number]: [phone]: 06/27/2018Time: 10:19 AMAllergies As of Date: 06/27/2018 [...] Status:Closed by HUGH RUIZ MD on 06/27/[address] [facility] 06-26-2018 [facility] Telephone (HLPRAD) ----TERESA ANDRE ([id number]) 1950 [facility] Time Provider Pzecodcqvg13/20/18 [facility] During your visit today, we recorded the following information about you:Hugh Ruiz MD 06/26/2018 11:49 AM SignedProblem with the sutures. I have suggested that she call on Thursday for an apptand they can always remove the sutures. If pain or worried about infection sheshould come to the er.Signature: CHUCKIE Gibbonsager: [id number]: [phone]: 06/26/2018Time: 11:49 AMAllergies As of Date: 06/26/2018 [...] Status:Closed by HUGH RUIZ MD on 06/26/18 [facility] 06-18-2018 [facility] HNO ID: [id number] thor: Jennifer Fuentes (Rn) BARRIE Sevillaervice: Healing ServiceAuthor Type: Registered NurseType: Allied HealthFiled: 06/18/2018 4:54 PMNote Text:HEALING SERVICESTHERAPY NOTESERVICE DATE: 06/18/2018SERVICE TIME: 1600INTERVENTIONAL FOCUS: Emotional SupportSelf-directed Care / Patient ExperienceVisit With: Patient Urgency of Visit: Routine Type of Visit:Initial VisitASSESSMENT:Diagnosis:En counter Diagnosis ICD-10-CM1. Acute post-operative pain G89.18 traMADol [...] has worked to make you feel better? CreativeExpressionExerciseLe arning/ReadingSpiritual Practice/Prayer/MeditationTa lking with someoneTouch TherapySleep and RestfulnessHome Sleep Pattern: n/aHospital Sleep Pattern: n/aPatient's Subjective Experience: I have been doing reiki and healingtouch for a long time, it is what helps me through Family Support: Family not present.INTERVENTIONVerbal consent for touch interventions: Yes; Patient.Sullivan Goal(s) of Visit: supportive presencereikiPatient Education: Education [...] NoSIGNATURE: Jennifer Sevilla RN PATIENT NAME: Teresa AndreDATE: June 18, 2018 : 4:33 PM PAGER/CONTACT #: [phone] [facility] CASE MGT INIT Flex 2017 CASE MGT INIT CANDELARIA HNO ID: [id number] thor: Teresa (Rn) BARRIE Singhervice: Care ManagementAuthor Type: Registered NurseType: Care Mgt Initial AssessmentFiled: 06/18/2018 2:38 PMNote Text:CARE MANAGEMENT: ASSESSMENT AND DISCHARGE PLANSERVICE DATE: 06/18/2018SERVICE TIME: 2:33 PMPRIMARY CARE PHYSICIAN:Roberth Watts, MDPhone: [phone] STATUS: ObservationMEDICAL:Patient/R epresentative Stated Goals:To return home to life as it [facility]: [facility] PLANMedicareHealth Issues Impacting Discharge Plan: admitted for repair of abd wound.Last Admission Date: noneIs this Within the Past 30 days? NoAdvance Directive:Current Advance Directive: NoneCare Tour Bus Driver/Guide Attempted to Assist with AD Completion: YesAction: Education Provided;Other: See Comment (adv directive packet leftwith patient, CM offered assist with completion, she wants to reveiw withfamily and will bring completed copy back to her pcp once completed forscanning into Project [employer].)Health Literacy:1. How often do you need to [...] Admission: NoneHas the Patient Been in a Mcfp Facility in the Past 30 days? NoSOCIAL:Living Arrangement: HomeLives With: SpouseFinancial Resources: RetiredPrimary Contact: Extended Emergency Contact InformationPrimary Emergency Contact: Trudy Andre Icddrdua: SpouseSupportive: YesOther Important Patient Contacts: NoneCaregiver Assessment:Caregiver is ready, willing and able to meet the patient's needs asrecommended by the inter-professional team? YesPatient's transition needs and plan for meeting these needs[place]/p follow upDoes the patient have an acute stroke diagnosis, or has the patient had astroke during this admission? NoMedication Adherence:I am convinced of the importance of my prescription medication: Agreemostly - 0I worry that my prescription medication will do more harm than good to meDisagree mostly - 0I feel financially burdened by my exu-cl-kawqan expenses for myprescription medication: Disagree mostly -0Patient [...] 18, 2018 : 2:33 PM PAGER/CONTACT #: [phone] [facility] NURSING PROGon 06-18-2018 Protein mass conc HNO ID: [id number] thor: Shelia (Rn) BARRIE Kothariervice: (none)Author Type: Registered NurseType: Nursing Progress NoteFiled: 06/18/2018 11:09 AMNote Text: Nursing Progress NotePatient Name: Teresa AndreMRN: [id number] Location: [place] [address] [address] Daily Note:08:11 - Assessment as charted; alert and [...] note was completed by: Shelia Kothari RN [facility] PROGRESSon 06-18-2018 Protein mass conc HNO ID: [id number] thor: Blayne (Dez) Argenise: General SurgeryAuthor Type: ResidentType: [...] 930 Poonam West MD PhDGeneral Surgery, PGY-1Phone: Tqayt: [phone] [facility] ANES Julian 06-17-2018 ANES POST HNO ID: [id number] thor: Kylah Macke: AnesthesiologyAuthor Type: AnesthesiologistType: Anesthesia PostOpFiled: 06/17/2018 1:03 PMNote Text:POST ANESTHESIA EVALUATION NOTESERVICE DATE: 06/17/2018SERVICE TIME:: 1950Vitals: 06/17/1812Temp: 36.7 ?C (98.1 ?F) 36.6 ?C (97.9 ?F) 06/17/1812BP: 157/82 148/71 149/72 137/58 06/17/18125 10/11/446700Ihspb: 66 68 76 69 06/17/1812Resp: 16 16 [...] 17, 2018 : 1:03 PM PAGER/CONTACT #: [facility] ANES PREOPon 06-17-2018 ANES PREOP HNO ID: [id number] thor: Kylah AndersonService: AnesthesiologyAuthor Type: AnesthesiologistType: Anesthesia [...] potassium results:No results found for this basename: HCT,HEMATOCRIT,K,POTASSIUMAN ES DOS/PREOP NOTE:Vitals:There were no vitals filed for this visit.ACTIVE PROBLEM LISTDisturbance of Skin SensationPAST MEDICAL HISTORYDiagnosis Date- Acute myocardial infarction of other specified sites, episode of careunspecified 11/2006 Myocardial Infarction X1- Atherosclerosis of aorta (HCC)- Atherosclerosis of bypass graft of extremities- Coronary atherosclerosis of teller coronary artery- Diverticulitis of colon (without mention [...] D5W (iso-osmotic) 100 mL (ANCEF) 2 gINTRAVENOUS Shot Tube Machine Tender to OR Pablito Abel Chaacetaminophen 1,000 mg tab(s) (TYLENOL) 1,000 mg ORAL ONCE IrinGregergies:A LLERGIESAllergen Reactions- Phenergan [Prometha* SwellingStress Test Date: 02/25/17, [...] contains updated information obtained within 48 hours ofSurgery/Procedure.SIGNATUR E: Kylah Anderson MD PATIENT NAME: Teresa RashidTE: June 17, 2018 : 8:25 AM CSN: [id number] [facility] BRIEF OP NOTon 06-17-2018 BRIEF OP NOT HNO ID: [id number] thor: Blayne Moree: General SurgeryAuthor Type: ResidentType: Brief Op NoteFiled: 06/17/2018 10:33 AMNote Text:BRIEF OP NOTELOG ID: [id number]/Procedure Date: 06/17/2018Incision/Procedure Start Time: 9:14 AMIncision Close/Procedure End Time: 10:27 AMSurgeon(s)/Proceduralist(s ) and Key Bed Installer(s):Surgeon(s) and Role: * Pablito Abel Cha - [...] Diagnosis:n/aSIGNATURE: Blayne West MD PATIENT NAME: Teresa Zaragoza: June 17, 2018 : 10:28 AM PAGER/CONTACT #: [phone] [facility] Confirm Blood Typeon 018 ABO/RH(D) Positive [facility] HISTORY PHYSICALon 8 HISTORY PHYSICAL HNO ID: [id number] thor: Pablito Samuelrvice: General SurgeryAuthor Type: PhysicianType: HANDPFiled: [...] June 17, 2018 : 8:22 AM PAGER: [facility] NURSING PROGon 06-17-2018 Protein mass conc HNO ID: [id number] thor: Shelia AbdullahiRn) Neel Betancurice: (none)Author Type: Registered NurseType: Nursing Progress NoteFiled: 06/18/2018 12:59 AMNote Text: Nursing Progress NotePatient Name: Teresa AndreMRN: [id number] Location: [place] [address] [address] Daily Note:assessment completed and charted. Patient awake in [...] note was completed by: Shelia Betancur RN [facility] Protein mass conc HNO ID: [id number] thor: Sujatha AbdullahiRn) BARRIE Cookervice: (none)Author Type: Registered NurseType: Nursing Progress NoteFiled: 06/17/2018 5:12 PMNote Text: Nursing Progress NotePatient Name: Teresa AndreMRN: [id number] Location: [place] [address]/[id number] Daily Note:Received patient from PACU alert,orientedx3 stated pain 5/10comfortable at this time assessment done and charted call [facility] will monitor.This note was completed by: Sujatha Cook RN [facility] Protein mass conc HNO ID: [id number] thor: Judi (Rn) Martha, RNService: NursingAuthor Type: Registered NurseType: Nursing Progress NoteFiled: 06/17/2018 4:38 PMNote Text: Nursing Progress NotePatient Name: Teresa AndreMRN: [id number] Location: [facility]/UL-VFY-24 ____Daily Note:arrived via cart to pacu from or, restless, c/o pain /10, c/onumbness to le's also, resp easy, nonlabored, abd round and soft,nonpalpable bladder, denies urge to void, admits to preop neck and lbp,also admits to preop numbness to les, bilateral = push/pulls to le'sstrong, anesthesia aware of pain on arrival and medicating now, aware ofelevated bp ndzc2947 bp decreasing after x2 doses of esmolol per anesthsia, anesthesia suzy and betty jack remain at umfygjg1674 dr raygoza at bedside-aware of pt c/o nausea-says she will be putting inorder for decadron for nausea and prefers that to be given over #1 orderedmed -ejywzk7885 medicated for pain-see emar, assessment unchanged wdktsastn0885 remedicated for pain- no change-see emar, wendy Soria, abd remains soft,no other changes miuig08[address] raygoza per phone-aware of elevated bp-will order labetelol,also aware of persistent pain unrelieved so xyf3373 remedicated for pain-see [id number] medicated for htn-see vqwv8538 remedicated-see wqqt9498 taking ice chips blrdvk6270 remedIcated for pain-see emar, nausea decreasing per pt, pt defersfamily visit at this time-called liason to update tbzeydz8163 medicated for pain again with morphine and toradol-see emar,tolerating ice chips umho8985 o2 decreased to 2l va8826 TOLERATING DECREASED O2 WELL, SATURATION ADEQUATE WITH NO [id number] o2 decreased to 1l nc, pain tolerable at 5/10, pt calmer -appearsmore relaxed, ready to see rgx1518 sat maintained 92-93% on 1l nc, remedicated for increasingpain-family remains at oxvzdou3579 sat dropped 88%, increased to 2l nc, placed on bedpan, + alpm0671 voided clear pale yellow urine per zzjaoa1387 dr west at bedside-aware of bp meds given, amt of pain meds given,and inablilty to dc o2 yet-he will go talk to dr rosas in o.r.about possibleadmission-pt aware of poss axrfwnshb6744 dr west at [facility] again-states dr rosas will be by soon to assess vb9845 Pain 5/10,status xet3693 report to carlos rivers rn for lunch coverage, bed available inw7223 report called to nyk1791 assumed care of pt again-updated report received from carlos rivers rn, pttearful- states she has a lot on her mind-sister receiving chemo tx today,comfort measures offered and provided, pt states and grandson wenthome for the night , pain reduced to 5/10 again after meds from carlos riversccuwd4238 updated report given to sujatha on transferred to [facility] with belongings, status quo conditionThis note was completed by: Judi Thomas RN Normal [facility] OPERATIVE NOon 06-17-2018 OPERATIVE NO HNO ID: [id number] thor: Pablito Samuelrvice: General SurgeryAuthor Type: PhysicianType: Operative ReportFiled: 06/21/2018 8:15 PMNote Text:[facility] - Operative ReportZITERESA NICHOLE RDOB: 1950AGE: 67.SEX: FMRN: [id number] TYPE: IHOSP SVC: GENSLOCATION: 3711ATTENDING PHYSICIAN:LUIS ANTONIO NUMBER: [id number] OF SURGERY/PROCEDURE: 06/17/2018INCISION/PROCEDURE START TIME: 9:14 amINCISION CLOSE/PROCEDURE END TIME: 10:27 amPREOPERATIVE DIAGNOSIS: Draining sinus of the abdominal wall.POSTOPERATIVE DIAGNOSIS: 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 West and Dr. Goldsmith.SURGERY/PROCEDURE: Exploration of [...] entire procedurewith the assistance of the surgery resident.YUNIOR Bond ChaC:[id number] #: [id number]: 06/17/2018 11:02:31 cc: Normal [facility] SURGICAL PATHOLOGYon 018 SURGICAL PATHOLOGY [facility]: [id number] Physician: PABLITO Abel CHA FINAL DIAGNOSISSoft tissue, abdominal wall, chronic wound, excision - Soft tissue withmarked acute and chronic inflammation. See comment. SDB/AM/gp 06/22/2018COMMENTImmunohisto chemical stains for kappa and lambda performed on block A1 showan admixture of plasma cells, arguing against a plasma cell neoplasm. GMSand Gram stains are negative for organisms.Laboratory Developed Test (LDT) Disclaimer:Positive and negative controls stain appropriately. Performancecharacteristics of immunohistochemical, immunofluorescent and chromogenicin-situ hybridization tests have been determined by [facility] Pathology and Laboratory Medicine [place] ([facility]) reji manner consistent with CLIA requirements. One or more of these tests havenot been cleared or approved by the FDA. -[facility] is regulated under CLIA asqualified to perform high-complexity testing. These tests are used forclinical purposes. They should not be regarded as investigational or forresearch.Horacio Xiong M.D.(Electronic Signature) SPECIME N SUBMITTEDA: GRANULOMA CAVITY CLINICAL DATACHRONIC ABDOMINAL WOUNDGROSS DESCRIPTIONA. Received in formalin labeled granuloma cavity is a 4.5 x 4 x 3 cmunoriented expanse of predominantly adipose tissue partially surfaced by a3 cm strip of holden coarsely wrinkled skin. Opposite the skin surface thereis an area of red-pink hemorrhagic discoloration and dense fibrous tissuewith suture material present. No solid masses are grossly identified.Bakery Manager sections of the dense fibrous tissue and hemorrhagic areasalong with skin are submitted in cassette A1.MLC/kiara/06/17/18Gross examination performed at [facility], [address] [place] [address] of Report: 06/22/2018Date of Procedure: 06/17/2018Date of Receipt: 06/17/2018Submitted by: PABLITO MARTINEZocation: 3B ONCOLOGY/GEN SURDiagnostic interpretation performed at [facility], [address] [place] [address]. Normal [facility] Comment on above: Performed By: #### P [place]THS ####[place] [address] NURSING PROGon 06-08-2018 Protein mass conc HNO ID: [id number] thor: Kayla (Rn) Ayad, RNService: (none)Author Type: Registered NurseType: Nursing Progress NoteFiled: 06/09/2018 2:52 PMNote Text:PACC Nurse Progress NoteHistory AND Physical:PACC Visit Date: N/AOriginal HANDP Date: recent H AND P done 05/21/[address] Rosas.ED visit Date: N/AOutside HANDP Scanned Date: Recent H AND P done 06/01/[address] Watts in [facility].Labs Within Last 6 Months:CBC: Date 06/01/18- within acceptable limits-see scanned results [facility]/CMP: Date 06/01/18-within acceptable limits-see scanned results inEPIC.Imaging Within Last 12 Months:CT Scan-abdomenDate of test: 01/25/18-see care everywhereSee chartCardiac Testing:EKG in last 12 Months: 03/02/18-(normal)-see scanned tracing in [facility].Stress Test Date: 02/25/17, Comment: (no ischemia, LV-normal, LVEF-70%)-seecare everywhereLast Menstrual Period:LMP Date: N/APostmenopausal >1yr: Yes,S/P Hysterectomy: YesBMI Percentile (PEDS):N/ARisk Assessment:N/AAnesthesia Review:N/ANarrative:Per HPI: History of DVT; CAD: S/P CABG-1999; angioplasty-2006;Diverticuli tis- S/P Leonard's-2012, stoma closure-2012; Recently diagnosedwith MS-on no medication pre patient and follows with Dr. Fischer.Pre-op Considerations:-Known DM-diet controlled (per patient her fasting glucose-POC-@ home iid100 on 06/09/18)-DOS- may need orders for T AND S, Con ABO-Falls risk- balance issues with MSChart Check:Britney Camarenaober 2017 2:42 06/09/18 14:47 called patient AND PREOPERATIVE INSTRUCTIONS Reviewed.Scheduled for Procedure(s):DEBRIDEMENT WOUND ABDOMEN with Surgeon(s):Pablito Abel Cha on 06/17/18 has scheduled you for your procedure at [facility]: [phone] -- [address] [place] [address].Blood Thinning Medications:- Stop NSAIDS (Ibuprofen, Advil, Aleve, [...] 2 hours before scheduled arrival at facility.Pain Medications:Medications:Appr jacqueline medications to take the morning of surgery with a sip of water:Zoloft- Accucheck day of surgery.If you start any new medications after today's visit, please contact [facility] above.Important Reminders:-Wear loose fitting clothing to [...] body piercings, makeup, lotion, no deodorant, nail italian,hairpins or contacts are to be worn the day of surgery.If you develop symptoms such as a fever, cold, or flu, or have otherchanges to your health within TWO DAYS of scheduled surgery or the morningof surgery, please contact the surgery center above.Personal Belongings:- Leave ALL valuables and money at home or with family members.For Outpatient Procedures: - YOU MUST HAVE A RESPONSIBLE CLINIC OFFICE COORDINATOR TAKE YOU HOME. A ORGAN TUNER ELECTRONIC OR CABDRIVER CANNOT BE MADE A RESPONSIBLE CLINIC OFFICE COORDINATOR. Family or friend- We recommend that a responsible person stays with you overnight to takecare of you.- You cannot stay in a hotel alone after outpatient surgery. You will notbe permitted to have your surgery, if you do not have someone to take careof you. Arrival Time for Surgery: -You will receive a call from [facility] the afternoonbefore surgery after 2:30 pm (or Thursday for Thursday surgery) for ascheduled arrival time.- If you have not heard by 4 pm, please contact [facility] [place] [phone].Please be aware that emergency situations arise, which may delay or changeyour surgical time. If this happens, we will notify you as soon aspossible and regret any inconvenience.Kayla Lion RN [facility] HOSPon 05-21-2018 HOSP Patient:Alma Andre teodora RMRN: Height:5' 3 (1.6 m)Weight:131 lb 6.4 [...] days for the following basenames: K,HCTProgress Notes ([facility]):Aura Schuster RN 06/11/2018 3:39 PM SignedMessage left for patient to hold plavix after todays dose in preparation forsurgery on 06/17. Number left for patient to contact office if needed.Aura Schuster RNProgress Notes ([facility]):Jaqui Angeli Psr 05/28/2018 3:09 PM SignedPt is scheduled to have her pre testing done at Dr. Watts's office (PCP) 181:15pm. Normal [facility] Vital Signs Date Time Vital Sign Value Performing Clinician Faci lity 12-01-2024 11:38-0400 Body temperature 97.7 [degF] Chato Gannon MD Work Phone: [facility] 12-01-2024 11:38-0400 Diastolic blood pressure 76 mm[Hg] Chato Gannon MD Work Phone: [facility] 12-01-2024 11:38-0400 Heart rate 75 /min Chato Gannon MD Work Phone: [facility] 12-01-2024 11:38-0400 Respiratory rate 16 /min Chato Gannon MD Work Phone: [facility] 12-01-2024 11:38-0400 SaO2% (BldA) [Mass fraction] 97 % Chato Gannon MD Work Phone: [facility] 12-01-2024 11:38-0400 Systolic blood pressure 155 mm[Hg] Chato Gannon MD Work Phone: [facility] 12-01-2024 06:00-0400 Body weight 60.4 kg Chato Gannon MD Work Phone: [facility] 11-30-2024 23:47-0400 Body temperature 97.4 [degF] Chato Gannon MD Work Phone: [facility] 11-30-2024 23:47-0400 Diastolic blood pressure 86 mm[Hg] Chato Gannon MD Work Phone: [facility] 11-30-2024 23:47-0400 Heart rate 66 /min Chato Gannon MD Work Phone: [facility] 11-30-2024 23:47-0400 Respiratory rate 16 /min Chato Gannon MD Work Phone: [facility] 11-30-2024 23:47-0400 SaO2% (BldA) [Mass fraction] 97 % Chato Gannon MD Work Phone: [facility] 11-30-2024 23:47-0400 Systolic blood pressure 145 mm[Hg] Chato Gannon MD Work Phone: [facility] 11-30-2024 14:54-0400 Body height 157.48 cm Chato Gannon MD Work Phone: [facility] 11-30-2024 05:07-0400 Body weight 59.9 kg Chato Gannon MD Work Phone: [facility] 11-29-2024 19:01-0400 Body height 157.48 cm Chato Gannon MD Work Phone: [facility] 11-29-2024 19:01-0400 Body weight 59.9 kg Chato Gannon MD Work Phone: [facility] 11-29-2024 19:00-0400 Body temperature 97.7 [degF] Chato Gannon MD Work Phone: [facility] 11-29-2024 19:00-0400 Diastolic blood pressure 86 mm[Hg] Chato Gannon MD Work Phone: [facility] 11-29-2024 19:00-0400 Heart rate 77 /min Chato Gannon MD Work Phone: [facility] 11-29-2024 19:00-0400 Respiratory rate 16 /min Chato Gannon MD Work Phone: [facility] 11-29-2024 19:00-0400 SaO2% (BldA) [Mass fraction] 98 % Chato Gannon MD Work Phone: [facility] 11-29-2024 19:00-0400 Systolic blood pressure 177 mm[Hg] Chato Gannon MD Work Phone: [facility] 11-17-2023 11:01-0400 Body height 160 cm Luis Gutierrez MD Work Phone: [facility] 11-17-2023 11:01-0400 Body weight 58.97 kg Luis Gutierrez MD Work Phone: [facility] 11-17-2023 11:01-0400 Diastolic blood pressure 73 mm[Hg] Luis Gutierrez MD Work Phone: [facility] 11-17-2023 11:01-0400 Heart rate 71 /min Luis Gutierrez MD Work Phone: [facility] 11-17-2023 11:01-0400 Systolic blood pressure 162 mm[Hg] Luis Gutierrez MD Work Phone: [facility] 03-24-2023 13:49-0400 Body height 160 cm Luis Gutierrez MD Work Phone: [facility] 03-24-2023 13:49-0400 Body weight 62.82 kg Luis Gutierrez MD Work Phone: [facility] 03-24-2023 13:49-0400 Diastolic blood pressure 84 mm[Hg] Luis Gutierrez MD Work Phone: [facility] 03-24-2023 13:49-0400 Heart rate 72 /min Luis Gutierrez MD Work Phone: [facility] 03-24-2023 13:49-0400 Systolic blood pressure 136 mm[Hg] Luis Gutierrez MD Work Phone: [facility] 07-04-2022 10:49-0400 Body height 160 cm Nadege Sharpe [employer] Work Phone: [facility] 07-04-2022 10:49-0400 Body weight 63.5 kg Nadege Sharpe [employer] Work Phone: [facility] 07-04-2022 10:49-0400 Diastolic blood pressure 85 mm[Hg] Nadege Sharpe [employer] Work Phone: [facility] 07-04-2022 10:49-0400 Heart rate 74 /min Nadege Sharpe [employer] Work Phone: [facility] 07-04-2022 10:49-0400 Systolic blood pressure 143 mm[Hg] Nadege Sharpe [employer] Work Phone: [facility] Encounters Encounter Date Encounter Type Care Provider Facility Start: 12-26-2024 End: 12-26-2024 Patient Msg Santa Flores MD Work Phone: [facility] Comment on above: Functional Movement Disorder referral Start: 12-20-2024 End: 12-20-2024 [facility] Francesca Guaman MD Work Phone: [facility] Comment on above: 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 (Primary Dx); Gait difficulty Start: 12-20-2024 End: 12-20-2024 Office outpatient new 60 minutes Luis Turner MD Work Phone: [facility] Comment on above: Cervical radiculopat hy (Primary Dx); Lumbar pain; Neck pain Start: 12-20-2024 End: 12-20-2024 Subsequent hospital visit by physician Sanjana Brennan X-Ray 2 [facility] Comment on above: Neck pain Start: 12-20-2024 End: 12-20-2024 ambulatory LUIS TURNER [facility] Start: 12-15-2024 End: 12-15-2024 Telephone encounter America Velasco PA-C Work Phone: [facility] Start: 12-01-2024 Non-patient / Non-visit Eve Gannon MD Work Phone: [facility] Neurosurgery Work Phone: Start: 11-30-2024 End: 11-30-2024 Patient encounter procedure Chato Gannon MD Work Phone: [facility] [address] Closed Work Phone: Start: 11-30-2024 End: 11-30-2024 ambulatory Chato Gannon MD Work Phone: [facility] Work Phone: Start: 11-29-2024 End: 12-01-2024 ambulatory Chato Gannon Facility:[facility] Start: 11-29-2024 End: 12-01-2024 Evaluation and management of inpatient Chato Gannon MD Work Phone: [facility] [place] [facility] Work Phone: Start: 11-29-2024 End: 12-01-2024 observation encounter Chato Gannon MD Work Phone: [facility] Work Phone: Start: 11-25-2024 End: 11-25-2024 Emergency department patient visit CHATO GANNON [facility] Start: 09-14-2024 End: 09-19-2024 ambulatory Luis Gutierrez MD Work Phone: [facility] Start: 09-14-2024 End: 09-19-2024 Patient encounter procedure Luis Gutierrez MD Work Phone: [facility] Comment on above: URGENT Cervical Brac hial Symptoms are too severe to make appointments. I refuse being transported to [facility]. I have problems swallowing. Words get lost, trimmers, loss of vision left eye, abdominal pain from mass on my spleen Start: 03-15-2024 End: 03-16-2024 Emergency department patient visit RADHA Hussein LYNN [facility] Start: 11-17-2023 End: 11-17-2023 Patient encounter procedure Luis Gutierrez MD Work Phone: [facility] Comment on above: Tension headache (Pr imary Dx); Disturbance of skin sensation Start: 11-03-2023 Telephone encounter Luis rushing MD Work Phone: [facility] Start: 10-20-2023 End: 10-20-2023 ambulatory [facility] Start: 07-02-2023 End: 07-02-2023 Patient encounter procedure Krista Almeida [employer] Work Phone: [facility] Comment on above: Spinal stenosis in c ervical region (Primary Dx); Chronic pain syndrome Start: 06-09-2023 Telephone encounter Luis rushing MD Work Phone: [facility] Comment on above: Symptoms Start: 03-24-2023 End: 03-24-2023 Patient encounter procedure Luis Gutierrez MD Work Phone: [facility] Comment on above: Tension headache (Pr imary Dx) Start: 03-23-2023 Telephone encounter America Vazquez ng PA-C Work Phone: [facility] Comment on above: Symptoms Start: 03-17-2023 Telephone encounter America Vazquez ng PA-C Work Phone: [facility] Comment on above: Patient Question Start: 11-26-2022 Telephone encounter America Vazquez ng PA-C Work Phone: [facility] Comment on above: Appointment (Called patient to inform of appt. cancellation on 12/18/22 with America Velasco. Patient must be seen in person by Dr. Gutierrez. Left a VM and reminder message through [employer] for patient to beverley.) Start: 09-29-2022 Telephone encounter Luis rushing MD Work Phone: [facility] Comment on above: Appointment (Spoke w ith patient/patient's spouse regarding scheduling an in person visit with Dr. Gutierrez. Patient declined scheduling and will call back to schedule.) Symptoms Start: 09-16-2022 Telephone encounter America JIMENEZ-C Work Phone: [facility] Comment on above: Symptoms Start: 08-22-2022 End: 08-22-2022 ambulatory America JIMENEZ-C Work Phone: [facility] Comment on above: Myelopathy (HCC) (Pr imary Dx) Start: 08-22-2022 End: 08-22-2022 Telemedicine consultation with patient America Velasco PA-C Work Phone: [facility] Start: 08-21-2022 Telephone encounter Nadege crockett [employer] Work Phone: [facility] Comment on above: Symptoms Start: 07-04-2022 End: 07-04-2022 Patient encounter procedure Nadege Sharpe [employer] Work Phone: [facility] Comment on above: Spasticity (Primary Dx); Generalized abdominal pain; Myelopathy (HCC) Start: 12-27-2021 Telephone encounter Maria Teresa bobo [employer] Work Phone: Neurology Comment on above: Question Start: 07-14-2019 End: 07-15-2019 Patient encounter procedure ROBERTH WATTS Facility: Start: 06-18-2018 End: 06-18-2018 Evaluation and management of inpatient [facility] Start: 03-03-2018 End: 03-14-2018 Patient encounter procedure EMELY MILAN Facility:[facility] Procedures Date Procedure Procedure Detail Performing Clinician Start: 12-20-2024 Radex spine cervical 4 or 5 views Luis Turner MD Work Phone: Start: 11-30-2024 MR lumbar spine wo con Chato Gannon MD Work Phone: Start: 11-30-2024 MRI of cervical spine with contrast Chato Gannon MD Work Phone: Start: 11-29-2024 Pulse volume recorder pneumoplethysmography Chato Gannon MD Work Phone: Start: 11-29-2024 Computed tomography of abdomen and pelvis with contrast Chato Gannon MD Work Phone: Start: 11-29-2024 CT angiography of head Chato Gannon MD Work Phone: Start: 11-29-2024 CT angiography of neck vessels Chato hoffman MD Work Phone: Start: 11-29-2024 Plain chest X-ray Chato Gannon MD Work Phone: Start: 11-29-2024 CT of head without contrast Chato Gannon MD Work Phone: Start: 05-19-2023 Lipid 1996 panel - Serum or Plasma Krista Almeida [employer] Work Phone: Start: 04-23-2021 Lipid 1996 panel - Serum or Plasma Luis Gutierrez MD Work Phone: Start: 06-18-2018 H/O: surgery S/P debridement Maria Teresa Ramos [employer] Work Phone: Start: 06-17-2018 Antibody screen [facility] Start: 01-17-2009 Adult depression screening assessment Maria Teresa Ramos [employer] Work Phone: Plan of Treatment Date Care Activity Detail Author Start: 05-19-2028 Lipid 1996 panel - S poly or Plasma Lipid Screening [facility] Start: 05-19-2028 Lipid panel Lipid Screening [facility] Start: 03-15-2027 Diabetes Screening Diabetes [facility] Start: 05-19-2026 Diabetes Screening Diabetes [facility] Start: 04-23-2026 Lipid 1996 panel - S poly or Plasma Lipid Screening [facility] Start: 04-23-2026 LIPID SCREEN LIPID SCREEN [facility] Start: 2025 RSV Vaccine (1 - 1-d ose 75+ series) RSV Vaccine (1 - 1-dose 75+ series) [facility] Start: 05-08-2025 Influenza vaccination Influenz a Vaccine (Season Ended) [facility] Start: 12-20-2024 End: 12-20-2024 Follow-up encounter 12/20/2024 4:45 PM EDT [place] [id number] Francesca Guaman MD [address] [place] [address] ED follow up [facility] Comment on above: ED follow up Start: 12-01-2024 End: 12-01-2024 [facility] Start: 11-30-2024 Consultation [facility] Start: 11-30-2024 Administration of prophylactic treatment [facility] Start: 11-30-2024 [facility] Start: 11-30-2024 MR Cervical spine WO and W contrast IV [facility] Start: 11-30-2024 MR lumbar spine wo con MR lumbar spi ne wo con [facility] Start: 11-30-2024 MR Lumbar spine WO contrast [facility] Start: 11-30-2024 MRI of cervical spin e with contrast MR cervical spine wo/w con [facility] Start: 11-29-2024 End: 11-29-2024 [facility] Start: 11-29-2024 Referral to neurologist [facility] Start: 11-29-2024 Referral to [employer] [facility] Start: 11-29-2024 Hospital admission [facility] Start: 09-07-2024 Advance Directive Discussion Advance Directive Discussion [facility] Start: 05-08-2024 Covid-19 Vaccine ( season) Covid-19 Vaccine ( season) [facility] Start: 05-08-2024 Influenza vaccination Influenza Vacc ine (#1) [facility] Start: 12-12-2023 DIABETES SCREEN [facility] Start: 12-12-2023 Diabetes Screening Diabetes Screenin g [facility] Start: 09-07-2023 Advance Directive Discussion Advance Directive Discussion [facility] Start: 09-07-2023 Depression Assessment Depression Ass essment [facility] Start: 05-08-2023 Covid-19 Vaccine ( season) Covid-19 Vaccine ( season) [facility] Start: 05-08-2023 Influenza vaccination C [facility] Start: 09-07-2022 ADVANCE DIRECTIVE DISCUSSION ADVANCE DIRECTIVE DISCUSSION [facility] Start: 09-07-2022 DEPRESSION ASSESSMENT DEPRESSION ASS ESSMENT [facility] Start: 05-08-2022 Influenza vaccination C [facility] Start: 09-07-2021 ADVANCE DIRECTIVE DISCUSSION ADVANCE DIRECTIVE DISCUSSION [facility] Start: 09-07-2021 DEPRESSION ASSESSMENT DEPRESSION ASS ESSMENT [facility] Start: 2015 BONE DENSITY BONE DENSITY [facility] Start: 2015 Bone Density Screening Bone Density Screening [facility] Start: 2015 Pneumococcal Vaccine : 65+ (1 - PCV) Pneumococcal Vaccine: 65+ (1 - PCV) [facility] Start: 2015 Pneumococcal Vaccine : 65+ (1 of 1 - PCV) Pneumococcal Vaccine: 65+ (1 of 1 - PCV) [facility] Start: 2015 PNEUMOCOCCAL: 65+ (1 - PCV) PNEUMOCOCCAL: 65+ (1 - PCV) [facility] Start: 2015 PNEUMOVAX AGE 65 AND OVER WITH 5YR LOOKBACK (#1) PNEUMOVAX AGE 65 AND OVER WITH 5YR LOOKBACK (#1) [facility] Start: 2015 Screening for osteoporosis Bone Density Screening [facility] Start: 2010 RSV High Risk: (Elde rly (60+) or Population) (1 - Risk 60-74 years 1-dose series) RSV High Risk: (Elderly (60+) or Population) (1 - Risk 60-74 years 1-dose series) [facility] Start: 2010 RSV Vaccine (1 - 1-d ose 60+ series) RSV Vaccine (1 - 1-dose 60+ series) [facility] Start: 01-17-2010 Adult depression screening assessment DEPRESSION SCREENING [facility] Start: 2000 Pneumococcal vaccination Pneum ococcal Vaccine (1 of 1 - PCV) [facility] Start: 2000 Pneumococcal Vaccine : 50+ (1 of 1 - PCV) Pneumococcal Vaccine: 50+ (1 of 1 - PCV) [facility] Start: 2000 SHINGRIX VACCINE (1 of 2) SHINGRIX VACCINE (1 of 2) [facility] Start: 2000 Zoster Vaccines (1 of 2) Zoste r Vaccines (1 of 2) [facility] Start: 1995 COLOGUARD (FIT-DNA) COLOGUARD (FIT-D NA) [facility] Start: 1995 Colonoscopy COLONOSCOPY [facility] Start: 1995 COLORECTAL CANCER SCREENING COLORECTAL CANCER SCREENING [facility] Start: [address] COLONOGRAPHY [facility] Start: 1995 DIABETES SCREEN DIABETES SCREEN [facility] Start: 1995 FECAL OCCULT BLOOD FECAL OCCULT BLOO D [facility] Start: 1995 LIPID SCREEN LIPID SCREEN [facility] Start: 1995 Screening for malign ant neoplasm of colon [facility] Start: 1995 SIGMOIDOSCOPY SIGMOIDOSCOPY [facility] Start: 1990 Mammography [facility] Start: 1990 Screening for malign ant neoplasm of breast [facility] Start: 1972 DTaP/Tdap/Td Vaccine s (1 - Tdap) DTaP/Tdap/Td Vaccines (1 - Tdap) [facility] Start: 1969 Urine microalbumin profile [facility] Start: 1968 Anxiety Screening Anxiety Screening [facility] Start: 1968 Depression Screening Depression Scre ening [facility] Start: 1968 Diabetes mellitus screening Diabetes Screening [facility] Start: 1968 HEPATITIS C SCREENING HEPATITIS C [facility] Start: 1968 Hepatitis C screening Hepatitis C [facility] Start: 1955 COVID-19 VACCINE (1) COVID-19 VACCIN E (1) [facility] Start: 02-08-1951 COVID-19 VACCINE (#1) COVID-19 VACCI NE (#1) [facility] Start: 1950 Lipid panel Lipid Panel [facility] Start: 1950 Medicare Annual Well ness Visit Medicare Annual Wellness Visit (AWV) [facility] Start: 1950 Screening for malign ant neoplasm of colon [facility] Start: 1950 Screening for osteoporosis Bone Density Scan [facility] Albumin/Globulin ratio [facility] Anion gap measurement [facility] Basophils [#/volume] in Blood by Automated count [facility] Basophils/100 leukoc ytes in Blood by Automated count [facility] Eosinophils/100 leukocytes in Blood by Automated count [facility] Erythrocyte distribu tion width [Ratio] by Automated count [facility] Erythrocytes [#/volu me] in Blood [facility] Globulin [Mass/volum e] in Serum [facility] Glucose measurement estimated from glycated hemoglobin [facility] Hematocrit [Volume Fraction] of Blood [facility] Hemoglobin [Mass/vol ume] in Blood [facility] Hemoglobin A1c/Hemoglobin.total in Blood [facility] Leukocytes [#/volume ] corrected for nucleated erythrocytes in Blood by Automated coun [facility] Leukocytes [#/volume ] in Blood [facility] Lymphocytes [#/volum e] in Blood by Automated count [facility] Lymphocytes/100 leukocytes in Blood by Automated count [facility] MCH [Entitic mass] b y Automated count [facility] MCHC [Mass/volume] b y Automated count [facility] MCV [Entitic volume] by Automated count [facility] Monocytes [#/volume] in Blood by Automated count [facility] Monocytes/100 leukoc ytes in Blood by Automated count [facility] Neutrophils [#/volum e] in Blood by Automated count [facility] Neutrophils/100 leukocytes in Blood by Automated count [facility] Nucleated erythrocyt es [Presence] in Blood by Automated count [facility] Patient Education Escitalopram K now your Meds [facility] Work Phone: Patient referral [facility] Work Phone: Platelet mean volume [Entitic volume] in Blood by Automated count [facility] Platelets [#/volume] in Blood [facility] Payers Date Payer Category Payer Medicare (Managed Care) 1.2. [id number] 2020 Unknown ANTHEM BLUE [facility] S AND BLUE SHIELD ANTHCLARA [facility] [id number] 2020-Present [phone] [address] [place] [address] [facility] [id number] 2020 Unknown [id number] 2020 Medicare [id number] 1959 Medicare [id number] 1959 Unknown [id number] 1950 Unknown [id number] 1950 Unknown [id number] 1950 Unknown [id number] 1950 Unknown [id number] 1950 Unknown [id number] 1950 Unknown [id number] 1950 Unknown [id number] 1950 Unknown [id number] Medicare [id number] Social History Date Type Detail Facility Start: 07-04-2022 End: 12-01-2024 Tobacco smoking status NHIS Ex-smoker [facility] End: 09-07-1999 History of tobacco use Current smoker [facility] Start: 03-22-2021 End: 11-17-2023 Alcohol intake Current drinker of alcohol (finding) [facility] Start: 03-22-2021 End: 03-24-2023 Alcohol intake [facility] Start: 01-17-2009 End: 07-04-2022 Tobacco Comment Quit 9 years ago [facility] Start: 1950 Sex Assigned At Not on file [facility] Start: 12-17-2021 End: 12-20-2024 Exposure to SARS-CoV-2 (event) Not sure [facility] End: 09-07-1999 History of tobacco use Cigarette Smoker [facility] Start: 07-04-2022 Tobacco use and exposure Smokeless tobacco non-user [facility] Start: 07-04-2022 End: 03-24-2023 Tobacco use panel [facility] Start: 11-29-2024 End: 12-01-2024 Sex Female (finding) [facility] Start: 1950 Sex Assigned At Female F [facility] Start: 12-01-2024 SDOH Follow up SDOH Follow up [facility] Work Phone: Tobacco smoking status NHIS Tobacco smoking consumption unknown [facility] Work Phone: Goals Date Patient Goal Desired Activity /State Functional Status Date Assessment Result Facility 12-01-2024 Functional status Patient at Baseline [facility] Work Phone: 11-29-2024 Functional status Patient Not at Baseline [facility] Work Phone: 06-18-2018 Are you deaf, or do you have serious difficulty hearing No 06/18/2018 11:03 AM Shelia BañuelosRn)(Hist), RN No [facility] 06-18-2018 Are you blind, or do you have serious difficulty seeing, even when wearing glasses No 06/18/2018 11:03 AM Shelia BañuelosRn)(Hist), RN No [facility] 06-18-2018 Do you have serious difficulty walking or climbing stairs No 06/18/2018 11:03 AM Shelia BañuelosRn)(Hist), RN No [facility] 06-18-2018 Do you have difficul ty dressing or bathing No 06/18/2018 11:03 AM Shelia BañuelosRn)(Hist), RN [facility] 06-18-2018 Because of a physica l, mental, or emotional condition, do you have difficulty doing errands alone such as visiting a physician's office or shopping No 06/18/2018 11:03 AM EDT Shelia Jacobs (Rn)(Hist), RN No [facility] Mental Status Date Assessment Result Facility 12-01-2024 Cognitive function Cognitive Sta tus Patient at Baseline [facility] Work Phone: 11-29-2024 Cognitive function Cognitive Sta tus Patient at Baseline [facility] Work Phone: 06-18-2018 Because of a physica l, mental, or emotional condition, do you have serious difficulty concentrating, remembering, or making decisions No 06/18/2018 11:03 AM EDT Shelia JacobsRn)(Hist), RN No [facility] Clinical Notes 12-27-2021 to 12-26-2024 Telephone Encounter - Kristan Jon RN - 12/26/2024 9:12 AM EDTTelephone Encounter - Kristan Jon RN - 12/26/2024 9:12 AM Luis Lowery MD - 12/20/2024 4:46 PM EDT Note Date & Type Note Facility 12-26-2024 Telephone encounter Note FMD welcome message sent [facility] 12-26-2024 Miscellaneous Notes FMD welcome message sent documented in this encounter [facility] 12-20-2024 Note HNO ID: [id number] Author: LUIS GUTIERREZ MD Service: ? Author Type: Physician Type: Progress Notes Filed: 01/08/2025 16:08 Note Text: [facility] FOLLOWUP/ESTABLISHED VIRTUAL PATIENT VISIT I have communicated my name and active licensure. The patient's identity and physical location were verified at the time of this visit. Either the patient or their legal field support representative has been informed of the risks and benefits of -- and alternatives to -- treatment through a remote evaluation and consents to proceed with the evaluation remotely. CHIEF COMPLAINT: Persistent neurological symptoms INTERVAL HISTORY: Today's visit is being completed virtually over Zoom. Patient consented to proceed with virtual visit. Went to the 3 different ERs last week due to what sounds like either loss of sensation below the waist or burning numbness from the top of her head down to the middle of her back or a combination of the two. Was discharged from the first 2 ERs after basic evaluation was negative. At the 3rd, she was admitted for tachycardia. While hospitalized she had difficulty walking, randomly falling backwards. This has continued since discharge, resulting in multiple falls. Also reports neck and shoulder muscle pulling. Recently started HHPT. She reports difficulty walking with her walker because of her balance problems and feeling like she's going to fall backwards soon after starting but she also reports difficulty using a powerchair, stating she will want to turn one direction but her brain will tell her hand to turn the other direction and she will crash into things. Her other symptoms, including toe curling, concern for abnormal coloration of hands and feet with associated numbness, chronic pain, tremors, internal body vibrations at night, flickering in her eyes, speech difficulties, etc. are all still present. Usual treating team: Matt The patient is accompanied by none. The patient was last seen 11/17/23 where multiple sclerosis was not suspected. Since the patient's last visit the patient reports overall feeling worse. Neuro-QoL Functions (higher=better functioning) Flowsheet Row [facility] from 12/20/2024 in [facility] Office Visit from 03/24/2023 in [facility] Upper Extremity Domain T Score 30 28.32 Lower Extremity Domain T Score 34 29.07 Cognitive Function Domain T Score 38 28.52 Positive Affect Well Being T Score -- -- Ability To Participate In Social Roles T Score 41 36.16 Satisfaction With Social Roles T Score 38 41.17 Neuro-QoL Symptoms (higher=worse symptoms) Flowsheet Row [facility] from 12/20/2024 in [facility] Office Visit from 03/24/2023 in [facility] Sleep Domain T Score 63 66.64 Fatigue Domain T Score 58 58.38 Anxiety Domain T Score 61 63.83 Depression Domain T Score 45 51.57 Stigma Domain T Score 51 53.69 Emotional Behavior Dyscontrol T Score -- -- She has a past medical history of Acute myocardial infarction of other specified sites, episode of care unspecified (11/2006), Atherosclerosis of aorta (HCC), Atherosclerosis of bypass graft of extremities, Coronary atherosclerosis of teller coronary artery, Diverticulitis of colon (without mention of hemorrhage)(562.11), DVT of upper extremity (deep vein thrombosis) ([facility]), Dysthymic disorder, Migraine, unspecified, with intractable migraine, so stated, without mention of status migrainosus, Multiple sclerosis (HCC), Myalgia and myositis, unspecified, Osteoporosis, unspecified, Peptic ulcer, unspecified site, unspecified as acute or chronic, without mention of hemorrhage, perforation, or obstruction, PMH - PAST MEDICAL HISTORY OF, Scoliosis, Spinal stenosis, other than cervical, Spinal stenosis, other than cervical, and Unspecified essential hypertension. has a current medication list which includes the following prescription(s): cyclobenzaprine, cholecalciferol (vitamin d3), metoprolol succinate er, famotidine, cyanocobalamin, nitroglycerin sublingual, rosuvastatin, saxagliptin, sucralfate, tramadol, docusate sodium, ibuprofen, ecotrin low strength, zoloft, and eszopiclone. EXAM: There were no vitals taken for this visit. MSPT Results Flowsheet Row Office Visit from 03/24/2023 in [facility] Processing Speed Total Number Correct 24 Processing Speed Z score -1.18 Dominant hand Right hand MDT Left Hand Time -- MDT Right Hand Time 36.18 Walking Speed Test (25 feet) -- Memory Z Score -- General Appearance: not ill-appearing though quite distressed and anxious at times Mental status evaluation during the interview and examination showed normal level of consciousness, orientation, language, memory, praxis, and higher intellectual function but with tangential and perseverative thought patterns Affect: Anxious RESULTS: Labs 03/15/24 Na 133, Cr 1.33, HS troponin just above normal, elevated D dimer MRI Results MRI c-spine 11/30/24 - no evidence of demyelinating diseas (more content not included)... [facility] 12-20-2024 History of Presen t illness Narrative Images from the original note were not included. [facility] FOLLOWUP/ESTABLISHED VIRTUAL PATIENT VISIT I have communicated my name and active licensure. The patient's identity and physical location were verified at the time of this visit. Either the patient or their legal field support representative has been informed of the risks and benefits of -- and alternatives to -- treatment through a remote evaluation and consents to proceed with the evaluation remotely. CHIEF COMPLAINT: Persistent neurological symptoms INTERVAL HISTORY: Today's visit is being completed virtually over Zoom. Patient consented to proceed with virtual visit. Went to the 3 different ERs last week due to what sounds like either loss of sensation below the waist or burning numbness from the top of her head down to the middle of her back or a combination of the two. Was discharged from the first 2 ERs after basic evaluation was negative. At the 3rd, she was admitted for tachycardia. While hospitalized she had difficulty walking, randomly falling backwards. This has continued since discharge, resulting in multiple falls. Also reports neck and shoulder muscle pulling. Recently started HHPT. She reports difficulty walking with her walker because of her balance problems and feeling like she's going to fall backwards soon after starting but she also reports difficulty using a powerchair, stating she will want to turn one direction but her brain will tell her hand to turn the other direction and she will crash into things. Her other symptoms, including toe curling, concern for abnormal coloration of hands and feet with associated numbness, chronic pain, tremors, internal body vibrations at night, flickering in her eyes, speech difficulties, etc. are all still present. Usual treating team: Matt The patient is accompanied by none. The patient was last seen 11/17/23 where multiple sclerosis was not suspected. Since the patient's last visit the patient reports overall feeling worse. Neuro-QoL Functions (higher=better functioning) Flowsheet Row [facility] from 12/20/2024 in [facility] Office Visit from 03/24/2023 in [facility] Upper Extremity Domain T Score 30 28.32 Lower Extremity Domain T Score 34 29.07 Cognitive Function Domain T Score 38 28.52 Positive Affect Well Being T Score -- -- Ability To Participate In Social Roles T Score 41 36.16 Satisfaction With Social Roles T Score 38 41.17 Neuro-QoL Symptoms (higher=worse symptoms) Flowsheet Row [facility] from 12/20/2024 in [facility] Office Visit from 03/24/2023 in [facility] Sleep Domain T Score 63 66.64 Fatigue Domain T Score 58 58.38 Anxiety Domain T Score 61 63.83 Depression Domain T Score 45 51.57 Stigma Domain T Score 51 53.69 Emotional Behavior Dyscontrol T Score -- -- She has a past medical history of Acute myocardial infarction of other specified sites, episode of care unspecified (11/2006), Atherosclerosis of aorta ([facility]), Atherosclerosis of bypass graft of extremities, Coronary atherosclerosis of teller coronary artery, Diverticulitis of colon (without mention of hemorrhage)(562.11), DVT of upper extremity (deep vein thrombosis) ([facility]), Dysthymic disorder, Migraine, unspecified, with intractable migraine, so stated, without mention of status migrainosus, Multiple sclerosis ([facility]), Myalgia and myositis, unspecified, Osteoporosis, unspecified, Peptic ulcer, unspecified site, unspecified as acute or chronic, without mention of hemorrhage, perforation, or obstruction, PMH - PAST MEDICAL HISTORY OF, Scoliosis, Spinal stenosis, other than cervical, Spinal stenosis, other than cervical, and Unspecified essential hypertension. has a current medication list which includes the following prescription(s): cyclobenzaprine, cholecalciferol (vitamin d3), metoprolol succinate er, famotidine, cyanocobalamin, nitroglycerin sublingual, rosuvastatin, saxagliptin, sucralfate, tramadol, docusate sodium, ibuprofen, ecotrin low strength, zoloft, and eszopiclone. EXAM: There were no vitals taken for this visit. MSPT Results Flowsheet Row Office Visit from 03/24/2023 in [facility] Processing Speed Total Number Correct 24 Processing Speed Z score -1.18 Dominant hand Right hand MDT Left Hand Time -- MDT Right Hand Time 36.18 Walking Speed Test (25 feet) -- Memory Z Score -- General Appearance: not ill-appearing though quite distressed and anxious at times Mental status evaluation during the interview and examination showed normal level of consciousness, orientation, language, memory, praxis, and higher intellectual function but with tangential and perseverative thought patterns Affect: Anxious RESULTS: Labs 03/15/24 Na 133, Cr 1.33, HS troponin just above normal, elevated D dimer MRI Results MRI c-spine 11/30/24 - no evidence of demyelinating disease MRI brain 07/21/19 - mild burden of non-specific subcortical white matter FLAIR hyperintensities, none of which are particularly concerning for demyelinating disease ASSESSMENT/PLAN: Teresa Andre is a 74 year old female with a panoply of chronic, though variable in severity, neurologic and non-neurologic symptoms for which she has underwent multiple evaluations for MS, all of which have resulted in the same conclusion that she does not have MS. 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 We explained to her that she is most likely experiencing a functional neurologic disorder and recommended evaluation by functional neurologic disorder clinic through movement disorders. All questions were answered. PLAN: -Referral to functional neurologic disorders clinic [facility] on 12/20/24 CONSULT TO FUNCTIONAL MOVEMENT DISORDERS (FMD) CONSULT TO FMD EDUCATION SHARED MEDICAL APPOINTMENT CONSULT TO PSYCHOLOGY CONSULT TO PHYSICAL THERAPY CONSULT TO SPEECH THERAPY CONSULT TO PROCEDURE MANAGER Francesca Guaman MD Neuroimmunology Fellow, PGY 5 [facility] for Multiple Sclerosis Patient seen and evaluated. She has clinical history that is not suggestive of demyelination or other neurological condition. Altogether, a Functional Neurological Disorder is suspected, and I recommend further evaluation by that clinic. She endorses significant anxiety, for which I recommend psychology for help with management. PT, OT, and speech evaluations and management recommendations are also recommended to help with functional improvements. Luis Gutierrez MD documented in this encounter [facility] 12-20-2024 History of Presen t illness Narrative Teresa Andre is a 74 y.o. female who presents for New Patient Visit of the Neck (X-rays today/MRI done at [facility]). HPI: 74-year-old female here for new patient evaluation of neck pain. L5-S1 she denies any fever chills nausea vomiting night sweats. She has no bowel or bladder complaints. Physical exam: Well-nourished, well kept. No lymphangitis or lymphadenopathy in the examined extremities. Affect normal but unsteady, ambulates with a cane. Alert and oriented X 3. Coordination normal. Patient can rise from a seated position, can sit from a standing position. Can stand on heels and toes extreme difficulty. Patient is tender in the paraspinal musculature of the cervical spine. range of motion is mildly decreased secondary to some pain and stiffness no weakness no instability to muscle strength. examination of the upper extremities reveals no point tenderness, swelling, or deformity. Range of motion of the shoulders, elbows, wrists, and fingers are full without crepitance, instability, or exacerbation of pain. Strength is about 4+/5 throughout, there is some deconditioning and diffuse weakness throughout the upper extremities bilaterally, no specific muscle group. She does have a resting tremor. no redness, abrasions, or lesions on the upper extremities bilaterally. Gross sensation intact to the extremities. Deep tendon reflexes 1+ and symmetric bilaterally. Peguero negative. Imaging studies: MRI cervical spine from November 30, 2024 was reviewed. An MRI lumbar spine from November 30, 2024 was reviewed. We ordered and reviewed AP lateral flexion-extension plain films of the cervical spine. Assessment: 74-year-old female here for evaluation of neck pain, some radicular symptoms down into her arms and numbness throughout her hands bilaterally. She has been diagnosed with multiple sclerosis at least 10 to 12 years ago, she has been having pain in her neck thoracic and lumbar spine throughout that time as well. She has been to multiple neurologists who have been treating her for MS and her upper and lower extremity symptoms. No recent physical therapy, however she does in-home therapy that comes to the house frequently. She does not have a herniated disc years ago and had surgery for that on the low back but otherwise no back surgery. She did try to get an epidural injection in her neck that did not go well, she does not want to pursue any pain management at this time. She would like to have some significant right greater than left stenosis at C4-5, C5-6, C6-7. I do not think any hyperreflexia, I do not get any positive Scottie's or clonus, she does not appear myelopathic. She does have a resting tremor in the upper and lower extremities. We have ordered and reviewed tests, x-rays, MRI x 2. I reviewed the notes from Dr. Luis Gutierrez from March 2023 that does mention her neck and back issues and chronic pain. Recent notes from Dr. Luis Gutierrez from November 17, 2023 that discusses her Fitch issues. She is here with her today who is a necessary and helpful historian. Exacerbation of the chronic problem that is inhibiting her bodily function. For complete plan and/or surgical details, please refer to Dr. Turner's portion of this split dictation. -Ashvin Dai PA-C In a [id number] encounter, I performed a history and physical examination, discussed pertinent diagnostic studies if indicated, and discussed diagnosis and management strategies with both the patient and the midlevel provider. I reviewed the midlevel's note and agree with the documented findings and plan of care. Patient with some neck pain and bilateral arm symptoms. She does have stenosis on her MRI that I reviewed at C4-5, C5-6 and C6-7 most notably at C5-6 and C6-7. However, she says she will not have surgery as she is allergic to all suture material and cannot tolerate a surgery. She thought she was coming here to see me today because she has a cerebrospinal fluid leak. I explained to her that I do not treat that the only thing I do is spine surgery on people's neck that have pinched nerves which is what she has and I offered her surgery today but she is not interested. She is severely inhibited with bodily function as she does have a neurologist and pain doctors and has seen multiple people for a middle you have neurologic conditions that she is unable to get a good diagnosis of. At this point she is going to continue with her neurologist and pain doctor and she can follow-up with me on a as needed basis. Luis Turner MD Orthopedic surgery documented in this encounter [facility] Work Phone: 12-15-2024 Miscellaneous Notes RN called patient, verified by name and . RN advised that patient is best to be seen with provider, Dr. Gutierrez, and to cancel VV tomorrow 12/16 with America Velasco PA-C. First available on Wednesday 12/20. Patient began describing her recent ER visits, spine symptoms, and concerns. Patient states she is seeing a medical review specialist on 12/20 (Dr. Turner at ). Patient concerned with her symptoms and not having any diagnosis. RN assisted with holding a VV with Dr. Guaman and Dr. Gutierrez on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 atraumatic, normocephalic, PERRLA ENT: moist mucous membranes Neck: No JVD, supple no masses, no lymphadenopathy CVS: regular rate and rhythm, no murmurs, rubs or gallops Respiratory: clear to auscultation bilaterally, no wheezing or crackles, symmetric expansion GI: tenderness/grimaces on palpation LUQ otherwise soft, nondistended, positive bowel sounds with no organomegaly Extremity: feet held in flexion/inversion, UE/LE ROM improves with repetition Neuro: AOx3, CN III-VII intact. +2 patellar tendon reflexes. Sensation grosslyintact. Psychiatry: labile affect otherwise congruent mood, cooperative, normal speech Skin: dry, intact no rashes or lesions Objective Lab Results 12/01/24 06:46 12/01/24 06:46 Meds Allergies and Active Meds Allergies Egg Derived Allergy (Unknown, Verified 11/29/24 11:36) Unknown Reaction promethazine (From Phenergan) Allergy (Unknown, Verified 11/29/24 11:36) pt states it messes everything up down there, vomiting egg Allergy (Verified 11/29/24 11:36) Vomiting Influenza Virus Vaccines Allergy (Verified 11/29/24 11:36) Swelling of Lip/Tongue/Throat fentanyl Adverse Reaction (Verified 11/29/24 11:36) causes her bp to go up sutures/jd/cat gut Allergy (Unknown, Uncoded 05/09/21 11:15) her body rejects them Active Meds: Active Medications Generic Name Dose Route Start Last Admin Trade Name Freq PRN Reason Stop Dose Admin Acetaminophen 1,000 mg 11/29/24 21:33 Acetaminophen 500 Mg Tablet PO 11/29/25 21:32 Q6H PRN Fever or Pain Aspirin 81 mg 11/30/24 09:00 11/30/24 09:15 Aspirin 81 Mg Tablet. PO 11/30/25 08:59 81 mg DAILY NATASHA Administration Heparin Sodium (Porcine) 5,000 unit 11/30/24 09:00 11/30/24 09:15 Heparin 5,000 Unit/Ml Vial SUBCUT 11/30/25 08:59 5,000 unit Q12HR NATASHA Administration Hydralazine HCl 10 mg 11/29/24 20:43 Hydralazine 20 Mg/Ml Vial IV-PUSH 11/29/25 20:42 Q4H PRN Systolic > 180 Diastolic > 100 Lidocaine 1 patch 11/29/24 21:33 11/29/24 22:47 Lidocaine 4% Adh..Patch TOPICAL 11/30/25 08:59 1 patch DAILY PRN Administration pain Melatonin 3 mg 11/29/24 21:28 11/29/24 22:47 Melatonin 3 Mg Tablet PO 11/29/25 21:27 3 mg QHS PRN Administration Insomnia Metoprolol Succinate 25 mg 11/30/24 09:00 11/30/24 09:15 Metoprolol Succinate 25 Mg Tab.Er.24h PO 11/30/25 08:59 25 mg DAILY NATASHA Administration Sodium Chloride 0 ml 11/29/24 11:35 11/30/24 09:15 Sodium Chloride 0.9 % 10 Ml Syringe IV-PUSH 11/29/25 11:34 10 ml PRN PRN Administration Flush A&P - Hospitalist Assessment/Plan (1) DDD (degenerative disc disease), cervical: (2) DDD (degenerative disc disease), lumbar: (3) Gait instability: (4) Elevated troponin: (5) Cervical muscle strain: (6) Abdominal pain: (7) Subclinical hypothyroidism: Plan Neck Pain, Cervical Muscle Strain?hx of cervical myelopathy/spinal stenosis BL Feet Plantar flexed, Gait instability?B12/Folate, Vit D at therapeutic levels Degenerative Disc Disease?MRI cervical spine demonstrates multilevel degenerative disc disease worst at C5-C7; MRI lumbar spine demonstrates multilevel degenerative disease worst at L2-L3 and L3-L4 CT head no acute intracranial abnormality. CTA Head negative for large vessel occlusion or hemodynamically significant stenosis. There is up to 55% narrowing of left proximal ICA. Observe patient on medical floor with telemetry, vitals every 4 hours, soft/minced diet w/ precautions ? consult neurosurgery ? neurology in agreement with continuing aspirin Abdominal Pain, Back Pain?tenderness LUQ and false rib. UA noninfectious. CT questionable gallstonewithin neck of the gallbladder. Negative for acute inflammatory process or bowel obstruction. Splenic hypodensity noted, indeterminant. CBC unremarkable. Sodium 133, renal function preserved. No changes on physicalexam. ? CBC, CMP, mag in A.M. ? lidocaine patches as needed ? Tylenol as needed for pain of fever Abnormal troponin, Chest Pain?troponins trended down, no acute ST changes on EKG. Currently asymptomatic, no chest pain, SOB, orthopnea, PND, new swelling. ? monitor on telemetry ? continue home aspirin and metoprolol 25 mg daily Hypertension?220s/100s; now 150s/80s without any intervention ?Hydralazine 10 mg every 4 hours as needed for BP>180/110 Elevated TSH?9.51 normal Free T4 1.03. Likely subclinical hypothyroidism; no indication for furtherworkup. PVD?hx of vascular surgery, unspecified No hemodynamically significant peripheral vascular occlusive disease at rest in either lower extremity. No further work up indicated. Chronic Conditions Dysphagia?swallow eval, trial feeds CAD?aspirin daily Difficulty Falling Asleep?Melatonin as needed DVT Prophylaxis?Heparin subcu Status Full Code Dispo: Home with home health Dr. Davis Attestation: Patient was personally seen by me on the day of encounter. I reviewed her history and performed keyelements of exam and formulated the plan of care and confirmed the resident's note above. Plan of care reflects my direct input Documented By: Desmond Davis MD 1913 Signed By: 12/01/24112511/30/242019 [facility]03-27-2025 [place] [address] Hospitalist H&P Signed Patient: Teresa Andre MR#: [id number] : 1950 Acct:[id number] Age/Sex: 74 / F Adm Date: Loc: Room: [address] [place] [address] Type: ADM INOo Attending Dr: Desmond Davis MD Copies to: MD Desmond Toney MD Mark Khalil, MD, RES~ HPI DATE OF EXAMINATION: 11/29/24 CHIEF COMPLAINT: Neck pain HISTORY OF PRESENT ILLNESS: Teresa is a 74-year-old female presents emergency room with multiple complaints mostly neck pain,ROM limited by pain. 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 Hutchison; PO limitedby dysphagia soft/minced diet, GERD treated with buttermilk and previous discharge by PCP for medication noncompliance. States the pain in her neck is sharp shocking limiting ROM on R/L rotation and stems from prior diagnosis of cervical myelopathy. Localizes asymmetry of postural muscle groups on right neck further limiting ROM due to tension. Denies smoking history and occasionally drinks 1 glass of fruity wine for the heart benefit. No CPAP/Home O2. Would like life saving measures in event if cardiac arrest. Review of Systems Review of Systems All other systems reviewed & are negative unless noted below or in HPI Constitutional Constitutional: Reports body ache(s), Denies chills, Denies fatigue, Denies fever(s), Denies night sweats and Reports weakness Eyes Eyes: Reports change in vision ENT Ears, Nose, Mouth, and Throat: Reports odynophagia Cardiovascular Cardiovascular: Denies chest pain, Denies chest pain with activity and Denies irregular heart rhythm Respiratory Respiratory: Denies chest congestion and Denies cough Gastrointestinal Gastrointestinal: Reports abdominal pain, Denies change in stool character, Denies coffee ground emesis and Reports dyspepsia Musculoskeletal Musculoskeletal: Reports abnormal gait, Reports arthralgias, Reports back pain, Reports joint swelling, Reports limited range of motion, Reports muscle cramps, Reports muscle weakness, Reports myalgias, Reports neck pain, Reports numbness, Reports radiating pain into limb, Reports stiffness and Reports tingling Integumentary/Breasts Skin/Breast: Denies bleeding lesions Neurologic Neurologic: Reports headache(s), Reports lack of coordination, Reports numbness,Reports paresthesias, Reports radicular pain and Reports sensory deficit [facility] Medical History Stroke Bowel perforation Neurogenic bladder Diabetes Endometriosis Diverticulitis Depression Preinfarction syndrome Fibromyalgia Spinal stenosis PVD (peripheral vascular disease) Atherosclerosis Mitral and aortic incompetence Hyperlipidemia Multiple sclerosis Problem List clean-up per request of Phys. EHR Cmte H/O blood clots LEFT ARM Problem List clean-up per request of Phys. EHR Cmte Bowel obstruction Problem List clean-up per request of Phys. EHR Cmte Subclavian steal syndrome Problem List clean-up per request of Phys. EHR Cmte defect INVERTED HEART , LEFT ARM NERVE DAMAGE Problem List clean-up per request of Phys. EHR Cmte Thoracic outlet syndrome W SURGERY Problem List clean-up per request of Phys. EHR Cmte Surgical History History of back surgery Problem List clean-up per request of Phys. EHR Cmte Hx of abdominal surgery Problem List clean-up per request of Phys. EHR Cmte Hx of heart artery stent Problem List clean-up per request of Phys. EHR Cmte Hx of CABG Problem List clean-up per request of Phys. EHR [facility] Family History Brother Diabetes [facility] Relation: Brother(s) Father Family history of colon cancer Cancer [facility] Problem: Diagnosed with Cancer Mother Cancer [facility] Problem: Diagnosed with Cancer Sister [facility] Diagnosed with Cancer Social History Smoking Status: Former smoker Substance Use Type: None Meds Medications and Allergies Allergies Egg Derived Allergy (Unknown, Verified 11/29/24 11:36) Unknown Reaction promethazine (From Phenergan) Allergy (Unknown, Verified 11/29/24 11:36) pt states it messes everything up down there, vomiting egg Allergy (Verified 11/29/24 11:36) Vomiting Influenza Virus Vaccines Allergy (Verified 11/29/24 11:36) Swelling of Lip/Tongue/Throat fentanyl Adverse Reaction (Verified 11/29/24 11:36) causes her bp to go up sutures/jd/cat gut Allergy (Unknown, Uncoded 05/09/21 11:15) her body rejects them Home Medications metoprolol succinate 25 mg tablet,extended release 24 hr (Toprol XL) 25 mg PO DAILY 09/18/19 [History Confirmed 11/29/24] aspirin 81 mg tablet,delayed release 81 mg PO DAILY 11/29/24 [History Confirmed 11/29/24] Exam Physical Exam Vital Signs: Temp Pulse Resp BP Pulse Ox O2 Del Method 97.7 F 91 16 221/78 H 97 Room Air 11/29/24 19:45 11/29/24 19:45 11/29/24 19:45 11/29/24 19:45 11/29/24 19:45 11/29/24 19:45 Narrative: General: Awake, alert, tearful, anxious, tremulous, uncomfortable stable otherwise HE: Edentulous, head atraumatic, normocephalic, PERRLA ENT: moist mucous membranes Neck: No JVD, supple no masses, no lymphadenopathy CVS: regular rate and rhythm, no murmurs or gallops Respiratory: clear to auscultation bilaterally, no wheezing or crackles, symmetric expansion GI: tenderness/grimaces on palpation LUQ otherwise soft, nondistended, positive bowel sounds with no organomegaly Extremity: BL feet fixed in flexion/inversion, UE/LE ROM improves with repetition Neuro: AOx3, CN III-VII intact. +2 patellar tendon reflexes. Sensation grosslyintact. Psychiatry: dysthymic, anxious mood, tangential otherwise normal speech Skin: dry, intact no rashes or lesions Results - Hospitalist H&P Lab Results Labs: Laboratory Last Values Corrected WBC 8.9 X10E3/uL (3.8-11.6) 11/29/24 12:04 Uncorrected WBC Count 8.9 x10E3/uL (3.8-11.6) 11/29/24 12:04 RBC 5.14 x10E6/uL (3.60-5.00) H 11/29/24 12:04 Hgb 15.1 g/dL (11.8-15.4) 11/29/24 12:04 Hct 43.7 % (34.0-46.4) 11/29/24 12:04 MCV 85.0 fl (80-100) 11/29/24 12:04 MCH 29.4 pg (24.7-34.3) 11/29/24 12:04 MCHC 34.6 g/dL (32.0-35.0) 11/29/24 12:04 RDW 14.3 % (11.9-15.3) 11/29/24 12:04 Plt Count 289 x10E3/uL (150-450) 11/29/24 12:04 MPV 7.5 fl (6.3-10.7) 11/29/24 12:04 Neut % (Auto) 58.9 % (.) 11/29/24 12:04 Lymph % (Auto) 29.7 % (.) 11/29/24 12:04 [place] % (Auto) 6.4 % (.) 11/29/24 12:04 Eos % (Auto) 4.3 % (.) 11/29/24 12:04 Baso % (Auto) 0.7 % (.) 11/29/24 12:04 Nucleat RBC Rel Count 0.2 /100 WBC (0-0.5) 11/29/24 12:04 Neut # (Auto) 5.2 x10E3/uL (1.8-7.7) 11/29/24 12:04 Lymph # (Auto) 2.6 x10E3/uL (1.00-4.8) 11/29/24 12:04 [place] # (Auto) 0.6 x10E3/uL (0.0-0.8) 11/29/24 12:04 Eos # (Auto) 0.4 x10E3/uL (0.0-0.45) 11/29/24 12:04 Baso # (Auto) 0.1 x10E3/uL (0.0-0.2) 11/29/24 12:04 Monocyte Dist Width 17.53 % (0.00-20.00) 11/29/24 12:04 PHA Creatinine Clear 35.81 11/29/24 12:04 Sodium 133 mmol/L (136-145) L 11/29/24 12:04 Potassium 4.1 mmol/L (3.5-5.1) 11/29/24 12:04 Chloride 103 mmol/L (98-107) 11/29/24 12:04 Carbon Dioxide 22.1 mmol/L (21.0-31.0) 11/29/24 12:04 Anion Gap 12.0 mEq/L (6.0-15.0) 11/29/24 12:04 BUN 21 mg/dL (7-25) 11/29/24 12:04 Creatinine 1.09 mg/dL (0.60-1.20) 11/29/24 12:04 Est GFR (CKD-EPI) 53.309 mL/Min 11/29/24 12:04 Glucose 124 mg/dL (70-100) H 11/29/24 12:04 POC Glucose 134 mg/dl 11/29/24 18:40 POC Glucose Comment 11/29/24 18:40 POC Glucose Comment Cleaned meter 11/29/24 18:40 Calcium 9.6 mg/dL (8.6-10.3) 11/29/24 12:04 Total Bilirubin 0.5 mg/dl (0.3-1.0) 11/29/24 12:04 AST 21 U/L (13-39) 11/29/24 12:04 ALT 16 U/L (7-52) 11/29/24 12:04 Alkaline Phosphatase 91 U/L (34-104) 11/29/24 12:04 Troponin I High Sens 61 ng/L (0-15) H* 11/29/24 15:50 Total Protein 7.6 gm/dL (6.4-8.9) 11/29/24 12:04 Albumin 4.7 gm/dL (3.5-5.7) 11/29/24 12:04 Globulin 2.9 gm/dL 11/29/24 12:04 Albumin/Globulin Ratio 1.6 11/29/24 12:04 Urine Color Colorless (Yellow) 11/29/24 13:02 Urine Appearance Clear (Clear) 11/29/24 13:02 Urine pH 5.5 (5.0-9.0) 11/29/24 13:02 Ur Specific [place] 1.006 (1.001-1.030) 11/29/24 13:02 Urine Protein Negative mg/dL (Negative) 11/29/24 13:02 Urine Glucose (UA) Normal mg/dL (Normal) 11/29/24 13:02 Urine Ketones Negative (Negative) 11/29/24 13:02 Urine Occult Blood Negative (Negative) 11/29/24 13:02 Urine Nitrite Negative (Negative) 11/29/24 13:02 Urine Bilirubin Negative (Negative) 11/29/24 13:02 Urine Urobilinogen Normal mg/dL (Normal) 11/29/24 13:02 Ur Leukocyte Esterase Negative (Negative) 11/29/24 13:02 Salicylates < 1.5 mg/dL (15.0-30.0) L 11/29/24 12:04 Urine Opiates Screen Positive (Negative) H 11/29/24 13:02 Ur Barbiturates Screen Negative (Negative) 11/29/24 13:02 Ur Phencyclidine Scrn Negative (Negative) 11/29/24 13:02 Ur Amphetamines Screen Negative (Negative) 11/29/24 13:02 U Benzodiazepines Scrn Negative (Negative) 11/29/24 13:02 Urine Cocaine Screen Negative (Negative) 11/29/24 13:02 U Marijuana (THC) Screen Positive (Negative) H 11/29/24 13:02 Assessment & Plan Assessment/Plan (1) Gait instability: (2) Elevated troponin: (3) Cervical muscle strain: (4) Abdominal pain: Plan Neck Pain, Cervical Muscle Strain BL Feet Plantar flexed, Gait instability CT head no acute intracranial abnormality. CTA Head negative for large vessel occlusion or hemodynamically significant stenosis. There is up to 55% narrowing of left proximal ICA. Observe patient on medical floor with telemetry, vitals every 4 hours, soft/minced diet ? MRI Cervical and lumbar spine w/wo con hx of cervical myelopathy/spinal stenosis ? Consult neurology ? Consult ST, OT, PT Abdominal Pain, Back Pain?tenderness LUQ and false rib. UA noninfectious. CT questionable gallstonewithin neck of the gallbladder. Negative for acute inflammatory process or bowel obstruction. CBC unremarkable. Sodium 133, renal function preserved ? CBC, CMP, TSH, B12/Folate, Vit D ? lidocaine patches as needed ? Tylenol as needed for pain of fever PVD?hx of vascular surgery, unspecified ? ordered PUJA Abnormal troponin, Chest Pain?troponins trended down, no acute ST changes on EKG. Currently asymptomatic. ? monitor on telemetry ? continue home aspirin and metoprolol 25 mg daily Hypertension?220s/100s ?Hydralazine 10 mg every 4 hours as needed for BP>180/110 Chronic Conditions Dysphagia?swallow eval, trial feeds CAD?aspirin daily DVT Prophylaxis?Heparin subcu Status Full Code Dr. Davis Attestation: Patient was personally seen by me on the day of encounter. I reviewed her history and performed keyelements of exam and formulated the plan of care and confirmed the resident's note above. Plan of care reflects my direct input IP vs OBS Justification Based on differential dx, clinical care plan, and risk of adverse events, if untreated, in my clinical judgement this patient requires an acute care setting as: OBSERVATION because of an expectation of an under 2 midnight stay. Estimated length of stay (# of days): 2 Documented By: Desmond Davis MD [id number] Signed By: 12/01/24 1050 11/29/24 2139 [facility]03-27-2025 Consult note Author Juan Chan [facility] Note Date/Time December 01, 2024 8:1 9am [facility] [address] [place] [address] Neurosurgery Consult Note Signed Patient: Teresa Andre MR#: [id number] : 1950 Acct:[id number] Age/Sex: 74 / F Adm Date: Loc: Room: [address] [place] [address] Type: ADM INOo Attending Dr: Desmond Davis MD Copies to: MD Chato Coe MD Frederick E Doamekpor, MD~ HPI History of Present Illness Consult Date: 12/01/2024 Requesting Provider: CC: Desmond Davis MD Reason for Consult: Neck pain History of Present Illness: This is a 74-year-old female with multiple medical complaints. She apparently presented to the hospital because of neck pain. Today when I talk to her she told me that she stretched leaned back and had a feeling go down her back and made cramping in her feet. I am not sure what the actual complaint was. She told her that will reason she was in because she was having very severe anxiety. She has a past medical history of cardiac bypass, bilateral foot drop and instability, monocular vision loss, fibromyalgia, multiple sclerosis, left upperquadrant abdominal pain, peripheral vascular disease, blood clots in the left upper extremity with some form of vascular procedure being done. She has also been discharged by PCP for medication noncompliance. She apparently is lives at home with the who is not well. Today she tells me she is actually feeling pretty good she gets cramps in her foot where the toes curled down. This occurs mainly when she walks. She says she gets very pale in the feet and tingly when this happens. She reports no true radicular pain. No truemyelopathic complaints. Review of Systems Review of Systems All other systems reviewed & are negative unless noted below or in HPI [facility] Medical History Stroke Bowel perforation Neurogenic bladder Diabetes Endometriosis Diverticulitis Depression Preinfarction syndrome Fibromyalgia Spinal stenosis PVD (peripheral vascular disease) Atherosclerosis Mitral and aortic incompetence Hyperlipidemia Multiple sclerosis Problem List clean-up per request of Phys. EHR Cmte H/O blood clots LEFT ARM Problem List clean-up per request of Phys. EHR Cmte Bowel obstruction Problem List clean-up per request of Phys. EHR Cmte Subclavian steal syndrome Problem List clean-up per request of Phys. EHR Cmte defect INVERTED HEART , LEFT ARM NERVE DAMAGE Problem List clean-up per request of Phys. EHR Cmte Thoracic outlet syndrome W SURGERY Problem List clean-up per request of Phys. EHR Cmte Surgical History History of back surgery Problem List clean-up per request of Phys. EHR Cmte Hx of abdominal surgery Problem List clean-up per request of Phys. EHR Cmte Hx of heart artery stent Problem List clean-up per request of Phys. EHR Cmte Hx of CABG Problem List clean-up per request of Phys. EHR Cmte Family History Brother Diabetes [facility] Relation: Brother(s) Father Family history of colon cancer Cancer [facility] Problem: Diagnosed with Cancer Mother Cancer [facility] Problem: Diagnosed with Cancer Sister Cancer [facility] Problem: Diagnosed with Cancer Social History Smoking Status: Former smoker Substance Use Type: None Meds Medications and Allergies Allergies Egg Derived Allergy (Unknown, Verified 11/29/24 11:36) Unknown Reaction promethazine (From Phenergan) Allergy (Unknown, Verified 11/29/24 11:36) pt states it messes everything up down there, vomiting egg Allergy (Verified 11/29/24 11:36) Vomiting Influenza Virus Vaccines Allergy (Verified 11/29/24 11:36) Swelling of Lip/Tongue/Throat fentanyl Adverse Reaction (Verified 11/29/24 11:36) causes her bp to go up sutures/jd/cat gut Allergy (Unknown, Uncoded 05/09/21 11:15) her body rejects them Home Medications metoprolol succinate 25 mg tablet,extended release 24 hr (Toprol XL) 25 mg PO DAILY 09/18/19 [History Confirmed 11/29/24] aspirin 81 mg tablet,delayed release 81 mg PO DAILY 11/29/24 [History Confirmed 11/29/24] Exam Physical Exam Vital Signs: Temp Pulse Resp BP Pulse Ox O2 Del Method 97.3 F L 64 18 145/63 H 99 Room Air 12/01/24 04:00 12/01/24 04:00 12/01/24 04:00 12/01/24 04:00 12/01/24 04:00 12/01/24 04:00 Narrative: Patient is alert and oriented by 3 Neck supple with normal range of motion Face symmetrical and cranial nerves appear to be grossly intact bilateral Upper extremity strength deltoid bicep tricep handgrip grossly 5/5 bilateral Normal coordination of upper extremities Low back with no palpable tenderness Straight leg raise negative bilateral Anterior tibial gastrocnemius iliopsoas quadriceps are all grossly 5/5 with normal range of motion. The patient sat in bed crosslegged. Lower extremity coordination appears to be grossly normal Results - Neurosurgery Lab Results Labs: Laboratory Results - Last 48 hrs. 12/01/24 05:23: POC Glucose 117, POC Glucose Comment Glu2: cleaned meter 11/30/24 06:29: POC Glucose 144, POC Glucose Comment Glu2: cleaned meter 11/30/24 06:05: Vitamin B12 1024 H, 25-OH Vitamin D Total 43.3, Folate 34.0, Free T4 1.03, TSH 3rd Generation 9.51 H 11/29/24 18:40: POC Glucose Comment Cleaned meter 11/29/24 18:40: POC Glucose 134, POC Glucose Comment 11/29/24 15:50: Troponin I High Sens 61 H* 11/29/24 13:02: Urine Color Colorless, Urine Appearance Clear, Urine pH 5.5, Ur Specific [place] 1.006, Urine Protein Negative, Urine Glucose (UA) Normal, UrineKetones Negative, Urine Occult Blood Negative, Urine Nitrite Negative, Urine Bilirubin Negative, Urine Urobilinogen Normal, Ur Leukocyte Esterase Negative, Urine Opiates Screen Positive H, Ur Barbiturates Screen Negative, Ur Phencyclidine Scrn Negative, Ur Amphetamines Screen Negative, U Benzodiazepines Scrn Negative, Urine Cocaine Screen Negative, U Marijuana (THC) Screen Positive H 11/29/24 12:04: Corrected WBC 8.9, Uncorrected WBC Count 8.9, RBC 5.14 H, Hgb 15.1, Hct 43.7, MCV 85.0, MCH 29.4, MCHC 34.6, RDW 14.3, Plt Count 289, MPV 7.5,Neut % (Auto) 58.9, Lymph % (Auto) 29.7, [place] % (Auto) 6.4, Eos % (Auto) 4.3, Baso % (Auto) 0.7, Nucleat RBC Rel Count 0.2, Neut # (Auto) 5.2, Lymph # (Auto) 2.6, [place] # (Auto) 0.6, Eos # (Auto) 0.4, Baso # (Auto) 0.1, Monocyte Dist Width17.53, PHA Creatinine Clear 35.81, Sodium 133 L, Potassium 4.1, Chloride 103, Carbon Dioxide 22.1, Anion Gap 12.0, BUN 21, Creatinine 1.09, Est GFR (CKD-EPI) 53.309, Glucose 124 H, Calcium 9.6, Total Bilirubin 0.5, AST 21, ALT 16, Alkaline Phosphatase 91, Troponin I High Sens 63 H*, Total Protein 7.6, Albumin 4.7, Globulin 2.9, Albumin/Globulin Ratio 1.6, Salicylates < 1.5 L Imaging MRI - neck: report reviewed and image reviewed MRI - spine: report reviewed and image reviewed Assessment/Plan (1) DDD (degenerative disc disease), cervical: (2) DDD (degenerative disc disease), lumbar: (3) Gait instability: (4) Elevated troponin: (5) Cervical muscle strain: Qualifiers: Encounter type: initial encounter Qualified Code(s): S16.1XXA - Strain of muscle, fascia and tendon at neck level, initial encounter (6) Abdominal pain: Qualifiers: Abdominal location: unspecified location Qualified Code(s): R10.9 - Unspecified abdominal pain (7) Subclinical hypothyroidism: Plan You the MRI of the lumbar spine and the MRI of the cervical spine and the reports. The patient also told me that she was at the [facility] in the last couple months who also looked at her neck and said she had some narrowing in her neck but felt that it was not surgical. I agree with this completely. The patient's low lumbar spine has no significant stenosis whatsoever is a reasonable caliber canal and foramen. Her cervical spine has narrowing in the lower cervical spine with cord crowding there may be very minimal cord compression with no cord signal change. The patient's symptomatology and findings are far out of proportion to what is seen on the scan. In my opinion no surgical options exist. I would recommend this patient continue follow-ups in [place] with her present problems. Documented By: Juan Chan MD 12/01/24806 Signed By: <Electronically signed by MD Juan Chan> 12/01/24818 [facility] Work Phone: [phone] 438-392103-27-2025 [place] [id number] Neurosurgery Consult Note Signed Patient: Teresa Andre MR#: [id number] : 1950 Acct:[id number] Age/Sex: 74 / F Adm Date: 5 Loc: 3T Room: 6D6053-8 Type: ADM INOo Attending Dr: Desmond Davis MD Copies to: MD Chato Coe MD Frederick E Doamekpor, MD~ HPI History of Present Illness Consult Date: 12/01/2024 Requesting Provider: CC: Desmond Davis MD Reason for Consult: Neck pain History of Present Illness: This is a 74-year-old female with multiple medical complaints. She apparently presented to the hospital because of neck pain. Today when I talk to her she told me that she stretched leaned back and had a feeling go down her back and made cramping in her feet. I am not sure what the actual complaintwas. She told her that will reason she was in because she was having very severe anxiety. She has apast medical history of cardiac bypass, bilateral foot drop and instability, monocular vision loss,fibromyalgia, multiple sclerosis, left upperquadrant abdominal pain, peripheral vascular disease, blood clots in the left upper extremity with some form of vascular procedure being done. She has alsobeen discharged by PCP for medication noncompliance. She apparently is lives at home with the who is not well. Today she tells me she is actually feeling pretty good she gets cramps in her foot where the toes curled down. This occurs mainly when she walks. She says she gets very pale in the feet and tingly when this happens. She reports no true radicular pain. No truemyelopathic complaints. Review of Systems Review of Systems All other systems reviewed & are negative unless noted below or in HPI [facility] Medical History Stroke Bowel perforation Neurogenic bladder Diabetes Endometriosis Diverticulitis Depression Preinfarction syndrome Fibromyalgia Spinal stenosis PVD (peripheral vascular disease) Atherosclerosis Mitral and aortic incompetence Hyperlipidemia Multiple sclerosis Problem List clean-up per request of Phys. EHR Cmte H/O blood clots LEFT ARM Problem List clean-up per request of Phys. EHR Cmte Bowel obstruction Problem List clean-up per request of Phys. EHR Cmte Subclavian steal syndrome Problem List clean-up per request of Phys. EHR Cmte defect INVERTED HEART , LEFT ARM NERVE DAMAGE Problem List clean-up per request of Phys. EHR Cmte Thoracic outlet syndrome W SURGERY Problem List clean-up per request of Phys. EHR Cmte Surgical History History of back surgery Problem List clean-up per request of Phys. EHR Cmte Hx of abdominal surgery Problem List clean-up per request of Phys. EHR Cmte Hx of heart artery stent Problem List clean-up per request of Phys. EHR Cmte Hx of CABG Problem List clean-up per request of Phys. EHR Cmte Family History Brother Diabetes [facility] Relation: Brother(s) Father Family history of colon cancer Cancer [facility] Problem: Diagnosed with Cancer Mother Cancer [facility] Problem: Diagnosed with Cancer Sister Cancer [facility] Problem: Diagnosed with Cancer Social History Smoking Status: Former smoker Substance Use Type: None Meds Medications and Allergies Allergies Egg Derived Allergy (Unknown, Verified 11/29/24 11:36) Unknown Reaction promethazine (From Phenergan) Allergy (Unknown, Verified 11/29/24 11:36) pt states it messes everything up down there, vomiting egg Allergy (Verified 11/29/24 11:36) Vomiting Influenza Virus Vaccines Allergy (Verified 11/29/24 11:36) Swelling of Lip/Tongue/Throat fentanyl Adverse Reaction (Verified 11/29/24 11:36) causes her bp to go up sutures/jd/cat gut Allergy (Unknown, Uncoded 05/09/21 11:15) her body rejects them Home Medications metoprolol succinate 25 mg tablet,extended release 24 hr (Toprol XL) 25 mg PO DAILY 09/18/19 [History Confirmed 11/29/24] aspirin 81 mg tablet,delayed release 81 mg PO DAILY 11/29/24 [History Confirmed 11/29/24] Exam Physical Exam Vital Signs: Temp Pulse Resp BP Pulse Ox O2 Del Method 97.3 F L 64 18 145/63 H 99 Room Air 12/01/24 04:00 12/01/24 04:00 12/01/24 04:00 12/01/24 04:00 12/01/24 04:00 12/01/24 04:00 Narrative: Patient is alert and oriented by 3 Neck supple with normal range of motion Face symmetrical and cranial nerves appear to be grossly intact bilateral Upper extremity strength deltoid bicep tricep handgrip grossly 5/5 bilateral Normal coordination of upper extremities Low back with no palpable tenderness Straight leg raise negative bilateral Anterior tibial gastrocnemius iliopsoas quadriceps are all grossly 5/5 with normal range of motion.The patient sat in bed crosslegged. Lower extremity coordination appears to be grossly normal Results - Neurosurgery Lab Results Labs: Laboratory Results - Last 48 hrs. 12/01/24 05:23: POC Glucose 117, POC Glucose Comment Glu2: cleaned meter 11/30/24 06:29: POC Glucose 144, POC Glucose Comment Glu2: cleaned meter 11/30/24 06:05: Vitamin B12 1024 H, 25-OH Vitamin D Total 43.3, Folate 34.0, Free T4 1.03, TSH 3rd Generation 9.51 H 11/29/24 18:40: POC Glucose Comment Cleaned meter 11/29/24 18:40: POC Glucose 134, POC Glucose Comment 11/29/24 15:50: Troponin I High Sens 61 H* 11/29/24 13:02: Urine Color Colorless, Urine Appearance Clear, Urine pH 5.5, Ur Specific [place] 1.006, Urine Protein Negative, Urine Glucose (UA) Normal, UrineKetones Negative, Urine Occult Blood Negative, Urine Nitrite Negative, Urine Bilirubin Negative, Urine Urobilinogen Normal, Ur Leukocyte Esterase Negative, Urine Opiates Screen Positive H, Ur Barbiturates Screen Negative, Ur Phencyclidine Scrn Negative, Ur Amphetamines Screen Negative, U Benzodiazepines Scrn Negative, Urine Cocaine Screen Negative, U Marijuana (THC) Screen Positive H 11/29/24 12:04: Corrected WBC 8.9, Uncorrected WBC Count 8.9, RBC 5.14 H, Hgb 15.1, Hct 43.7, MCV 85.0, MCH 29.4, MCHC 34.6, RDW 14.3, Plt Count 289, MPV 7.5,Neut % (Auto) 58.9, Lymph % (Auto) 29.7, [place] % (Auto) 6.4, Eos % (Auto) 4.3, Baso % (Auto) 0.7, Nucleat RBC Rel Count 0.2, Neut # (Auto) 5.2, Lymph # (Auto) 2.6, [place] # (Auto) 0.6, Eos # (Auto) 0.4, Baso # (Auto) 0.1, Monocyte Dist Width17.53, PHA Creatinine Clear 35.81, Sodium 133 L, Potassium 4.1, Chloride 103, Carbon Dioxide 22.1, Anion Gap 12.0, BUN 21, Creatinine 1.09, Est GFR (CKD-EPI) 53.309, Glucose 124 H, Calcium 9.6, Total Bilirubin 0.5, AST 21, ALT 16, Alkaline Phosphatase 91, Troponin I High Sens 63 H*, Total Protein 7.6, Albumin 4.7, Globulin 2.9, Albumin/Globulin Ratio 1.6, Salicylates < 1.5 L Imaging MRI - neck: report reviewed and image reviewed MRI - spine: report reviewed and image reviewed Assessment/Plan (1) DDD (degenerative disc disease), cervical: (2) DDD (degenerative disc disease), lumbar: (3) Gait instability: (4) Elevated troponin: (5) Cervical muscle strain: Qualifiers: Encounter type: initial encounter Qualified Code(s): S16.1XXA - Strain of muscle, fascia and tendonat neck level, initial encounter (6) Abdominal pain: Qualifiers: Abdominal location: unspecified location Qualified Code(s): R10.9 - Unspecified abdominal pain (7) Subclinical hypothyroidism: Plan You the MRI of the lumbar spine and the MRI of the cervical spine and the reports. The patient alsotold me that she was at the [facility] in the last couple months who also looked at her neck and said she had some narrowing in her neck but felt that it was not surgical. I agree with this completely. The patient's low lumbar spine has no significant stenosis whatsoever is a reasonable caliber canal and foramen. Her cervical spine has narrowing in the lower cervical spine with cord crowding there may be very minimal cord compression with no cord signal change. The patient's symptomatology and findings are far out of proportion to what is seen on the scan. In my opinion no surgical options exist. I would recommend this patient continue follow-ups in [place] with her present problems. Documented By: Juan Chan MD 12/01/24 0807 Signed By: 12/01/24 0819 [facility]03-26-2025 Consult note Author Calixto Martinez [facility] Note Date/Time November 30, 2024 4:2 3pm [facility] [address] [place] [address] Neurology Consult Note Signed Patient: Teresa Andre MR#: [id number] : 1950 Acct:[id number] Age/Sex: 74 / F Adm Date: 5 Loc: 3T Room: [address] [place] [address] Type: ADM INOo Attending Dr: Desmond Davis MD Copies to: DO Chato Sierra MD Frederick E Doamekpor, MD~ HPI Consult Date: 11/30/24 Service Line Bus Cleaner: Calixto Martinez DO Reason for consult: Neck pain Consult Narrative HPI: I was asked to see this 74-year-old female new patient neurology consultation atthe request of the hospitalist service for neck pain and limited range of motion The patient has a history of spinal stenosis which led to foot drop, history of bypass, history of visual impairment and fibromyalgia, history of multiple sclerosis, peripheral vascular disease, blood clots and had an unspecified procedure done by Dr. Hutchison from a vascular perspective as well. She previously been discharged by primary care for medication noncompliance. She was admitted for pain in the neck which was sharp and limited range of motion and states she had a previous diagnosis of cervical myelopathy. She denies smoking. ER notations state that the patient fell out of bed a few days ago as well. Apparently she is also have previous cervical spine surgery. I attempted to see the patient a few times this afternoon. She had to go down to the [facility] MRI machine and is not present for the exam. Review of Systems Review of Systems All other systems reviewed & are negative unless noted below or in HPI [facility] Medical History (Updated 11/30/24 @ 15:41 by Calixto Martinez DO) Stroke Bowel perforation Neurogenic bladder Diabetes Endometriosis Diverticulitis Depression Preinfarction syndrome Fibromyalgia Spinal stenosis PVD (peripheral vascular disease) Atherosclerosis Mitral and aortic incompetence Hyperlipidemia Multiple sclerosis Problem List clean-up per request of Phys. EHR Cmte H/O blood clots LEFT ARM Problem List clean-up per request of Phys. EHR Cmte Bowel obstruction Problem List clean-up per request of Phys. EHR Cmte Subclavian steal syndrome Problem List clean-up per request of Phys. EHR Cmte defect INVERTED HEART , LEFT ARM NERVE DAMAGE Problem List clean-up per request of Phys. EHR Cmte Thoracic outlet syndrome W SURGERY Problem List clean-up per request of Phys. EHR Cmte Surgical History History of back surgery Problem List clean-up per request of Phys. EHR Cmte Hx of abdominal surgery Problem List clean-up per request of Phys. EHR Cmte Hx of heart artery stent Problem List clean-up per request of Phys. EHR Cmte Hx of CABG Problem List clean-up per request of Phys. EHR Cmte Family History (Updated 05/09/21 @ 11:15 by Provider Conversion) Brother Diabetes Legacy FamHx Relation: Brother(s) Father Family history of colon cancer Cancer Legacy FamHx Problem: Diagnosed with Cancer Mother Cancer Legacy FamHx Problem: Diagnosed with Cancer Sister Cancer Legacy FamHx Problem: Diagnosed with Cancer Social History Smoking Status: Former smoker Substance Use Type: None Meds Medications and Allergies Allergies Egg Derived Allergy (Unknown, Verified 11/29/24 11:36) Unknown Reaction promethazine (From Phenergan) Allergy (Unknown, Verified 11/29/24 11:36) pt states it messes everything up down there, vomiting egg Allergy (Verified 11/29/24 11:36) Vomiting Influenza Virus Vaccines Allergy (Verified 11/29/24 11:36) Swelling of Lip/Tongue/Throat fentanyl Adverse Reaction (Verified 11/29/24 11:36) causes her bp to go up sutures/jd/cat gut Allergy (Unknown, Uncoded 05/09/21 11:15) her body rejects them Home Medications metoprolol succinate 25 mg tablet,extended release 24 hr (Toprol XL) 25 mg PO DAILY 09/18/19 [History Confirmed 11/29/24] aspirin 81 mg tablet,delayed release 81 mg PO DAILY 11/29/24 [History Confirmed 11/29/24] Exam Physical Exam Vital Signs: Temp Pulse Resp BP Pulse Ox O2 Del Method 97.9 F 106 H 16 158/82 H 99 Room Air 11/30/24 11:35 11/30/24 11:35 11/30/24 11:35 11/30/24 11:35 11/30/24 11:35 11/30/24 11:35 Results - Neuro Laboratory Findings 11/29/24 12:04 11/29/24 12:04 Diagnostic Findings Imaging/Impressions: ITS Impressions Head CT 11/29/24 11:54 IMPRESSION: NO ACUTE INTRACRANIAL ABNORMALITY. Impression dictated by: Jonathon Khan M.D.11/29/2024 1:20 PM Dictation Location: [place] [address] Chest X-Ray 11/29/24 11:55 IMPRESSION: No acute process. Impression dictated by: Vickey Rainey M.D.11/29/2024 1:49 PM Dictation Location: [facility]- Head CTA 11/29/24 11:55 IMPRESSION: Negative for large vessel occlusion or hemodynamically significant stenosis. There is up to 55% narrowing left proximal ICA. Impression dictated by: Jonathon Khan M.D.11/29/2024 2:21 PM Dictation Location: [facility]- Abdomen/Pelvis CT 11/29/24 12:00 IMPRESSION: Question gallstone within the neck of the gallbladder. Otherwise negative acuteinflammatory process or bowel obstruction. Splenic hypodensity noted, indeterminate. Consider ultrasound Impression dictated by: Jonathon Khan M.D.11/29/2024 2:27 PM Dictation Location: [facility]- PVR 11/29/24 20:23 IMPRESSION: NO HEMODYNAMICALLY SIGNIFICANT PERIPHERAL VASCULAR OCCLUSIVE DISEASE AT REST IN EITHER LOWER EXTREMITY. Impression dictated by: Vickey Shine M.D.11/30/2024 10:24 AM Dictation Location: [place] [address] Therapy Recommendations Therapy Recommendations: OT Recommendations OT Recommended Discharge Home,Home with Home Health Location OT Recommended Services at Physical Therapy,Occupational Therapy Discharge PT Recommendations PT Recommended Discharge Home,Home with Home Health Location PT Recommended Services at Physical Therapy,Occassional Supervision Discharge PT Discharge Comment with continued support of ; see above assessment comments ST Recommendations Level of Supervision Independent Self Feeding Liquid Consistency Thin Liquids Recommendation Solid Consistency Mechanical Soft Solids Recommendations Meat Consistency Ground Meats Recommendations Medication Administration Whole Pills,Crush Pills,Give Pills with Water, Give Pills in Applesauce Dysphagia Swallow Precautions/ Sitting Upright (90 deg),Small Bites/Sips, Strategies Alternate Liquids/Solids,Pacing/Slow-Rate,Sit Upright 30 Minutes Assessment/Plan (1) Abdominal pain: Qualifiers: Abdominal location: unspecified location Qualified Code(s): R10.9 - Unspecified abdominal pain (2) Gait instability: (3) Elevated troponin: (4) Cervical muscle strain: Qualifiers: Encounter type: initial encounter Qualified Code(s): S16.1XXA - Strain of muscle, fascia and tendon at neck level, initial encounter Plan It is my impression that the patient has considerable neck pain along with left upper quadrant abdominal pain and gait instability and imbalance. Patient has amultitude of symptoms, has a previous discharge from primary care for noncompliance, does have some substantial history of hypertension and coronary artery disease and abdominal disease as well. Widespread symptomatology with multiple complaints difficult to localize. Certainly top priority and concern is for myelopathy. Workup: CT of the brain without contrast: No acute findings CT angiogram of the head and neck: No evidence of aneurysm, occlusion or dissection MRI of the cervical spine without contrast: Pending MRI lumbar spine without contrast: Pending Plan: Physical and Occupational Therapy Will follow the aforementioned MRIs I am in agreement with continuation of aspirin for coronary disease and secondary stroke prevention Will follow I was unable to see the patient in person today due to her being down the road at the MRI facility. Patient will not be billed for today's visit and this is chart review. I will see her tomorrow. I did discuss with the charge nurse andlina is aware. Documented By: Calixto Martinez DO 5 [id number] Signed By: <Electronically signed by Calixto Martinez DO> 11/30/24 1447 [facility] Work Phone: 1(934) 156-426703-26-2025 [place] [address] Neurology Consult Note Signed Patient: Teresa Andre MR#: [id number] : 1950 Acct:[id number] Age/Sex: 74 / F Adm Date: 5 Loc: 3T Room: [address] [place] [address] Type: ADM INOo Attending Dr: Desmond Davis MD Copies to: DO Chato Sierra MD Frederick E Doamekpor, MD~ HPI Consult Date: 11/30/24 Service Line Bus Cleaner: Calixto Martinez DO Reason for consult: Neck pain Consult Narrative HPI: I was asked to see this 74-year-old female new patient neurology consultation atthe request of the hospitalist service for neck pain and limited range of motion The patient has a history of spinal stenosis which led to foot drop, history of bypass, history of visual impairment and fibromyalgia, history of multiple sclerosis, peripheral vascular disease, blood clots and had an unspecified procedure done by Dr. Hutchison from a vascular perspective as well.She previously been discharged by primary care for medication noncompliance. She was admitted for pain in the neck which was sharp and limited range of motion and states she had a previous diagnosis of cervical myelopathy. She denies smoking. ER notations state that the patient fell out of bed a few days ago as well. Apparently she is also have previous cervical spine surgery. I attempted to see the patient a few times this afternoon. [facility] and is not present for the exam. Review of Systems Review of Systems All other systems reviewed & are negative unless noted below or in HPI [facility] Medical History (Updated 11/30/24 @ 15:41 by Calixto Martinez DO) Stroke Bowel perforation Neurogenic bladder Diabetes Endometriosis Diverticulitis Depression Preinfarction syndrome Fibromyalgia Spinal stenosis PVD (peripheral vascular disease) Atherosclerosis Mitral and aortic incompetence Hyperlipidemia Multiple sclerosis Problem List clean-up per request of Phys. EHR Cmte H/O blood clots LEFT ARM Problem List clean-up per request of Phys. EHR Cmte Bowel obstruction Problem List clean-up per request of Phys. EHR Cmte Subclavian steal syndrome Problem List clean-up per request of Phys. EHR Cmte defect INVERTED HEART , LEFT ARM NERVE DAMAGE Problem List clean-up per request of Phys. EHR Cmte Thoracic outlet syndrome W SURGERY Problem List clean-up per request of Phys. EHR Cmte Surgical History History of back surgery Problem List clean-up per request of Phys. EHR Cmte Hx of abdominal surgery Problem List clean-up per request of Phys. EHR Cmte Hx of heart artery stent Problem List clean-up per request of Phys. EHR Cmte Hx of CABG Problem List clean-up per request of Phys. EHR Cmte Family History (Updated 05/09/21 @ 11:15 by Provider Conversion) Brother Diabetes Legacy FamHx Relation: Brother(s) Father Family history of colon cancer Cancer Legacy FamHx Problem: Diagnosed with Cancer Mother Cancer Legacy FamHx Problem: Diagnosed with Cancer Sister Cancer Legacy FamHx Problem: Diagnosed with Cancer Social History Smoking Status: Former smoker Substance Use Type: None Meds Medications and Allergies Allergies Egg Derived Allergy (Unknown, Verified 11/29/24 11:36) Unknown Reaction promethazine (From Phenergan) Allergy (Unknown, Verified 11/29/24 11:36) pt states it messes everything up down there, vomiting egg Allergy (Verified 11/29/24 11:36) Vomiting Influenza Virus Vaccines Allergy (Verified 11/29/24 11:36) Swelling of Lip/Tongue/Throat fentanyl Adverse Reaction (Verified 11/29/24 11:36) causes her bp to go up sutures/jd/cat gut Allergy (Unknown, Uncoded 05/09/21 11:15) her body rejects them Home Medications metoprolol succinate 25 mg tablet,extended release 24 hr (Toprol XL) 25 mg PO DAILY 09/18/19 [History Confirmed 11/29/24] aspirin 81 mg tablet,delayed release 81 mg PO DAILY 11/29/24 [History Confirmed 11/29/24] Exam Physical Exam Vital Signs: Temp Pulse Resp BP Pulse Ox O2 Del Method 97.9 F 106 H 16 158/82 H 99 Room Air 11/30/24 11:35 11/30/24 11:35 11/30/24 11:35 11/30/24 11:35 11/30/24 11:35 11/30/24 11:35 Results - Neuro Laboratory Findings 11/29/24 12:04 11/29/24 12:04 Diagnostic Findings Imaging/Impressions: ITS Impressions Head CT 11/29/24 11:54 IMPRESSION: NO ACUTE INTRACRANIAL ABNORMALITY. Impression dictated by: Jonathon Khan M.D.11/29/2024 1:20 PM Dictation Location: [facility] Chest X-Ray 11/29/24 11:55 IMPRESSION: No acute process. Impression dictated by: Vickey Rainey M.D.11/29/2024 1:49 PM Dictation Location: [facility] Head CTA 11/29/24 11:55 IMPRESSION: Negative for large vessel occlusion or hemodynamically significant stenosis. There is up to 55% narrowing left proximal ICA. Impression dictated by: Jonathon Khan M.D.11/29/2024 2:21 PM Dictation Location: [facility]-26 Abdomen/Pelvis CT 11/29/24 12:00 IMPRESSION: Question gallstone within the neck of the gallbladder. Otherwise negative acuteinflammatory processor bowel obstruction. Splenic hypodensity noted, indeterminate. Consider ultrasound Impression dictated by: Jonathon Khan M.D.11/29/2024 2:27 PM Dictation Location: [facility]-26 PVR 11/29/24 20:23 IMPRESSION: NO HEMODYNAMICALLY SIGNIFICANT PERIPHERAL VASCULAR OCCLUSIVE DISEASE AT REST IN EITHER LOWER EXTREMITY. Impression dictated by: Vickey Shine M.D.11/30/2024 10:24 AM Dictation Location: [place] [address] Therapy Recommendations Therapy Recommendations: OT Recommendations OT Recommended Discharge Home,Home with Home Health Location OT Recommended Services at Physical Therapy,Occupational Therapy Discharge PT Recommendations PT Recommended Discharge Home,Home with Home Health Location PT Recommended Services at Physical Therapy,Occassional Supervision Discharge PT Discharge Comment with continued support of ; see above assessment comments ST Recommendations Level of Supervision Independent Self Feeding Liquid Consistency Thin Liquids Recommendation Solid Consistency Mechanical Soft Solids Recommendations Meat Consistency Ground Meats Recommendations Medication Administration Whole Pills,Crush Pills,Give Pills with Water, Give Pills in Applesauce Dysphagia Swallow Precautions/ Sitting Upright (90 deg),Small Bites/Sips, Strategies Alternate Liquids/Solids,Pacing/Slow-Rate,Sit Upright 30 Minutes Assessment/Plan (1) Abdominal pain: Qualifiers: Abdominal location: unspecified location Qualified Code(s): R10.9 - Unspecified abdominal pain (2) Gait instability: (3) Elevated troponin: (4) Cervical muscle strain: Qualifiers: Encounter type: initial encounter Qualified Code(s): S16.1XXA - Strain of muscle, fascia and tendonat neck level, initial encounter Plan It is my impression that the patient has considerable neck pain along with left upper quadrant abdominal pain and gait instability and imbalance. Patient has amultitude of symptoms, has a previous discharge from primary care for noncompliance, does have some substantial history of hypertension and coronary artery disease and abdominal disease as well. Widespread symptomatology with multiple complaints difficult to localize. Certainly top priority and concern is for myelopathy. Workup: CT of the brain without contrast: No acute findings CT angiogram of the head and neck: No evidence of aneurysm, occlusion or dissection MRI of the cervical spine without contrast: Pending MRI lumbar spine without contrast: Pending Plan: Physical and Occupational Therapy Will follow the aforementioned MRIs I am in agreement with continuation of aspirin for coronary disease and secondary stroke prevention Will follow I was unable to see the patient in person today due to her being down the road at the MRI facility.Patient will not be billed for today's visit and this is chart review. I will see her tomorrow. I did discuss with the charge nurse ramírez is aware. Documented By: Calixto Martinez DO 5 [id number] Signed By: 11/30/24 1623 [facility]03-26-2025 Radiology Diagnostic study note [facility] [place] [address] [place] [address] Ultrasound Report Signed Patient: Teresa Andre MR#: [id number] : 1950 Acct:[id number] Age/Sex: 74 / F ADM Date: Loc: Room: [address] [place] [address] Type: ADM INOo Attending Dr: Desmond Davis MD Ordering Provider: Desmond Davis MD Date of Service: 11/29/24 US/US arterial pvr rest LE: Rule out significant PAD Copies to: Desmond Davis MD~ LOWER EXTREMITY SEGMENTAL ARTERIAL DOPSCAN (PVR) INDICATION: Leg pain PROCEDURE: Right arm blood pressure is 198 , left is not obtained . Pressuresthroughout the right leg are cno at the high thigh, at the cno low thigh, 228 at the calf, 231 at the ankle using the posterior tibial artery, and 225 at the ankle using the dorsalis pedis artery with ankle-brachial index of 1.171.14 . Pressures throughout the left leg are cno at the high thigh, at the cno low thigh, 212 at the calf and 228 at the ankle using the posterior tibial artery, and 222 at the ankle using the dorsalis pedis artery with ankle-brachial index of 1.15 1.12 . Wave forms by plethysmography are normal. US/US arterial pvr rest LE IMPRESSION: NO HEMODYNAMICALLY SIGNIFICANT PERIPHERAL VASCULAR OCCLUSIVE DISEASE AT REST IN EITHER LOWER EXTREMITY. Impression dictated by: Vickey Shine M.D.11/30/2024 10:24 AM Dictation Location: [place] [address] Tech: Genet Vargas Transcribed By: KOMAL 11/30/24 1024 Dictated By: Vickey Shine MD 11/30/24 1023 Signed By: 11/30/24 1024 [facility] Work Phone: 1(452) 109-468103-25-2025 Evaluation note* Diagnosis Onset Date Resolution Status Admit Date Cervical muscle strain acute [facility] 2024 4:48pm Elevated troponin acute November 062024 4:48pm Gait instability acute November 292024 4:48pm [facility] Work Phone: 1(888) 224-672203-25-2025 Evaluation note* Diagnosis Onset Date Resolution Status Admit Date Abdominal pain acute November 4:48pm Cervical muscle strain acute [facility] 2024 4:48pm DDD (degenerative disc disea se), cervical acute November 29, 2024 4:48pm DDD (degenerative disc disea se), lumbar acute November 29, 2024 4:48pm Elevated troponin acute November 062024 4:48pm Gait instability acute November 292024 4:48pm Subclinical hypothyroidism acute November 29, 2024 4:48pm [facility] Work Phone: 1(263) 789-231503-25-2025 [facility] [place] [address] [place] [address] CT Scan Report Signed Patient: Teresa Andre MR#: [id number] : 1950 Acct:[id number] Age/Sex: 74 / F ADM Date: 5 Loc: ER Room: Type: [facility] ER Attending Dr: Copies to: Bubba Alan MD~ Ordering Provider: Bubba Alan MD Date of Service: 11/29/24 CT/CT abdomen pelvis w con: Abdominal pain, generalized CT ABDOMEN AND PELVIS WITH INTRAVENOUS CONTRAST: CLINICAL HISTORY: Generalized abdominal pain COMPARISON: None TECHNIQUE: Spiral images were obtained through the abdomen and pelvis followingthe administration of intravenous contrast. This CT exam was performed using one or more following dose reduction techniques: Automated exposure control, adjustment of the mA and/or kV according to patient size, or use of iterative reconstruction technique. FINDINGS: Lung Bases: [Right basilar atelectasis.] Organs:Liver, adrenals, unremarkable. Question gallstone within the region of neck of the gallbladder. Pancreatic duct borderline 4 mm. Otherwise negative unremarkable. Lobulated splenic lesion noted2.8 x 2.9 cm in size. Kidneys aresymmetric size with pelviectasis noted.[ GI: Mild retained stool. No bowel obstruction.[No CT findings acute appendicitis. Pelvis:[Bladder unremarkable. Hysterectomy. No adnexal mass. Peritoneum/Retroperitoneum:Postsurgical changes of aorta noted.[Moderate ostial plaque involving the mesenteric vessels. Ggpx-zj-wpsyegal plaque iliac vessels. Abd wall/Bones:Multilevel degenerative changes throughout the lumbar spine.[ CT/CT abdomen pelvis w con IMPRESSION: Question gallstone within the neck of the gallbladder. Otherwise negative acute inflammatory process or bowel obstruction. Splenic hypodensity noted, indeterminate. Consider ultrasound Impression dictated by: Jonathon Khan M.D.11/29/2024 2:27 PM Dictation Location: [place] [address] Transcribed By: [facility] 11/29/241426 Dictated By: Jonathon Khan MD 11/29/241420 Signed By: 11/29/24 [facility] Work Phone: 1(255) 819-860603-25-2025 Radiology Diagnostic study [facility] [place] [address] [place] [address] CT Scan Report Signed Patient: Teresa Andre MR#: [id number] : 1950 Acct:[id number] Age/Sex: 74 / F ADM Date: 5 Loc: ER Room: Type: [facility] ER Attending Dr: Copies to: Bubba Alan MD~ Ordering Provider: Bubba Alan MD Date of Service: 11/29/24 CT/CT angio head: Neck pain, ataxia x days, concern for stroke ([id number]) CT/CT angio neck: Neck pain, ataxia x days, concern for stroke CT angio head, CT angio neck 11/29/2024 11:59 AM SIGNS AND SYMPTOMS: ^Neck pain, ataxia x days, concern for stroke TECHNIQUE: Multi-detector CT angiography axial slices of the head and neck during intravenous administration of IV contrast material. Sagittal, coronal, and 3-D reconstructions were performed and viewed on a separate workstation. CT was performed with one or more of the following dose reduction techniques: Automated exposure control, adjustment of the mA and/or kV according to patient size, or use of iterative reconstruction technique. Stenoses were measured usingthe NASCET criteria. COMPARISON: CT head 11/29/2024. FINDINGS: CTA HEAD: [id number] plaque both ICAs. Both carotid termini patent. Anterior cerebral arteries are patent. There is mild focal narrowing right proximal M1 segment. Otherwise MCAs are patent. Distal vertebral arteries join from the basilar artery. Basilar artery basilar tip and posterior cerebral arteries are patent. Unremarkable dural venous sinuses. CTA NECK: There is a normal three-vessel arch. Left subclavian stent graft without and stent stenosis narrowing. The vertebral arteries arise from the subclavian arteries and are codominant with mild plaque. These are otherwise unremarkable in Course and caliber up to the skull base. The common and internal carotid arteries demonstrate atherosclerotic disease. Moderate plaque rightproximal ICA and proximal internal carotid artery resulting in 40% narrowing . There is moderate plaque left proximal ICA resulting 50-55% narrowing. Visualized lung parenchyma is clear. Multilevel degenerative changes are spine notably C5-C7. The paraspinous soft tissues are within normal limits. CT/CT angio head IMPRESSION: Negative for large vessel occlusion or hemodynamically significant stenosis. There is up to 55% narrowing left proximal ICA. Impression dictated by: Jonathon Khan M.D.11/29/2024 2:21 PM Dictation Location: [place] [address] Transcribed By: KOMAL 11/29/24 1421 Dictated By: Jonathon Khan MD 11/29/24 1404 Signed By: 11/29/24 1421 [facility] Work Phone: 1([phone]) [phone] [facility] [place] [address] CT Scan Report Signed Patient: Teresa Andre MR#: [id number] : 1950 Acct:[id number] Age/Sex: 74 / F ADM Date: 5 Loc: ER Room: Type: [facility] ER Attending Dr: Copies to: Bubba Alan MD~ Ordering Provider: Bubba Alan MD Date of Service: 11/29/24 CT/CT head/brain wo con: Gait ataxia, fell 2 days agostruck the right side CT BRAIN WITHOUT CONTRAST: CLINICAL HISTORY: Ataxic gait COMPARISON: None TECHNIQUE: Contiguous axial unenhanced images were obtained through the brain. This CT exam was performed using one or more following dose reduction techniques: Automated exposure control, adjustmentof the mA and/or kV accordingto patient size, or use of iterative reconstruction technique. FINDINGS: There is no evidence of midline shift, intra or extra-axial fluid collection, hemorrhage or CT evidence of large vascular distribution stroke. Mild chronic small vessel changes. Vascular calcifications. Visualized intraorbital contents appear unremarkable. Visualized paranasal sinuses are clear. The surrounding soft tissues are normal. CT/CT head/brain wo con IMPRESSION: NO ACUTE INTRACRANIAL ABNORMALITY. Impression dictated by: Jonathon Khan M.D.11/29/2024 1:20 PM Dictation Location: [place] [address] Transcribed By: [facility] 11/29/24 1320 Dictated By: Jonathon Khan MD 11/29/24 1317 Signed By: 11/29/24 1320 [facility] Work Phone: 1([phone]) 548-641801-13-2025 Telephone encounter Note* Telephone Encounter - Lidia Evans RN - 09/19/2024 4:39 PM EST Called patient, no answer. Left voicemail stating: We are unable to assess and make management recommendations over the phone. We recommend she see a medical provider for future evaluation and medical recommendations. Dr. Gutierrez is happy to see her to for further neuro evaluation Provided scheduling number and office number for any questions. Will send in [employer] as well. EZ Cantu [facility]01-13-2025 Miscellaneous Notes* Telephone Encounter - Lidia Evans RN - 09/19/2024 4:39 PM EST Called patient, no answer. Left voicemail stating: We are unable to assess and make management recommendations over the phone. We recommend she see a medical provider for future evaluation and medical recommendations. Dr. Gutierrez is happy to see her to for further neuro evaluation Provided scheduling number and office number for any questions. Will send in MyChart as well. EZ Cantu * Telephone Encounter - Lidia Evans RN - 09/14/2024 3:55 PM EST Patient's MyChart title: URGENT Cervical Brachial Symptoms are too severe to make appointments. I refuse being transported to [facility]. I have problems swallowing. Words get lost, trimmers, loss of vision left eye, abdominal pain from mass on my spleen RN called patient. She is at home and experiencing symptoms of pain and anxiety. Symptoms listed above of tremors, loss of left eye vision, abdominal pain, and loss of words have all been expressed previously. She has no acute symptoms to indicate an ER visit. She mentioned a fall that she had during a transfer to the ER. RN will assist patient with setting up a visit with provider. Most recent visit with Dr. Gutierrez on 11/17/2023: Current symptoms include: Left ear pain Swallowing [...] her feet. Uses a wheelchair for the lastyear, although walks around her house using gallego. [...] to speech difficulties and other symptoms. She's beenon Zoloft 25 mg daily for >10 years for this. I suspect at least some of her symptoms are related to anxiety and recommend she discuss with localproviders alternative management strategies, including medication and counseling/health psychology. EZ Cantu documented [facility] Telephone encounter Note * Telephone Encounter - Lidia Evans RN - 09/14/2024 3:55 PM EST [facility] Cervical Brachial Symptoms are too severe to make appointments. I refuse being transported to [facility]. I have problems swallowing. Words get lost, trimmers, loss of vision left eye, abdominal pain from mass on my spleen RN called patient. She is at home and experiencing symptoms of pain and anxiety. Symptoms listed above of tremors, loss of left eye vision, abdominal pain, and loss of words have all been expressed previously. She has no acute symptoms to indicate an ER visit. She mentioned a fall that she had during a transfer to the ER. RN will assist patient with setting up a visit with provider. Most recent visit with Dr. Gutierrez on 11/17/2023: Current symptoms include: Left ear pain Swallowing [...] her feet. Uses a wheelchair for the lastyear, although walks around her house using gallego. [...] to speech difficulties and other symptoms. She's beenon Zoloft 25 mg daily for >10 years for this. I suspect at least some of her symptoms are related to anxiety and recommend she discuss with localproviders alternative management strategies, including medication and counseling/health psychology. EZ Cantu [facility]03-12-2024 History of Present illness Narrative* Luis Gutierrez MD - 11/17/2023 11:34 AM EDT [facility] Patient returns for follow-up evaluation. She was seen at the [facility] for multiple sclerosis evaluation in 2002 (by [...] her feet. Uses a wheelchair for the lastyear, although walks around her house using gallego. [...] to speech difficulties and other symptoms. She's beenon Zoloft 25 mg daily for >10 years for this. I suspect at least some of her symptoms are related to anxiety and recommend she discuss with localproviders alternative management strategies, including medication and counseling/health psychology. During this patient visit I have spent approximately 20 minutes out of 30 in counseling regarding treatment options and coordinating care. Luis Gutierrez MD documented in this encounterKnox [facility]02-27-2024 Miscellaneous Notes* Telephone Encounter - Krista Israel RN - 11/03/2023 12:35 PM EST Last [employer] access 10-31-2023. [employer] message sent to patient indicating need for appointment withDr Gutierrez to further review symptoms and notifying of sooner openings available next Thursday with scheduling phone number provided. Krista Israel RN * Telephone Encounter - Rebecca Alvarado - 11/03/2023 10:04 AM EST Anthony Call Name of caller : Teresa Andre Sarah Relationship to patient: Self Return call phone number : [phone] Reason for call : Symptoms : Brief description of symptoms : Falling over to the side, neck gets real weak and she cannot hold it up. She is requesting information on Myopathy. Patient states she is losing her memory, vision andher hearing. documented in this encounterKnox [facility]02-13-2024 NoteUT Electrophysiology Consult Note Reason for visit: hx CAD s/p CABG, AF ? (Post op?), PVCs? HPI: Teresa Andre is a 73 y.o. year old with past medical history of CAD s/p CABG early , hyperlipidemia, chronic MATTHEW, pre diabetes, DVT, stroke 2007, colon surgery s/p colostomy and later had a reversal, low burden PVC, anxiety, depression. she has not followed a music therapy specialist in at least 4 years for some reason. She states she used to have A-fib but is not on any DOAC. her last visit with a music therapy specialist was 07/2020 she was recommended a stress [...] on file Intimate Partner Violence: Unknown (10/20/2023) [place] Safety & Environment Fear of Current or [...] dry Nails: no clubbin (more content not included)...[facility]02-13-2024 NoteNew patient here to establish care. Self ref [...] weakness. All other systems reviewed and are negative.[facility] 07-02-2023 History of Present illness Narrative* Krista Almeida APRN.[employer] - 07/02/2023 11:00 AM EDT [facility] Low Back Pain - Subacute (6 - 12 weeks) Initial Exam SUBJECTIVE HISTORY OF PRESENT ILLNESS: Teresa Andre is a 72 year old female who presents with a chief complaint of neck pain and is self-referred. Patient presents with a variety of symptoms that include head and neck pain, difficulty ambulating,and body rigidity . She reports that she [...] previously diagnosed by Dr. Gutierrez in the [facility]. Upon review of his note from 03/24/2023, there is not a diagnosis of multiple sclerosis or cerebral spinal fluid leak. When I attempted to inquire more about diagnosis of MS and cerebrospinal fluid leak she became agitated stating that she was diagnosed in 2002 by disability provider with multiple sclerosis , she states these records where lost by [facility]. She then stated that she did [...] there is not anyone available by local [place] to complete her visits or treatments. Treating Physicians: Dr Watts PCP - [facility] - Spine - 2020- PT consult Dr [...] bypass graft of extremities Coronary atherosclerosis of teller coronary artery Diverticulitis of colon (without mention [...] under the tongue as needed for angina, mayrepeat q5mins for up three doses rosuvastatin (CRESTOR) [...] recent appointment with Dr. Gutierrez at the [facility]. She stated that previous records were not [...] bathe herself. Attempts to provide support and evp general counsel patient by provider were met with continued anger. She thendecided that she no longer wanted to continue with appointment and left facility. As patient was leaving facility patient's apologized to provider for patient's behavior. SIGNATURE: Krista Almeida APRN.CNP PATIENT NAME: Teresa Andre DATE: July 02, 2023 TIME: 10:31 AM documented in this encounterKnox [facility] Hospital10-06-2023 Miscellaneous Notes* Telephone Encounter - Krista Israel RN - 06/12/2023 9:57 AM EDT Called patient, no answer and call disconnected after 12 rings with no ability to leave message. [employer] message sent to patient, last active 06-02-23. Krista Israel RN * Telephone Encounter - America Velasco PA-C - 06/11/2023 5:[address] Spoke with Dr. Gutierrez. Patient welcome to set up follow-up with Dr. Gutierrez but since she doesn't have MS diagnosis, long-term follow-up at [facility] is not the best option. Find out the most bothersome symptoms. We would then direct to the appropriate areas with tentativedirection as follows depending on what we are told: - Headaches - set up with headache clinic - Walking difficulty - recommend PT - Pain (outside of headache) - Chronic pain rehab program America Velasco PA-C * Telephone Encounter - Roshni Garnica - 06/09/2023 2:35 PM EDT [place] Call Name of caller : Teresa Andre Relationship to patient: Self Return call phone number : [phone] Reason for call : Symptoms : Brief [...] symptoms start : Ongoing documented in this encounterKnox [facility] Hospital07-18-2023 History of Present illness Narrative* Luis Gutierrez MD - 03/24/2023 2:36 PM EDT [facility] FOR MULTIPLE SCLEROSIS FOLLOWUP/ESTABLISHED PATIENT VIRTUAL VISIT Patient returns for follow-up visit. She was seen here in [address] Tere Winston who did not thinkshe had multiple sclerosis. She was seen by me in 2020 where I did not think she had multiple sclerosis. At that time, she had clinical history, examination, and imaging findings suggestive cervical spine stenosis and I recommended Spine Center referral. Spine Center referral had this assessment: Has seen spine medicine and spine surgery back in [id number] for similar symptoms. Was referred to [facility] [...] her feet. Uses a wheelchair for the lastyear, although walks around her house using gallego. [...] suggestive of multiple sclerosis and I don't recommendfurther neurologic work-up at this time. She cried [...] and coordinating care. Follow-up: none needed at [facility] Luis Gutierrez MD cc: Ms. Teresa Andre, [address] [place] [id number] cc: Dr. Watts, Roberth Crawford, [address] [facility] [id number] documented in this encounterKnox Community Hospital07-17-2023 Miscellaneous Notes* Telephone Encounter - Krista Israel RN - 03/23/2023 2:18 PM EDT Patient has been rescheduled with Dr Gutierrez 03-24-23 at 2:30pm. Krista Israel RN * Telephone Encounter - Krista Israel RN - 03/23/2023 1:23 PM EDT Patient has been previously notified numerous times of need to schedule In Person visit with Dr Gutierrezfor evaluation and any plan of care updates. Per America Velasco PA-C, we are unable to provide treatment recommendations or guidance for symptoms until patient completes In Person visit with Dr Gutierrez. Routing to Appointment Pool to contact patient to offer In Person visit with Dr Gutierrez. Krista Israel RN * Telephone Encounter - Marika Calero HUC - 03/23/2023 11:46 AM EDT [place] Call Name of caller : Teresa Relationship to patient: Self Return call phone number : [phone] Reason for call : Other : Brief description of concern : Patient was in the ED with spinal fluids leak and is having complications tremors and pain. Needs to know what she can do for pain and tremors. documented in this encounterKnox [facility] Hospital07-13-2023 Miscellaneous Notes* Telephone Encounter - Krista Israel RN - 03/19/2023 12:26 PM EDT [employer] response sent to patient notifying of below message from America Velasco PA-C. Krista Israel RN * Telephone Encounter - America Velasco PA-C - 03/18/2023 10:16 AM EDT Would defer to spine center for re-evaluation if she feels symptoms have changed. America Velasco PA-C * Telephone Encounter - Roshni Garnica - 03/17/2023 10:59 AM EDT [place] Call Name of caller : Teresa Ziisraelmeche Relationship to patient: Self Return call phone number : [phone] Reason for call : Other : Brief description of concern : Patient is calling and said she is not doing well and hard to get around and asking if you can place a new order for spine surgery becaues she is having a hard time. Please let her know. documented in this encounterKnox Community Hospital03-22-2023 Miscellaneous Notes* Telephone Encounter - Padmaja Javed - 11/26/2022 4:09 PM EDT Called patient to inform of appt. cancellation on 12/18/22 with America Velasco. Patient must be seen in person by Dr. Gutierrez. Left a VM and reminder message through [employer] for patient to beverley. documented in this encounterKnox Community Hospital01-25-2023 Miscellaneous Notes* Telephone Encounter - America Velasco PA-C - 10/01/2022 11:33 AM EST Reviewed message with Dr. Gutierrez. No further recommendations at this time. Patient can seek care againin ED if symptoms worsen/unable to come to [place]. America Velasco PA-C * Telephone Encounter - Krista Israel RN - 09/30/2022 9:38 AM EST Called patient, did not get to verify [...] and talk to someone for 10 minutes beforethey come back. We got people in nursing homes who are thirsty and in hallways and no one is payingattention to them. People need to change hospitals need to change. 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 Not one doctor touched me or palpated my organs. No o ne listens to my lungs or my heart for 3 minutes. The whole thing takes 10 minutes. I am not going to come to [place] and that is the way it is. I have got to go. Bye . Routing to America Velasco PA-C and Dr Gutierrez to update. Krista Israel RN * Telephone Encounter - Krista Israel RN - 09/29/2022 2:26 PM EST Images from the original note were not included. Patient needs In Person office visit for assessment and to determine plan of care with Dr Gutierrez. Routed message to Appointments to contact patient to schedule In Person office visit with Dr Gutierrez. Padmaja Javed You 12 minutes ago (2:13 PM) [place] Good afternoon Krista! I hope you had a great weekend. I spoke with the patient and her spouse to schedule an in person visit with Dr. Gutierrez. Unfortunately,they declined scheduling the appointment right now due [...] ER if symptoms are severe and unmanageable. Krista Israel RN * Telephone Encounter - Alyssagil Gaming [facility] - 09/29/2022 11:20 AM EST Name of caller : Patient Return call phone number : [phone] Reason for call : severe pain her cervical spine area and is now having problems with her vision and breathing... documented in this encounterKnox Community Hospital01-23-2023 Miscellaneous Notes* Telephone Encounter - Padmaja Javed - 09/29/2022 2:08 PM EST Spoke with patient/patient's spouse regarding scheduling an in person visit with Dr. Gutierrez. Patient declined scheduling and will call back to schedule. documented in this encounterKnox Community Hospital01-11-2023 Miscellaneous Notes* Telephone Encounter - Krista Israel RN - 09/17/2022 1:22 PM EST Patient's spouse returned call to office, verified name and . Notified that due to patient's symptoms Dr Gutierrez recommends evaluation in ER. He states patient declines visit to ER at this time. Notified of need for in person visit to review symptoms. Assisted to schedule in person visit with Evita DUNLAP 09-23-22 at 11:15 am. Slot placed on hold and message sent to add on pool. * Telephone Encounter - Krista Israel RN - 09/17/2022 12:18 PM EST Attempted to reach patient's spouse, rings busy signal. Called patient, obtained daughter Shelly'sphone number and added to emergency contacts per patient request. Called Shelly, no answer. Message left to return call to office when able. Krista Israel RN * Telephone Encounter - Krista Israel RN - 09/17/2022 9:29 AM EST Called patient, notified of below. She states she is not able to go to the ER now because she has full custody of her 9 year old grandson who she plans to adopt when able. Her spouse works Thursday-05-10 as an pickup driver, he is a retired shank sander. She states she cannot go to the ER because her grandson is at school and would come home to an empty house. She states her daughter is comingin this weekend and she may need to wait until then to go to the ER. Attempted to call patient's spouse per patient request, phone rings half a ring then goes silent x 3 attempts. Will try again later. Krista Israel RN * Telephone Encounter - America Velasco PA-C - 09/16/2022 3:23 PM [address] with Dr. Gutierrez. If patient is [...] (cannot be by phone). America Velasco PA-C * Telephone Encounter - Krista Israel RN - 09/16/2022 11:20 AM EST Routed to America Velasco PA-C to review and advise. Await response then will return call to patient. Krista Israel RN * Telephone Encounter - RAYMOND Mcgee - 09/16/2022 10:50 AM EST PT is calling in regards to spinal [...] correct in chart to call back as: [phone] [place] Call Name of caller : Teresa Relationship to patient: Self Return call phone number : [phone] Reason for call : Other : Brief description of concern : Spinal fluid loss documented in this encounterKnox Community Hospital12-16-2022 History of Present illness Narrative* America Velasco PA-C - 08/22/2022 10:30 AM EST [facility] FOLLOWUP/ESTABLISHED PATIENT VIRTUAL [...] failed pt consented. Accompanied by self. Last seen07/04/22. Feels worse since seen last Losing speech [...] bypass graft of extremities Coronary atherosclerosis of teller coronary artery Diverticulitis of colon (without mention of hemorrhage)(562.11) DVT of upper extremity (deep vein thrombosis) ([facility]) DVT - Arm lt Dysthymic disorder Depression [...] visit. America Velasco PA-C documented in this encounterKnox Community Hospital12-15-2022 Miscellaneous Notes* Telephone Encounter - Krista Israel RN - 08/21/2022 11:24 AM EST Appointment placed on hold tomorrow 08-22-22 at 10:30 am with America Velasco PA-C, can be in person or virtual. Called patient, verified name and . She accepts Virtual Visit tomorrow with America Velasco PA-C. Sent [employer] activation link as she hasn't used it since 2019. Patient has been having many symptoms and is looking for input and guidance. She has started Physical Therapy. She does not believe she has had any MRIs since March 2021 which are already imported to her chart. Patient discussed ongoing issues with a spinal fluid leak in cervical spine. She statesthe only way her headache improves is by laying down and staying still. She also reports that her body has rejected sutures and implants in past abdominal surgeries and she is still recuperating fromthat. Symptoms from June office visit with Nadege Sharpe CNP continue and are worse per patient. Krista Israel RN * Telephone Encounter - RAYMOND Mcgee - 08/21/2022 10:09 AM EST [place] Call Name of caller : Teresa Relationship to patient: Self Return call phone number : [phone] Reason for call : Other : Brief [...] and losing her hair. documented in this encounterKnox Community Hospital10-28-2022 Instructions* Patient Instructions* Nadege Sharpe APRN.CNP - 07/04/2022 11:54 AM EDT Thank you [...] this can be virtually documented in this encounterKnox Community Hospital10-28-2022 History of Present illness Narrative* Nadege Sharpe APRN.CNP - 07/04/2022 11:15 AM EDT [facility] MULT[facility]LE S[facility] FOLLOWUP/ESTABLISHED PATIENT VISIT [...] The patient was last seen 02/26/2021, currently [facility]. Since the patient's last visit the patient reports overall feeling worse. Issues with current MS therapy: Not currently on disease modifying therapy. Sarah presents with worsening of symptoms. She is very discouraged by her physical and mental declineand justs want an answer as to why, as well as to help her be a little bit better . At her last visit at [facility], she was referred to Spine center for [...] furniture for stability as well. Saw PT atthe recommendation of spine (home care PT) and [...] flickering, eye jitters. Not painful. Wears glasses. Nocolor desaturation. - speech and hearing decline began [...] Row Office Visit from 01/17/2009 in [facility] Most recent reading at 01/17/2009 12:00 AM Office Visit from 01/17/2009 in [facility] Most recent reading at 01/17/2009 12:00 AM PHQ-9 Score 13 13 *PHQ-9 is a questionnaire for depressive symptoms, with scores 0-4 indicating none, 5-9 mild, 10-14moderate, 15-19 moderately severe, and 20-27 severe symptoms. *PROMIS-10 is a patient-reported quality of life measure, typically reported as physical and mentaldomains. Here scores are expressed as percentiles, where [...] bypass graft of extremities Coronary atherosclerosis of teller coronary artery Diverticulitis of colon (without mention [...] Cuff Size: Large Adult) Pulse 74 Ht 160cm (5' 3 ) Wt 63.5 kg (140 lb) BMI 24.80 kg/m MSPT Performance Tests EXAM: General Appearance: well appearing, in no acute distress Mental status evaluation during the interview and examination showed normal level of consciousness,orientation, language, memory, praxis, and higher intellectual function Affect: Normal Extraocular movements: full, without ALEXANDER Speech: Normal, slowed and purposeful Muscle strength (#/5): Right Left Upper Extremity: Deltoids 5 4 Biceps 5 4 Triceps 5 4 Four Slide Machine Operator 5 4- Dorsal interossei 5 4- Lower extremity: Iliopsoas 4 3- Quadriceps 4 3 Hamstrings 4 3 Tibialis anterior 4 3 Gastrocnemius 4 3 Coordination: Upper extremity dexterity and rapid movements: Impaired left Finger-nose: mild dysmetria or incoordination are evident Standing balance: unable to perform Standard gait: left hemiparetic, unsteady. Assistive device: cane Tandem walking: unable to perform RESULTS: Monitoring labs: see [facility] for recent CBC diff, CMP. ASSESSMENT/PLAN: Teresa [...] BID if tolerated - Physical therapy. [facility] but script printed for local facility as well - Previous MRI image requested (new since visit in 02/2021) - GI consult - Follow up in 3 months, can be virtual I spent a total of 75 minutes on the date of the service which included preparing to see the patient, [id number] patient care, completing clinical documentation, obtaining and/or reviewing separately obtained history, performing a medically appropriate examination, counseling and educating the pat ient/family/caregiver, and communicating results to the patient/family/caregiver. Nadege Sharpe APRN.JENIFER documented in this encounterKnox Community Hospital04-22-2022 Miscellaneous Notes* Telephone Encounter - Kerry Ortega RN - 12/27/2021 2:38 PM EDT Neuro SPINE CARE COORDINATION QUICK NOTE Patient is aware Maria Teresa has referred her to [facility]. Patient stated understanding and has number to schedule. Appointment cancelled with Maria Teresa per patients request. * Telephone Encounter - Kerry Ortega RN - 12/27/2021 1:38 PM EDT Neuro SPINE CARE COORDINATION QUICK NOTE Last visit 03/22/2021 Patient c/o general back pain, not short term memory issues. Unable to take ibuprofen/Tylenol/Narcotics due to gastro issues.. Can not use any over the counter creams/patches due to skin sensitivity.Recommended ice/heat. Patient has an appointment with Maria Teresa Ramos CNP on 01/10/2022. * Telephone Encounter - Luanne Carter - 12/27/2021 1:31 PM EDT Patient is calling in to speak with the nurse about her shirt term memory loss. Call Back [phone] [facility]* Diagnosis Spasticity- Primary Abnormal involuntary movements Generalized abdominal pain Abdominal pain, generalized Myelopathy (HCC) Unspecified disease of spinal cord documented [facility]* Diagnosis Myelopathy (HCC)- Primary Unspecified disease of spinal cord documented in [facility]* Diagnosis Tension headache- Primary documented in this encounter [facility] note* Diagnosis Spinal stenosis in cervical region- Primary Chronic pain syndrome documented in this encounter [facility] note* Diagnosis Tension headache- Primary Disturbance of skin sensation documented in this encounter [facility] note* Diagnosis Cervical radiculopathy- Primary Brachial neuritis or radiculitis nos Lumbar pain Lumbago Neck pain Cervicalgia Neck pain Cervicalgia documented in this encounter [facility] Work Phone: Evaluation note* Diagnosis Neck pain Cervicalgia documented in this encounter [facility] Work Phone: Evaluation note* Diagnosis 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 Gait difficulty Abnormality of gait documented in this encounter [facility] for visit Narrative* Imaging (Routine) - Authorized Specialty Diagnoses / Procedures Referred By Marcelo t Referred To Contact Radiology Diagnoses Neck pain Procedures XR cervical spine complete 4-5 views Luis Turner MD [address] [facility], [address] [place] [address] Phone: tel: fax: Referral ID Status Reason Start Date Expiration Date Visits Requested Visits Authorized [id number] Authorized Perform Procedure 12/20/2024 12/20/2025 1 1 [facility] Work Phone: Summary Purpose Family History No Family History Records Found Relationship Condition Age at Onset Recorded Date/T josef brother Diabetes mellitus Unknown father Family history of colon cancer Unknown Malignant neoplasm Unknown Unknown mother Unknown sister Malignant neoplasm Unknown Advance Directives No Advanced Directives Records Found Advance Directive Response Recorded Date/ Time Advance Directives No November 29 025 11:29am Hospital Course Note HNO ID: [id number]: Sanaz Abel ChaService: General SurgeryAuthor Type: PhysicianType: Discharge SummariesFiled: 06/18/2018 2:47 PMNote Text: DISCHARGE SUMMARYPATIENT NAME: Teresa Andre ADMISSION DATE: 06/17/2018MRN: [id number] DISCHARGE DATE: 06/18/2018ATTENDING PHYSICIAN: Pablito Abel Cha [...] Specialty Diagnoses / Procedures Referred By Marcelo t Referred To Contact Gastroenterology Diagnoses Generalized abdominal pain Myelopathy (HCC) Procedures CONSULT TO GASTROENTEROLOGY OFFICE/OUTPATIENT [facility] MDM 60-[place] [address] Referral ID Status Reason Start Date Expiration Date Visits Requested Visits Authorized [id number] Pending Review PCP Requested Referral 2 07/04/2023 1 1 Specialty Diagnoses / Procedures Referred By Marcelo barry Referred To Contact [facility] Diagnoses Myelopathy (HCC) Procedures CONSULT TO PHYSICAL THERAPY PHYSICAL THERAPY EVALUATION HIGH COMPLEX 45 M[address] [place] [id number] [facility] [place] [address] [place] [address] Referral ID Status Reason Start Date Expiration Date Visits Requested Visits Authorized [id number] Pending Review Auto-Generat ed Referral 2 07/04/2023 1 1 Chief Complaint and Reason for Visit Chief Complaint Admit Date spine pain, stomach pain November 29 4:48pm Reason for Visit Admit Date Cervical muscle strain November 29, 2024 4:48pm Elevated troponin November 29, 2024 4:4 8pm Gait instability November 29, 2024 4:4 8pm Chief Complaint Admit Date spine pain, stomach pain November 29 4:48pm no November 30, 2024 1:1 0pm Reason for Visit Admit Date Abdominal pain November 29, 2024 4:4 8pm Cervical muscle strain November 29, 2024 4:48pm DDD (degenerative disc disease), cervica l November 29, 2024 4:48pm DDD (degenerative disc disease), lumbar November 29, 2024 4:48pm Elevated troponin November 29, 2024 4:4 8pm Gait instability November 29, 2024 4:4 8pm Subclinical hypothyroidism November 29, 2 025 4:48pm Chief Complaint Admit Date spine pain, stomach pain November 29 4:48pm spine pain, stomach pain December 01 8:07am Additional Source Comments INFORMATION SOURCE (unrecogn ized section and content) DATE CREATED AUTHOR 07/22/2018 [facility] DATE CREATED AUTHOR AUTHOR'S ORGANIZ ATION 04/30/2019 [facility] DATE CREATED AUTHOR AUTHOR'S ORGANIZ ATION 07/18/2019 [facility] DATE CREATED AUTHOR AUTHOR'S ORGANIZ ATION 10/22/2023 [facility] DATE CREATED AUTHOR AUTHOR'S ORGANIZ ATION 11/27/2024 [facility] DATE CREATED AUTHOR AUTHOR'S ORGANIZ ATION 12/03/2024 [facility] DATE CREATED AUTHOR AUTHOR'S ORGANIZ ATION 12/25/2024 [facility] DATE CREATED AUTHOR AUTHOR'S ORGANIZ ATION 01/12/2025 [facility] Source Comments (unrecognize d section and content) In the event this informatio n is protected by the Federal Confidentiality of Alcohol and Drug Abuse Patient Records regulations: The Federal rules restrict any use of the information to criminally investigate or prosecute any alcohol or drug abuse patient.[facility] the event this information is protected by the Federal Confidentiality of Alcohol and Drug Abuse Patient Records regulations: The Federal rules restrict any use of the information to criminally investigate or prosecute any alcohol or drug abuse patient.[facility] the event this information is protected by the Federal Confidentiality of Alcohol and Drug Abuse Patient Records regulations: The Federal rules restrict any use of the information to criminally investigate or prosecute any alcohol or drug abuse patient.[facility] the event this information is protected by the Federal Confidentiality of Alcohol and Drug Abuse Patient Records regulations: The Federal rules restrict any use of the information to criminally investigate or prosecute any alcohol or drug abuse patient.[facility] the event this information is protected by the Federal Confidentiality of Alcohol and Drug Abuse Patient Records regulations: The Federal rules restrict any use of the information to criminally investigate or prosecute any alcohol or drug abuse patient.[facility] the event this information is protected by the Federal Confidentiality of Alcohol and Drug Abuse Patient Records regulations: The Federal rules restrict any use of the information to criminally investigate or prosecute any alcohol or drug abuse patient.[facility] the event this information is protected by the Federal Confidentiality of Alcohol and Drug Abuse Patient Records regulations: The Federal rules restrict any use of the information to criminally investigate or prosecute any alcohol or drug abuse patient.[facility] the event this information is protected by the Federal Confidentiality of Alcohol and Drug Abuse Patient Records regulations: The Federal rules restrict any use of the information to criminally investigate or prosecute any alcohol or drug abuse patient.[facility] the event this information is protected by the Federal Confidentiality of Alcohol and Drug Abuse Patient Records regulations: The Federal rules restrict any use of the information to criminally investigate or prosecute any alcohol or drug abuse patient.[facility] the event this information is protected by the Federal Confidentiality of Alcohol and Drug Abuse Patient Records regulations: The Federal rules restrict any use of the information to criminally investigate or prosecute any alcohol or drug abuse patient.[facility] Hospital[facility] the event this information is protected by the Federal Confidentiality of Alcohol and Drug Abuse Patient Records regulations: The Federal rules restrict any use of the information to criminally investigate or prosecute any alcohol or drug abuse patient.[facility] the event this information is protected by the Federal Confidentiality of Alcohol and Drug Abuse Patient Records regulations: The Federal rules restrict any use of the information to criminally investigate or prosecute any alcohol or drug abuse patient.[facility] the event this information is protected by the Federal Confidentiality of Alcohol and Drug Abuse Patient Records regulations: The Federal rules restrict any use of the information to criminally investigate or prosecute any alcohol or drug abuse patient.[facility] the event this information is protected by the Federal Confidentiality of Alcohol and Drug Abuse Patient Records regulations: The Federal rules restrict any use of the information to criminally investigate or prosecute any alcohol or drug abuse patient.[facility] the event this information is protected by the Federal Confidentiality of Alcohol and Drug Abuse Patient Records regulations: The Federal rules restrict any use of the information to criminally investigate or prosecute any alcohol or drug abuse patient.[facility] Hospital[facility] the event this information is protected by the Federal Confidentiality of Alcohol and Drug Abuse Patient Records regulations: The Federal rules restrict any use of the information to criminally investigate or prosecute any alcohol or drug abuse patient.[facility] Hospital[facility] the event this information is protected by the Federal Confidentiality of Alcohol and Drug Abuse Patient Records regulations: The Federal rules restrict any use of the information to criminally investigate or prosecute any alcohol or drug abuse patient.[facility] Hospital[facility] the event this information is protected by the Federal Confidentiality of Alcohol and Drug Abuse Patient Records regulations: The Federal rules restrict any use of the information to criminally investigate or prosecute any alcohol or drug abuse patient.[facility] HospitalIn the event this information is protected by the Federal Confidentiality of Alcohol and Drug Abuse Patient Records regulations: The Federal rules restrict any use of the information to criminally investigate or prosecute any alcohol or drug abuse patient.[facility] Reason for Visit (unrecogniz ed section [...] Left a VM and reminder message through [employer] for patient to [facility]. Reason Comments Patient Question Reason Comments New Patient Cervical pain Reason Comments New Patient [facility] Reason Comments Established Patient Follow-Up Care Teams (unrecognized sec tion and content) Team Status: Active Member Role Status Dates Chato Gannon MD Primary Care Provider Active Team Status: Inactive Member Role Status Dates Chato Gannon MD Primary Care Provider Active Start: November 29, 2024 End: December 01, 2024 Bubba Alan MD Emergency Provider Active Sta rt: November 29, 2024 End: December 01, 2024 Desmond Davis MD Admit Provide r, Attending Provider Active Start: November 29, 2024 End: December 01, 2024 Calixto Martinez DO Other Provider Active Start: November 29, 2024 End: December 01, 2024 Juan Chan MD Other Provider Active Start: 2024 End: December 01, 2024 Team Status: Active Member Role Status Dates Chato Gannon MD Primary Care Provider Active Start: December 01, 2024 Bubba Alan MD Emergency Provider Active Sta rt: December 01, 2024 Desmond Davis MD Admit Provide r, Other Provider Active Start: December 01, 2024 Calixto Martinez DO Other Provider Active Start: December 01, 2024 Juan Chan MD Attending Provider Active Star t: December 01, 2024 Sumac Tanner Relationship Specialty Start Date End Date Roberth Watts PCP - General 11/13/06 Lam Mcclendon MD [address] [place] [id number] Referring Neurology 04/13/20 Sumac Tanner Relationship Specialty Start Date End Date Roberth Watts PCP - General 11/13/06 Lam Mcclendon MD [address] [place] [address] [address] Referring Neurology 04/13/20 Sumac Tanner Relationship Specialty Start Date End Date Roberth Watts PCP - General 11/13/06 Lam Mcclendon MD [address] [place] [address] Referring Neurology 04/13/20 Sumac Tanner Relationship Specialty Start Date End Date Roberth Wattsjeffy PCP - General 11/13/06 Lam Mcclendon MD [address] [place] [address] Referring Neurology 04/13/20 Sumac Tanner Relationship Specialty Start Date End Date Roberth Watts PCP - General 11/13/06 Lam Mcclendon MD [address] [place] [address] Referring Neurology 04/13/20 Sumac Tanner Relationship Specialty Start Date End Date Roberth Wattsluis miguel PCP - General 11/13/06 Lam Mcclendon MD [address] [place] [address] Referring Neurology 04/13/20 Sumac Tanner Relationship Specialty Start Date End Date Roberth Wattsjeffy PCP - General 11/13/06 Lam Mcclendon MD [address] [place] [address] Referring Neurology 04/13/20 Sumac Tanner Relationship Specialty Start Date End Date Roberth Watts PCP - General 11/13/06 Lam Mcclendon MD [address] [place] [address] Referring Neurology 04/13/20 Sumac Tanner Relationship Specialty Start Date End Date Roberth Watts PCP - General 11/13/06 Lam Mcclendon MD [address] [place] [address] Referring Neurology 04/13/20 Sumac Tanner Relationship Specialty Start Date End Date Roberth Watts MD PCP - General 11/13/06 Lam Mcclendon MD [address] [place] [address] Referring Neurology 04/13/20 Sumac Tanner Relationship Specialty Start Date End Date Roberth Watts MD PCP - General 11/13/06 Lam Mcclendon MD [address] [place] [address] Referring Neurology 04/13/20 Sumac Tanner Relationship Specialty Start Date End Date Roberth Watts MD PCP - General 11/13/06 Lam Mcclendon MD Referring Neurology 04/13/20 Aruna Keyes, [employer] [address] [place] [address] Referring Internal Medicine 10/26/23 Sumac Tanner Relationship Specialty Start Date End Date Roberth Watts MD PCP - General 11/13/06 Lam Mcclendon MD Referring Neurology 04/13/20 Aruna Keyes CNP [address] [place] [address] Referring Internal Medicine 10/26/23 Team Status: Active Member Role Status Dates Chato Gannon MD Primary Care Provider Active Start: November 29, 2024 Bubba Alan MD Emergency Provider Active Sta rt: November 29, 2024 Merrick Zurita DO Admit Provider, Attending Provider Active Start: November 29, 2024 Team Status: Active Member Role Status Dates Chato Gannon MD Primary Care Provider Active Start: November 29, 2024 Bubba Alan MD Emergency Provider Active Sta rt: November 29, 2024 Desmond Davis MD Admit Provide r, Attending Provider Active Start: November 29, 2024 Calixto Martinez DO Other Provider Active Start: November 29, 2024 Team Status: Inactive Member Role Status Dates Chato Gannon MD Primary Care Provider Active Start: November 30, 2024 End: November 30, 2024 Desmond Davis MD Attending Provider Active Start: November 30, 2024 End: November 30, 2024 Sumac Tanner Relationship Specialty Start Date End Date Roberth Watts MD PCP - General 11/13/06 Lam Mcclendon MD Referring Neurology 04/13/20 Aruna Keyes CNP [facility] [place] [address] Referring Internal Medicine 10/26/23 Sumac Tanner Relationship Specialty Start Date End Date Generic Provider, [place] [address] PCP - General [employer] 03/28/24 Sumac Tanner Relationship Specialty Start Date End Date Generic Provider, No [place] [address] PCP - General [employer] 03/28/24 Sumac Tanner Relationship Specialty Start Date End Date Roberth Watts MD PCP - General 11/13/06 Lam Mcclendon MD Referring Neurology 04/13/20 Aruna Keyes CNP [address] [place] [address] Referring Internal Medicine 10/26/23 Sumac Tanner Relationship Specialty Start Date End Date Roberth Watts MD PCP - General 11/13/06 Lam Mcclendon MD Referring Neurology 04/13/20 Aruna Keyes CNP [address] [place] [address] Referring Internal Medicine 10/26/23 FOR RECORDS PERTAINING [...] BE BASED ON THE PRIMARY CLINICAL RECORDS. [employer] [facility]. provides no warranty or guarantee of the accuracy or completeness of information in this document.
[2025-03-31 08:21] LABS: Hematocrit 41.3 % (36.0-48.0); Hemoglobin 14.1 g/dL (12.0-16.0); Immature Granulocytes Abs Auto 0.03 10^3/uL (0.00-0.03); Immature Granulocytes Pct Auto 0.4 % (0.0-0.5); Lymphocytes Absolute Auto 1.8 10^3/uL (1.2-3.8); Mean Corpuscular HGB Conc 34.1 g/dL (29.9-35.2); Mean Corpuscular Hemoglobin 29.4 pg (26.7-34.0); Mean Corpuscular Volume 86.2 fL (81.0-99.0); Platelet Count 276 10^3/uL (150-450); Red Blood Count 4.79 10^6/uL (4.20-5.40); White Blood Count 7.2 10^3/uL (4.0-11.0)
[2025-03-31 09:28] LABS: Iron 84.0 ug/dL (50.0-170.0)
[2025-03-31 09:46] LABS: Alanine Aminotransferase 28 U/L (14-59); Albumin Globulin Ratio 0.9; Albumin Level 3.6 g/dL (3.4-5.0); Alkaline Phosphatase 96 U/L (46-116); Anion Gap 14.9; Aspartate Amino Transferase 19 U/L (15-37); Blood Urea Nitrogen 24.0 mg/dL (7.0-18.0); Calcium 9.1 mg/dL (8.5-10.1); Carbon Dioxide 23.5 mmol/L (21.0-32.0); Chloride 106 mmol/L (98-107); Cholesterol 271 mg/dL (<=200); Estimated GFR (African America >60 (>=60 mL/min/1.73m^2); Estimated GFR (Non-African Ame 53 (>=60 mL/min/1.73m^2); Free T3 1.87 pg/mL (2.18-3.98); Globulin 4.0 g/dL; Glucose 140 mg/dL (74-106); HDL Cholesterol 43 mg/dL (40-60); NT Pro B Type Natriuretic Pept 384.0 pg/mL (<=900.0); Potassium 4.4 mmol/L (3.5-5.1); Sodium 140 mmol/L (136-145); Thyroid Stimulating Hormone 0.056 uIU/mL (0.358-3.740); Total Protein 7.6 g/dL (6.4-8.2); Triglycerides 246 mg/dL (<=150); VLDL CHOLESTEROL 49.2 mg/dL
== END 2025-03-31 07:44 | disposition home or self-care (01) ==
LOC: LAB 07:53
PROVIDERS: PCP Family Medicine; Visit Provider Family Medicine
DX: E78.5 Hyperlipidemia, unspecified (principal); I50.9 Heart failure, unspecified; K21.9 Gastro-esophageal reflux disease without esophagitis; R13.10 Dysphagia, unspecified; R41.3 Other amnesia; M53.1 Cervicobrachial syndrome; R73.09 Other abnormal glucose; D64.9 Anemia, unspecified; I11.0 Hypertensive heart disease with heart failure; I50.30 Unspecified diastolic (congestive) heart failure; E55.9 Vitamin D deficiency, unspecified
CPT/HCPCS: 36415; 80053; 80061; 82306; 83036; 83540; 83880; 84436; 84443; 84481; 84484; 85025

== ENCOUNTER 2025-04-13 14:47 | Outpatient (OUT) | payer MEDICARE, SELFPAY ==
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
--- OUTSIDE RECORDS SUMMARY | 2025-04-13 14:51 | XMS_ITS | Clinical Summary ---
Author Organization [facility] Address [facility] [place] [address] Care Team Providers Care Drafter Mechanical Name Role Phone Wilner Soto MD Primary Care Provider [phone] Lam Mcclendon MD Unavailable Aruna Keyes YARN MERCERIZER OPERATOR Unavailable [phone] Allergies Active Allergy Reactions Criticality Noted Date Comments Adhesive Unknown 08/25/2014 Other reaction(s): Unknown Egg Extract GI Upset 03/22/2021 Influenza Virus Vaccines Other: See Comments 02/26/2021 Promethazine Hcl Swelling 02/24/2007 Promethazine Unknown Medium 08/25/2014 Sutures Anaphylaxis 11/10/2016 Medications * This document contains information received from the source organization and may not represent a complete record from that organization. aspirin(ECOTRI N LOW STRENGTH 81 MG TAB) Take one(1) tablet daily. 0 01/18/20 09 Active sertraline hcl(ZOLOFT 50 MG TAB) Take 25 mg by mouth once daily. 0 01/18/20 09 Active ESZOPICLONE 3 MG TAB Take 1 tablet at bedtime 0 01/18/20 09 Active IBUPROFEN 200 MG TAB Take 1-2 tablet's) every four(4) to six(6) hours as needed for pain. 0 05/22/20 09 Active docusate sodium (COLACE) 100 mg capsule Take 1 capsule by mouth three times daily as needed for Constipation. 100 capsule 06/17/20 18 Active Additional Information Patient not taking.Reason: Other, Reported on 04/11/2025 metoprolol succinate ER (TOPROL XL) 25 mg 24 hr tablet Take 50 mg by mouth two times a day. 12/03/19 Active famotidine (PEPCID) 20 mg tablet Take 20 mg by mouth twice daily. 03/09/20 Active cyanocobalamin 1,000 mcg/mL inject 1 milliliter ( 1000 MCG ) intramuscularly Every Month 03/21/20 Active nitroglycerin sublingual (NITROQUICK) 0.4 mg SL tablet 1 under the tongue as needed for angina, may repeat q5mins for up three doses 08/01/20 Active rosuvastatin (CRESTOR) 5 mg tablet take 1 tablet by mouth once daily 09/03/20 Active sAXagliptin (ONGLYZA) 2.5 mg tab Take 2.5 mg by mouth. Active sucralfate (CARAFATE) 1 gram tablet Take 1 g by mouth four times daily. 02/14/20 Active traMADol (ULTRAM) 50 mg tablet Take 50 mg by mouth every 6 hours as needed. 01/01/20 Active Cholecalcifero l, Vitamin D3, (VITAMIN D) 25 mcg (1,000 unit) capIndications :Myelopathy (HCC) Take 1 capsule by mouth once daily. 07/04/20 22 Active Additional Information Patient not taking.Reason: Other, Reported on 04/11/2025 cyclobenzaprin e (FLEXERIL) 10 mg tablet Take 10 mg by mouth. Active levothyroxine (SYNTHROID) 75 mcg tablet Take 75 mcg by mouth once daily. Active iv contrast (will be provided with radiology test) MRI Brain Inject, intravenously, once for 1 dose.No IV access, insert saline lock prior to beginning of sedation, infusion, injection of imaging exam.Discontinue saline lock post exam. If Pt. 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 Date Type Department Care Team Description 04/11/2025 2:30 PM EDT Office Visit [facility] [place] [id number] Yamilet Gallego PA-C CSF leak (Primary Dx) 04/11/2025 Travel 04/07/2025 Patient [facility] [address] [address] Yamilet Gallego PA-C Upcoming Appointment 04/07/2025 Telephone [place] [phone] Self Triage (Care Everywhere Updated/) 03/28/2025 Patient [facility] [address] [address] Jeovanny Gutierrez MD Appointment Request 03/28/2025 Patient [facility] [address] [address] Jeovanny Gutierrez MD Appointment Request from Last 3 Months Family History Medical History Relation Comments Ischemic Heart Disease Brother 1 at a ge 49 Ischemic Heart Disease Brother 2 Diabetes Brother 3 black lung Father Alzheimer's Disease Mother Colon Cancer Mother Diabetes Mother Ischemic Heart Disease Mother Stroke Mother MS Other 2 nieces, 2 guerrero rnal aunts, maternal cousin Alzheimer's Disease Sister Relation Status Comments Brother 1 Brother 2 Brother 3 Father Mother Other Sister Social History Tobacco Use Types Packs/Day Years Used Date Smoking Tobacco: Former Cigarettes Q uit: 09/07/1999 Smokeless Tobacco: Never Tobacco Cessation:Counseling Given: Not Answered Comments:Quit 9 years ago Alcohol Use Standard Drinks/Week Comments Yes 3 (1 standard drink = 0.6 oz pur e alcohol) PHQ-2 Answer Date Recorded PHQ-2 score 2 12/20/2024 Area Deprivation Index Answer Date Isai rded National Score (1-100), lower number is lower ri sk 68 03/24/2023 State Score (1-10), lower number is lower risk 5 03/24/2023 Data from: https://www.neighborhoodatlas.medicine.[facility].edu/. 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 Not on file Not on file Not on file Last Filed Vital Signs Vital Sign Reading [...] Mass Index 24.29 04/11/2025 2:37 PM EDT Plan of Treatment Health Maintenance Due Date Last Done Comments Anxiety Screening 1968 Depression Screening 1968 Hepatitis C Screening 1968 DTaP,Tdap,Td Vaccine (1 - Tdap) [address] Colonography 1995 Cologuard (FIT-DNA) 1995 Colonoscopy 1995 Colorectal Cancer Screening 1995 Fecal Occult Blood 1995 Sigmoidoscopy 1995 Pneumococcal Vaccine: 50+ (1 of 1 - PCV) 2000 Shingrix Vaccine (1 of 2) 2000 Bone Density Screening 2015 Advance Directive Discussion 09/07/2024 Medicare Advantage Annual We llness Visit 09/07/2024 Influenza Vaccine (#1) 2025 RSV Vaccine (1 - 1-dose 75+ series) 2025 Diabetes Screening 03/15/2027 03/15/2024, 0 05/19/2023, 09/24/2022, Additional history exists Lipid Screening 05/19/2028 05/19/2023, 04/23/2021 Insurance [facility] MEDICARE ADVANTAGE HMO Care Teams Drafter Mechanical Relationship Specialty Start Date End Date Wilner Soto MD PCP - General 11/13/06 Lam Mcclendon MD Referring Neurology 04/13/20 Aruna Keyes YARN MERCERIZER OPERATOR [address] [place] [address] Referring Internal Medicine 10/26/23
--- OUTSIDE RECORDS SUMMARY | 2025-04-13 14:51 | XMS_ITS | Encounter Summary ---
Author Organization [facility] Address [facility] [place] [address] Care Team Providers Care Java J2Ee Application Developer Name Role Phone Wilner Soto MD Primary Care Provider [phone] Lam Mcclendon MD Unavailable Aruna Keyes JOURNEYMAN PRESS OPERATOR Unavailable [phone] Source Comments In the event this information is protected by the Federal Confidentiality of Alcohol and Drug AbusePatient Records regulations: The Federal rules restrict any use of the information to criminally investigate or prosecute any alcohol or drug abuse patient.[facility] Encounter Details Date Type Department Care Team (Latest Contact Info) Description 04/11/2025 Travel Social History Tobacco Use Types Packs/Day Years [...] is lower risk 5 03/24/2023 Data from: https://www.[facility]idence hospitalatlas.[facility]/. 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 Not on file Not on file Not on file documented as of this encounter Functional Status * Are you deaf or do you have serious difficulty hearing? Answer Date of Assessment Author No 06/18/2018 11:03 AM Nancy Bañuelos (Rn)(Hist), RN * Are you blind or do you have serious difficulty seeing, even when wearing glasses? Answer Date of Assessment Author No 06/18/2018 11:03 AM Nancy Bañuelos (Rn)(Hist), RN * Do you have serious difficulty walking or climbing stairs? Answer Date of Assessment Author No 06/18/2018 11:03 AM Nancy Bañuelos (Rn)(Hist), RN * Do you have difficulty dressing or bathing? Answer Date of Assessment Author No 06/18/2018 11:03 AM Nancy Bañuelos (Rn)(Hist), RN * Because of a physical, mental, or emotional condition, do you have difficulty doing errands alone such as visiting a doctor's office or shopping? Answer Date of Assessment Author No 06/18/2018 11:03 AM Nancy Bañuelos (Rn)(Hist), RN documented as of this encounter Mental Status * Because of a physical, mental, or emotional condition, do you have serious difficulty concentrating, remembering, or making decisions? Answer Entry Date Author No 06/18/2018 11:03 AM Nancy Bañuelos (Rn)(Hist), RN documented in this encounter Plan of Treatment Not on file documented as of this encounter Visit Diagnoses Not on filedocumented in this encounter Care Teams Java J2Ee Application Developer Relationship Specialty Start Date End Date Wilner Soto MD PCP - General 11/13/06 Lam Mcclendon MD Referring Neurology 04/13/20 Aruna Keyes JOURNEYMAN PRESS OPERATOR [address] [place] [address] Referring Internal Medicine 10/26/23 documented as of this encounter
--- OUTSIDE RECORDS SUMMARY | 2025-04-13 14:51 | XMS_ITS | Encounter Summary ---
Author Organization [facility] Address [facility] [place] [address] Care Team Providers Care Crop Farm Workers Name Role Phone Wilner Soto MD Primary Care Provider [phone] Lam Mcclendon MD Unavailable Aruna Keyes BRAIN WAVE TECHNICIAN Unavailable [phone] Source Comments In the event this information is protected by the Federal Confidentiality of Alcohol and Drug AbusePatient Records regulations: The Federal rules restrict any use of the information to criminally investigate or prosecute any alcohol or drug abuse patient.[facility] Reason for Visit * Reason Comments Triage Care Everywhere Ashley kerr Encounter Details Date Type Department Care Team (Late st Contact Info) Description 04/07/2025 Telephone [facility] [address] [id number] Self Triage (Care Everywhere Updated/) Social History Tobacco Use Types Packs/Day Years [...] is lower risk 5 03/24/2023 Data from: https://www.neighborhoodatlas.medicine.[facility]/. 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 Not on file Not on file Not on file documented as of this encounter Functional Status * Are you deaf or do you have serious difficulty hearing? Answer Date of Assessment Author No 06/18/2018 11:03 AM Nancy BañuelosRn)(Hist), RN * Are you blind or do you have serious difficulty seeing, even when wearing glasses? Answer Date of Assessment Author No 06/18/2018 11:03 AM Nancy BañuelosRn)(Hist), RN * Do you have serious difficulty walking or climbing stairs? Answer Date of Assessment Author No 06/18/2018 11:03 AM Nancy BañuelosRn)(Hist), RN * Do you have difficulty dressing or bathing? Answer Date of Assessment Author No 06/18/2018 11:03 AM Nancy BañuelosRn)(Hist), RN * Because of a physical, mental, or emotional condition, do you have difficulty doing errands alone such as visiting a doctor's office or shopping? Answer Date of Assessment Author No 06/18/2018 11:03 AM Nancy BañuelosRn)(Hist), RN documented as of this encounter Mental Status * Because of a physical, mental, or emotional condition, do you have serious difficulty concentrating, remembering, or making decisions? Answer Entry Date Author No 06/18/2018 11:03 AM Nancy BañuelosRn)(Hist), RN documented in this encounter Miscellaneous Notes * Telephone Encounter - Kenny Pappas - 04/10/2025 12:29 PM EDT Patient scheduled by HOANG Thank you Kenny * Telephone Encounter - Lisa Major APRN.CNP - 04/07/2025 1:51 PM EDT Time Frame: First available Provider: Julián/Ankit Referring: Patient/Self Dx: CSF leak Patient: Judith Galeas Address: Judith Galeas [id number] [address] [place] [address] Per Triage: Judith Galeas is a 74 year old female that requests evaluation of possible CSF leak. Patient expectations: New Consult Previous Evaluations: XR CERV OTHER 4V AP/LAT/OBL Order: [id number] Narrative Interpreted By: Luis Turner, STUDY: XR CERVICAL SPINE COMPLETE 4-5 VIEWS; 12/20/2024 10:53 am INDICATION: Signs/Symptoms:neck pain. ACCESSION NUMBER(S): [id number] ORDERING CLINICIAN: LUIS TURNER FINDINGS: AP lateral [...] soft tissue abnormalities. There is no instability. Lumbar and Cervical spine imaging done 11/2024; no report visible. Lisa Major APRN.CNP April 07, 2025 * Telephone Encounter - Leticia Garcia - 04/07/2025 12:12 PM EDT Images from the original note were not included. Images are viewable in EPIC 1. Semiconductors Wafer Breaker: Who is requesting this appointment?patient 2. Semiconductors Wafer Breaker: Please indicate the best contact information for our team to reach you with any questions/concerns we may have? cell 3. Semiconductors Wafer Breaker: What is your diagnosis? Other, spinal fluid leak 4. Semiconductors Wafer Breaker: Have you ever been seen at our center before? No 5. Semiconductors Wafer Breaker: Is there a specific doctor you were referred to? No 6. Semiconductors Wafer Breaker: What facility and/or hospital have you been seen at? [facility] Name of facility/name of provider where patient was treated. Dr Andrea Ochoa 7. Semiconductors Wafer Breaker: For this appointment, we will need to request a few records from you. This will help our triage team be able to select the best provider for your treatment. a. Please provide: Most recent MRI- spine/Brain (Semiconductors Wafer Breaker will check CareEverywhere for records). 8. Semiconductors Wafer Breaker: Where was your last imaging completed:[facility] 2024(Ideally should be completedwithin the last six months). 9. Semiconductors Wafer Breaker: Have you had any surgeries pertaining to this appointment? No If yes, please obtain pathology report. 10. Semiconductors Wafer Breaker: Please allow up to 48-72 hours for our triage team to review your records. Once theyreviewed your records, we will be in contact with you. a. Was the patient made aware of the turnaround time? Yes 11. Semiconductors Wafer Breaker: Our department offers virtual visits depending on the provider you are recommended to see and the state that you live in. If able to schedule, would you like a virtual visit?Yes a. If answered yes: Does the patient have MyChart access: Yes If not, then grain miller helper will walk patient through getting access to [facility]. b. If no, Are you interested in 2nd Opinion Consult (If not, please indicate patient refused to schedule at this time and the reason to not proceed with scheduling). 12. Sent to triage pool. (Waiting approval). documented in this encounter Plan of Treatment Not on file documented as of this encounter Visit Diagnoses Diagnosis CSF leak [G96.00]- Primary Other specified disorder of nervous system documented in this encounter Care Teams Crop Farm Workers Relationship Specialty Start Date End Date Wilner Soto MD PCP - General 11/13/06 Lam Mcclendon MD Referring Neurology 04/13/20 Aruna Keyes, BRAIN WAVE TECHNICIAN [address] [place] [address] Referring Internal Medicine 10/26/23 documented as of this encounter
--- OUTSIDE RECORDS SUMMARY | 2025-04-13 14:51 | XMS_ITS | Encounter Summary ---
Author Organization [facility] Address [address] [place] [address] Care Team Providers Care Cigar Head Perforator Name Role Phone Wilner Soto MD Primary Care Provider [phone] Lam Mcclendon MD Unavailable Aruna Keyes MODEL SET ARTIST Unavailable [phone] Source Comments In the event this information is protected by the Federal Confidentiality of Alcohol and Drug AbusePatient Records regulations: The Federal rules restrict any use of the information to criminally investigate or prosecute any alcohol or drug abuse patient.[facility] Encounter Details Date Type Department Care Team (Late st Contact Info) Description 03/28/2025 Patient [facility] [address] [address] Jeovanny Gutierrez MD [facility] [place] [address] Appointment Request Social History Tobacco Use Types Packs/Day Years [...] is lower risk 5 03/24/2023 Data from: https://www.neighborhoodatlas.medicine.[facility]/. 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 Not on file Not [...] Nancy Bañuelos)(Hist), RN documented in this encounter Plan of Treatment Not on file documented as of this encounter Visit Diagnoses Not on filedocumented in this encounter Care Teams Cigar Head Perforator Relationship Specialty Start Date End Date Wilner Soto MD PCP - General 11/13/06 Lam Mcclendon MD Referring Neurology 04/13/20 Aruna Keyes MODEL SET ARTIST [address] [place] [address] Referring Internal Medicine 10/26/23 documented as of this encounter
--- OUTSIDE RECORDS SUMMARY | 2025-04-13 14:51 | XMS_ITS | Encounter Summary ---
Author Organization [facility] Address [address] [place] [address] Care Team Providers Care Sterilizer Machine Operator Name Role Phone Wilner Soto MD Primary Care Provider [phone] Lam Mcclendon MD Unavailable Aruna Keyes ACETONE BUTTON PASTER Unavailable [phone] Source Comments In the event this information is protected by the Federal Confidentiality of Alcohol and Drug AbusePatient Records regulations: The Federal rules restrict any use of the information to criminally investigate or prosecute any alcohol or drug abuse patient.[facility] Encounter Details Date Type Department Care Team (Late st Contact Info) Description 03/28/2025 Patient [facility] [address] [address] Jeovanny Gutierrez MD [facility] [place] [place] [address] Appointment Request Social History Tobacco [...] is lower risk 5 03/24/2023 Data from: https://www.neighborhoodatlas.medicine.[facility]/. 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 Not on file [...] on filedocumented in this encounter Care Teams Sterilizer Machine Operator Relationship Specialty Start Date End Date Wilner Soto MD PCP - General 11/13/06 Lam Mcclendon MD Referring Neurology 04/13/20 Aruna Keyes ACETONE BUTTON PASTER [address] [place] [address] Referring Internal Medicine 10/26/23 documented as of this encounter
--- OUTSIDE RECORDS SUMMARY | 2025-04-13 14:51 | XMS_ITS | Encounter Summary ---
Author Organization [facility] Address [address] [place] [address] Care Team Providers Care Freight Conductor Name Role Phone Wilner Soto MD Primary Care Provider [phone] Lam Mcclendon MD Unavailable Aruna Keyes [facility] Unavailable [phone] Source Comments In the event this information is protected by the Federal Confidentiality of Alcohol and Drug AbusePatient Records regulations: The Federal rules restrict any use of the information to criminally investigate or prosecute any alcohol or drug abuse patient.[facility] Encounter Details Date Type Department Care Team (Late st Contact Info) Description 04/07/2025 Patient Msg [facility] [address] [place] [address] Yamilet Gallego PA-C [address] [place] [address] Upcoming Appointment Social History Tobacco Use Types Packs/Day Years [...] is lower risk 5 03/24/2023 Data from: https://www.neighborhoodatlas.medicine.[facility]/. 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 Not on file Not on file Not on file documented as of this encounter Functional Status * Are you deaf or do you have serious difficulty hearing? Answer Date of Assessment Author No 06/18/2018 11:03 AM Nancy Bañuelos)(Hist), RN * Are you blind or do you have serious difficulty seeing, even when wearing glasses? Answer Date of Assessment Author No 06/18/2018 11:03 AM Nancy Bañuelos)(Hist), RN * Do you have serious difficulty walking or climbing stairs? Answer Date of Assessment Author No 06/18/2018 11:03 AM Nancy Bañuelos)(Hist), RN * Do you have difficulty dressing or bathing? Answer Date of Assessment Author No 06/18/2018 11:03 AM Nancy Bañuelos)(Hist), RN * Because of a physical, mental, or emotional condition, do you have difficulty doing errands alone such as visiting a doctor's office or shopping? Answer Date of Assessment Author No 06/18/2018 11:03 AM Nancy Bañuelos)(Hist), RN documented as of this encounter Mental Status * Because of a physical, mental, or emotional condition, do you have serious difficulty concentrating, remembering, or making decisions? Answer Entry Date Author No 06/18/2018 11:03 AM Nancy Bañuelos)(Hist), RN documented in this encounter Plan of Treatment Not on file documented as of this encounter Visit Diagnoses Not on filedocumented in this encounter Care Teams Freight Conductor Relationship Specialty Start Date End Date Wilner Soto MD PCP - General 11/13/06 Lam Mcclendon MD Referring Neurology 04/13/20 Aruna Keyes CNP [address] [place] [address] Referring Internal Medicine 10/26/23 documented as of this encounter
--- OUTSIDE RECORDS SUMMARY | 2025-04-13 14:52 | XMS_ITS | Encounter Summary ---
Author Organization [facility] Address [address] [place] [address] Care Team Providers Care Landscape Contractor Name Role Phone Wilner Soto MD Unavailable Wilner Soto MD Primary Care Provider [phone] Chato Ochoa MD Primary Care Provider [phone] Encounter Details Date Type Department Care Team (Late st Contact Info) Description 04/01/2023 Abstract [facility] [place] [facility] [address] [facility] [address] [place] [address] Wilner Soto MD [address] [place] [facility] 110 [place] [address] Social History Tobacco Use Types Packs/Day Years Used Date Smoking Tobacco: Former Cigarettes 0.5 32.2 0 09/15/1967 - 12/10/1999 Smokeless Tobacco: Never Humiliation, Afraid, Rape, and Kick questionnair e Answer Date Recorded Within the last year, have y ou been afraid of your partner or ex-partner? No 04/02/2023 Within the last year, have y ou been humiliated or emotionally abused in other ways by your partner or ex-partner? No Within the last year, have y ou been kicked, hit, slapped, or otherwise physically hurt by your partner or ex-partner? No 04/02/2023 Within the last year, have y ou been raped or forced to have any kind of sexual activity by your partner or ex-partner? No 04/02/2023 Social Connection and Isolation Panel [NHANES] A nswer Date Recorded In a typical week, how many times do you talk on the phone with family, friends, or neighbors? Once a week 04/02/2023 How often do you get together with friends or re latives? Once a week 04/02/2023 How often do you attend christian or sikh serv ices? Never 04/02/2023 Do you belong to any clubs o r organizations such as christian groups, unions, fraternal or athletic groups, or school groups? No 04/02/2023 How often do you attend meet ings of the clubs or organizations you belong to? Never 04/02/2023 Are you , , di vorced, , never , or living with a partner? 04/02/2023 AUDIT-C Answer Date Recorded Q1: How often do you have a drink containing alcohol? Never 04/02/2023 Q2: How many drinks containi ng alcohol do you have on a typical day when you are drinking? Patient does not drink Q3: How often do you have si x or more drinks on one occasion? Never 04/02/2023 Overall Financial Resource Strain (CARDIA) Answe r Date Recorded How hard is it for you to pa y for the very basics like food, housing, medical care, and heating? Not hard at all 04/02/2023 [facility] - Occupational Stress Questionnaire Answer Date Recorded Do you feel stress - tense, restless, nervous, or anxious, or unable to sleep at night because your mind is troubled all the time - these days? Very much 04/02/2023 Exercise Vital Sign Answer Date Recorde d On average, how many days pe r week do you engage in moderate to strenuous exercise (like a brisk walk)? 0 days 04/02/2023 On average, how many minutes do you engage in exercise at this level? 0 min 04/02/2023 Hunger Vital Sign Answer Date Recorded Within the past 12 months, y ou worried that your food would run out before you got the money to buy more. Never true 04/02/20 23 Within the past 12 months, t he food you bought just didn't last and you didn't have money to get more. Never true 04/02/2023 PRAPARE - Transportation Answer Date Re corded In the past 12 months, has l ack of transportation kept you from medical appointments or from getting medications? Yes 03/08 In the past 12 months, has l ack of transportation kept you from meetings, work, or from getting things needed for daily living? Yes 04/02/2023 Housing Stability Vital Sign Answer Mark e Recorded In the last 12 months, was t here a time when you were not able to pay the mortgage or rent on time? No 04/02/2023 In the last 12 months, how many places have you lived? 1 04/02/2023 In the last 12 months, was t here a time when you did not have a steady place to sleep or slept in a skilled nursing (including now)? No 04/02/2023 Comments Unknown Sex and Gender Information Value Date Recorded Sex Assigned at Not on file Legal Sex Female 6:59 PM EDT Gender Identity Not on file Sexual Orientation Not on file documented as of this encounter Functional Status * Audit-C Score Answer Date of Assessment Author 0 04/02/2023 11:55 AM EDT Riri Orta LPN * Question Answer Date of Assessment Author Q1: How often do you have a drink containing alcohol? Never 04/02/2023 11:55 AM EDT Riri Orta L PN Q2: How many drinks containing alcohol do you have on a typical day when you are drinking? Patient does not drink 04/02/2023 11:55 AM EDT Riri Orta LPN Q3: How often do you have six or more drinks on one occasion? Never 04/02/2023 11:55 AM EDT Riri Orta L PN documented as of this encounter Plan of Treatment Not on file documented as of this encounter Visit Diagnoses Not on filedocumented in this encounter Care Teams Landscape Contractor Relationship Specialty Start Date End Date Wilner Soto MD [address] [place] [facility] [address] [place] [address] PCP - Mckayla MARTINEZ 09/07/21 10/07/23 Wilner Soto MD [address] [facility] 110 [place] [address] PCP - General Family Medicine 03/24/23 03/15/24 Chato Ochoa MD [address] [place] [address] [address] [place] [address] PCP - General Family Medicine 03/16/24 documented as of this encounter
--- OUTSIDE RECORDS SUMMARY | 2025-04-13 14:52 | XMS_ITS | Encounter Summary ---
Author Organization [facility] Address [address] [place] [address] Care Team Providers Care Ware Tester Name Role Phone Wilner Soto MD Unavailable Wilner Soto MD Primary Care Provider [phone] Chato Ochoa MD Primary Care Provider [phone] Encounter Details Date Type Department Care Team (Late st Contact Info) Description 04/03/2023 Abstract [facility] [place] [facility] [address] [facility] [address] [place] [address] Wilner Soto MD [address] [facility] [address] [place] [address] Social History Tobacco Use Types Packs/Day Years [...] week 04/02/2023 How often do you attend rastafarian or muslim serv ices? Never 04/02/2023 Do you belong to any clubs o r organizations such as rastafarian groups, unions, fraternal or athletic groups, or [...] and heating? Not hard at all 04/02/2023 [facility] Occupat ional Health - Occupational Stress [...] place to sleep or slept in a residential (including now)? No 04/02/2023 Comments Unknown Sex and Gender Information Value Date Recorded Sex Assigned at Not on file Legal Sex Female 6:59 PM EDT Gender Identity Not on file Sexual Orientation Not on file documented as of this encounter Plan of Treatment Not on file documented as of this encounter Visit Diagnoses Not on filedocumented in this encounter Care Teams Ware Tester Relationship Specialty Start Date End Date Wilner Soto MD [address] [facility] [address] [place] [address] PCP - Mckayla MARTINEZ 09/07/21 10/07/23 Wilner Soto MD [address] [facility] [address] [place] [address] PCP - General Family Medicine 03/24/23 03/15/24 Chato Ochoa MD [address] [facility] [address] [place] [address] PCP - General Family Medicine 03/16/24 documented as of this encounter
--- OUTSIDE RECORDS SUMMARY | 2025-04-13 14:52 | XMS_ITS | Encounter Summary ---
Author Organization [facility] Address [address] [place] [address] Care Team Providers Care Java Tech Name Role Phone Wilner Soto MD Unavailable Wilner Soto MD Primary Care Provider [phone] Chato Ochoa MD Primary Care Provider [phone] Reason for Visit * Reason Comments Med Refill Encounter Details Date Type Department Care Team (Late Contact Info) Description 03/31/2023 Refill [facility] [place] [facility] [address] [facility] 110 [place] [address] Wilner Soto MD 112 [facility] 110 [place], [place] [id number] Primary insomnia (Primary Dx) Social History Tobacco Use Types [...] week 04/02/2023 How often do you attend congregational or moravian serv ices? Never 04/02/2023 Do you belong to any clubs o r organizations such as congregational groups, unions, fraternal or athletic groups, or [...] and heating? Not hard at all 04/02/2023 [facility] Occupat ional Health - Occupational Stress [...] Yes 04/02/2023 Housing Stability Vital Sign Answer Mrak e Recorded In the last 12 months, [...] place to sleep or slept in a correction (including now)? No 04/02/2023 Comments Unknown Sex [...] L PN documented as of this encounter Miscellaneous Notes * Telephone Encounter - Esthela Alexander NP - 05/19/2023 11:17 AM EDT Pt discontinued on own * Telephone Encounter - BARBARA Olivas - 03/31/2023 12:57 PM EDT Patient has not been seen in our office in over a year. She can have a 2 week supply of her sleep med. No additional refills until seen. documented in this encounter Plan of Treatment Not on file documented as of this encounter Visit Diagnoses Diagnosis Primary insomnia- Primary Persistent disorder of initiating or maintaining sleep documented in this encounter Care Teams Java Tech Relationship Specialty Start Date End Date Wilner Soto MD [address] [address] PCP - Mckayla MARTINEZ 09/07/21 10/07/23 Wilner Soto MD [address] [address] PCP - General Family Medicine 03/24/23 03/15/24 Chato Ochoa MD [address] [address] PCP - General Family Medicine 03/16/24 documented as of this encounter
--- OUTSIDE RECORDS SUMMARY | 2025-04-13 14:52 | XMS_ITS | Encounter Summary ---
Author Organization [facility] Address [address] [place] [address] Care Team Providers Care Press Writer Name Role Phone Wilner Soto MD Unavailable Wilner Soto MD Primary Care Provider [phone] Chato Ochoa MD Primary Care Provider [phone] Encounter Details Date Type Department Care Team (Late st Contact Info) Description 04/03/2023 Abstract [facility] [place] [facility] [address] [facility] 110 [place] [address] Wilner Soto MD [address] [facility] 110 [place] [address] Social History Tobacco Use Types Packs/Day Years [...] How often do you attend christian or anglican serv ices? Never 04/02/2023 Do you belong [...] and heating? Not hard at all 04/02/2023 [facility] ional [facility] - Occupational Stress [...] place to sleep or slept in a long term (including now)? No 04/02/2023 Comments Unknown Sex and Gender Information Value Date Recorded Sex Assigned at Not on file Legal Sex Female 6:59 PM EDT Gender Identity Not on file Sexual Orientation Not on file documented as of this encounter Plan of Treatment Not on file documented as of this encounter Visit Diagnoses Not on filedocumented in this encounter Care Teams Press Writer Relationship Specialty Start Date End Date Wilner Soto MD [address] [facility] 110 [place] [address] PCP - Mckayla MARTINEZ 09/07/21 10/07/23 Wilner Soto MD [address] [place] [address] [place] [address] PCP - General Family Medicine 03/24/23 03/15/24 Chato Ochoa MD [address] [place] [address] [place] [address] PCP - General Family Medicine 03/16/24 documented as of this encounter
--- OUTSIDE RECORDS SUMMARY | 2025-04-13 14:52 | XMS_ITS | Clinical Summary ---
Author Organization [facility] Address [address] [place] [address] Care Team Providers Care Heel Varnisher Name Role Phone Chato Ochoa MD Primary Care Provider [phone] Allergies Active Allergy Reactions Criticality Noted Date Comments Egg-Derived Products Diarrhea,GI intolerance,Nausea Only Medium 08/25/2014 Promethazine Unknown,Swelling Medium 02/24/2007 Suppository Medications metoprolol succinate XL (Toprol-XL) 25 MG 24 hr tablet Take 25 mg by mouth in the morning. Active aspirin 81 MG EC tablet Take 81 mg by mouth in the morning. Active senna-docusate (Rosy-Colace) 8.6-50 MG tablet Take 1 tablet by mouth Daily as needed for constipation. 09/24/19 23 Active ezetimibe (Zetia) 10 MG tabletIndications: Other hyperlipidemia Take 1 tablet (10 mg) by mouth in the morning. 30 tablet 11 05/20/20 23 Active Zoloft 100 MG tabletIndications: Adjustment disorder with depressed mood Take 1 tablet (100 mg) by mouth 1 (one) time each day at the same time. 360 tablet 06/08/20 23 Active nitroglycerin (Nitrostat) 0.4 MG SL tabletIndications: Chest pain in adult Place 1 tablet (0.4 mg) under the tongue every 5 (five) minutes if needed for chest pain Place 1 tablet (0.4mg) under the tongue at onset of chest pain. May repeat every 5 minutes until relief. If pain persists after 3 tabs in 15 min prompt medical attention is recommended. 90 tablet 1 09/09/19 24 Active Syringe/Needle, Disp, (Luer Lock Safety Syringes) 25G X 1 3 ML miscIndications:Mu scle weakness Use one syringe monthly for cyanocobalamin shot 3 each 3 09/09/19 24 Active Active Problems Problem Noted Date Diagnosed Date Myopathy 07/09/2023 Myalgia 07/07/2023 Adjustment disorder with depressed mood 03/24/20 23 Anxiety state 03/24/2023 Arrest of bone development or growth 03/24/2023 Atherosclerosis of [place] of extremity with intermittent claudication 03/24/2023 Benign essential hypertension 03/24/2023 Brachial plexus lesions 03/24/2023 Carpal tunnel syndrome 03/24/2023 Cervical spondylosis 03/24/2023 Diabetes mellitus 03/24/2023 Diabetic peripheral neuropathy 03/24/2023 Diaphragmatic hernia 03/24/2023 Disorder of kidney and ureter 03/24/2023 Diverticulosis of colon 03/24/2023 Estrogen deficiency 03/24/2023 Frequent falls 03/24/2023 Gait abnormality 03/24/2023 Foot drop, right 03/24/2023 Hyperreflexia 03/24/2023 Insomnia 03/24/2023 Irregular heart rate 03/24/2023 Left hip pain 03/24/2023 Leg weakness, bilateral 03/24/2023 Memory loss 03/24/2023 Migraine with aura, intractable, with status clyde rainosus 03/24/2023 Multiple sclerosis 03/24/2023 Muscle spasm 03/24/2023 Muscle weakness 03/24/2023 Fibromyalgia 03/24/2023 Other forms of chronic ischemic heart disease Paresthesia of skin 03/24/2023 Paroxysmal atrial fibrillation 03/24/2023 Peripheral vascular disease, unspecified 023 Polyneuropathy in diseases classified elsewhere 03/24/2023 Scoliosis 03/24/2023 Shoulder pain, left 03/24/2023 Spinal stenosis 03/24/2023 Stage 3 chronic kidney disease 03/24/2023 Stress reaction 03/24/2023 Palpitations 08/29/2019 PVC (premature ventricular contraction) 08/29/20 19 Hyperlipidemia 02/09/2017 Resolved Problems Problem Noted Date Diagnosed Date Resolved Date Open abdominal wall wound 06/18/2018 Overview (03/24/2023): Added automatically from request for surgery [id number] Family History Medical History Relation Name Comments Alcohol abuse Father Cancer Father Hypertension Father Kidney disease Father Stroke Father Hypertension Mother Relation Name Status Comments Father Mother Social History Tobacco Use Types Packs/Day Years Used Date Smoking Tobacco: Former Cigarettes 0.5 32.2 0 09/15/1967 - 12/10/1999 Smokeless Tobacco: Never Tobacco Cessation:Counseling Given: Not Answered Alcohol Use Standard Drinks/Week Comments Never 0 (1 standard drink = 0.6 oz pure alcohol) Caffeine Intake: 2-3 cups per day Humiliation, Afraid, Rape, and Kick questionnair e [...] How often do you attend congregational or muslim serv ices? Never 04/02/2023 Do [...] and heating? Not hard at all 04/02/2023 PHQ-2 Answer Date Recorded Patient Health Questionnaire-2 Score 0 05/19/2023 [facility] - [facility]ational Stress Questionnaire Answer Date Recorded [...] place to sleep or slept in a longterm (including now)? No 04/02/2023 Comments Unknown Sex and Gender Information Value Date Recorded Sex Assigned at Not on file Legal Sex Female 6:59 PM EDT Gender Identity Not on file Sexual Orientation Not on file Last Filed Vital Signs Vital Sign Reading Time Taken Comments Blood Pressure 144/84 05/19/2023 9:39 AM EDT has not taken any medication this morning Pulse 70 05/19/2023 9:39 AM EDT Temperature 36.4 C (97.6 F) 05/19/2023 9:39 AM EDT Respiratory Rate - - Oxygen Saturation 97% 05/19/2023 9:3 9 AM EDT Inhaled Oxygen Concentration - - Weight 65.6 kg (144 lb 9.6 oz) 02/10/2022 12:00 PM EDT Height 160 cm (5' 3 ) 02/10/2022 12:00 PM EDT Body Mass Index 25.61 02/10/2022 12:00 PM EDT Plan of Treatment Not on file Insurance [employer] Care Teams Heel Varnisher Relationship Specialty Start Date End Date Chato Ochoa MD PCP - General Family Medicine 03/16/24
--- OUTSIDE RECORDS SUMMARY | 2025-04-13 14:52 | XMS_ITS | Encounter Summary ---
Author Organization [facility] Address [address] [place] [address] Care Team Providers Care Beater And Pulper Feeder Name Role Phone Wilner Soto MD Unavailable Wilner Soto MD Primary Care Provider [phone] Chato Ochoa MD Primary Care Provider [phone] Encounter Details Date Type Department Care Team (Late st Contact Info) Description 04/01/2023 Abstract [facility] [place] [facility] [address] [facility] [address] [place] [address] Wilner Soto MD [address] [place] [facility] 110 [place] [address] Social History Tobacco Use Types Packs/Day Years [...] week 04/02/2023 How often do you attend episcopalian or episcopal serv ices? Never 04/02/2023 Do you belong to any clubs o r organizations such as episcopalian groups, unions, fraternal or athletic groups, or [...] and heating? Not hard at all 04/02/2023 [facility] - Occupational [...] on filedocumented in this encounter Care Teams Beater And Pulper Feeder Relationship Specialty Start Date End Date Wilner Soto MD [address] [place] [facility] 110 [place] [address] PCP - Mckayla MARTINEZ 09/07/21 10/07/23 Wilner Soto MD [address] [facility] 110 [place] [address] PCP - General Family Medicine 03/24/23 03/15/24 Chato Ochoa MD [address] [place] [address] [address] [place] [address] PCP - General Family Medicine 03/16/24 documented as of this encounter
--- OUTSIDE RECORDS SUMMARY | 2025-04-13 14:52 | XMS_ITS | Encounter Summary ---
Author Organization [facility] Address [address] [place] [address] Care Team Providers Care Prefitter Name Role Phone Wilner Soto MD Unavailable Wilner Soto MD Primary Care Provider [phone] Chato Ochoa MD Primary Care Provider [phone] Encounter Details Date Type Department Care Team (Late st Contact Info) Description 04/03/2023 Abstract [facility] [place] [facility] [address] [facility] 110 [place] [address] Wilner Soto MD [address] [facility] 110 [place] [address] Social History Tobacco Use Types Packs/Day Years [...] week 04/02/2023 How often do you attend cheondoism or confucianist serv ices? Never 04/02/2023 Do you belong to any clubs o r organizations such as cheondoism groups, unions, fraternal or athletic groups, or [...] and heating? Not hard at all 04/02/2023 [facility] Occupat ional Health - Occupational [...] place to sleep or slept in a penitentiary (including now)? No 04/02/2023 Comments Unknown Sex and Gender Information Value Date Recorded Sex Assigned at Not on file Legal Sex Female 6:59 PM EDT Gender Identity Not on file Sexual Orientation Not on file documented as of this encounter Plan of Treatment Not on file documented as of this encounter Visit Diagnoses Not on filedocumented in this encounter Care Teams Prefitter Relationship Specialty Start Date End Date Wilner Soto MD [address] [facility] 110 [place] [address] PCP - Mckayla MARTINEZ 09/07/21 10/07/23 Wilner Soto MD [address] [place] [address] [place] [address] PCP - General Family Medicine 03/24/23 03/15/24 Chato Ochoa MD [address] [place] [address] [place] [address] PCP - General Family Medicine 03/16/24 documented as of this encounter
--- OUTSIDE RECORDS SUMMARY | 2025-04-13 14:52 | XMS_ITS | Encounter Summary ---
Author Organization [facility] Address [address] [place] [address] Care Team Providers Care Rfid Technician Name Role Phone Wilner Soto MD Unavailable iWlner Soto MD Primary Care Provider [phone] Chato Ochoa MD Primary Care Provider [phone] Encounter Details Date Type Department Care Team (Late st Contact Info) Description 03/31/2023 Orders Only [facility] [place] [address] [place] [address] [place] [address] A, Unknown Practice [address] [id number] Social History Tobacco Use Types Packs/Day Years [...] week 04/02/2023 How often do you attend amish or presybeterian serv ices? Never 04/02/2023 Do you belong to any clubs o r organizations such as amish groups, unions, fraternal or athletic groups, or [...] and heating? Not hard at all 04/02/2023 [facility] Occupat ional Health - Occupational [...] place to sleep or slept in a chcf (including now)? No 04/02/2023 Comments Unknown Sex [...] on file documented as of this encounter Procedures Procedure Name Priority Date/Time Associated Diagnosis Comments ELECTROCARDIOGRAM REPORT Routine 023 8:56 AM EDT documented in this encounter Results * Electrocardiogram Report (03/30/2023 8:56 AM EDT) us Unknown Practice A IN CLINIC/BEDSIDE ORDERABLES Final Result documented in this encounter Visit Diagnoses Not on filedocumented in this encounter Care Teams Rfid Technician Relationship Specialty Start Date End Date Wilner Soto MD [address] [address] PCP - Mckayla MARTINEZ 09/07/21 10/07/23 Wilner Soto MD [address] [address] PCP - General Family Medicine 03/24/23 03/15/24 Chato Ochoa MD [address] [address] PCP - General Family Medicine 03/16/24 documented as of this encounter
--- OUTSIDE RECORDS SUMMARY | 2025-04-13 14:52 | XMS_ITS | Encounter Summary ---
Author Organization [facility] Address [address] [place] [address] Care Team Providers Care Leather Worker Name Role Phone Wilner Soto MD Primary Care Provider [phone] Chato Ochoa MD Primary Care Provider [phone] Encounter Details Date Type Department Care Team (Late st Contact Info) Description 10/22/2023 Orders Only [facility] [place] [facility] [address] [place] [address] [place] [address] A, Unknown Practice [address] [id number] Social History Tobacco Use Types Packs/Day Years Used Date Smoking Tobacco: Former Cigarettes 0.5 32.2 0 09/15/1967 - 12/10/1999 Smokeless Tobacco: Never Alcohol Use Standard Drinks/Week Comments Never 0 [...] week 04/02/2023 How often do you attend gnosticism or islam serv ices? Never 04/02/2023 Do you belong to any clubs o r organizations such as gnosticism groups, unions, fraternal or athletic groups, or [...] Recorded Patient Health Questionnaire-2 Score 0 05/19/2023 [facility] - Occupational Stress Questionnaire Answer Date [...] Date/Time Associated Diagnosis Comments ELECTROCARDIOGRAM REPORT Routine 024 9:51 AM EST documented in this encounter Results * Electrocardiogram Report (10/21/2023 9:51 AM EST) us Unknown Practice A IN CLINIC/BEDSIDE ORDERABLES Final Result documented in this encounter Visit Diagnoses Not on filedocumented in this encounter Additional Health Concerns Assessment Noted Time A fall risk assessment has been complete d for the patient 05/19/2023 9:08 AM EDT documented as of this encounter Care Teams Leather Worker Relationship Specialty Start Date End Date Wilner Soto MD [address] [facility] 110 [place] [address] PCP - General Family Medicine 03/24/23 03/15/24 Chato Ochoa MD [address] [facility] 110 [place] [address] PCP - General Family Medicine 03/16/24 documented as of this encounter
--- OUTSIDE RECORDS SUMMARY | 2025-04-13 14:52 | XMS_ITS | Encounter Summary ---
Author Organization [facility] Address [address] [place] [address] Care Team Providers Care Collections Officer Name Role Phone Wilner Soto MD Unavailable Wilner Soto MD Primary Care Provider [phone] Chato Ochoa MD Primary Care Provider [phone] Encounter Details Date Type Department Care Team (Late st Contact Info) Description 04/03/2023 Orders Only [facility] [place] [address] [place] [address] [place] [address] A, Unknown Practice [address] [id number] Social History Tobacco Use Types Packs/Day Years [...] week 04/02/2023 How often do you attend mosque or latter day serv ices? Never 04/02/2023 Do you belong to any clubs o r organizations such as mosque groups, unions, fraternal or athletic groups, or [...] and heating? Not hard at all 04/02/2023 [facility] Occupat ional Health - Occupational [...] place to sleep or slept in a care home (including now)? No 04/02/2023 Comments Unknown Sex and Gender Information Value Date Recorded Sex Assigned at Not on file Legal Sex Female 6:59 PM EDT Gender Identity Not on file Sexual Orientation Not on file documented as of this encounter Plan of Treatment Not on file documented as of this encounter Procedures Procedure Name Priority Date/Time Associated Diagnosis Comments SCANNED LABS Routine 09/08/2012 11:00 AM EST documented in this encounter Results * SCANNED LABS (09/08/2012 11:00 AM EST) us Unknown Practice A LAB CHG PERFORMABLES Final Re sult documented in this encounter Visit Diagnoses Not on filedocumented in this encounter Care Teams Collections Officer Relationship Specialty Start Date End Date Wilner Soto MD [address] [place] [address] PCP - Mckayla MARTINEZ 09/07/21 10/07/23 Wilner Soto MD [address] [facility] [address] [place] [address] PCP - General Family Medicine 03/24/23 03/15/24 Chato Ochoa MD [address] [facility] [address] [place] [address] PCP - General Family Medicine 03/16/24 documented as of this encounter
--- OUTSIDE RECORDS SUMMARY | 2025-04-13 14:52 | XMS_ITS | Encounter Summary ---
Author Organization [facility] Address [address] [place] [address] Care Team Providers Care Ceramics Test Engineer Name Role Phone Wilner Soto MD Unavailable Wilner Soto MD Primary Care Provider [phone] Chato Ochoa MD Primary Care Provider [phone] Encounter Details Date Type Department Care Team (Late st Contact Info) Description 04/03/2023 Abstract [facility] [place] [facility] [address] [facility] 110 [place] [address] Wilner Soto MD [address] [facility] 110 [place] [address] Social History Tobacco Use Types Packs/Day Years [...] week 04/02/2023 How often do you attend religious or denominational serv ices? Never 04/02/2023 Do you belong to any clubs o r organizations such as religious groups, unions, fraternal or athletic groups, or [...] and heating? Not hard at all 04/02/2023 [facility] of Occupat ional Health - [...] place to sleep or slept in a detention (including now)? No 04/02/2023 Comments Unknown Sex and Gender Information Value Date Recorded Sex Assigned at Not on file Legal Sex Female 6:59 PM EDT Gender Identity Not on file Sexual Orientation Not on file documented as of this encounter Plan of Treatment Not on file documented as of this encounter Visit Diagnoses Not on filedocumented in this encounter Care Teams Ceramics Test Engineer Relationship Specialty Start Date End Date Wilner Soto MD [address] [facility] 110 [place] [address] PCP - Mckayla MARTINEZ 09/07/21 10/07/23 Wilner Soto MD [address] [place] [address] [place] [address] PCP - General Family Medicine 03/24/23 03/15/24 Chato Ochoa MD [address] [place] [address] [place] [address] PCP - General Family Medicine 03/16/24 documented as of this encounter
--- OUTSIDE RECORDS SUMMARY | 2025-04-13 14:52 | XMS_ITS | Encounter Summary ---
Author Organization [facility] Address [address] [place] [address] Care Team Providers Care Hotel Clerk Name Role Phone Wilner Soto MD Unavailable Wilner Soto MD Primary Care Provider [phone] Chato Ochoa MD Primary Care Provider [phone] Encounter Details Date Type Department Care Team (Late st Contact Info) Description 04/03/2023 Abstract [facility] [place] [facility] [address] [facility] 110 [place] [address] Wilner Soto MD [address] [facility] 110 [place] [address] Social History Tobacco Use Types Packs/Day Years [...] week 04/02/2023 How often do you attend spiritism or uatsdin serv ices? Never 04/02/2023 Do you belong to any clubs o r organizations such as spiritism groups, unions, fraternal or athletic groups, or [...] and heating? Not hard at all 04/02/2023 [facility] of Occupat ional Health - Occupational [...] on filedocumented in this encounter Care Teams Hotel Clerk Relationship Specialty Start Date End Date Wilner Soto MD [address] [facility] [address] [place] [address] PCP - Mckayla MARTINEZ 09/07/21 10/07/23 Wilner Soto MD [address] [place] [address] [place] [address] PCP - General Family Medicine 03/24/23 03/15/24 Chato Ochoa MD [address] [place] [address] [place] [address] PCP - General Family Medicine 03/16/24 documented as of this encounter
--- OUTSIDE RECORDS SUMMARY | 2025-04-13 14:52 | XMS_ITS | Encounter Summary ---
Author Organization [facility] Address [address] [place] [address] Care Team Providers Care Cocoa Press Operator Name Role Phone Wilner Soto MD Unavailable Wilner Soto MD Primary Care Provider [phone] Chato Ochoa MD Primary Care Provider [phone] Encounter Details Date Type Department Care Team (Late st Contact Info) Description 04/03/2023 Abstract [facility] [place] [facility] [address] [place] [address] [place] [address] Wilner Soto MD [address] [facility] 110 [place] [address] Social History Tobacco Use Types Packs/Day Years [...] week 04/02/2023 How often do you attend religion or baptist serv ices? Never 04/02/2023 Do you belong to any clubs o r organizations such as religion groups, unions, fraternal or athletic groups, or [...] and heating? Not hard at all 04/02/2023 [facility] of Occupat ional Health - Occupational [...] place to sleep or slept in a jail (including now)? No 04/02/2023 Comments Unknown Sex and Gender Information Value Date Recorded Sex Assigned at Not on file Legal Sex Female 6:59 PM EDT Gender Identity Not on file Sexual Orientation Not on file documented as of this encounter Plan of Treatment Not on file documented as of this encounter Visit Diagnoses Not on filedocumented in this encounter Care Teams Cocoa Press Operator Relationship Specialty Start Date End Date Wilner Soto MD [address] [facility] 110 [place] [address] PCP - Mckayla MARTINEZ 09/07/21 10/07/23 Wilner Soto MD [address] [place] [address] [place] [address] PCP - General Family Medicine 03/24/23 03/15/24 Chato Ochoa MD [address] [place] [address] [place] [address] PCP - General Family Medicine 03/16/24 documented as of this encounter
--- OUTSIDE RECORDS SUMMARY | 2025-04-13 14:52 | XMS_ITS | Encounter Summary ---
Author Organization [facility] Address [address] [place] [address] Care Team Providers Care Logistics Solution Manager Name Role Phone Wilner Soto MD Unavailable Wilner Soto MD Primary Care Provider [phone] Chato Ochoa MD Primary Care Provider [phone] Encounter Details Date Type Department Care Team (Late st Contact Info) Description 04/03/2023 Abstract [facility] [place] [facility] [address] [facility] 110 [place] [address] Wilner Soto MD [address] [facility] 110 [place] [address] Social History Tobacco Use Types Packs/Day Years [...] week 04/02/2023 How often do you attend jewish or roman catholic serv ices? Never 04/02/2023 Do you belong to any clubs o r organizations such as jewish groups, unions, fraternal or athletic groups, or [...] place to sleep or slept in a custodial (including now)? No 04/02/2023 Comments Unknown Sex and Gender Information Value Date Recorded Sex Assigned at Not on file Legal Sex Female 6:59 PM EDT Gender Identity Not on file Sexual Orientation Not on file documented as of this encounter Plan of Treatment Not on file documented as of this encounter Visit Diagnoses Not on filedocumented in this encounter Care Teams Logistics Solution Manager Relationship Specialty Start Date End Date Wilner Soto MD [address] [facility] 110 [place] [address] PCP - Mckayla MARTINEZ 09/07/21 10/07/23 Wilner Soto MD [address] [place] [address] [place] [address] PCP - General Family Medicine 03/24/23 03/15/24 Chato Ochoa MD [address] [place] [address] [place] [address] PCP - General Family Medicine 03/16/24 documented as of this encounter
--- OUTSIDE RECORDS SUMMARY | 2025-04-13 14:52 | XMS_ITS | Encounter Summary ---
Author Organization [facility] Address [address] [place] [address] Care Team Providers Care Wildlife Ecology Professor Name Role Phone Wilner Soto MD Unavailable Wilner Soto MD Primary Care Provider [phone] Chato Ochoa MD Primary Care Provider [phone] Encounter Details Date Type Department Care Team (Late st Contact Info) Description 06/08/2023 Abstract [facility] [place] [facility] [address] [facility] 110 [place] [address] Wilner Soto MD 112 [facility] 110 [place] [address] Social History Tobacco Use Types Packs/Day Years [...] week 04/02/2023 How often do you attend gnosticist or judaism serv ices? Never 04/02/2023 Do you belong to any clubs o r organizations such as gnosticist groups, unions, fraternal or athletic groups, or [...] Recorded Patient Health Questionnaire-2 Score 0 05/19/2023 [facility] - Occupational Stress Questionnaire Answer Date [...] place to sleep or slept in a senior living (including now)? No 04/02/2023 Comments Unknown Sex and Gender Information Value Date Recorded Sex Assigned at Not on file Legal Sex Female 6:59 PM EDT Gender Identity Not on file Sexual Orientation Not on file COVID-19 Exposure Response Date Recorded In the last 10 days, have yo u been in contact with someone who was confirmed or suspected to have Coronavirus/COVID-19? No / Unsure 05/19/2023 9:20 AM EDT documented as of this encounter Plan of Treatment Not on file documented as of this encounter Visit Diagnoses Not on filedocumented in this encounter Additional Health Concerns Assessment Noted Time A fall risk assessment has been complete d for the patient 05/19/2023 9:08 AM EDT documented as of this encounter Care Teams Wildlife Ecology Professor Relationship Specialty Start Date End Date Wilner Soto MD 112 [place] [facility] 110 [place] [address] PCP - Mckayla MARTINEZ 09/07/21 10/07/23 Wilner Soto MD [address] [facility] 110 [place] [address] PCP - General Family Medicine 03/24/23 03/15/24 Chato Ochoa MD [address] [place] [id number] PCP - General Family Medicine 03/16/24 documented as of this encounter
--- OUTSIDE RECORDS SUMMARY | 2025-04-13 14:52 | XMS_ITS | Encounter Summary ---
Author Organization [facility] Address [address] [place] [address] Care Team Providers Care System Developer Associate Manager Name Role Phone Wilner Soto MD Unavailable Wilner Soto MD Primary Care Provider [phone] Chato Ochoa MD Primary Care Provider [phone] Encounter Details Date Type Department Care Team (Late st Contact Info) Description 04/03/2023 Abstract [facility] [place] [facility] [address] [facility] 110 [place] [address] Wilner Soto MD [address] [place] [facility] 110 [place] [address] Social History Tobacco Use Types Packs/Day Years [...] week 04/02/2023 How often do you attend hoahaoism or orthodox serv ices? Never 04/02/2023 Do you belong to any clubs o r organizations such as hoahaoism groups, unions, fraternal or athletic groups, or [...] and heating? Not hard at all 04/02/2023 [facility] of Occupat ional Health - Occupational Stress [...] place to sleep or slept in a fci (including now)? No 04/02/2023 Comments Unknown Sex and Gender Information Value Date Recorded Sex Assigned at Not on file Legal Sex Female 6:59 PM EDT Gender Identity Not on file Sexual Orientation Not on file documented as of this encounter Plan of Treatment Not on file documented as of this encounter Visit Diagnoses Not on filedocumented in this encounter Care Teams System Developer Associate Manager Relationship Specialty Start Date End Date Wilner Soto MD [address] [facility] 110 [place] [address] PCP - Mckayla MARTINEZ 09/07/21 10/07/23 Wilner Soto MD [address] [place] [address] [place] [address] PCP - General Family Medicine 03/24/23 03/15/24 Chato Ochoa MD [address] [place] [address] [place] [address] PCP - General Family Medicine 03/16/24 documented as of this encounter
--- OUTSIDE RECORDS SUMMARY | 2025-04-13 14:52 | XMS_ITS | Encounter Summary ---
Author Organization [facility] Address [address] [place] [address] Care Team Providers Care Kerfer Machine Operator Name Role Phone Wilner oSto MD Unavailable Wilner Soto MD Primary Care Provider [phone] Chato Ochoa MD Primary Care Provider [phone] Encounter Details Date Type Department Care Team (Late st Contact Info) Description 04/01/2023 Abstract [facility] [place] [facility] [address] [facility] 110 [place] [address] Wilner Soto MD [address] [facility] 110 [place] [address] Social History Tobacco Use Types Packs/Day Years [...] How often do you attend rastafarian or sabianist serv ices? Never 04/02/2023 Do you belong [...] and heating? Not hard at all 04/02/2023 [facility] of Occupat ional Health - Occupational [...] place to sleep or slept in a snf (including now)? No 04/02/2023 Comments Unknown Sex [...] on filedocumented in this encounter Care Teams Kerfer Machine Operator Relationship Specialty Start Date End Date Wilner Soto MD [address] [facility] 110 [place] [address] PCP - Mckayla MARTINEZ 09/07/21 10/07/23 Wilner Soto MD [address] [facility] 110 [place] [address] PCP - General Family Medicine 03/24/23 03/15/24 Chato Ochoa MD [address] [place] [address] 110 [place] [address] PCP - General Family Medicine 03/16/24 documented as of this encounter
--- OUTSIDE RECORDS SUMMARY | 2025-04-13 14:52 | XMS_ITS | Encounter Summary ---
Author Organization [facility] Address [address] [place] [address] Care Team Providers Care Dramatic Arts Historian Name Role Phone Wilner Soto MD Unavailable Wilner Soto MD Primary Care Provider [phone] Chato Ochoa MD Primary Care Provider [phone] Encounter Details Date Type Department Care Team (Late st Contact Info) Description 04/01/2023 Abstract [facility] [place] [facility] [address] [facility] 110 [place] [address] Wilner Soto MD 112 [place] [facility] 110 [place] [address] Social History Tobacco Use Types Packs/Day Years [...] week 04/02/2023 How often do you attend anabaptism or congregational serv ices? Never 04/02/2023 Do you belong to any clubs o r organizations such as anabaptism groups, unions, fraternal or athletic groups, or [...] and heating? Not hard at all 04/02/2023 [facility] of Occupat ional Health - Occupational [...] place to sleep or slept in a retirement (including now)? No 04/02/2023 Comments Unknown Sex [...] on filedocumented in this encounter Care Teams Dramatic Arts Historian Relationship Specialty Start Date End Date Wilner Soto MD 112 [facility] 110 [place] [address] PCP - Mckayla MARTINEZ 09/07/21 10/07/23 Wilner Soto MD [address] [facility] 110 [place] [address] PCP - General Family Medicine 03/24/23 03/15/24 Chato Ochoa MD [address] [place] [address] 110 [place] [address] PCP - General Family Medicine 03/16/24 documented as of this encounter
--- OUTSIDE RECORDS SUMMARY | 2025-04-13 14:52 | XMS_ITS | Encounter Summary ---
Author Organization [facility] Address [address] [place] [address] Care Team Providers Care General Service Technician Name Role Phone Wilner Soto MD Unavailable Wilner Soto MD Primary Care Provider [phone] Chato Ochoa MD Primary Care Provider [phone] Encounter Details Date Type Department Care Team (Late st Contact Info) Description 04/01/2023 Orders Only [facility] [address] [facility] 110 [place] [address] ProviderCaden MD [address] [place] [address] Social History Tobacco Use Types Packs/Day Years [...] week 04/02/2023 How often do you attend pentecostal or temple serv ices? Never 04/02/2023 Do you belong to any clubs o r organizations such as pentecostal groups, unions, fraternal or athletic groups, or [...] heating? Not hard at all 04/02/2023 [facility] of Occupat ional Health [...] place to sleep or slept in a half-way (including now)? No 04/02/2023 Comments Unknown Sex [...] Date/Time Associated Diagnosis Comments SCANNED LABS Routine 03/17/2013 2:55 PM EDT X-RAY Routine 03/07/2013 3:22 PM EDT SCANNED LABS Routine 10/16/2012 3:27 PM EST documented in this encounter Results * SCANNED LABS (03/17/2013 2:55 PM EDT) us Unknown Practice A LAB CHG PERFORMABLES Final Re sult * X-RAY (03/07/2013 3:22 PM EDT) Anatomical Region Laterality Modality Radiographic Suzanne ging us Unknown Practice A IMG XR PROCEDURES Final Resul t * SCANNED LABS (10/16/2012 3:27 PM EST) us Unknown Practice A LAB CHG PERFORMABLES Final Re sult documented in this encounter Visit Diagnoses Not on filedocumented in this encounter Care Teams General Service Technician Relationship Specialty Start Date End Date Wilner Soto MD [address] [address] PCP - Mckayla MARTINEZ 09/07/21 10/07/23 Wilner Soto MD [address] [address] PCP - General Family Medicine 03/24/23 03/15/24 Chato Ochoa MD [address] [address] PCP - General Family Medicine 03/16/24 documented as of this encounter
--- OUTSIDE RECORDS SUMMARY | 2025-04-13 14:52 | XMS_ITS | Encounter Summary ---
Author Organization [facility] Address [address] [place] [address] Care Team Providers Care Transit Bus Driver Name Role Phone Wilner Soto MD Unavailable Wilner Soto MD Primary Care Provider [phone] Chato Ochoa MD Primary Care Provider [phone] Encounter Details Date Type Department Care Team (Late st Contact Info) Description 04/01/2023 Abstract [facility] [place] [facility] [address] [facility] 110 [place] [address] Wilner Soto MD 112 [place] [facility] 110 [place] [address] Social History Tobacco Use Types Packs/Day Years [...] week 04/02/2023 How often do you attend yarsanism or jew serv ices? Never 04/02/2023 Do you belong to any clubs o r organizations such as yarsanism groups, unions, fraternal or athletic groups, or [...] and heating? Not hard at all 04/02/2023 [facility] of Occupat ional Health - Occupational Stress [...] on filedocumented in this encounter Care Teams Transit Bus Driver Relationship Specialty Start Date End Date Wilner Soto MD 112 [place] [facility] 110 [place] [address] PCP - Mckayla MARTINEZ 09/07/21 10/07/23 Wilner Soto MD [address] [facility] 110 [place] [address] PCP - General Family Medicine 03/24/23 03/15/24 Chato Ochoa MD [address] [place] [address] 110 [place] [address] PCP - General Family Medicine 03/16/24 documented as of this encounter
--- OUTSIDE RECORDS SUMMARY | 2025-04-13 14:52 | XMS_ITS | Encounter Summary ---
Author Organization [facility] Address [address] [place] [address] Care Team Providers Care Merchandise Support Associate Name Role Phone Wilner Soto MD Unavailable Wilner Soto MD Primary Care Provider [phone] Chato Ochoa MD Primary Care Provider [phone] Encounter Details Date Type Department Care Team (Late st Contact Info) Description 03/26/2023 Abstract [facility] [place] [facility] [address] [facility] 110 [place] [address] Wilner Soto MD 112 [place] [facility] 110 [place] [address] Social History Tobacco Use Types Packs/Day Years Used Date Smoking Tobacco: Former Cigarettes 0.5 32.2 0 09/15/1967 - 12/10/1999 Smokeless Tobacco: Never Comments Unknown Sex and Gender Information Value Date Recorded Sex Assigned at Not on file Legal Sex Female 6:59 PM EDT Gender Identity Not on file Sexual Orientation Not on file documented as of this encounter Plan of Treatment Not on file documented as of this encounter Visit Diagnoses Not on filedocumented in this encounter Care Teams Merchandise Support Associate Relationship Specialty Start Date End Date Wilner Soto MD 112 [place] [facility] 110 [place] [address] PCP - Mckayla MARTINEZ 09/07/21 10/07/23 Wilner Soto MD [address] [address] PCP - General Family Medicine 03/24/23 03/15/24 Chato Ochoa MD [address] [address] PCP - General Family Medicine 03/16/24 documented as of this encounter
--- OUTSIDE RECORDS SUMMARY | 2025-04-13 14:52 | XMS_ITS | Encounter Summary ---
Author Organization [facility] Address [address] [place] [address] Care Team Providers Care Supplier Engineer Name Role Phone Wilner Soto MD Unavailable Wilner Soto MD Primary Care Provider [phone] Chato Ochoa MD Primary Care Provider [phone] Encounter Details Date Type Department Care Team (Late st Contact Info) Description 04/03/2023 Abstract [facility] [place] [facility] [address] [facility] 110 [place] [address] Wilner Soto MD [address] [place] [facility] 110 [place] [address] Social History Tobacco Use Types Packs/Day Years [...] week 04/02/2023 How often do you attend restorationism or latter day serv ices? Never 04/02/2023 Do you belong to any clubs o r organizations such as restorationism groups, unions, fraternal or athletic groups, or [...] and heating? Not hard at all 04/02/2023 [facility] of Occupat ional Health - Occupational Stress [...] on filedocumented in this encounter Care Teams Supplier Engineer Relationship Specialty Start Date End Date Wilner Soto MD [address] [facility] 110 [place] [address] PCP - Mckayla MARTINEZ 09/07/21 10/07/23 Wilner Soto MD [address] [place] [address] [place] [address] PCP - General Family Medicine 03/24/23 03/15/24 Chato Ochoa MD [address] [place] [address] [place] [address] PCP - General Family Medicine 03/16/24 documented as of this encounter
--- OUTSIDE RECORDS SUMMARY | 2025-04-13 14:52 | XMS_ITS | Encounter Summary ---
Author Organization [facility] Address [address] [place] [address] Care Team Providers Care Metal Bumper Name Role Phone Wilner Soto MD Unavailable Wilner Soto MD Primary Care Provider [phone] Chato Ochoa MD Primary Care Provider [phone] Encounter Details Date Type Department Care Team (Late st Contact Info) Description 04/03/2023 Abstract [facility] [place] [facility] [address] [facility] 110 [place] [address] Wilner Soto MD [address] [place] [facility] 110 [place] [address] Social History Tobacco Use Types Packs/Day Years [...] How often do you attend mosque or congregation serv ices? Never 04/02/2023 Do you belong [...] and heating? Not hard at all 04/02/2023 [facility] of Occupat ional Health [...] on filedocumented in this encounter Care Teams Metal Bumper Relationship Specialty Start Date End Date Wilner Soto MD [address] [facility] 110 [place] [address] PCP - Mckayla MARTINEZ 09/07/21 10/07/23 Wilner Soto MD [address] [place] [address] [place] [address] PCP - General Family Medicine 03/24/23 03/15/24 Chato Ochoa MD [address] [place] [address] [place] [address] PCP - General Family Medicine 03/16/24 documented as of this encounter
--- OUTSIDE RECORDS SUMMARY | 2025-04-13 14:52 | XMS_ITS | Encounter Summary ---
Author Organization [facility] Address [address] [place] [address] Care Team Providers Care Kettle Cook Name Role Phone Wilner Soto MD Unavailable Wilner Soto MD Primary Care Provider [phone] Chato Ochoa MD Primary Care Provider [phone] Encounter Details Date Type Department Care Team (Late st Contact Info) Description 04/03/2023 Abstract [facility] [place] [facility] [address] [facility] 110 [place] [address] Wilner Soto MD [address] [place] [facility] 110 [place] [address] Social History Tobacco Use Types Packs/Day Years [...] week 04/02/2023 How often do you attend confucianism or yazidi serv ices? Never 04/02/2023 Do you belong to any clubs o r organizations such as confucianism groups, unions, fraternal or athletic groups, or [...] and heating? Not hard at all 04/02/2023 [facility] of Occupat ional Health - Occupational [...] on filedocumented in this encounter Care Teams Kettle Cook Relationship Specialty Start Date End Date Wilner Soto MD [address] [facility] 110 [place] [address] PCP - Mckayla MARTINEZ 09/07/21 10/07/23 Wilner Soto MD [address] [place] [address] [place] [address] PCP - General Family Medicine 03/24/23 03/15/24 Chato Ochoa MD [address] [place] [address] [place] [address] PCP - General Family Medicine 03/16/24 documented as of this encounter
--- OUTSIDE RECORDS SUMMARY | 2025-04-13 14:52 | XMS_ITS | Encounter Summary ---
Author Organization [facility] Address [address] [place] [address] Care Team Providers Care Geophysical Laboratory Supervisor Name Role Phone Wilner Soto MD Unavailable Wilner Soto MD Primary Care Provider [phone] Chato Ochoa MD Primary Care Provider [phone] Encounter Details Date Type Department Care Team (Late st Contact Info) Description 06/08/2023 Abstract [facility] [place] [facility] [address] [facility] 110 [place] [address] Wilner Soto MD 112 [facility] 110 [place] [address] Social History Tobacco Use Types Packs/Day Years [...] week 04/02/2023 How often do you attend zoroastrian or jain serv ices? Never 04/02/2023 Do you belong to any clubs o r organizations such as zoroastrian groups, unions, fraternal or athletic groups, or [...] Recorded Patient Health Questionnaire-2 Score 0 05/19/2023 [facility] - Occupational Stress Questionnaire Answer Date [...] place to sleep or slept in a alf (including now)? No 04/02/2023 Comments Unknown Sex [...] documented as of this encounter Care Teams Geophysical Laboratory Supervisor Relationship Specialty Start Date End Date Wilner Soto MD [address] [place] [facility] 110 [place] [address] PCP - Mckayla MARTINEZ 09/07/21 10/07/23 Wilner Soto MD [address] [facility] 110 [place] [address] PCP - General Family Medicine 03/24/23 03/15/24 Chato Ochoa MD [address] [place] [id number] PCP - General Family Medicine 03/16/24 documented as of this encounter
--- OUTSIDE RECORDS SUMMARY | 2025-04-13 14:52 | XMS_ITS | Encounter Summary ---
Author Organization [facility] Address [address] [place] [address] Care Team Providers Care Data Processing Manager Name Role Phone Wilner Soto MD Unavailable Wilner Soto MD Primary Care Provider [phone] Chato Ochoa MD Primary Care Provider [phone] Encounter Details Date Type Department Care Team (Late st Contact Info) Description 03/24/2023 Abstract [facility] [place] [facility] [address] [facility] 110 [place] [address] Wilner Soto MD 112 [facility] 110 [place] [address] Social History Tobacco Use Types Packs/Day Years [...] on filedocumented in this encounter Care Teams Data Processing Manager Relationship Specialty Start Date End Date Wilner Soto MD 112 [facility] 110 [place] [address] PCP - Mckayla MARTINEZ 09/07/21 10/07/23 Wilner Soto MD [address] [address] PCP - General Family Medicine 03/24/23 03/15/24 Chato Ochoa MD [address] [address] PCP - General Family Medicine 03/16/24 documented as of this encounter
--- OUTSIDE RECORDS SUMMARY | 2025-04-13 14:52 | XMS_ITS | Encounter Summary ---
Author Organization [facility] Address [address] [place] [address] Care Team Providers Care Wireworker Name Role Phone Wilner Soto MD Unavailable Wilner Soto MD Primary Care Provider [phone] Chato Ochoa MD Primary Care Provider [phone] Encounter Details Date Type Department Care Team (Late st Contact Info) Description 03/30/2023 Orders Only [facility] [address] [place] 110 [place] [address] A, Unknown Practice [address] [place] [id number] Social History Tobacco Use Types Packs/Day Years [...] week 04/02/2023 How often do you attend yarsani or anabaptist serv ices? Never 04/02/2023 Do you belong to any clubs o r organizations such as yarsani groups, unions, fraternal or athletic groups, or [...] and heating? Not hard at all 04/02/2023 [facility] of Occupat ional Health - Occupational [...] place to sleep or slept in a mcc (including now)? No 04/02/2023 Comments Unknown Sex [...] containing alcohol? Never 04/02/2023 11:55 AM EDT iRri Orta L PN Q2: How many drinks [...] Procedure Name Priority Date/Time Associated Diagnosis Comments CT ABDOMEN & PELVIS WO Routine 03/30/2023 3:22 PM EDT documented in this encounter Results * CT ABDOMEN & PELVIS WO (03/30/2023 3:22 PM EDT) Anatomical Region Laterality Modality Radiographic Suzanne ging us Unknown Practice A IMG XR PROCEDURES Final Resul t documented in this encounter Visit Diagnoses Not on filedocumented in this encounter Care Teams Wireworker Relationship Specialty Start Date End Date Wilner Soto MD [address] [facility] 110 [place] [address] PCP - Mckayla MARTINEZ 09/07/21 10/07/23 Wilner Soto MD [address] [facility] 110 [place] [address] PCP - General Family Medicine 03/24/23 03/15/24 Chato Ochoa MD [address] [facility] 110 [place] [address] PCP - General Family Medicine 03/16/24 documented as of this encounter
--- OUTSIDE RECORDS SUMMARY | 2025-04-13 14:53 | XMS_ITS | Encounter Summary ---
Author Organization [facility] Address [address] [place] [address] Care Team Providers Care Nipple Maker Name Role Phone Wilner Soto MD Primary Care Provider [phone] Lam Mcclendon MD Unavailable Aruna Keyes EVENT PLANNING MANAGER Unavailable [phone] Source Comments In the event this information is protected by the Federal Confidentiality of Alcohol and Drug AbusePatient Records regulations: The Federal rules restrict any use of the information to criminally investigate or prosecute any alcohol or drug abuse patient.[facility] Encounter Details Date Type Department Care Team (Late st Contact Info) Description 01/06/2025 Patient Msg Neurological [place] [address] [id number] Provider, [facility] Social History Tobacco Use Types Packs/Day Years [...] lower risk 5 03/24/2023 Data from: https://www.neighborhoodatlas.medicine.[facility].edu/. 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 Not on file Not [...] Nancy BañuelosRn)(Hist), RN documented in this encounter Plan of Treatment Not on file documented as of this encounter Visit Diagnoses Not on filedocumented in this encounter Care Teams Nipple Maker Relationship Specialty Start Date End Date Wilner Soto MD PCP - General 11/13/06 Lam Mcclendon MD Referring Neurology 04/13/20 Aruna Keyes, EVENT PLANNING MANAGER [facility] [place] [address] Referring Internal Medicine 10/26/23 documented as of this encounter
--- OUTSIDE RECORDS SUMMARY | 2025-04-13 14:53 | XMS_ITS | Encounter Summary ---
Author Organization [facility] Address [facility] [place] [address] Care Team Providers Care Tool Drawing Checker Name Role Phone Wilner Soto MD Primary Care Provider [phone] Lam Mcclendon MD Unavailable Aruna Keyes FAST FOOD COOK Unavailable [phone] Source Comments In the event this information is protected by the Federal Confidentiality of Alcohol and Drug AbusePatient Records regulations: The Federal rules restrict any use of the information to criminally investigate or prosecute any alcohol or drug abuse patient.[facility] Encounter Details Date Type Department Care Team (Late st Contact Info) Description 11/26/[address] [facility] [address] [id number] Provider, Ccf Appointment Cancellation Social History Tobacco Use Types Packs/Day Years Used Date Smoking Tobacco: Former Cigarettes Q uit: 09/07/1999 Smokeless Tobacco: Never Comments:Quit 9 years ago Alcohol Use Standard Drinks/Week Comments Yes 3 (1 standard drink = 0.6 oz pur e alcohol) PHQ-2 Answer Date Recorded PHQ2 Score 0 06/17/2018 Area Deprivation Index Answer Date Isai rded National Score (1-100), lower number is lower ri sk 67 09/23/2022 State Score (1-10), lower number is lower risk N ot on file 09/23/2022 Data from: https://www.neighborhoodatlas.medicine.[facility]/. 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 Not on file [...] on filedocumented in this encounter Care Teams Tool Drawing Checker Relationship Specialty Start Date End Date Wilner Soto MD PCP - General 11/13/06 Lam Mcclendon MD Referring Neurology 04/13/20 Aruna Keyes FAST FOOD COOK [address] [place] [address] Referring Internal Medicine 10/26/23 documented as of this encounter
--- OUTSIDE RECORDS SUMMARY | 2025-04-13 14:53 | XMS_ITS | Encounter Summary ---
Author Organization [facility] Address [address] [place] [address] Care Team Providers Care Food Processing Plant Manager Name Role Phone Wilner Soto MD Unavailable Wilner Soto MD Primary Care Provider [phone] Chato Ochoa MD Primary Care Provider [phone] Encounter Details Date Type Department Care Team (Late st Contact Info) Description 03/24/2023 Abstract [facility] [address] [facility] [address] [place] [address] Wilner Soto MD [address] [facility] [address] [place] [address] Social History Tobacco Use Types Packs/Day Years [...] on filedocumented in this encounter Care Teams Food Processing Plant Manager Relationship Specialty Start Date End Date Wilner Soto MD [address] [facility] [address] [place] [address] PCP - Mckayla MARTINEZ 09/07/21 10/07/23 Wilner Soto MD [address] [address] PCP - General Family Medicine 03/24/23 03/15/24 Chato Ochoa MD [address] [address] PCP - General Family Medicine 03/16/24 documented as of this encounter
--- OUTSIDE RECORDS SUMMARY | 2025-04-13 14:53 | XMS_ITS | Encounter Summary ---
Author Organization [facility] Address [address] [place] [address] Care Team Providers Care Reverse Logistics Analyst Name Role Phone Wilner Soto MD Primary Care Provider [phone] Lam Mcclendon MD Unavailable Aruna Keyes LAMP MECHANIC Unavailable [phone] Source Comments In the event this information is protected by the Federal Confidentiality of Alcohol and Drug AbusePatient Records regulations: The Federal rules restrict any use of the information to criminally investigate or prosecute any alcohol or drug abuse patient.[facility] Encounter Details Date Type Department Care Team (Late st Contact Info) Description 12/02/2024 Patient [facility] [address] [address] Jeovanny Gutierrez MD [facility] [place] [address] Appointment Request Social History Tobacco [...] is lower risk 5 03/24/2023 Data from: https://www.neighborhoodatlas.medicine.[facility]/. 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 Not on file Not [...] on filedocumented in this encounter Care Teams Reverse Logistics Analyst Relationship Specialty Start Date End Date Wilner Soto MD PCP - General 11/13/06 Lam Mcclendon MD Referring Neurology 04/13/20 Aruna eKyes, LAMP MECHANIC [address] [place] [address] Referring Internal Medicine 10/26/23 documented as of this encounter
--- OUTSIDE RECORDS SUMMARY | 2025-04-13 14:53 | XMS_ITS | Encounter Summary ---
Author Organization [facility] Address [address] [place] [address] Care Team Providers Care Electrophysiology Technologist Name Role Phone Wilner Soto MD Primary Care Provider [phone] Lam Mcclendon MD Unavailable Aruna Keyes [facility] Unavailable [phone] Source Comments In the event this information is protected by the Federal Confidentiality of Alcohol and Drug AbusePatient Records regulations: The Federal rules restrict any use of the information to criminally investigate or prosecute any alcohol or drug abuse patient.[facility] Encounter Details Date Type Department Care Team (Late st Contact Info) Description 11/26/2024 Patient Msg Medical Records [address] [place] [address] Provider, Ccf Questionnaire Submission Social History Tobacco Use Types Packs/Day Years Used Date Smoking Tobacco: Former Cigarettes Q uit: 09/07/1999 Smokeless Tobacco: Never Comments:Quit 9 years ago Alcohol Use Standard Drinks/Week Comments Yes 3 (1 standard drink = 0.6 oz pur e alcohol) PHQ-2 Answer Date Recorded PHQ2 Score 0 06/17/2018 Area Deprivation Index Answer Date Isai rded National Score (1-100), lower number is lower ri 68 03/24/2023 State Score (1-10), lower number is lower risk 5 03/24/2023 Data from: https://www.neighborhoodatlas.[facility].edu/. 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 Not on file Not [...] on filedocumented in this encounter Care Teams Electrophysiology Technologist Relationship Specialty Start Date End Date Wilner Soto MD PCP - General 11/13/06 Lam Mcclendon MD Referring Neurology 04/13/20 Aruna Keyes CNP [address] [place] [address] Referring Internal Medicine 10/26/23 documented as of this encounter
--- OUTSIDE RECORDS SUMMARY | 2025-04-13 14:53 | XMS_ITS | Clinical Summary ---
Author Organization [facility] [facility] Address [id number] [address] [place] [address] Care Team Providers Care Compliance Intern Name Role Phone Chato Ochoa MD Primary Care Provider [phone] Allergies Active Allergy Reactions Criticality Noted Date Comments Adhesive Other (See Comments) 08/25/2014 Other reaction(s): Unknown Egg Diarrhea Medium 08/25/2014 Egg Derived Vomiting 01/25/2018 Phenergan Plain 02/25/2017 Suppository Promethazine Other (See Comments) Medium 08/25/2014 Promethazine Hcl Swelling 04/16/2017 Silk 01/25/2018 Allergic to silk sutures, jd, and cat gut sutures. Medications eszopiclone (LUNESTA) tablet Take 3 mg by mouth nightly. Take immediately before bedtime Active cyanocobalamin (vitamin B-12) 1000 MCG tablet Take 100 mcg by mouth daily. Weekly injection Active cholecalciferol (VITAMIN D3) 50,000 units capsule Take 50,000 Units by mouth daily. Active sertraline (ZOLOFT) 50 mg tablet Take 50 mg by mouth daily. 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 40 tablet 02/13/20 21 Active nitroglycerin (NITROSTAT) 0.[address] 1 tablet under the tongue if needed FOR ANGINA. MAY REPEAT EVERY 5 MINUTES FOR UP TO 3 DOSES PT WILL NEED APPT FOR FURTHER REFILLS 75 tablet 09/16/19 22 Active ondansetron ODT (ZOFRAN ODT) 4 mg disintegrating tablet Dissolve 1 tablet (4 mg total) on tongue every 8 (eight) hours as needed for nausea for up to 10 doses. 10 tablet 09/24/19 23 Active lidocaine (LIDODERM) 5 % Place 1 patch on the skin daily. Remove & Discard patch within 12 hours or as directed by MD 30 patch 09/24/19 23 Active HYDROcodone-acetam inophen (NORCO) 5-325 mg per tabletIndications: Acute right-sided back pain, unspecified back location Take 1 tablet by mouth every 6 (six) hours as needed for pain. Max Daily Amount: 4 tablets 12 tablet 09/24/19 23 Active sennosides-docusat e sodium (SENOKOT-S) 8.6-50 mg Take 1 tablet by mouth in the morning. 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 02/09/2017 Hyperlipidemia 02/09/2017 Other specified diabetes mellitus without compli cations 02/09/2017 Family History Medical History Relation Name Comments Heart disease Brother Colon cancer Father Lung cancer Father Colon cancer Mother Heart disease Sister Relation Name Status Comments Brother Father Mother Sister Social History Tobacco Use Types Packs/Day Years Used Date Smoking Tobacco: Former Cigarettes Smokeless Tobacco: Never Tobacco Cessation:Counseling Given: Not Answered Alcohol Use Standard Drinks/Week Comments No 0 (1 standard drink = 0.6 oz pur e alcohol) Childcare Answer Date Recorded Childcare Unknown 02/16/2019 Employment Answer Date Recorded Employment Unknown 02/16/2019 Hunger Screening Answer Date Recorded Within the past 12 months we worried whether our food would run out before we got money to buy more. Never True 03/15/2024 Within the past 12 months th e food we bought just didn't last and we didn't have money to get more. Never True 03/15/2024 Purpose - Life Answer Date Recorded Purpose and direction in life Unknown Comments Unknown Sex and Gender Information Value Date Recorded Sex Assigned at Not on file Legal Sex Female 12:05 PM EDT Gender Identity Not on file Sexual Orientation Not on file Last Filed Vital Signs Vital Sign Reading Time Taken Comments Blood Pressure 154/108 03/15/2024 6:12 PM EDT Pulse 100 03/15/2024 6:12 PM EDT Temperature 36.9 C (98.4 F) 03/15/2024 6:12 PM EDT Respiratory Rate 16 03/15/2024 6:12 PM EDT Oxygen Saturation 93% 03/15/2024 6:12 PM EDT Inhaled Oxygen Concentration - - Weight 67.1 kg (148 lb) 03/15/2024 6:12 PM EDT Height 160 cm (5' 3 ) 03/15/2024 6:12 PM EDT Body Mass Index 26.22 03/15/2024 6:12 PM EDT Plan of Treatment Health Maintenance Due Date Last Done Comments Depression Screening 1962 Tobacco Screening 1962 DTaP,Tdap and Td Vaccines (1 - Tdap) 1969 Zoster (Shingles) Vaccine (1 of 2) 2000 Fall Risk Screening 2015 Adult BMI Screening 03/15/2025 03/15/2024 Influenza Vaccine 05/08/2025 Medical Devices Not on file Insurance [facility] MEDICARE Care Teams Compliance Intern Relationship Specialty Start Date End Date Chato Ochoa MD PCP - General Family Medicine 03/15/24
--- OUTSIDE RECORDS SUMMARY | 2025-04-13 14:53 | XMS_ITS | Encounter Summary ---
Author Organization [facility] Address [address] [place] [address] Care Team Providers Care Information Assurance Specialist Name Role Phone Wilner Soto MD Unavailable Wilner Soto MD Primary Care Provider [phone] Chato Ochoa MD Primary Care Provider [phone] Encounter Details Date Type Department Care Team (Late st Contact Info) Description 03/23/2023 [facility] [address] [facility] [address] [place] [address] A, Unknown Practice [address] [place], [place] [address] Social History Tobacco Use Types Packs/Day Years Used Date Smoking Tobacco: Never Assessed Comments Unknown Sex and Gender Information Value Date Recorded Sex Assigned at Not on file Legal Sex Female 6:59 PM EDT Gender Identity Not on file Sexual Orientation Not on file documented as of this encounter Plan of Treatment Not on file documented as of this encounter Procedures Procedure Name Priority Date/Time Associated Diagnosis Comments CT ABDOMEN & PELVIS WO Routine 3 3:41 PM EDT ELECTROCARDIOGRAM REPORT Routine 023 12:09 PM EDT documented in this encounter Results * CT ABDOMEN & PELVIS WO (03/21/2023 3:41 PM EDT) Anatomical Region Laterality Modality Radiographic Suzanne ging us Coco Marvin DO IMG XR PROCEDURES Final Resu lt * Electrocardiogram Report (03/21/2023 12:09 PM EDT) us Unknown Practice A IN CLINIC/BEDSIDE ORDERABLES Final Result documented in this encounter Visit Diagnoses Not on filedocumented in this encounter Care Teams Information Assurance Specialist Relationship Specialty Start Date End Date Wilner Soto MD 112 [facility] [address] [place] [address] PCP - Mckayla MARTINEZ 09/07/21 10/07/23 Wilner Soto MD 112 [facility] [address] [place] [address] PCP - General Family Medicine 03/24/23 03/15/24 Chato Ochoa MD 112 [facility] [address] [place] [address] PCP - General Family Medicine 03/16/24 documented as of this encounter
--- OUTSIDE RECORDS SUMMARY | 2025-04-13 14:53 | XMS_ITS | Encounter Summary ---
Author Organization [facility] Address [address] [place] [address] Care Team Providers Care Unit Supervisor Name Role Phone Wilner Soto MD Primary Care Provider [phone] Lam Mcclendon MD Unavailable Aruna Keyes BOOSTER OPERATOR Unavailable [phone] Source Comments In the event this information is protected by the Federal Confidentiality of Alcohol and Drug AbusePatient Records regulations: The Federal rules restrict any use of the information to criminally investigate or prosecute any alcohol or drug abuse patient.[facility] Encounter Details Date Type Department Care Team (Late st Contact Info) Description 11/26/2024 Patient [facility] [address] [address] Jeovanny Gutierrez MD [facility] [place] [address] Appointment Request Social History Tobacco [...] is lower risk 5 03/24/2023 Data from: https://www.neighborhoodatlas.medicine.[facility]/. 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 Not on file Not [...] on filedocumented in this encounter Care Teams Unit Supervisor Relationship Specialty Start Date End Date Wilner Soto MD PCP - General 11/13/06 Lam Mcclendon MD Referring Neurology 04/13/20 Aruna Keyes, BOOSTER OPERATOR [address] [place] [address] Referring Internal Medicine 10/26/23 documented as of this encounter
--- OUTSIDE RECORDS SUMMARY | 2025-04-13 14:53 | XMS_ITS | Clinical Summary ---
Author Organization [facility] Address [address] [place] [address] Phone Care Team Providers Care Regional Loss Prevention Manager Name Role Phone Generic Provider, No Assigned Pcp MD Primary Car e Provider Unavailable Social History Tobacco Use Types Packs/Day Years Used Date Smoking Tobacco: Never Assessed Comments Unknown Sex and Gender Information Value Date Recorded Sex Assigned at Not on file Legal Sex Female 6:20 PM EST Gender Identity Not on file Sexual Orientation Not on file Plan of Treatment Health Maintenance Due Date Last Done Comments CT Colonography 1950 Colonoscopy 1950 Colorectal Cancer Screening 1950 FIT-DNA (Cologuard) 1950 FIT 1950 Lipid Panel 1950 Medicare Annual Wellness Vis it (AWV) 1950 Sigmoidoscopy 1950 MMR Vaccines (1 of 1 - Stand zaina series) 1951 Diabetes Screening 1968 Hepatitis C Screening 1968 DTaP/Tdap/Td Vaccines (1 - Tdap) 1972 Mammogram 1990 Pneumococcal Vaccine (1 of 1 - PCV) 2000 Zoster Vaccines (1 of 2) 2000 RSV High Risk: (Elderly (60+ ) or Population) (1 - Risk 60-74 years 1-dose series) 2010 Bone Density Scan 2015 COVID-19 Vaccine ( - 2023-2 5 season) 2024 Influenza Vaccine (#1) 2025 HIB Vaccines Aged Out No longer eligi ble based on patient's age to complete this topic HPV Vaccines Aged Out No longer eligi ble based on patient's age to complete this topic Hepatitis A Vaccines Aged Out No long er eligible based on patient's age to complete this topic Hepatitis B Vaccines Aged Out No long er eligible based on patient's age to complete this topic IPV Vaccines Aged Out No longer eligi ble based on patient's age to complete this topic Meningococcal Vaccine Aged Out No noe manuel eligible based on patient's age to complete this topic Rotavirus Vaccines Aged Out No longer eligible based on patient's age to complete this topic Insurance [employer] MEDICARE ADVANTAGE [employer]M MEDICARE ADVANTAGE Care Teams Regional Loss Prevention Manager Relationship Specialty Start Date End Date Generic Provider, No Assigned Pcp, [place] [address] PCP - General Bottle Sorter 03/28/24
--- OUTSIDE RECORDS SUMMARY | 2025-04-13 14:53 | XMS_ITS | Encounter Summary ---
Author Organization [facility] Address [address] [place] [address] Care Team Providers Care Coding Compliance Specialist Name Role Phone Wilner Soto MD Unavailable Wilner Soto MD Primary Care Provider [phone] Chato Ochoa MD Primary Care Provider [phone] Encounter Details Date Type Department Care Team (Late st Contact Info) Description 03/24/2023 Abstract [facility] [address] [facility] [address] [place] [address] Wilner Soto MD 112 [facility] 110 [place] [address] Social History Tobacco Use Types Packs/Day Years [...] on filedocumented in this encounter Care Teams Coding Compliance Specialist Relationship Specialty Start Date End Date Wilner Soto MD 112 [facility] [address] [place] [address] PCP - Mckayla MARTINEZ 09/07/21 10/07/23 Wilner Soto MD [address] [address] PCP - General Family Medicine 03/24/23 03/15/24 Chato Ochoa MD [address] [address] PCP - General Family Medicine 03/16/24 documented as of this encounter
[2025-04-13 15:43] LABS: Hematocrit 41.7 % (36.0-48.0); Hemoglobin 14.3 g/dL (12.0-16.0); Immature Granulocytes Abs Auto 0.03 10^3/uL (0.00-0.03); Immature Granulocytes Pct Auto 0.3 % (0.0-0.5); Lymphocytes Absolute Auto 3.0 10^3/uL (1.2-3.8); Mean Corpuscular HGB Conc 34.3 g/dL (29.9-35.2); Mean Corpuscular Hemoglobin 29.4 pg (26.7-34.0); Mean Corpuscular Volume 85.8 fL (81.0-99.0); Platelet Count 296 10^3/uL (150-450); Red Blood Count 4.86 10^6/uL (4.20-5.40); White Blood Count 8.8 10^3/uL (4.0-11.0)
[2025-04-13 15:47] LABS: Alanine Aminotransferase 29 U/L (14-59); Albumin Globulin Ratio 1.0; Albumin Level 4.0 g/dL (3.4-5.0); Alkaline Phosphatase 106 U/L (46-116); Anion Gap 11.1; Aspartate Amino Transferase 18 U/L (15-37); Blood Urea Nitrogen 28.0 mg/dL (7.0-18.0); Calcium 9.8 mg/dL (8.5-10.1); Carbon Dioxide 26.0 mmol/L (21.0-32.0); Chloride 107 mmol/L (98-107); Estimated GFR (African America 47 (>=60 mL/min/1.73m^2); Estimated GFR (Non-African Ame 39 (>=60 mL/min/1.73m^2); Free T3 2.57 pg/mL (2.18-3.98); Globulin 3.9 g/dL; Glucose 118 mg/dL (74-106); Potassium 4.1 mmol/L (3.5-5.1); Sodium 140 mmol/L (136-145); Thyroid Stimulating Hormone 0.359 uIU/mL (0.358-3.740); Total Protein 7.9 g/dL (6.4-8.2)
== END 2025-04-13 14:48 | disposition home or self-care (01) ==
LOC: LAB 14:49
PROVIDERS: PCP Family Medicine; Visit Provider Family Medicine
DX: I10 Essential (primary) hypertension (principal); R53.83 Other fatigue
CPT/HCPCS: 36415; 80053; 84436; 84443; 84481; 85025

== ENCOUNTER 2025-04-18 09:30 | Outpatient (OUT) | payer MEDICARE, SELFPAY ==
--- NOTE | 2025-04-18 | MR_ITS ---
The [address] [address] Patient Name: TERESA ANDRE MRN: [id number] date: 1950 Sex: F Assigned Patient Location: MRI Current Patient Location: MRI Accession/Order Number: [id number] Exam Date: 04/18/2025 12:04 Report Date: 04/18/2025 12:09 At the request of: NON-STAFF PHYSICIAN MD Procedure: MR head/brain wo/w con MRI BRAIN WITHOUT AND WITH INTRAVENOUS CONTRAST CLINICAL DATA: CSF leak COMPARISON: CT head 10/21/2024 FINDINGS: No restricted diffusion. Ventricles and sulci are normal in size and configuration for the patient's age. No shift of midline structure. Basal cisterns are patent. Mild periventricular and subcortical T2 prolongation identified suggestive of chronic small vessel ischemic disease. Intracranial vascular flow voids are maintained. No abnormal enhancement. No pachymeningeal thickening. No prominence of the pituitary gland. No engorgement /prominence of the dural venous sinuses. Mild paranasal sinus mucosal thickening. IMPRESSION: No MRI findings of intracranial hypotension, although correlation with history strongly recommended. Mild chronic small vessel changes. Negative acute intracranial process by MRI. Impression dictated by: Jonathon Khan M.D. 04/18/2025 12:09 PM Dictation Location: [place] [address] Electronically authenticated by: [id number] Date: 04/18/2025 12:09
== END 2025-04-18 09:31 | disposition home or self-care (01) ==
LOC: MRI 09:31
PROVIDERS: PCP Family Medicine
DX: G96.00 Cerebrospinal fluid leak, unspecified (principal)
CPT/HCPCS: 70553; A9575